=== PATIENT | male | born 1975 | race Caucasian/White ===

== ENCOUNTER 2020-05-26 12:31 | Outpatient (REF) | payer OTHER, SELFPAY ==
[2020-05-26 13:29] LABS: MANUAL DIFF FLAG NO
[2020-05-26 13:36] LABS: Basophils Percent Auto 0.6 % (0-2); Eosinophils Absolute Auto 0.2 X10*3/uL (0.0-0.4); Eosinophils Percent Auto 2.8 % (0-4); Hemoglobin 13.7 g/dl (14.0-18.0); Imm Gran Abs Auto 0.02 X10*3/uL (0.00-0.03); Imm Gran Pct Auto 0.3 % (0.0-0.4); Lymphocytes Absolute Auto 2.2 X10*3/uL (1.2-4.9); Lymphocytes Percent Auto 35.5 % (20-40); Mean Corpuscular HGB Conc 34.3 g/dl (31.0-36.0); Mean Corpuscular Hemoglobin 30.6 pg (27.0-33.0); Mean Corpuscular Volume 89.5 fL (80-98); Mean Platelet Volume 10.6 fL (9.4-12.4); Monocytes Absolute Auto 0.7 X10*3/uL (0.1-1.2); Monocytes Percent Auto 10.5 % (2-11); Neut%MD 50.3 %; Neutrophils Absolute Auto 3.1 X10*3/uL (2.0-8.3); Neutrophils Percent Auto 50.3 % (45-73); Platelet Count 233 X10*3/uL (160-400); Red Blood Count 4.47 X10*6/uL (4.60-5.80); Red Cell Distribution Width 13.2 % (11.0-16.0); WBCANC 6.2 X10*3/uL; White Blood Count 6.2 X10*3/uL (4.8-10.8)
== END 2020-05-26 12:32 | disposition home or self-care (01) ==
LOC: HO.LABR 12:31
PROVIDERS: PCP Internal Medicine; Visit Provider Psychiatry & Neurology Psychiatry
DX: Z79.899 Other long term (current) drug therapy (principal)
CPT/HCPCS: 36415; 85025

== ENCOUNTER 2020-06-01 13:18 | Outpatient (REF) | payer OTHER, SELFPAY ==
[2020-06-01 14:33] LABS: MANUAL DIFF FLAG NO
[2020-06-01 14:38] LABS: Basophils Absolute Auto 0.1 X10*3/uL (0.0-0.2); Basophils Percent Auto 0.9 % (0-2); Eosinophils Absolute Auto 0.2 X10*3/uL (0.0-0.4); Eosinophils Percent Auto 2.8 % (0-4); Hematocrit 41.5 % (42-52); Hemoglobin 13.8 g/dl (14.0-18.0); Imm Gran Abs Auto 0.01 X10*3/uL (0.00-0.03); Imm Gran Pct Auto 0.2 % (0.0-0.4); Lymphocytes Percent Auto 34.9 % (20-40); Mean Corpuscular HGB Conc 33.3 g/dl (31.0-36.0); Mean Corpuscular Hemoglobin 29.9 pg (27.0-33.0); Mean Corpuscular Volume 89.8 fL (80-98); Mean Platelet Volume 10.7 fL (9.4-12.4); Monocytes Absolute Auto 0.5 X10*3/uL (0.1-1.2); Monocytes Percent Auto 7.7 % (2-11); Neut%MD 53.5 %; Neutrophils Absolute Auto 3.1 X10*3/uL (2.0-8.3); Neutrophils Percent Auto 53.5 % (45-73); Platelet Count 238 X10*3/uL (160-400); Red Blood Count 4.62 X10*6/uL (4.60-5.80); Red Cell Distribution Width 13.2 % (11.0-16.0); WBCANC 5.8 X10*3/uL; White Blood Count 5.8 X10*3/uL (4.8-10.8)
== END 2020-06-01 13:19 | disposition home or self-care (01) ==
LOC: HO.LABR 13:18
PROVIDERS: PCP Internal Medicine; Visit Provider Psychiatry & Neurology Psychiatry
DX: Z79.899 Other long term (current) drug therapy (principal)
CPT/HCPCS: 36415; 85025

== ENCOUNTER 2020-06-15 14:18 | Outpatient (REF) | payer OTHER, SELFPAY ==
[2020-06-15 15:06] LABS: MANUAL DIFF FLAG NO
[2020-06-15 15:12] LABS: Basophils Percent Auto 0.7 % (0-2); Eosinophils Absolute Auto 0.2 X10*3/uL (0.0-0.4); Eosinophils Percent Auto 3.3 % (0-4); Hematocrit 41.1 % (42-52); Hemoglobin 13.6 g/dl (14.0-18.0); Imm Gran Abs Auto 0.01 X10*3/uL (0.00-0.03); Imm Gran Pct Auto 0.2 % (0.0-0.4); Lymphocytes Percent Auto 35.2 % (20-40); Mean Corpuscular HGB Conc 33.1 g/dl (31.0-36.0); Mean Corpuscular Volume 90.5 fL (80-98); Mean Platelet Volume 10.5 fL (9.4-12.4); Monocytes Absolute Auto 0.8 X10*3/uL (0.1-1.2); Neut%MD 46.6 %; Neutrophils Absolute Auto 2.7 X10*3/uL (2.0-8.3); Neutrophils Percent Auto 46.6 % (45-73); Platelet Count 244 X10*3/uL (160-400); Red Blood Count 4.54 X10*6/uL (4.60-5.80); Red Cell Distribution Width 13.4 % (11.0-16.0); WBCANC 5.8 X10*3/uL; White Blood Count 5.8 X10*3/uL (4.8-10.8)
== END 2020-06-15 14:19 | disposition home or self-care (01) ==
LOC: HO.LABR 14:18
PROVIDERS: PCP Internal Medicine; Visit Provider Psychiatry & Neurology Psychiatry
DX: Z79.899 Other long term (current) drug therapy (principal)
CPT/HCPCS: 36415; 85025

== ENCOUNTER 2020-06-22 11:32 | Outpatient (REF) | payer OTHER, SELFPAY ==
[2020-06-22 11:49] LABS: MANUAL DIFF FLAG NO
[2020-06-22 11:55] LABS: Basophils Percent Auto 0.7 % (0-2); Eosinophils Absolute Auto 0.2 X10*3/uL (0.0-0.4); Eosinophils Percent Auto 2.7 % (0-4); Hematocrit 41.1 % (42-52); Hemoglobin 13.6 g/dl (14.0-18.0); Imm Gran Abs Auto 0.01 X10*3/uL (0.00-0.03); Imm Gran Pct Auto 0.2 % (0.0-0.4); Lymphocytes Absolute Auto 2.3 X10*3/uL (1.2-4.9); Lymphocytes Percent Auto 40.2 % (20-40); Mean Corpuscular HGB Conc 33.1 g/dl (31.0-36.0); Mean Corpuscular Hemoglobin 29.8 pg (27.0-33.0); Mean Corpuscular Volume 90.1 fL (80-98); Mean Platelet Volume 10.3 fL (9.4-12.4); Monocytes Absolute Auto 0.7 X10*3/uL (0.1-1.2); Monocytes Percent Auto 11.7 % (2-11); Neutrophils Absolute Auto 2.6 X10*3/uL (2.0-8.3); Neutrophils Percent Auto 44.5 % (45-73); Platelet Count 243 X10*3/uL (160-400); Red Blood Count 4.56 X10*6/uL (4.60-5.80); Red Cell Distribution Width 13.2 % (11.0-16.0); White Blood Count 5.8 X10*3/uL (4.8-10.8)
== END 2020-06-22 11:33 | disposition home or self-care (01) ==
LOC: HO.LABR 11:32
PROVIDERS: Visit Provider Psychiatry & Neurology Psychiatry
DX: Z79.899 Other long term (current) drug therapy (principal)
CPT/HCPCS: 36415; 85025

== ENCOUNTER 2020-06-30 13:17 | Outpatient (REF) | payer OTHER, SELFPAY ==
[2020-06-30 14:41] LABS: MANUAL DIFF FLAG NO
[2020-06-30 14:48] LABS: Basophils Absolute Auto 0.1 X10*3/uL (0.0-0.2); Basophils Percent Auto 0.8 % (0-2); Eosinophils Absolute Auto 0.1 X10*3/uL (0.0-0.4); Hematocrit 40.4 % (42-52); Hemoglobin 13.4 g/dl (14.0-18.0); Imm Gran Abs Auto 0.01 X10*3/uL (0.00-0.03); Imm Gran Pct Auto 0.2 % (0.0-0.4); Lymphocytes Absolute Auto 2.1 X10*3/uL (1.2-4.9); Lymphocytes Percent Auto 35.2 % (20-40); Mean Corpuscular HGB Conc 33.2 g/dl (31.0-36.0); Mean Corpuscular Hemoglobin 29.9 pg (27.0-33.0); Mean Corpuscular Volume 90.2 fL (80-98); Mean Platelet Volume 10.8 fL (9.4-12.4); Monocytes Absolute Auto 0.7 X10*3/uL (0.1-1.2); Monocytes Percent Auto 10.9 % (2-11); Neut%MD 50.9 %; Neutrophils Absolute Auto 3.1 X10*3/uL (2.0-8.3); Neutrophils Percent Auto 50.9 % (45-73); Platelet Count 234 X10*3/uL (160-400); Red Blood Count 4.48 X10*6/uL (4.60-5.80); Red Cell Distribution Width 13.2 % (11.0-16.0); WBCANC 6.1 X10*3/uL; White Blood Count 6.1 X10*3/uL (4.8-10.8)
== END 2020-06-30 13:18 | disposition home or self-care (01) ==
LOC: HO.LABR 13:17
PROVIDERS: PCP Internal Medicine; Visit Provider Psychiatry & Neurology Psychiatry
DX: Z79.899 Other long term (current) drug therapy (principal)
CPT/HCPCS: 36415; 85025

== ENCOUNTER 2020-08-03 12:19 | Outpatient (REF) | payer OTHER, SELFPAY ==
[2020-08-03 13:04] LABS: Basophils Percent Auto 0.5 % (0-2); Eosinophils Absolute Auto 0.2 X10*3/uL (0.0-0.4); Eosinophils Percent Auto 2.4 % (0-4); Hematocrit 41.3 % (42-52); Hemoglobin 13.8 g/dl (14.0-18.0); Imm Gran Abs Auto 0.02 X10*3/uL (0.00-0.03); Imm Gran Pct Auto 0.3 % (0.0-0.4); Lymphocytes Absolute Auto 2.5 X10*3/uL (1.2-4.9); Lymphocytes Percent Auto 38.8 % (20-40); MANUAL DIFF FLAG NO; Mean Corpuscular HGB Conc 33.4 g/dl (31.0-36.0); Mean Corpuscular Hemoglobin 30.2 pg (27.0-33.0); Mean Corpuscular Volume 90.4 fL (80-98); Mean Platelet Volume 10.7 fL (9.4-12.4); Monocytes Absolute Auto 0.5 X10*3/uL (0.1-1.2); Monocytes Percent Auto 7.9 % (2-11); Neutrophils Absolute Auto 3.2 X10*3/uL (2.0-8.3); Neutrophils Percent Auto 50.1 % (45-73); Platelet Count 232 X10*3/uL (160-400); Red Blood Count 4.57 X10*6/uL (4.60-5.80); Red Cell Distribution Width 13.2 % (11.0-16.0); White Blood Count 6.3 X10*3/uL (4.8-10.8)
== END 2020-08-03 12:20 | disposition home or self-care (01) ==
LOC: HO.LABR 12:19
PROVIDERS: PCP Internal Medicine; Visit Provider Psychiatry & Neurology Psychiatry
DX: Z79.899 Other long term (current) drug therapy (principal)
CPT/HCPCS: 36415; 85025

== ENCOUNTER 2020-08-25 11:37 | Outpatient (REF) | payer OTHER, SELFPAY ==
[2020-08-25 12:17] LABS: MANUAL DIFF FLAG NO
[2020-08-25 12:26] LABS: Basophils Percent Auto 0.6 % (0-2); Eosinophils Absolute Auto 0.2 X10*3/uL (0.0-0.4); Eosinophils Percent Auto 2.9 % (0-4); Hematocrit 41.9 % (42-52); Hemoglobin 13.8 g/dl (14.0-18.0); Imm Gran Abs Auto 0.02 X10*3/uL (0.00-0.03); Imm Gran Pct Auto 0.3 % (0.0-0.4); Lymphocytes Absolute Auto 2.2 X10*3/uL (1.2-4.9); Lymphocytes Percent Auto 34.7 % (20-40); Mean Corpuscular HGB Conc 32.9 g/dl (31.0-36.0); Mean Corpuscular Hemoglobin 29.8 pg (27.0-33.0); Mean Corpuscular Volume 90.5 fL (80-98); Mean Platelet Volume 10.6 fL (9.4-12.4); Monocytes Absolute Auto 0.6 X10*3/uL (0.1-1.2); Monocytes Percent Auto 9.3 % (2-11); Neutrophils Absolute Auto 3.3 X10*3/uL (2.0-8.3); Neutrophils Percent Auto 52.2 % (45-73); Platelet Count 227 X10*3/uL (160-400); Red Blood Count 4.63 X10*6/uL (4.60-5.80); White Blood Count 6.3 X10*3/uL (4.8-10.8)
== END 2020-08-25 11:38 | disposition home or self-care (01) ==
LOC: HO.LABR 11:37
PROVIDERS: PCP Internal Medicine; Visit Provider Psychiatry & Neurology Psychiatry
DX: Z79.899 Other long term (current) drug therapy (principal)
CPT/HCPCS: 36415; 85025

== ENCOUNTER 2020-09-07 12:25 | Outpatient (REF) | payer OTHER, SELFPAY ==
[2020-09-07 13:10] LABS: MANUAL DIFF FLAG NO
[2020-09-07 13:13] LABS: Basophils Absolute Auto 0.1 X10*3/uL (0.0-0.2); Basophils Percent Auto 0.8 % (0-2); Eosinophils Absolute Auto 0.2 X10*3/uL (0.0-0.4); Eosinophils Percent Auto 2.6 % (0-4); Hematocrit 40.3 % (42-52); Hemoglobin 13.6 g/dl (14.0-18.0); Imm Gran Abs Auto 0.01 X10*3/uL (0.00-0.03); Imm Gran Pct Auto 0.2 % (0.0-0.4); Lymphocytes Absolute Auto 1.9 X10*3/uL (1.2-4.9); Lymphocytes Percent Auto 31.1 % (20-40); Mean Corpuscular HGB Conc 33.7 g/dl (31.0-36.0); Mean Corpuscular Hemoglobin 30.4 pg (27.0-33.0); Mean Platelet Volume 10.8 fL (9.4-12.4); Monocytes Absolute Auto 0.5 X10*3/uL (0.1-1.2); Monocytes Percent Auto 8.4 % (2-11); Neut%MD 56.9 %; Neutrophils Absolute Auto 3.5 X10*3/uL (2.0-8.3); Neutrophils Percent Auto 56.9 % (45-73); Platelet Count 233 X10*3/uL (160-400); Red Blood Count 4.48 X10*6/uL (4.60-5.80); Red Cell Distribution Width 13.2 % (11.0-16.0); WBCANC 6.2 X10*3/uL; White Blood Count 6.2 X10*3/uL (4.8-10.8)
== END 2020-09-07 12:26 | disposition home or self-care (01) ==
LOC: HO.LABR 12:25
PROVIDERS: PCP Internal Medicine; Visit Provider Psychiatry & Neurology Psychiatry
DX: Z79.899 Other long term (current) drug therapy (principal)
CPT/HCPCS: 36415; 85025; 85048

== ENCOUNTER 2020-09-20 11:10 | Outpatient (REF) | payer OTHER, SELFPAY ==
[2020-09-20 12:02] LABS: MANUAL DIFF FLAG NO
[2020-09-20 12:09] LABS: Basophils Percent Auto 0.4 % (0-2); Eosinophils Absolute Auto 0.1 X10*3/uL (0.0-0.4); Eosinophils Percent Auto 1.9 % (0-4); Hematocrit 41.1 % (42-52); Hemoglobin 13.9 g/dl (14.0-18.0); Imm Gran Abs Auto 0.02 X10*3/uL (0.00-0.03); Imm Gran Pct Auto 0.3 % (0.0-0.4); Lymphocytes Absolute Auto 2.2 X10*3/uL (1.2-4.9); Lymphocytes Percent Auto 32.3 % (20-40); Mean Corpuscular HGB Conc 33.8 g/dl (31.0-36.0); Mean Corpuscular Volume 88.8 fL (80-98); Mean Platelet Volume 10.9 fL (9.4-12.4); Monocytes Absolute Auto 0.7 X10*3/uL (0.1-1.2); Monocytes Percent Auto 10.9 % (2-11); Neut%MD 54.2 %; Neutrophils Absolute Auto 3.7 X10*3/uL (2.0-8.3); Neutrophils Percent Auto 54.2 % (45-73); Platelet Count 233 X10*3/uL (160-400); Red Blood Count 4.63 X10*6/uL (4.60-5.80); Red Cell Distribution Width 12.9 % (11.0-16.0); WBCANC 6.8 X10*3/uL; White Blood Count 6.8 X10*3/uL (4.8-10.8)
== END 2020-09-20 11:11 | disposition home or self-care (01) ==
LOC: HO.LABR 11:10
PROVIDERS: PCP Internal Medicine; Visit Provider Psychiatry & Neurology Psychiatry
DX: Z79.899 Other long term (current) drug therapy (principal)
CPT/HCPCS: 36415; 85025; 85048

== ENCOUNTER 2020-10-20 10:12 | Outpatient (REF) | payer OTHER, SELFPAY ==
[2020-10-20 10:54] LABS: MANUAL DIFF FLAG NO
[2020-10-20 10:58] LABS: Basophils Absolute Auto 0.1 X10*3/uL (0.0-0.2); Eosinophils Absolute Auto 0.2 X10*3/uL (0.0-0.4); Eosinophils Percent Auto 2.9 % (0-4); Hematocrit 41.1 % (42-52); Hemoglobin 13.9 g/dl (14.0-18.0); Imm Gran Abs Auto 0.02 X10*3/uL (0.00-0.03); Imm Gran Pct Auto 0.3 % (0.0-0.4); Lymphocytes Absolute Auto 2.4 X10*3/uL (1.2-4.9); Lymphocytes Percent Auto 41.1 % (20-40); Mean Corpuscular HGB Conc 33.8 g/dl (31.0-36.0); Mean Corpuscular Hemoglobin 30.3 pg (27.0-33.0); Mean Corpuscular Volume 89.7 fL (80-98); Mean Platelet Volume 10.6 fL (9.4-12.4); Monocytes Absolute Auto 0.5 X10*3/uL (0.1-1.2); Monocytes Percent Auto 8.5 % (2-11); Neut%MD 46.2 %; Neutrophils Absolute Auto 2.7 X10*3/uL (2.0-8.3); Neutrophils Percent Auto 46.2 % (45-73); Platelet Count 220 X10*3/uL (160-400); Red Blood Count 4.58 X10*6/uL (4.60-5.80); Red Cell Distribution Width 12.9 % (11.0-16.0); WBCANC 5.9 X10*3/uL; White Blood Count 5.9 X10*3/uL (4.8-10.8)
== END 2020-10-20 10:13 | disposition home or self-care (01) ==
LOC: HO.LABR 10:12
PROVIDERS: PCP Internal Medicine; Visit Provider Psychiatry & Neurology Psychiatry
DX: Z79.899 Other long term (current) drug therapy (principal)
CPT/HCPCS: 36415; 85025; 85048

== ENCOUNTER 2020-11-08 10:14 | Outpatient (REF) | payer OTHER, SELFPAY ==
[2020-11-08 11:39] LABS: MANUAL DIFF FLAG NO
[2020-11-08 11:55] LABS: Basophils Absolute Auto 0.1 X10*3/uL (0.0-0.2); Basophils Percent Auto 0.8 % (0-2); Eosinophils Absolute Auto 0.1 X10*3/uL (0.0-0.4); Eosinophils Percent Auto 2.3 % (0-4); Hematocrit 41.4 % (42-52); Hemoglobin 13.6 g/dl (14.0-18.0); Imm Gran Abs Auto 0.01 X10*3/uL (0.00-0.03); Imm Gran Pct Auto 0.2 % (0.0-0.4); Lymphocytes Absolute Auto 2.4 X10*3/uL (1.2-4.9); Mean Corpuscular HGB Conc 32.9 g/dl (31.0-36.0); Mean Corpuscular Hemoglobin 29.9 pg (27.0-33.0); Monocytes Absolute Auto 0.7 X10*3/uL (0.1-1.2); Neut%MD 45.7 %; Neutrophils Absolute Auto 2.8 X10*3/uL (2.0-8.3); Neutrophils Percent Auto 45.7 % (45-73); Platelet Count 223 X10*3/uL (160-400); Red Blood Count 4.55 X10*6/uL (4.60-5.80); WBCANC 6.1 X10*3/uL; White Blood Count 6.1 X10*3/uL (4.8-10.8)
== END 2020-11-08 10:15 | disposition home or self-care (01) ==
LOC: HO.LABR 10:14
PROVIDERS: PCP Internal Medicine; Visit Provider Psychiatry & Neurology Psychiatry
DX: Z79.899 Other long term (current) drug therapy (principal)
CPT/HCPCS: 36415; 85025; 85048

== ENCOUNTER 2020-11-22 10:14 | Outpatient (REF) | payer OTHER, SELFPAY ==
[2020-11-22 10:45] LABS: MANUAL DIFF FLAG NO
[2020-11-22 10:52] LABS: Basophils Percent Auto 0.7 % (0-2); Eosinophils Absolute Auto 0.2 X10*3/uL (0.0-0.4); Eosinophils Percent Auto 2.6 % (0-4); Hematocrit 39.7 % (42-52); Hemoglobin 13.9 g/dl (14.0-18.0); Imm Gran Abs Auto 0.01 X10*3/uL (0.00-0.03); Imm Gran Pct Auto 0.2 % (0.0-0.4); Lymphocytes Absolute Auto 1.8 X10*3/uL (1.2-4.9); Lymphocytes Percent Auto 32.4 % (20-40); Mean Corpuscular Hemoglobin 31.4 pg (27.0-33.0); Mean Corpuscular Volume 89.6 fL (80-98); Mean Platelet Volume 10.4 fL (9.4-12.4); Monocytes Absolute Auto 0.6 X10*3/uL (0.1-1.2); Monocytes Percent Auto 10.9 % (2-11); Neutrophils Percent Auto 53.2 % (45-73); Platelet Count 220 X10*3/uL (160-400); Red Blood Count 4.43 X10*6/uL (4.60-5.80); Red Cell Distribution Width 13.2 % (11.0-16.0); White Blood Count 5.7 X10*3/uL (4.8-10.8)
== END 2020-11-22 10:15 | disposition home or self-care (01) ==
LOC: HO.LABR 10:14
PROVIDERS: PCP Internal Medicine; Visit Provider Psychiatry & Neurology Psychiatry
DX: Z79.899 Other long term (current) drug therapy (principal)
CPT/HCPCS: 36415; 85025; 85048

== ENCOUNTER 2020-12-14 12:20 | Outpatient (REF) | payer OTHER, SELFPAY ==
[2020-12-14 13:04] LABS: MANUAL DIFF FLAG NO
[2020-12-14 13:11] LABS: Basophils Percent Auto 0.5 % (0-2); Eosinophils Absolute Auto 0.2 X10*3/uL (0.0-0.4); Eosinophils Percent Auto 2.5 % (0-4); Hematocrit 40.8 % (42-52); Hemoglobin 13.5 g/dl (14.0-18.0); Imm Gran Abs Auto 0.03 X10*3/uL (0.00-0.03); Imm Gran Pct Auto 0.5 % (0.0-0.4); Lymphocytes Absolute Auto 1.8 X10*3/uL (1.2-4.9); Lymphocytes Percent Auto 29.8 % (20-40); Mean Corpuscular HGB Conc 33.1 g/dl (31.0-36.0); Mean Corpuscular Hemoglobin 30.1 pg (27.0-33.0); Mean Corpuscular Volume 91.1 fL (80-98); Mean Platelet Volume 10.3 fL (9.4-12.4); Monocytes Absolute Auto 0.6 X10*3/uL (0.1-1.2); Neutrophils Absolute Auto 3.5 X10*3/uL (2.0-8.3); Neutrophils Percent Auto 56.7 % (45-73); Platelet Count 235 X10*3/uL (160-400); Red Blood Count 4.48 X10*6/uL (4.60-5.80); Red Cell Distribution Width 13.1 % (11.0-16.0); White Blood Count 6.1 X10*3/uL (4.8-10.8)
== END 2020-12-14 12:21 | disposition home or self-care (01) ==
LOC: HO.LABR 12:20
PROVIDERS: PCP Internal Medicine; Visit Provider Psychiatry & Neurology Psychiatry
DX: Z79.899 Other long term (current) drug therapy (principal)
CPT/HCPCS: 36415; 85025; 85048

== ENCOUNTER 2021-01-10 11:12 | Outpatient (REF) | payer OTHER, SELFPAY ==
[2021-01-10 12:04] LABS: MANUAL DIFF FLAG NO
[2021-01-10 12:09] LABS: Basophils Percent Auto 0.8 % (0-2); Eosinophils Absolute Auto 0.2 X10*3/uL (0.0-0.4); Eosinophils Percent Auto 3.1 % (0-4); Hematocrit 39.9 % (42-52); Hemoglobin 13.2 g/dl (14.0-18.0); Imm Gran Abs Auto 0.02 X10*3/uL (0.00-0.03); Imm Gran Pct Auto 0.4 % (0.0-0.4); Lymphocytes Absolute Auto 1.8 X10*3/uL (1.2-4.9); Lymphocytes Percent Auto 33.5 % (20-40); Mean Corpuscular HGB Conc 33.1 g/dl (31.0-36.0); Mean Corpuscular Volume 90.7 fL (80-98); Mean Platelet Volume 10.5 fL (9.4-12.4); Monocytes Absolute Auto 0.6 X10*3/uL (0.1-1.2); Monocytes Percent Auto 10.9 % (2-11); Neut%MD 51.3 %; Neutrophils Absolute Auto 2.7 X10*3/uL (2.0-8.3); Neutrophils Percent Auto 51.3 % (45-73); Platelet Count 216 X10*3/uL (160-400); Red Cell Distribution Width 13.1 % (11.0-16.0); WBCANC 5.2 X10*3/uL; White Blood Count 5.2 X10*3/uL (4.8-10.8)
== END 2021-01-10 11:13 | disposition home or self-care (01) ==
LOC: HO.LABR 11:12
PROVIDERS: PCP Internal Medicine; Visit Provider Psychiatry & Neurology Psychiatry
DX: Z79.899 Other long term (current) drug therapy (principal)
CPT/HCPCS: 36415; 85025; 85048

== ENCOUNTER 2021-02-07 10:56 | Outpatient (REF) | payer OTHER, SELFPAY ==
[2021-02-07 11:49] LABS: MANUAL DIFF FLAG NO
[2021-02-07 12:03] LABS: Basophils Percent Auto 0.6 % (0-2); Eosinophils Absolute Auto 0.1 X10*3/uL (0.0-0.4); Eosinophils Percent Auto 1.8 % (0-4); Hematocrit 42.4 % (42-52); Hemoglobin 14.1 g/dl (14.0-18.0); Imm Gran Abs Auto 0.02 X10*3/uL (0.00-0.03); Imm Gran Pct Auto 0.3 % (0.0-0.4); Lymphocytes Absolute Auto 2.5 X10*3/uL (1.2-4.9); Lymphocytes Percent Auto 36.9 % (20-40); Mean Corpuscular HGB Conc 33.3 g/dl (31.0-36.0); Mean Corpuscular Volume 90.2 fL (80-98); Mean Platelet Volume 10.6 fL (9.4-12.4); Monocytes Absolute Auto 0.7 X10*3/uL (0.1-1.2); Monocytes Percent Auto 10.4 % (2-11); Neutrophils Absolute Auto 3.3 X10*3/uL (2.0-8.3); Platelet Count 225 X10*3/uL (160-400); Red Cell Distribution Width 13.1 % (11.0-16.0); White Blood Count 6.7 X10*3/uL (4.8-10.8)
== END 2021-02-07 10:57 | disposition home or self-care (01) ==
LOC: HO.LABR 10:56
PROVIDERS: PCP Internal Medicine; Visit Provider Psychiatry & Neurology Psychiatry
DX: Z79.899 Other long term (current) drug therapy (principal)
CPT/HCPCS: 36415; 85025; 85048

== ENCOUNTER 2021-03-06 10:21 | Outpatient (REF) | payer OTHER, SELFPAY ==
[2021-03-06 11:46] LABS: MANUAL DIFF FLAG NO
[2021-03-06 11:54] LABS: Basophils Percent Auto 0.8 % (0-2); Eosinophils Absolute Auto 0.1 X10*3/uL (0.0-0.4); Eosinophils Percent Auto 1.9 % (0-4); Hematocrit 45.1 % (42-52); Hemoglobin 15.1 g/dl (14.0-18.0); Imm Gran Abs Auto 0.02 X10*3/uL (0.00-0.03); Imm Gran Pct Auto 0.4 % (0.0-0.4); Lymphocytes Absolute Auto 1.9 X10*3/uL (1.2-4.9); Lymphocytes Percent Auto 35.5 % (20-40); Mean Corpuscular HGB Conc 33.5 g/dl (31.0-36.0); Mean Corpuscular Volume 89.7 fL (80-98); Mean Platelet Volume 11.2 fL (9.4-12.4); Monocytes Absolute Auto 0.4 X10*3/uL (0.1-1.2); Monocytes Percent Auto 8.2 % (2-11); Neutrophils Absolute Auto 2.8 X10*3/uL (2.0-8.3); Neutrophils Percent Auto 53.2 % (45-73); Platelet Count 239 X10*3/uL (160-400); Red Blood Count 5.03 X10*6/uL (4.60-5.80); Red Cell Distribution Width 13.1 % (11.0-16.0); White Blood Count 5.2 X10*3/uL (4.8-10.8)
== END 2021-03-06 10:22 | disposition home or self-care (01) ==
LOC: HO.LABR 10:21
PROVIDERS: PCP Internal Medicine; Visit Provider Psychiatry & Neurology Psychiatry
DX: Z79.899 Other long term (current) drug therapy (principal)
CPT/HCPCS: 36415; 85025; 85048

== ENCOUNTER 2021-03-21 10:46 | Outpatient (REF) | payer OTHER, SELFPAY ==
[2021-03-21 12:16] LABS: MANUAL DIFF FLAG NO
[2021-03-21 12:21] LABS: Basophils Percent Auto 0.6 % (0-2); Eosinophils Absolute Auto 0.2 X10*3/uL (0.0-0.4); Eosinophils Percent Auto 2.2 % (0-4); Hematocrit 40.7 % (42-52); Hemoglobin 13.4 g/dl (14.0-18.0); Imm Gran Abs Auto 0.01 X10*3/uL (0.00-0.03); Imm Gran Pct Auto 0.1 % (0.0-0.4); Lymphocytes Absolute Auto 2.7 X10*3/uL (1.2-4.9); Lymphocytes Percent Auto 39.4 % (20-40); Mean Corpuscular HGB Conc 32.9 g/dl (31.0-36.0); Mean Corpuscular Hemoglobin 29.8 pg (27.0-33.0); Mean Corpuscular Volume 90.4 fL (80-98); Mean Platelet Volume 11.1 fL (9.4-12.4); Monocytes Absolute Auto 0.7 X10*3/uL (0.1-1.2); Monocytes Percent Auto 10.7 % (2-11); Neutrophils Absolute Auto 3.2 X10*3/uL (2.0-8.3); Platelet Count 244 X10*3/uL (160-400); Red Cell Distribution Width 13.2 % (11.0-16.0); White Blood Count 6.8 X10*3/uL (4.8-10.8)
== END 2021-03-21 10:47 | disposition home or self-care (01) ==
LOC: HO.LABR 10:46
PROVIDERS: Visit Provider Psychiatry & Neurology Psychiatry
DX: Z79.899 Other long term (current) drug therapy (principal)
CPT/HCPCS: 36415; 85025; 85048

== ENCOUNTER 2021-04-12 11:11 | Outpatient (REF) | payer OTHER, SELFPAY ==
[2021-04-12 11:29] LABS: MANUAL DIFF FLAG NO
[2021-04-12 11:37] LABS: Basophils Percent Auto 0.6 % (0-2); Eosinophils Absolute Auto 0.1 X10*3/uL (0.0-0.4); Eosinophils Percent Auto 1.8 % (0-4); Hematocrit 44.5 % (42-52); Hemoglobin 15.1 g/dl (14.0-18.0); Imm Gran Abs Auto 0.02 X10*3/uL (0.00-0.03); Imm Gran Pct Auto 0.3 % (0.0-0.4); Lymphocytes Absolute Auto 2.3 X10*3/uL (1.2-4.9); Lymphocytes Percent Auto 36.9 % (20-40); Mean Corpuscular HGB Conc 33.9 g/dl (31.0-36.0); Mean Corpuscular Hemoglobin 30.6 pg (27.0-33.0); Mean Corpuscular Volume 90.3 fL (80-98); Mean Platelet Volume 10.5 fL (9.4-12.4); Monocytes Absolute Auto 0.5 X10*3/uL (0.1-1.2); Neutrophils Absolute Auto 3.3 X10*3/uL (2.0-8.3); Neutrophils Percent Auto 52.4 % (45-73); Platelet Count 258 X10*3/uL (160-400); Red Blood Count 4.93 X10*6/uL (4.60-5.80); Red Cell Distribution Width 13.5 % (11.0-16.0); White Blood Count 6.2 X10*3/uL (4.8-10.8)
== END 2021-04-12 11:12 | disposition home or self-care (01) ==
LOC: HO.LABR 11:11
PROVIDERS: PCP Internal Medicine; Visit Provider Psychiatry & Neurology Psychiatry
DX: Z79.899 Other long term (current) drug therapy (principal)
CPT/HCPCS: 36415; 85025; 85048

== ENCOUNTER 2021-05-16 10:15 | Outpatient (REF) | payer OTHER, SELFPAY ==
[2021-05-16 10:57] LABS: MANUAL DIFF FLAG NO
[2021-05-16 11:44] LABS: Basophils Percent Auto 0.5 % (0-2); Eosinophils Absolute Auto 0.1 X10*3/uL (0.0-0.4); Eosinophils Percent Auto 1.9 % (0-4); Hematocrit 41.6 % (42-52); Hemoglobin 13.8 g/dl (14.0-18.0); Imm Gran Abs Auto 0.01 X10*3/uL (0.00-0.03); Imm Gran Pct Auto 0.2 % (0.0-0.4); Lymphocytes Absolute Auto 1.9 X10*3/uL (1.2-4.9); Lymphocytes Percent Auto 29.2 % (20-40); Mean Corpuscular HGB Conc 33.2 g/dl (31.0-36.0); Mean Corpuscular Hemoglobin 29.9 pg (27.0-33.0); Mean Corpuscular Volume 90.2 fL (80-98); Mean Platelet Volume 10.8 fL (9.4-12.4); Monocytes Absolute Auto 0.6 X10*3/uL (0.1-1.2); Monocytes Percent Auto 9.5 % (2-11); Neutrophils Absolute Auto 3.8 X10*3/uL (2.0-8.3); Neutrophils Percent Auto 58.7 % (45-73); Platelet Count 240 X10*3/uL (160-400); Red Blood Count 4.61 X10*6/uL (4.60-5.80); Red Cell Distribution Width 13.2 % (11.0-16.0); White Blood Count 6.4 X10*3/uL (4.8-10.8)
== END 2021-05-16 10:16 | disposition home or self-care (01) ==
LOC: HO.LABR 10:15
PROVIDERS: Visit Provider Psychiatry & Neurology Psychiatry
DX: Z79.899 Other long term (current) drug therapy (principal)
CPT/HCPCS: 36415; 85025; 85048

== ENCOUNTER 2021-05-31 11:41 | Outpatient (REF) | payer OTHER, SELFPAY | END 2021-05-31 11:42 | disposition home or self-care (01) | LOC: HO.LAB 11:41 | PROVIDERS: PCP Internal Medicine; Visit Provider Internal Medicine | DX: Z20.822 Contact with and (suspected) exposure to COVID-19 (principal) | CPT/HCPCS: C9803; U0003; U0005 ==

== ENCOUNTER 2021-06-12 11:13 | Outpatient (REF) | payer OTHER, SELFPAY ==
[2021-06-12 11:31] LABS: MANUAL DIFF FLAG NO
[2021-06-12 12:57] LABS: Basophils Percent Auto 0.7 % (0-2); Eosinophils Absolute Auto 0.1 X10*3/uL (0.0-0.4); Eosinophils Percent Auto 1.8 % (0-4); Hematocrit 43.2 % (42-52); Hemoglobin 14.7 g/dl (14.0-18.0); Imm Gran Abs Auto 0.01 X10*3/uL (0.00-0.03); Imm Gran Pct Auto 0.2 % (0.0-0.4); Lymphocytes Absolute Auto 1.9 X10*3/uL (1.2-4.9); Lymphocytes Percent Auto 31.3 % (20-40); Mean Corpuscular Hemoglobin 30.6 pg (27.0-33.0); Mean Platelet Volume 11.2 fL (9.4-12.4); Monocytes Absolute Auto 0.6 X10*3/uL (0.1-1.2); Monocytes Percent Auto 9.2 % (2-11); Neut%MD 56.8 %; Neutrophils Absolute Auto 3.5 X10*3/uL (2.0-8.3); Neutrophils Percent Auto 56.8 % (45-73); Platelet Count 251 X10*3/uL (160-400); Red Cell Distribution Width 13.1 % (11.0-16.0); WBCANC 6.1 X10*3/uL; White Blood Count 6.1 X10*3/uL (4.8-10.8)
== END 2021-06-12 11:14 | disposition home or self-care (01) ==
LOC: HO.LABR 11:13
PROVIDERS: Visit Provider Psychiatry & Neurology Psychiatry
DX: Z79.899 Other long term (current) drug therapy (principal)
CPT/HCPCS: 36415; 85025

== ENCOUNTER 2021-07-11 11:13 | Outpatient (REF) | payer OTHER, SELFPAY ==
[2021-07-11 11:32] LABS: MANUAL DIFF FLAG NO
[2021-07-11 11:40] LABS: Basophils Percent Auto 0.7 % (0-2); Eosinophils Absolute Auto 0.1 X10*3/uL (0.0-0.4); Hematocrit 43.6 % (42.0-52.0); Hemoglobin 14.5 g/dl (14.0-18.0); Imm Gran Abs Auto 0.01 X10*3/uL (0.00-0.03); Imm Gran Pct Auto 0.2 % (0.0-0.4); Lymphocytes Absolute Auto 1.8 X10*3/uL (1.2-4.9); Lymphocytes Percent Auto 31.6 % (20-40); Mean Corpuscular HGB Conc 33.3 g/dl (31.0-36.0); Mean Corpuscular Volume 90.3 fL (80.0-98.0); Mean Platelet Volume 10.5 fL (9.4-12.4); Monocytes Absolute Auto 0.6 X10*3/uL (0.1-1.2); Monocytes Percent Auto 10.2 % (2-11); Neutrophils Absolute Auto 3.1 x10*3/uL (2.0-8.3); Neutrophils Percent Auto 55.3 % (45-73); Platelet Count 239 X10*3/uL (160-400); Red Blood Count 4.83 X10*6/uL (4.60-5.80); White Blood Count 5.6 X10*3/uL (4.8-10.8)
== END 2021-07-11 11:14 | disposition home or self-care (01) ==
LOC: HO.LABR 11:13
PROVIDERS: PCP Internal Medicine; Visit Provider Psychiatry & Neurology Psychiatry
DX: Z79.899 Other long term (current) drug therapy (principal)
CPT/HCPCS: 36415; 85025

== ENCOUNTER 2021-08-09 13:18 | Outpatient (REF) | payer OTHER, SELFPAY ==
[2021-08-09 13:30] LABS: MANUAL DIFF FLAG NO
[2021-08-09 13:53] LABS: Basophils Percent Auto 0.5 % (0-2); Eosinophils Absolute Auto 0.1 X10*3/uL (0.0-0.4); Eosinophils Percent Auto 1.5 % (0-4); Hematocrit 43.7 % (42.0-52.0); Hemoglobin 14.8 g/dl (14.0-18.0); Imm Gran Abs Auto 0.01 X10*3/uL (0.00-0.03); Imm Gran Pct Auto 0.2 % (0.0-0.4); Lymphocytes Absolute Auto 1.5 X10*3/uL (1.2-4.9); Lymphocytes Percent Auto 25.7 % (20-40); Mean Corpuscular HGB Conc 33.9 g/dl (31.0-36.0); Mean Corpuscular Hemoglobin 30.4 pg (27.0-33.0); Mean Corpuscular Volume 89.7 fL (80.0-98.0); Mean Platelet Volume 10.4 fL (9.4-12.4); Monocytes Absolute Auto 0.5 X10*3/uL (0.1-1.2); Monocytes Percent Auto 8.7 % (2-11); Neutrophils Absolute Auto 3.7 x10*3/uL (2.0-8.3); Neutrophils Percent Auto 63.4 % (45-73); Platelet Count 236 X10*3/uL (160-400); Red Blood Count 4.87 X10*6/uL (4.60-5.80); Red Cell Distribution Width 13.1 % (11.0-16.0); White Blood Count 5.9 X10*3/uL (4.8-10.8)
== END 2021-08-09 13:19 | disposition home or self-care (01) ==
LOC: HO.LABR 13:18
PROVIDERS: Visit Provider Psychiatry & Neurology Psychiatry
DX: Z79.899 Other long term (current) drug therapy (principal)
CPT/HCPCS: 36415; 85025; 85048

== ENCOUNTER 2021-09-07 12:35 | Outpatient (REF) | payer OTHER, SELFPAY ==
[2021-09-07 12:50] LABS: MANUAL DIFF FLAG NO
[2021-09-07 13:12] LABS: Basophils Absolute Auto 0.1 X10*3/uL (0.0-0.2); Basophils Percent Auto 0.7 % (0-2); Eosinophils Absolute Auto 0.1 X10*3/uL (0.0-0.4); Eosinophils Percent Auto 1.9 % (0-4); Hematocrit 42.5 % (42.0-52.0); Hemoglobin 14.2 g/dl (14.0-18.0); Imm Gran Abs Auto 0.02 X10*3/uL (0.00-0.03); Imm Gran Pct Auto 0.3 % (0.0-0.4); Lymphocytes Absolute Auto 2.2 X10*3/uL (1.2-4.9); Lymphocytes Percent Auto 31.6 % (20-40); Mean Corpuscular HGB Conc 33.4 g/dl (31.0-36.0); Mean Corpuscular Hemoglobin 30.1 pg (27.0-33.0); Mean Corpuscular Volume 90.2 fL (80.0-98.0); Mean Platelet Volume 10.7 fL (9.4-12.4); Monocytes Absolute Auto 0.6 X10*3/uL (0.1-1.2); Monocytes Percent Auto 8.9 % (2-11); Neutrophils Absolute Auto 3.9 x10*3/uL (2.0-8.3); Neutrophils Percent Auto 56.6 % (45-73); Platelet Count 259 X10*3/uL (160-400); Red Blood Count 4.71 X10*6/uL (4.60-5.80)
[2021-09-07 13:48] LABS: Alanine Aminotransferase 22 U/L (0-40); Albumin Level 4.4 g/dL (3.5-5.0); Alkaline Phosphatase 96 U/L (39-117); Anion Gap 14 (12-20); Aspartate Amino Transferase 15 U/L (5-37); Bilirubin Total 0.5 mg/dL (0.0-1.0); Blood Urea Nitrogen 14 mg/dL (9-16); Calcium 9.9 mg/dL (8.4-10.2); Carbon Dioxide 26 mmol/L (22-29); Chloride 104 mmol/L (96-108); Cholesterol 258 mg/dL; Estimated Glomerular Filt Rate > 60; Glucose Fasting 127 mg/dL (60-99); HDL Cholesterol 38 mg/dL; Potassium 4.2 mmol/L (3.3-5.1); Sodium 140 mmol/L (135-145); Total Protein 7.8 g/dL (6.5-8.0); Triglycerides 424 mg/dL
[2021-09-07 14:08] LABS: Thyroid Stimulating Hormone 2.67 uIU/mL (0.32-4.0)
== END 2021-09-07 12:36 | disposition home or self-care (01) ==
LOC: HO.LABR 12:35
PROVIDERS: PCP Internal Medicine; Visit Provider Psychiatry & Neurology Psychiatry
DX: Z00.00 Encounter for general adult medical examination without abnormal findings (principal); Z13.0 Encounter for screening for diseases of the blood and blood-forming organs and certain disorders involving the immune mechanism; Z79.899 Other long term (current) drug therapy
CPT/HCPCS: 36415; 80053; 80061; 84443; 85025

== ENCOUNTER 2021-10-03 11:21 | Outpatient (REF) | payer OTHER, SELFPAY ==
[2021-10-03 11:42] LABS: MANUAL DIFF FLAG NO
[2021-10-03 11:52] LABS: Basophils Percent Auto 0.1 % (0-2); Eosinophils Absolute Auto 0.1 X10*3/uL (0.0-0.4); Eosinophils Percent Auto 1.3 % (0-4); Hemoglobin 12.9 g/dl (14.0-18.0); Imm Gran Abs Auto 0.02 X10*3/uL (0.00-0.03); Imm Gran Pct Auto 0.3 % (0.0-0.4); Lymphocytes Absolute Auto 1.8 X10*3/uL (1.2-4.9); Lymphocytes Percent Auto 25.8 % (20-40); Mean Corpuscular HGB Conc 33.1 g/dl (31.0-36.0); Mean Corpuscular Volume 90.7 fL (80.0-98.0); Mean Platelet Volume 10.2 fL (9.4-12.4); Monocytes Absolute Auto 0.8 X10*3/uL (0.1-1.2); Neutrophils Absolute Auto 4.2 x10*3/uL (2.0-8.3); Neutrophils Percent Auto 61.5 % (45-73); Platelet Count 309 X10*3/uL (160-400); Red Cell Distribution Width 12.8 % (11.0-16.0); White Blood Count 6.8 X10*3/uL (4.8-10.8)
== END 2021-10-03 11:22 | disposition home or self-care (01) ==
LOC: HO.LABR 11:21
PROVIDERS: PCP Internal Medicine; Visit Provider Psychiatry & Neurology Psychiatry
DX: Z79.899 Other long term (current) drug therapy (principal)
CPT/HCPCS: 36415; 85025

== ENCOUNTER 2021-11-02 11:14 | Outpatient (REF) | payer OTHER, SELFPAY ==
[2021-11-02 11:32] LABS: MANUAL DIFF FLAG NO
[2021-11-02 12:31] LABS: Basophils Percent Auto 0.4 % (0-2); Eosinophils Absolute Auto 0.2 X10*3/uL (0.0-0.4); Eosinophils Percent Auto 2.2 % (0-4); Hematocrit 43.4 % (42.0-52.0); Hemoglobin 13.7 g/dl (14.0-18.0); Imm Gran Abs Auto 0.02 X10*3/uL (0.00-0.03); Imm Gran Pct Auto 0.3 % (0.0-0.4); Lymphocytes Absolute Auto 2.4 X10*3/uL (1.2-4.9); Lymphocytes Percent Auto 32.9 % (20-40); Mean Corpuscular HGB Conc 31.6 g/dl (31.0-36.0); Mean Corpuscular Hemoglobin 29.4 pg (27.0-33.0); Mean Corpuscular Volume 93.1 fL (80.0-98.0); Mean Platelet Volume 11.2 fL (9.4-12.4); Monocytes Absolute Auto 0.5 X10*3/uL (0.1-1.2); Monocytes Percent Auto 7.2 % (2-11); Neutrophils Absolute Auto 4.1 x10*3/uL (2.0-8.3); Platelet Count 218 X10*3/uL (160-400); Red Blood Count 4.66 X10*6/uL (4.60-5.80); Red Cell Distribution Width 13.8 % (11.0-16.0); White Blood Count 7.2 X10*3/uL (4.8-10.8)
== END 2021-11-02 11:15 | disposition home or self-care (01) ==
LOC: HO.LABR 11:14
PROVIDERS: PCP Internal Medicine; Visit Provider Psychiatry & Neurology Psychiatry
DX: Z79.899 Other long term (current) drug therapy (principal)
CPT/HCPCS: 36415; 85025

== ENCOUNTER 2021-12-05 11:17 | Outpatient (REF) | payer OTHER, SELFPAY ==
[2021-12-05 11:47] LABS: MANUAL DIFF FLAG NO
[2021-12-05 12:28] LABS: Basophils Percent Auto 0.5 % (0-2); Eosinophils Absolute Auto 0.1 X10*3/uL (0.0-0.4); Eosinophils Percent Auto 1.5 % (0-4); Hematocrit 42.9 % (42.0-52.0); Hemoglobin 14.2 g/dl (14.0-18.0); Imm Gran Abs Auto 0.02 X10*3/uL (0.00-0.03); Imm Gran Pct Auto 0.3 % (0.0-0.4); Lymphocytes Percent Auto 25.2 % (20-40); Mean Corpuscular HGB Conc 33.1 g/dl (31.0-36.0); Mean Corpuscular Volume 90.7 fL (80.0-98.0); Mean Platelet Volume 10.9 fL (9.4-12.4); Monocytes Absolute Auto 0.7 X10*3/uL (0.1-1.2); Monocytes Percent Auto 8.8 % (2-11); Neutrophils Percent Auto 63.7 % (45-73); Platelet Count 232 X10*3/uL (160-400); Red Blood Count 4.73 X10*6/uL (4.60-5.80); Red Cell Distribution Width 13.4 % (11.0-16.0); White Blood Count 7.8 X10*3/uL (4.8-10.8)
== END 2021-12-05 11:18 | disposition home or self-care (01) ==
LOC: HO.LABR 11:17
PROVIDERS: PCP Internal Medicine; Visit Provider Psychiatry & Neurology Psychiatry
DX: Z79.899 Other long term (current) drug therapy (principal)
CPT/HCPCS: 36415; 85025; 85048

== ENCOUNTER 2021-12-29 10:19 | Outpatient (REF) | payer OTHER, SELFPAY ==
[2021-12-29 10:40] LABS: MANUAL DIFF FLAG NO
[2021-12-29 10:58] LABS: Basophils Absolute Auto 0.1 X10*3/uL (0.0-0.2); Basophils Percent Auto 0.8 % (0-2); Eosinophils Absolute Auto 0.2 X10*3/uL (0.0-0.4); Hematocrit 37.4 % (42.0-52.0); Hemoglobin 12.3 g/dl (14.0-18.0); Imm Gran Abs Auto 0.02 X10*3/uL (0.00-0.03); Imm Gran Pct Auto 0.3 % (0.0-0.4); Lymphocytes Absolute Auto 2.3 X10*3/uL (1.2-4.9); Mean Corpuscular HGB Conc 32.9 g/dl (31.0-36.0); Mean Corpuscular Hemoglobin 29.6 pg (27.0-33.0); Mean Corpuscular Volume 90.1 fL (80.0-98.0); Mean Platelet Volume 10.5 fL (9.4-12.4); Monocytes Absolute Auto 0.7 X10*3/uL (0.1-1.2); Monocytes Percent Auto 9.8 % (2-11); Neutrophils Absolute Auto 3.5 x10*3/uL (2.0-8.3); Neutrophils Percent Auto 52.1 % (45-73); Platelet Count 223 X10*3/uL (160-400); Red Blood Count 4.15 X10*6/uL (4.60-5.80); Red Cell Distribution Width 13.9 % (11.0-16.0); White Blood Count 6.6 X10*3/uL (4.8-10.8)
== END 2021-12-29 10:20 | disposition home or self-care (01) ==
LOC: HO.LABR 10:19
PROVIDERS: PCP Internal Medicine; Visit Provider Psychiatry & Neurology Psychiatry
DX: Z79.899 Other long term (current) drug therapy (principal)
CPT/HCPCS: 36415; 85025

== ENCOUNTER 2022-01-31 15:52 | Outpatient (REF) | payer OTHER, SELFPAY ==
[2022-01-31 16:10] LABS: MANUAL DIFF FLAG NO
[2022-01-31 16:54] LABS: Basophils Percent Auto 0.5 % (0-2); Eosinophils Absolute Auto 0.1 X10*3/uL (0.0-0.4); Eosinophils Percent Auto 1.6 % (0-4); Hematocrit 40.7 % (42.0-52.0); Hemoglobin 13.7 g/dl (14.0-18.0); Imm Gran Abs Auto 0.02 X10*3/uL (0.00-0.03); Imm Gran Pct Auto 0.3 % (0.0-0.4); Lymphocytes Absolute Auto 1.9 X10*3/uL (1.2-4.9); Lymphocytes Percent Auto 23.8 % (20-40); Mean Corpuscular HGB Conc 33.7 g/dl (31.0-36.0); Mean Corpuscular Hemoglobin 30.2 pg (27.0-33.0); Mean Corpuscular Volume 89.8 fL (80.0-98.0); Mean Platelet Volume 11.3 fL (9.4-12.4); Monocytes Absolute Auto 0.5 X10*3/uL (0.1-1.2); Monocytes Percent Auto 6.4 % (2-11); Neutrophils Absolute Auto 5.4 x10*3/uL (2.0-8.3); Neutrophils Percent Auto 67.4 % (45-73); Platelet Count 215 X10*3/uL (160-400); Red Blood Count 4.53 X10*6/uL (4.60-5.80); Red Cell Distribution Width 13.1 % (11.0-16.0)
== END 2022-01-31 15:53 | disposition home or self-care (01) ==
LOC: HO.LABR 15:52
PROVIDERS: PCP Internal Medicine; Visit Provider Psychiatry & Neurology Psychiatry
DX: Z79.899 Other long term (current) drug therapy (principal)
CPT/HCPCS: 36415; 85025

== ENCOUNTER 2022-02-12 12:20 | Outpatient (REF) | payer OTHER, SELFPAY ==
[2022-02-12 12:32] LABS: MANUAL DIFF FLAG NO
[2022-02-12 13:05] LABS: Basophils Percent Auto 0.3 % (0-2); Eosinophils Absolute Auto 0.1 X10*3/uL (0.0-0.4); Eosinophils Percent Auto 2.1 % (0-4); Hematocrit 41.5 % (42.0-52.0); Hemoglobin 13.6 g/dl (14.0-18.0); Imm Gran Abs Auto 0.02 X10*3/uL (0.00-0.03); Imm Gran Pct Auto 0.3 % (0.0-0.4); Lymphocytes Absolute Auto 1.8 X10*3/uL (1.2-4.9); Lymphocytes Percent Auto 28.8 % (20-40); Mean Corpuscular HGB Conc 32.8 g/dl (31.0-36.0); Mean Corpuscular Hemoglobin 29.6 pg (27.0-33.0); Mean Corpuscular Volume 90.4 fL (80.0-98.0); Mean Platelet Volume 10.9 fL (9.4-12.4); Monocytes Absolute Auto 0.6 X10*3/uL (0.1-1.2); Monocytes Percent Auto 10.1 % (2-11); Neutrophils Absolute Auto 3.7 x10*3/uL (2.0-8.3); Neutrophils Percent Auto 58.4 % (45-73); Platelet Count 211 X10*3/uL (160-400); Red Blood Count 4.59 X10*6/uL (4.60-5.80); Red Cell Distribution Width 13.1 % (11.0-16.0); White Blood Count 6.3 X10*3/uL (4.8-10.8)
[2022-02-12 15:19] LABS: Cholesterol 130 mg/dL; HDL Cholesterol 36 mg/dL; LDL Cholesterol Calculated 58 mg/dl; Triglycerides 180 mg/dL
== END 2022-02-12 12:21 | disposition home or self-care (01) ==
LOC: HO.LABR 12:20
PROVIDERS: PCP Internal Medicine; Visit Provider Psychiatry & Neurology Psychiatry
DX: Z13.9 Encounter for screening, unspecified (principal); Z79.899 Other long term (current) drug therapy
CPT/HCPCS: 36415; 80061; 85025; 85048

== ENCOUNTER 2022-02-27 12:22 | Outpatient (REF) | payer OTHER, SELFPAY ==
[2022-02-27 12:35] LABS: MANUAL DIFF FLAG NO
[2022-02-27 12:55] LABS: Basophils Percent Auto 0.5 % (0-2); Eosinophils Absolute Auto 0.1 X10*3/uL (0.0-0.4); Eosinophils Percent Auto 2.1 % (0-4); Hematocrit 39.4 % (42.0-52.0); Hemoglobin 13.2 g/dl (14.0-18.0); Imm Gran Abs Auto 0.01 X10*3/uL (0.00-0.03); Imm Gran Pct Auto 0.2 % (0.0-0.4); Lymphocytes Absolute Auto 1.7 X10*3/uL (1.2-4.9); Lymphocytes Percent Auto 27.2 % (20-40); Mean Corpuscular HGB Conc 33.5 g/dl (31.0-36.0); Mean Corpuscular Hemoglobin 29.9 pg (27.0-33.0); Mean Corpuscular Volume 89.3 fL (80.0-98.0); Mean Platelet Volume 10.9 fL (9.4-12.4); Monocytes Absolute Auto 0.5 X10*3/uL (0.1-1.2); Neutrophils Absolute Auto 3.9 x10*3/uL (2.0-8.3); Platelet Count 225 X10*3/uL (160-400); Red Blood Count 4.41 X10*6/uL (4.60-5.80); Red Cell Distribution Width 12.8 % (11.0-16.0); WBCANC 6.2 X10*3/uL; White Blood Count 6.2 X10*3/uL (4.8-10.8)
== END 2022-02-27 12:23 | disposition home or self-care (01) ==
LOC: HO.LABR 12:22
PROVIDERS: PCP Internal Medicine; Visit Provider Psychiatry & Neurology Psychiatry
DX: Z79.899 Other long term (current) drug therapy (principal)
CPT/HCPCS: 36415; 85025

== ENCOUNTER 2022-03-27 11:14 | Outpatient (REF) | payer OTHER, SELFPAY ==
[2022-03-27 12:05] LABS: Basophils Percent Auto 0.7 % (0-2); PLT CLUMP 1; SCAN SMEAR FLAG 1
[2022-03-27 12:07] LABS: Eosinophils Absolute Auto 0.1 X10*3/uL (0.0-0.4); Eosinophils Percent Auto 1.6 % (0-4); Hematocrit 41.7 % (42.0-52.0); Hemoglobin 13.9 g/dl (14.0-18.0); Imm Gran Abs Auto 0.02 X10*3/uL (0.00-0.03); Imm Gran Pct Auto 0.4 % (0.0-0.4); Lymphocytes Absolute Auto 1.6 X10*3/uL (1.2-4.9); Lymphocytes Percent Auto 27.9 % (20-40); MANUAL DIFF FLAG SCAN; Mean Corpuscular HGB Conc 33.3 g/dl (31.0-36.0); Mean Corpuscular Hemoglobin 30.3 pg (27.0-33.0); Mean Corpuscular Volume 90.8 fL (80.0-98.0); Monocytes Absolute Auto 0.5 X10*3/uL (0.1-1.2); Monocytes Percent Auto 8.2 % (2-11); Neutrophils Absolute Auto 3.4 x10*3/uL (2.0-8.3); Neutrophils Percent Auto 61.2 % (45-73); Red Blood Count 4.59 X10*6/uL (4.60-5.80); Red Cell Distribution Width 13.2 % (11.0-16.0)
[2022-03-27 12:24] LABS: Platelet Count 177 X10*3/uL (160-400); White Blood Count 5.6 X10*3/uL (4.8-10.8)
[2022-03-27 12:25] LABS: SLIDE REVIEW VERIFIED
== END 2022-03-27 11:15 | disposition home or self-care (01) ==
LOC: HO.LAB 11:14
PROVIDERS: PCP Internal Medicine; Visit Provider Psychiatry & Neurology Psychiatry
DX: Z79.899 Other long term (current) drug therapy (principal)
CPT/HCPCS: 36415; 85025

== ENCOUNTER 2022-04-26 10:17 | Outpatient (REF) | payer OTHER, SELFPAY ==
[2022-04-26 10:45] LABS: MANUAL DIFF FLAG NO
[2022-04-26 11:46] LABS: Basophils Percent Auto 0.5 % (0-2); Eosinophils Absolute Auto 0.1 X10*3/uL (0.0-0.4); Eosinophils Percent Auto 1.3 % (0-4); Hematocrit 41.1 % (42.0-52.0); Hemoglobin 13.7 g/dl (14.0-18.0); Imm Gran Abs Auto 0.01 X10*3/uL (0.00-0.03); Imm Gran Pct Auto 0.2 % (0.0-0.4); Lymphocytes Absolute Auto 1.6 X10*3/uL (1.2-4.9); Lymphocytes Percent Auto 25.2 % (20-40); Mean Corpuscular HGB Conc 33.3 g/dl (31.0-36.0); Mean Corpuscular Hemoglobin 30.3 pg (27.0-33.0); Mean Corpuscular Volume 90.9 fL (80.0-98.0); Mean Platelet Volume 11.4 fL (9.4-12.4); Monocytes Absolute Auto 0.9 X10*3/uL (0.1-1.2); Monocytes Percent Auto 13.3 % (2-11); Neutrophils Absolute Auto 3.8 x10*3/uL (2.0-8.3); Neutrophils Percent Auto 59.5 % (45-73); Platelet Count 188 X10*3/uL (160-400); Red Blood Count 4.52 X10*6/uL (4.60-5.80); Red Cell Distribution Width 12.9 % (11.0-16.0); White Blood Count 6.4 X10*3/uL (4.8-10.8)
== END 2022-04-26 10:18 | disposition home or self-care (01) ==
LOC: HO.LABR 10:17
PROVIDERS: PCP Internal Medicine; Visit Provider Psychiatry & Neurology Psychiatry
DX: Z79.899 Other long term (current) drug therapy (principal)
CPT/HCPCS: 36415; 85025

== ENCOUNTER 2022-05-25 10:21 | Outpatient (REF) | payer OTHER, SELFPAY ==
[2022-05-25 10:34] LABS: MANUAL DIFF FLAG NO
[2022-05-25 11:40] LABS: Basophils Percent Auto 0.4 % (0-2); Eosinophils Absolute Auto 0.2 X10*3/uL (0.0-0.4); Eosinophils Percent Auto 2.6 % (0-4); Hematocrit 40.4 % (42.0-52.0); Hemoglobin 13.3 g/dl (14.0-18.0); Imm Gran Abs Auto 0.02 X10*3/uL (0.00-0.03); Imm Gran Pct Auto 0.2 % (0.0-0.4); Lymphocytes Absolute Auto 2.1 X10*3/uL (1.2-4.9); Lymphocytes Percent Auto 24.7 % (20-40); Mean Corpuscular HGB Conc 32.9 g/dl (31.0-36.0); Mean Corpuscular Hemoglobin 30.4 pg (27.0-33.0); Mean Corpuscular Volume 92.2 fL (80.0-98.0); Mean Platelet Volume 11.3 fL (9.4-12.4); Monocytes Absolute Auto 0.8 X10*3/uL (0.1-1.2); Monocytes Percent Auto 8.9 % (2-11); Neut%MD 63.2 %; Neutrophils Absolute Auto 5.4 x10*3/uL (2.0-8.3); Neutrophils Percent Auto 63.2 % (45-73); Platelet Count 181 X10*3/uL (160-400); Red Blood Count 4.38 X10*6/uL (4.60-5.80); WBCANC 8.5 X10*3/uL; White Blood Count 8.5 X10*3/uL (4.8-10.8)
== END 2022-05-25 10:22 | disposition home or self-care (01) ==
LOC: HO.LAB 10:21
PROVIDERS: PCP Internal Medicine; Visit Provider Psychiatry & Neurology Psychiatry
DX: Z79.899 Other long term (current) drug therapy (principal)
CPT/HCPCS: 36415; 85025

== ENCOUNTER 2022-06-19 10:14 | Outpatient (REF) | payer OTHER, SELFPAY ==
[2022-06-19 10:29] LABS: MANUAL DIFF FLAG NO
[2022-06-19 11:03] LABS: Basophils Percent Auto 0.6 % (0-2); Eosinophils Absolute Auto 0.1 X10*3/uL (0.0-0.4); Eosinophils Percent Auto 1.9 % (0-4); Hemoglobin 14.5 g/dl (14.0-18.0); Imm Gran Abs Auto 0.02 X10*3/uL (0.00-0.03); Imm Gran Pct Auto 0.3 % (0.0-0.4); Lymphocytes Absolute Auto 1.6 X10*3/uL (1.2-4.9); Lymphocytes Percent Auto 23.6 % (20-40); Mean Corpuscular Hemoglobin 30.3 pg (27.0-33.0); Mean Corpuscular Volume 91.9 fL (80.0-98.0); Mean Platelet Volume 11.1 fL (9.4-12.4); Monocytes Absolute Auto 0.5 X10*3/uL (0.1-1.2); Monocytes Percent Auto 7.9 % (2-11); Neutrophils Absolute Auto 4.5 x10*3/uL (2.0-8.3); Neutrophils Percent Auto 65.7 % (45-73); Platelet Count 223 X10*3/uL (160-400); Red Blood Count 4.79 X10*6/uL (4.60-5.80); White Blood Count 6.9 X10*3/uL (4.8-10.8)
== END 2022-06-19 10:15 | disposition home or self-care (01) ==
LOC: HO.LABR 10:14
PROVIDERS: PCP Internal Medicine; Visit Provider Psychiatry & Neurology Psychiatry
DX: Z79.899 Other long term (current) drug therapy (principal)
CPT/HCPCS: 36415; 85025; 85048

== ENCOUNTER 2022-07-18 09:10 | Outpatient (REF) | payer OTHER, SELFPAY ==
[2022-07-18 09:38] LABS: MANUAL DIFF FLAG NO
[2022-07-18 10:19] LABS: Basophils Percent Auto 0.4 % (0-2); Eosinophils Absolute Auto 0.1 X10*3/uL (0.0-0.4); Eosinophils Percent Auto 1.4 % (0-4); Hematocrit 43.7 % (42.0-52.0); Hemoglobin 14.4 g/dl (14.0-18.0); Imm Gran Abs Auto 0.03 X10*3/uL (0.00-0.03); Imm Gran Pct Auto 0.3 % (0.0-0.4); Lymphocytes Absolute Auto 1.8 X10*3/uL (1.2-4.9); Lymphocytes Percent Auto 18.3 % (20-40); Mean Corpuscular Hemoglobin 30.3 pg (27.0-33.0); Mean Corpuscular Volume 91.8 fL (80.0-98.0); Mean Platelet Volume 11.2 fL (9.4-12.4); Monocytes Absolute Auto 0.8 X10*3/uL (0.1-1.2); Monocytes Percent Auto 8.6 % (2-11); Neutrophils Absolute Auto 6.8 x10*3/uL (2.0-8.3); Platelet Count 221 X10*3/uL (160-400); Red Blood Count 4.76 X10*6/uL (4.60-5.80); Red Cell Distribution Width 13.2 % (11.0-16.0); WBCANC 9.6 X10*3/uL; White Blood Count 9.6 X10*3/uL (4.8-10.8)
== END 2022-07-18 09:11 | disposition home or self-care (01) ==
LOC: HO.LABR 09:10
PROVIDERS: PCP Internal Medicine; Visit Provider Psychiatry & Neurology Psychiatry
DX: Z79.899 Other long term (current) drug therapy (principal)
CPT/HCPCS: 36415; 85025

== ENCOUNTER 2022-08-22 10:18 | Outpatient (REF) | payer OTHER, SELFPAY ==
[2022-08-22 10:37] LABS: MANUAL DIFF FLAG NO
[2022-08-22 10:45] LABS: Basophils Absolute Auto 0.1 X10*3/uL (0.0-0.2); Basophils Percent Auto 0.9 % (0-2); Eosinophils Absolute Auto 0.1 X10*3/uL (0.0-0.4); Eosinophils Percent Auto 2.1 % (0-4); Hematocrit 40.9 % (42.0-52.0); Hemoglobin 13.6 g/dl (14.0-18.0); Imm Gran Abs Auto 0.01 X10*3/uL (0.00-0.03); Imm Gran Pct Auto 0.2 % (0.0-0.4); Lymphocytes Absolute Auto 1.6 X10*3/uL (1.2-4.9); Lymphocytes Percent Auto 28.4 % (20-40); Mean Corpuscular HGB Conc 33.3 g/dl (31.0-36.0); Mean Corpuscular Hemoglobin 30.2 pg (27.0-33.0); Mean Corpuscular Volume 90.7 fL (80.0-98.0); Mean Platelet Volume 10.2 fL (9.4-12.4); Monocytes Absolute Auto 0.6 X10*3/uL (0.1-1.2); Monocytes Percent Auto 9.6 % (2-11); Neutrophils Absolute Auto 3.4 x10*3/uL (2.0-8.3); Neutrophils Percent Auto 58.8 % (45-73); Platelet Count 210 X10*3/uL (160-400); Red Blood Count 4.51 X10*6/uL (4.60-5.80); Red Cell Distribution Width 13.2 % (11.0-16.0); White Blood Count 5.7 X10*3/uL (4.8-10.8)
== END 2022-08-22 10:19 | disposition home or self-care (01) ==
LOC: HO.LABR 10:18
PROVIDERS: PCP Internal Medicine; Visit Provider Psychiatry & Neurology Psychiatry
DX: Z79.899 Other long term (current) drug therapy (principal)
CPT/HCPCS: 36415; 85025

== ENCOUNTER 2022-09-18 10:11 | Outpatient (REF) | payer OTHER, SELFPAY ==
[2022-09-18 10:20] LABS: MANUAL DIFF FLAG NO
[2022-09-18 10:30] LABS: Basophils Absolute Auto 0.1 X10*3/uL (0.0-0.2); Basophils Percent Auto 0.7 % (0-2); Eosinophils Absolute Auto 0.1 X10*3/uL (0.0-0.4); Eosinophils Percent Auto 1.8 % (0-4); Hematocrit 41.2 % (42.0-52.0); Hemoglobin 13.9 g/dl (14.0-18.0); Imm Gran Abs Auto 0.06 X10*3/uL (0.00-0.03); Imm Gran Pct Auto 0.9 % (0.0-0.4); Lymphocytes Absolute Auto 1.6 X10*3/uL (1.2-4.9); Lymphocytes Percent Auto 23.8 % (20-40); Mean Corpuscular HGB Conc 33.7 g/dl (31.0-36.0); Mean Corpuscular Hemoglobin 30.4 pg (27.0-33.0); Mean Corpuscular Volume 90.2 fL (80.0-98.0); Mean Platelet Volume 10.3 fL (9.4-12.4); Monocytes Absolute Auto 0.7 X10*3/uL (0.1-1.2); Monocytes Percent Auto 9.6 % (2-11); Neut%MD 63.2 %; Neutrophils Absolute Auto 4.3 x10*3/uL (2.0-8.3); Neutrophils Percent Auto 63.2 % (45-73); Platelet Count 207 X10*3/uL (160-400); Red Blood Count 4.57 X10*6/uL (4.60-5.80); Red Cell Distribution Width 12.9 % (11.0-16.0); WBCANC 6.8 X10*3/uL; White Blood Count 6.8 X10*3/uL (4.8-10.8)
== END 2022-09-18 10:12 | disposition home or self-care (01) ==
LOC: HO.LABR 10:11
PROVIDERS: PCP Internal Medicine; Visit Provider Psychiatry & Neurology Psychiatry
DX: F20.9 Schizophrenia, unspecified (principal); Z79.899 Other long term (current) drug therapy
CPT/HCPCS: 36415; 85025

== ENCOUNTER 2022-10-18 11:19 | Outpatient (REF) | payer OTHER, SELFPAY ==
[2022-10-18 11:34] LABS: MANUAL DIFF FLAG NO
[2022-10-18 12:57] LABS: Basophils Absolute Auto 0.1 X10*3/uL (0.0-0.2); Basophils Percent Auto 0.8 % (0-2); Eosinophils Absolute Auto 0.1 X10*3/uL (0.0-0.4); Eosinophils Percent Auto 1.8 % (0-4); Hematocrit 41.4 % (42.0-52.0); Hemoglobin 13.5 g/dl (14.0-18.0); Imm Gran Abs Auto 0.02 X10*3/uL (0.00-0.03); Imm Gran Pct Auto 0.3 % (0.0-0.4); Lymphocytes Absolute Auto 1.8 X10*3/uL (1.2-4.9); Lymphocytes Percent Auto 28.2 % (20-40); Mean Corpuscular HGB Conc 32.6 g/dl (31.0-36.0); Mean Platelet Volume 11.1 fL (9.4-12.4); Monocytes Absolute Auto 0.6 X10*3/uL (0.1-1.2); Neutrophils Absolute Auto 3.7 x10*3/uL (2.0-8.3); Neutrophils Percent Auto 59.9 % (45-73); Platelet Count 202 X10*3/uL (160-400); Red Cell Distribution Width 13.2 % (11.0-16.0); White Blood Count 6.2 X10*3/uL (4.8-10.8)
== END 2022-10-18 11:20 | disposition home or self-care (01) ==
LOC: HO.LABR 11:19
PROVIDERS: PCP Internal Medicine; Visit Provider Psychiatry & Neurology Psychiatry
DX: F20.9 Schizophrenia, unspecified (principal); Z51.81 Encounter for therapeutic drug level monitoring
CPT/HCPCS: 36415; 85025

== ENCOUNTER 2022-11-15 10:12 | Outpatient (REF) | payer OTHER, SELFPAY ==
[2022-11-15 10:32] LABS: MANUAL DIFF FLAG NO
[2022-11-15 11:26] LABS: Basophils Percent Auto 0.7 % (0-2); Eosinophils Absolute Auto 0.1 X10*3/uL (0.0-0.4); Hematocrit 42.4 % (42.0-52.0); Hemoglobin 13.8 g/dl (14.0-18.0); Imm Gran Abs Auto 0.02 X10*3/uL (0.00-0.03); Imm Gran Pct Auto 0.3 % (0.0-0.4); Lymphocytes Absolute Auto 1.7 X10*3/uL (1.2-4.9); Lymphocytes Percent Auto 29.1 % (20-40); Mean Corpuscular HGB Conc 32.5 g/dl (31.0-36.0); Mean Corpuscular Hemoglobin 29.9 pg (27.0-33.0); Mean Platelet Volume 10.9 fL (9.4-12.4); Monocytes Absolute Auto 0.4 X10*3/uL (0.1-1.2); Monocytes Percent Auto 7.5 % (2-11); Neut%MD 60.4 %; Neutrophils Absolute Auto 3.6 x10*3/uL (2.0-8.3); Neutrophils Percent Auto 60.4 % (45-73); Platelet Count 220 X10*3/uL (160-400); Red Blood Count 4.61 X10*6/uL (4.60-5.80); Red Cell Distribution Width 13.3 % (11.0-16.0); WBCANC 5.9 X10*3/uL; White Blood Count 5.9 X10*3/uL (4.8-10.8)
== END 2022-11-15 10:13 | disposition home or self-care (01) ==
LOC: HO.LABR 10:12
PROVIDERS: PCP Internal Medicine; Visit Provider Psychiatry & Neurology Psychiatry
DX: F20.9 Schizophrenia, unspecified (principal); Z79.899 Other long term (current) drug therapy
CPT/HCPCS: 36415; 85025

== ENCOUNTER 2022-12-17 11:26 | Outpatient (REF) | payer OTHER, SELFPAY ==
[2022-12-17 11:41] LABS: MANUAL DIFF FLAG NO
[2022-12-17 12:29] LABS: Basophils Absolute Auto 0.1 X10*3/uL (0.0-0.2); Basophils Percent Auto 0.7 % (0-2); Eosinophils Absolute Auto 0.2 X10*3/uL (0.0-0.4); Eosinophils Percent Auto 2.2 % (0-4); Hematocrit 41.8 % (42.0-52.0); Hemoglobin 13.9 g/dl (14.0-18.0); Imm Gran Abs Auto 0.03 X10*3/uL (0.00-0.03); Imm Gran Pct Auto 0.3 % (0.0-0.4); Lymphocytes Absolute Auto 1.6 X10*3/uL (1.2-4.9); Lymphocytes Percent Auto 18.6 % (20-40); Mean Corpuscular HGB Conc 33.3 g/dl (31.0-36.0); Mean Corpuscular Hemoglobin 30.6 pg (27.0-33.0); Mean Corpuscular Volume 92.1 fL (80.0-98.0); Mean Platelet Volume 10.9 fL (9.4-12.4); Monocytes Absolute Auto 0.7 X10*3/uL (0.1-1.2); Monocytes Percent Auto 8.2 % (2-11); Neutrophils Absolute Auto 6.2 x10*3/uL (2.0-8.3); Platelet Count 220 X10*3/uL (160-400); Red Blood Count 4.54 X10*6/uL (4.60-5.80); Red Cell Distribution Width 13.3 % (11.0-16.0); White Blood Count 8.8 X10*3/uL (4.8-10.8)
== END 2022-12-17 11:27 | disposition home or self-care (01) ==
LOC: HO.LABR 11:26
PROVIDERS: PCP Internal Medicine; Visit Provider Psychiatry & Neurology Psychiatry
DX: F20.9 Schizophrenia, unspecified (principal); Z51.81 Encounter for therapeutic drug level monitoring
CPT/HCPCS: 36415; 85025

== ENCOUNTER 2023-01-10 10:10 | Outpatient (REF) | payer OTHER, SELFPAY ==
[2023-01-10 10:27] LABS: MANUAL DIFF FLAG NO
[2023-01-10 11:02] LABS: Basophils Percent Auto 0.6 % (0-2); Eosinophils Absolute Auto 0.2 X10*3/uL (0.0-0.4); Eosinophils Percent Auto 2.8 % (0-4); Hematocrit 39.3 % (42.0-52.0); Hemoglobin 13.2 g/dl (14.0-18.0); Imm Gran Abs Auto 0.02 X10*3/uL (0.00-0.03); Imm Gran Pct Auto 0.3 % (0.0-0.4); Lymphocytes Absolute Auto 1.5 X10*3/uL (1.2-4.9); Lymphocytes Percent Auto 22.1 % (20-40); Mean Corpuscular HGB Conc 33.6 g/dl (31.0-36.0); Mean Corpuscular Hemoglobin 30.6 pg (27.0-33.0); Mean Corpuscular Volume 91.2 fL (80.0-98.0); Mean Platelet Volume 10.5 fL (9.4-12.4); Monocytes Absolute Auto 0.7 X10*3/uL (0.1-1.2); Monocytes Percent Auto 9.6 % (2-11); Neutrophils Absolute Auto 4.4 x10*3/uL (2.0-8.3); Neutrophils Percent Auto 64.6 % (45-73); Platelet Count 264 X10*3/uL (160-400); Red Blood Count 4.31 X10*6/uL (4.60-5.80); Red Cell Distribution Width 13.3 % (11.0-16.0); White Blood Count 6.8 X10*3/uL (4.8-10.8)
== END 2023-01-10 10:11 | disposition home or self-care (01) ==
LOC: HO.LAB 10:10
PROVIDERS: PCP Internal Medicine; Visit Provider Psychiatry & Neurology Psychiatry
DX: F20.9 Schizophrenia, unspecified (principal); Z79.899 Other long term (current) drug therapy
CPT/HCPCS: 36415; 85025

== ENCOUNTER 2023-02-06 11:12 | Outpatient (REF) | payer OTHER, SELFPAY ==
[2023-02-06 11:31] LABS: MANUAL DIFF FLAG NO
[2023-02-06 11:41] LABS: Basophils Absolute Auto 0.1 X10*3/uL (0.0-0.2); Eosinophils Absolute Auto 0.1 X10*3/uL (0.0-0.4); Eosinophils Percent Auto 2.9 % (0-4); Hematocrit 41.2 % (42.0-52.0); Hemoglobin 13.5 g/dl (14.0-18.0); Lymphocytes Absolute Auto 1.9 X10*3/uL (1.2-4.9); Lymphocytes Percent Auto 38.6 % (20-40); Mean Corpuscular HGB Conc 32.8 g/dl (31.0-36.0); Mean Corpuscular Hemoglobin 29.8 pg (27.0-33.0); Mean Corpuscular Volume 90.9 fL (80.0-98.0); Mean Platelet Volume 10.5 fL (9.4-12.4); Monocytes Absolute Auto 0.5 X10*3/uL (0.1-1.2); Monocytes Percent Auto 9.9 % (2-11); Neutrophils Absolute Auto 2.3 x10*3/uL (2.0-8.3); Neutrophils Percent Auto 47.6 % (45-73); Platelet Count 238 X10*3/uL (160-400); Red Blood Count 4.53 X10*6/uL (4.60-5.80); Red Cell Distribution Width 13.4 % (11.0-16.0); White Blood Count 4.9 X10*3/uL (4.8-10.8)
== END 2023-02-06 11:13 | disposition home or self-care (01) ==
LOC: HO.LAB 11:12
PROVIDERS: Visit Provider Psychiatry & Neurology Psychiatry
DX: F20.9 Schizophrenia, unspecified (principal); Z51.81 Encounter for therapeutic drug level monitoring
CPT/HCPCS: 36415; 85025

== ENCOUNTER 2023-03-08 11:13 | Outpatient (REF) | payer OTHER, SELFPAY ==
[2023-03-08 13:55] LABS: MANUAL DIFF FLAG NO
[2023-03-08 14:31] LABS: Basophils Absolute Auto 0.1 X10*3/uL (0.0-0.2); Basophils Percent Auto 0.8 % (0-2); Eosinophils Absolute Auto 0.2 X10*3/uL (0.0-0.4); Eosinophils Percent Auto 2.5 % (0-4); Hematocrit 44.3 % (42.0-52.0); Hemoglobin 14.6 g/dl (14.0-18.0); Imm Gran Abs Auto 0.01 X10*3/uL (0.00-0.03); Imm Gran Pct Auto 0.2 % (0.0-0.4); Lymphocytes Absolute Auto 1.9 X10*3/uL (1.2-4.9); Lymphocytes Percent Auto 31.9 % (20-40); Mean Corpuscular Hemoglobin 30.3 pg (27.0-33.0); Mean Corpuscular Volume 91.9 fL (80.0-98.0); Mean Platelet Volume 10.9 fL (9.4-12.4); Monocytes Absolute Auto 0.5 X10*3/uL (0.1-1.2); Monocytes Percent Auto 8.4 % (2-11); Neutrophils Absolute Auto 3.3 x10*3/uL (2.0-8.3); Neutrophils Percent Auto 56.2 % (45-73); Platelet Count 235 X10*3/uL (160-400); Red Blood Count 4.82 X10*6/uL (4.60-5.80); Red Cell Distribution Width 13.2 % (11.0-16.0)
== END 2023-03-08 11:14 | disposition home or self-care (01) ==
LOC: HO.LABR 11:13
PROVIDERS: PCP Internal Medicine; Visit Provider Psychiatry & Neurology Psychiatry
DX: F20.9 Schizophrenia, unspecified (principal); Z51.81 Encounter for therapeutic drug level monitoring
CPT/HCPCS: 36415; 85025; 85048

== ENCOUNTER 2023-04-08 12:15 | Outpatient (REF) | payer OTHER, SELFPAY ==
[2023-04-08 12:47] LABS: MANUAL DIFF FLAG NO
[2023-04-08 14:02] LABS: Basophils Percent Auto 0.7 % (0-2); Eosinophils Absolute Auto 0.1 X10*3/uL (0.0-0.4); Hematocrit 40.9 % (42.0-52.0); Hemoglobin 13.7 g/dl (14.0-18.0); Imm Gran Abs Auto 0.01 X10*3/uL (0.00-0.03); Imm Gran Pct Auto 0.2 % (0.0-0.4); Lymphocytes Absolute Auto 1.5 X10*3/uL (1.2-4.9); Mean Corpuscular HGB Conc 33.5 g/dl (31.0-36.0); Mean Corpuscular Hemoglobin 30.1 pg (27.0-33.0); Mean Corpuscular Volume 89.9 fL (80.0-98.0); Mean Platelet Volume 11.1 fL (9.4-12.4); Monocytes Absolute Auto 0.4 X10*3/uL (0.1-1.2); Monocytes Percent Auto 7.8 % (2-11); Neutrophils Absolute Auto 3.5 x10*3/uL (2.0-8.3); Neutrophils Percent Auto 62.3 % (45-73); Platelet Count 265 X10*3/uL (160-400); Red Blood Count 4.55 X10*6/uL (4.60-5.80); Red Cell Distribution Width 13.6 % (11.0-16.0); White Blood Count 5.6 X10*3/uL (4.8-10.8)
== END 2023-04-08 12:16 | disposition home or self-care (01) ==
LOC: HO.LABR 12:15
PROVIDERS: PCP Internal Medicine; Visit Provider Psychiatry & Neurology Psychiatry
DX: F20.9 Schizophrenia, unspecified (principal); Z79.899 Other long term (current) drug therapy
CPT/HCPCS: 36415; 85025; 85048

== ENCOUNTER 2023-05-20 09:12 | Outpatient (REF) | payer OTHER, SELFPAY ==
[2023-05-20 09:30] LABS: MANUAL DIFF FLAG NO
[2023-05-20 09:36] LABS: Basophils Percent Auto 0.5 % (0-2); Eosinophils Absolute Auto 0.1 X10*3/uL (0.0-0.4); Eosinophils Percent Auto 0.6 % (0-4); Hematocrit 41.8 % (42.0-52.0); Imm Gran Abs Auto 0.01 X10*3/uL (0.00-0.03); Imm Gran Pct Auto 0.1 % (0.0-0.4); Lymphocytes Percent Auto 22.9 % (20-40); Mean Corpuscular HGB Conc 33.5 g/dl (31.0-36.0); Mean Corpuscular Hemoglobin 29.9 pg (27.0-33.0); Mean Corpuscular Volume 89.1 fL (80.0-98.0); Mean Platelet Volume 10.2 fL (9.4-12.4); Monocytes Absolute Auto 0.9 X10*3/uL (0.1-1.2); Monocytes Percent Auto 9.7 % (2-11); Neutrophils Absolute Auto 5.8 x10*3/uL (2.0-8.3); Neutrophils Percent Auto 66.2 % (45-73); Platelet Count 272 X10*3/uL (160-400); Red Blood Count 4.69 X10*6/uL (4.60-5.80); Red Cell Distribution Width 13.3 % (11.0-16.0); White Blood Count 8.8 X10*3/uL (4.8-10.8)
== END 2023-05-20 09:13 | disposition home or self-care (01) ==
LOC: HO.LABR 09:12
PROVIDERS: PCP Internal Medicine; Visit Provider Psychiatry & Neurology Psychiatry
DX: F20.9 Schizophrenia, unspecified (principal); Z51.81 Encounter for therapeutic drug level monitoring
CPT/HCPCS: 36415; 85025

== ENCOUNTER 2023-05-21 12:29 | Inpatient (IN) | payer OTHER, SELFPAY ==
[2023-05-21 13:05] VITALS: BP 142/75; PULSE 70; RESP 18; TEMP 36.7; O2SAT 97; BMI 22.9
--- NOTE | 2023-05-21 13:32 | PC.NURSE ---
Suleiman was brought in by his mother who he lives with after she reports he has been experiencing bizarre behaviors including increased psychomotor agitation, responding to internal stimuli and not taking his medication (clozapine). Suleiman denies SI/HI/AVH unclear as to why he stopped taking his meds. Suleiman presents as calm and pleasant.
--- NOTE | 2023-05-21 13:50 | ED_ITS ---
HPI - Psych General Chief Complaint: Psychiatric Symptoms Stated Complaint: Schizophrenic needs eval Time Seen by Provider: 05/21/23 13:06 Source: patient and old records reviewed Mode of arrival: ambulatory Limitations: no limitations History of Present Illness HPI Narrative: 48 yo male PMH of HLD and schizophrenia off of his clozapine x 2 weeks per mom - he cannot tell me why. He states he is doing great and what he is supposed to do. Mom feels he is responding to internal stimuli having some motor agitation and unusual behaviors so she brought him in. MD complaint: other Onset (ago): week(s) (2) Duration: getting worse History of same: Yes Relieving factors: none Exacerbating factors: none Context: not taking psychiatric medications Associated psychiatric symptoms: none Associated symptoms: denies other symptoms Treatments prior to arrival: none Related Data Home Medications Medication Instructions Recorded Confirmed clozapine 100 mg tablet 100 mg PO BEDTIME 09/13/21 05/21/23 clozapine 200 mg tablet 200 mg PO BEDTIME 09/13/21 05/21/23 Allergies Allergy/AdvReac Type Severity Reaction Status Date / Time orange Allergy Intermediate RASH Verified 06/15/22 11:42 Pollen Allergy Intermediate congestion Uncoded 06/15/22 11:42 Review of Systems 2 Review of Systems: Constitutional : No Fever, No Chills Cardiovascular : No Chest Pain, No SOB Respiratory : No Cough, No Sputum, No Dyspnea Gastrointestinal : No Nausea, No Vomiting, No Diarrhea, No Hematochezia, No Melena Genitourinary : No Dysuria, No Urinary Frequency, No Hematuria Musculoskeletal : No Myalgias Skin : No Skin Lesions, No rash Neuro : No Weakness, No Numbness, No Paresthesias, No Dizziness, No Headache Psych : noAnxiety, no Depression, no SI/HI All other systems reviewed and are negative [facility] Past Medical History Attestation statement: The following information was validated with the patient. Medical History Schizophrenia Hyperlipidemia Surgical History (Updated 06/15/22 @ 11:45 by FANNY Hooker) No history of previous surgery Family History Family History (Updated 06/15/22 @ 11:45 by FANNY Hooker) Other Mental health disorder Social History Social History Housing: Apartment Patient Tobacco Use Status: Never used Tobacco e-Cigarette/Vaping Use: Never Used Second Hand Smoke Exposure: No Advance Directives: No Advance Directives Information Provided: Yes service: No Current occupational status: disabled Cognitive needs: Yes Hearing needs: No Vision needs: Yes Physical Exam 2 Vital Signs: Vital Signs: Last Vital Signs Temp 98.0 F 05/21/23 13:05 Pulse 70 05/21/23 13:05 Resp 18 05/21/23 13:05 BP 142/75 H 05/21/23 13:05 Pulse Ox 97 05/21/23 13:05 O2 Del Method Room Air 05/21/23 13:05 BMI result Body Mass Index 22.9 Appearance: Alert. Oriented X3. No acute distress. Very calm and appropriate but cannot tell me why he stopped the clozapine Eyes: Pupils equal, round and reactive to light. ENT: Pharynx normal. Neck: Normal inspection. Neck supple. CVS: Normal heart rate and rhythm. Pulses normal. Respiratory: No respiratory distress. Breath sounds normal. Abdomen: Soft and nontender. Skin: Skin warm and dry. Normal skin color. Normal skin turgor. Extremities: No lower extremity edema. No calf ttp Neuro: Oriented X 3. No motor deficit. No sensory deficit. CN 2-12 intact Course Course Course Narrative: Physician observation started at 258pm. Patient placed in physician observation because the patient needed more time for CARE team to assess the need for psych admission. At the time observation was started the patient's vitals were stable, patient is alert and oriented and calm with staff currently eating a roast beef sandwhich. Neuro: nonfocal, CV RRR, Lungs clear Medical Decision Making Medical Decision Making [facility] Narrative: 48 yo male with PMH of schizophrenia, HLD here after mom reports dysregulated behaviors and med noncompliance (unsure why) - labs, CARE team consult ordered. Differential Diagnosis Differential Diagnoses: The differential diagnosis associated with the presentation includes non compliance, schizophrenia Admission/Observation Consideration of admission/observation: Escalation of care including admission/observation considered observe until CARE team sees patient Consult Healthcare Provider Management of the patient was discussed with: Behavioral Health Provider keep ovenright, start on clozapine 25mg now give dose today Lab Data [facility] Lab Attestation statement: I reviewed the patient's lab results. 05/21/23 13:47 05/21/23 13:46 Labs: Lab Results 05/21/23 05/21/23 Range/Units 13:46 13:47 WBC 9.1 (4.8-10.8) X10*3/uL RBC 4.86 (4.60-5.80) X10*6/uL Hgb 14.6 (14.0-18.0) g/dl Hct 43.5 (42.0-52.0) % MCV 89.5 (80.0-98.0) fL MCH 30.0 (27.0-33.0) pg MCHC 33.6 (31.0-36.0) g/dl RDW 13.3 (11.0-16.0) % Plt Count 286 (160-400) X10*3/uL MPV 10.3 (9.4-12.4) fL Immature Gran % (Auto) 0.2 (0.0-0.4) % Neut % (Auto) 65.0 (45-73) % Lymph % (Auto) 22.9 (20-40) % [place] % (Auto) 10.9 (2-11) % Eos % (Auto) 0.7 (0-4) % Baso % (Auto) 0.3 (0-2) % Lymph # (Auto) 2.1 (1.2-4.9) X10*3/uL [place] # (Auto) 1.0 (0.1-1.2) X10*3/uL Eos # (Auto) 0.1 (0.0-0.4) X10*3/uL Baso # (Auto) 0.0 (0.0-0.2) X10*3/uL Abs Immat Gran (auto) 0.02 (0.00-0.03) X10*3/uL Absolute Neuts (auto) 5.9 (2.0-8.3) x10*3/uL Absolute Nucleated RBC 0.000 (0.0-0.012) X10*3/uL Nucleated RBC % (auto) 0.0 (0.0-0.2) /100WBC Sodium 138 (135-145) mmol/L Potassium 3.6 (3.3-5.1) mmol/L Chloride 101 (96-108) mmol/L Carbon Dioxide 29 (22-29) mmol/L Anion Gap 12 (12-20) BUN 11 (9-16) mg/dL Creatinine 0.99 (0.5-1.4) mg/dL Estim Creat Clear Calc 92.7 Estimated GFR > 60 Random Glucose 123 H (60-115) mg/dL Calcium 9.6 (8.4-10.2) mg/dL Total Bilirubin 0.3 (0.0-1.0) mg/dL AST 15 (5-37) U/L ALT 14 (0-40) U/L Alkaline Phosphatase 63 (39-117) U/L Total Protein 8.2 H (6.5-8.0) g/dL Albumin 4.9 (3.5-5.0) g/dL Urine Color Yellow Urine Appearance Clear Urine pH 5.5 (5.0-9.0) Ur Specific [place] 1.025 (1.005-1.025) Urine Protein Negative (Neg-Trace) mg/dL Urine Glucose (UA) Negative (Negative) mg/dL Urine Ketones Negative (Negative) mg/dL Urine Blood Negative (Negative) Urine Nitrite Negative (Negative) Ur Leukocyte Esterase Negative (Negative) Urine RBC 0-2 (0-2) /HPF Urine WBC 0-5 (0-5) /HPF Ur Squamous Epith Cells 0-2 (0-2) /HPF Urine Bacteria None Seen (None Seen) Hyaline Casts 0-2 (0-2) /LPF Salicylates < 5.0 L (15-30) mg/dL Urine Opiates Screen Not Detected (Not Detect) Urine Fentanyl Screen Not Detected (Not Detect) Acetaminophen < 17 (<30) mcg/mL Ur Barbiturates Screen Not Detected (Not Detect) Ur Phencyclidine Scrn Not Detected (Not Detect) Ur Amphetamines Screen Not Detected (Not Detect) U Benzodiazepines Scrn Not Detected (Not Detect) Urine Cocaine Screen Not Detected (Not Detect) U Marijuana (THC) Screen Not Detected (Not Detect) Ethyl Alcohol < 10 mg/dL External Record Review External record reviewed: Inpatient record Discharge Plan Discharge Clinical Impression: Schizophrenia Qualifiers: Schizophrenia type: unspecified Qualified Code(s): F20.9 - Schizophrenia, unspecified Patient Disposition: Still a Patient Prescriptions: No Action clozapine 100 mg tablet 100 mg PO BEDTIME Rx Instructions: Mom reports he hasn't taken in 1-2 weeks clozapine 200 mg tablet 200 mg PO BEDTIME Rx Instructions: Mom reports he hasn't taken in 1-2 weeks Interventions: [place]-Suicide Risk Severity Scale Last Done: 05/21/23 13:31
[2023-05-21 13:53] LABS: MANUAL DIFF FLAG NO
[2023-05-21 13:55] LABS: Basophils Percent Auto 0.3 % (0-2); Eosinophils Absolute Auto 0.1 X10*3/uL (0.0-0.4); Eosinophils Percent Auto 0.7 % (0-4); Hematocrit 43.5 % (42.0-52.0); Hemoglobin 14.6 g/dl (14.0-18.0); Imm Gran Abs Auto 0.02 X10*3/uL (0.00-0.03); Imm Gran Pct Auto 0.2 % (0.0-0.4); Lymphocytes Absolute Auto 2.1 X10*3/uL (1.2-4.9); Lymphocytes Percent Auto 22.9 % (20-40); Mean Corpuscular HGB Conc 33.6 g/dl (31.0-36.0); Mean Corpuscular Volume 89.5 fL (80.0-98.0); Mean Platelet Volume 10.3 fL (9.4-12.4); Monocytes Percent Auto 10.9 % (2-11); Neutrophils Absolute Auto 5.9 x10*3/uL (2.0-8.3); Platelet Count 286 X10*3/uL (160-400); Red Blood Count 4.86 X10*6/uL (4.60-5.80); Red Cell Distribution Width 13.3 % (11.0-16.0); White Blood Count 9.1 X10*3/uL (4.8-10.8)
[2023-05-21 14:01] LABS: Appearance Urine Clear; Color Urine Yellow; Glucose Urine UA Negative (Negative); Leukocyte Esterase Urine Negative (Negative); Nitrite Urine Negative (Negative); PH 5.5 (5.0-9.0); Specific Gravity - Urine 1.025 (1.005-1.025); Urine Blood Negative (Negative); Urine Ketones Negative (Negative); Urine Protein Negative (Neg-Trace)
[2023-05-21 14:04] LABS: Bacteria Urine None Seen (None Seen); Hyaline Casts Urine 0-2 /LPF (0-2); RBC Urine 0-2 /HPF (0-2); Squamous Epithelial Cell Urine 0-2 /HPF (0-2); WBC Urine 0-5 /HPF (0-5)
[2023-05-21 14:15] LABS: Amphetamine Screen Urine Not Detected (Not Detect); Barbiturates, Urine Not Detected (Not Detect); Benzodiazepines Screen Urine Not Detected (Not Detect); Cannabinoid Screen Urine Not Detected (Not Detect); Cocaine Screen Urine Not Detected (Not Detect); Fentanyl, urine Not Detected (Not Detect); Opiate Screen Urine Not Detected (Not Detect); Phencyclidine Screen Urine Not Detected (Not Detect)
[2023-05-21 14:16] LABS: Acetaminophen LAB < 17 mcg/mL (<30); Salicylate < 5.0 mg/dL (15-30)
[2023-05-21 14:19] LABS: Alanine Aminotransferase 14 U/L (0-40); Albumin Level 4.9 g/dL (3.5-5.0); Alkaline Phosphatase 63 U/L (39-117); Anion Gap 12 (12-20); Aspartate Amino Transferase 15 U/L (5-37); Bilirubin Total 0.3 mg/dL (0.0-1.0); Blood Urea Nitrogen 11 mg/dL (9-16); Calcium 9.6 mg/dL (8.4-10.2); Carbon Dioxide 29 mmol/L (22-29); Chloride 101 mmol/L (96-108); Creatinine Clr Calc Pharmacy 92.7; Estimated Glomerular Filt Rate > 60; Ethanol < 10 mg/dL; Glucose Random 123 mg/dL (60-115); Potassium 3.6 mmol/L (3.3-5.1); Sodium 138 mmol/L (135-145); Total Protein 8.2 g/dL (6.5-8.0)
[2023-05-21] MEDS: cloZAPine 25 MG TABLET PO (15:45)
[2023-05-21 22:47] VITALS: BP 139/71; PULSE 72; RESP 16; TEMP 36.2; O2SAT 98
--- NOTE | 2023-05-22 05:33 | PC.NURSE ---
patient slept through the night, no distress observed/reported, behavior non concerning, med rec completed/patient is currently of his medication, clozaril titration initiated, labs completed/resulted, per care team patient doesn't require inpatient of level of care this time, however patient will be reevaluated in the morning, VSS, will continue to monitor.
[2023-05-22 06:21] VITALS: BP 132/70; PULSE 61; RESP 17; TEMP 36.9; O2SAT 100
[2023-05-22] MEDS: cloZAPine 25 MG TABLET 50 MG PO (09:26)
--- NOTE | 2023-05-22 13:47 | ECG_ITS ---
Test Reason : CHECK PROLONG QT Blood Pressure : / mmHG Vent. Rate : 091 BPM Atrial Rate : 091 BPM P-R Int : 130 ms QRS Dur : 088 ms QT Int : 336 ms P-R-T Axes : 055 059 052 degrees QTc Int : 413 ms Normal sinus rhythm Cannot rule out Inferior infarct (cited on or before 14-MAR-2017) Abnormal ECG When compared with ECG of 07-APR-2019 11:24, ST no longer elevated in Anterior leads Referred By: Kimberli Morales Electronically Signed By:TYE GARBER
[2023-05-22 14:37] LABS: COVID-19 Test Negative (Negative); IDNOW Serial# 9DB6401D
[2023-05-22 15:36] VITALS: BP 111/66; PULSE 90; RESP 18; TEMP 36.2; O2SAT 99
--- NOTE | 2023-05-22 17:50 | PC.NURSE ---
Suleiman has been in his room resting for most of the shift. Compliant with his clozaril 50mg today. Mother in to visit which appeared to go well. Appetite fair. No behavioral concerns. denies SI.
[2023-05-22 18:35] VITALS: BP 138/81; PULSE 92; RESP 18; TEMP 36.2; O2SAT 99
--- NOTE | 2023-05-22 18:59 | PC.NURSE ---
Patient arrived on unit, caox4, calm and cooperative, skin check completed, legals completed, patient oriented to unit
--- NOTE | 2023-05-22 19:24 | PC.ADMIT ---
Suleiman is a 48 year old male who was admitted to the unit on a CV after he presented to the [facility] with his mother for dysregulated behavior. Patient reports that he stopped taking his Clozaril about 2 weeks ago but denies feeling as though he needs help. Patient denies HI SI AVH, reportedly responding to internal stimuli in the ED with assessment and at home per mother. Patient was calm and cooperative, participated with intake, oriented to unit and skin check completed. Patient Clozaril was restarted in ED and patient has been med compliant.
[2023-05-23 07:56] LABS: Estimated Average Glucose 111 mg/dL; Hemoglobin A1c % 5.5 % (<6.0)
[2023-05-23 07:58] LABS: Alanine Aminotransferase 13 U/L (0-40); Albumin Level 4.4 g/dL (3.5-5.0); Alkaline Phosphatase 66 U/L (39-117); Anion Gap 15 (12-20); Aspartate Amino Transferase 12 U/L (5-37); Bilirubin Total 0.3 mg/dL (0.0-1.0); Blood Urea Nitrogen 19 mg/dL (9-16); Calcium 9.5 mg/dL (8.4-10.2); Carbon Dioxide 27 mmol/L (22-29); Chloride 105 mmol/L (96-108); Cholesterol 158 mg/dL (<200); Creatinine Clr Calc Pharmacy 98.6; Estimated Glomerular Filt Rate > 60; Glucose Fasting 108 mg/dL (60-99); HDL Cholesterol 34 mg/dL (>40); LDL Cholesterol Calculated 70 mg/dL (<100); Potassium 4.4 mmol/L (3.3-5.1); Sodium 143 mmol/L (135-145); Total Protein 7.4 g/dL (6.5-8.0); Triglycerides 270 mg/dL (<150)
[2023-05-23 08:23] LABS: Thyroid Stimulating Hormone 0.85 uIU/mL (0.32-4.0)
[2023-05-23 08:26] LABS: Folate 6.7 ng/mL (> or = 4.0); Vitamin B12 441 pg/mL (200-900)
[2023-05-23 08:30] VITALS: BP 115/66; PULSE 102; RESP 16; TEMP 36.6; O2SAT 99
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
[2023-05-23 21:48] VITALS: BP 131/61; PULSE 83; TEMP 36.7; O2SAT 97
[2023-05-24 06:00] VITALS: BP 122/60; PULSE 88; RESP 16; TEMP 36.6; O2SAT 98
--- NOTE | 2023-05-24 12:41 | HO.PSYCHPN ---
Subjective Subjective Date of Service: 05/24/23 Reason For Visit: Psychosis Interim History: no change in presentation from yesterday. no overt psychotic Sx. amenable to continuing clozapine titration. per staff, calm and cooperative. no depression, HI/SI/AVH. mother visited yesterday, which went well. med-compliant. slept overnight. Mental Status Exam Mental Status Exam Narrative: calm, cooperative. childlike manner, high-pitched voice, poor eye contact. no PMA/PMR. speech nml amount, loudness. incr rate. somewhat dysarthric. thoughts linear and logical. affect constricted, normo-intense, non-labile. mood OK. denies SI/SIBI/HI/AVH. reports h/o AVH, MRE weeks ago. Diagnostics Vital Signs (24Hr): Vital Signs - 24 hr 05/23/23 21:48 05/24/23 06:00 Temperature 98.1 F 97.8 F Pulse Rate 83 88 Respiratory Rate 16 Blood Pressure 131/61 122/60 Pulse Oximetry 97 98 Oxygen Delivery Method Room Air Room Air BMI result Body Mass Index 22.9 Labs 05/21/23 13:47 05/23/23 07:21 Labs: Laboratory Results - last 48 hr 05/22/23 05/23/23 14:06 07:21 Sodium 143 Potassium 4.4 D Chloride 105 Carbon Dioxide 27 Anion Gap 15 BUN 19 H Creatinine 0.93 Estim Creat Clear Calc 98.6 Estimated GFR > 60 Fasting Glucose 108 H Estimat Average Glucose 111 Hemoglobin A1c % 5.5 Calcium 9.5 Total Bilirubin 0.3 AST 12 ALT 13 Alkaline Phosphatase 66 Total Protein 7.4 Albumin 4.4 Triglycerides 270 H Cholesterol 158 LDL Cholesterol, Calc 70 HDL Cholesterol 34 L Vitamin B12 441 Folate 6.7 TSH 0.85 COVID-19 (MARÍA) Negative COVID-19 Clin Com See Note Medications Medications Current Medications Acetaminophen (Acetaminophen 325 Mg Tablet) 650 mg PO Q6H PRN PRN Reason: Headache/Pain Mild Scale (1-3) Al Hydroxide/Mg Hydroxide (Magnesium Hydrox/Alum Hydrox 30 Ml Oral.Susp) 30 ml PO Q6H PRN PRN Reason: Heartburn/Nausea Clozapine (Clozapine 25 Mg Tablet) 50 mg PO DAILY JAIRO Last Admin: 05/24/23 09:39 Dose: 50 mg Clozapine (Clozapine 25 Mg Tablet) 75 mg PO BEDTIME JAIRO Last Admin: 05/23/23 21:46 Dose: 75 mg Hydroxyzine HCl (Hydroxyzine Hcl 25 Mg Tablet) 25 mg PO Q6H PRN PRN Reason: Anxiety Magnesium Hydroxide (Milk Of Magnesia 30 Ml Oral.Susp) 30 ml PO DAILY PRN PRN Reason: Constipation Trazodone HCl (Trazodone Hcl 50 Mg Tablet) 50 mg PO BEDTIME PRN PRN Reason: Insomnia Allergies Allergies Allergy/AdvReac Type Severity Reaction Status Date / Time orange Allergy Intermediate RASH Verified 06/15/22 11:42 Pollen Allergy Intermediate congestion Uncoded 06/15/22 11:42 Assessment & Plan Assessment & Plan (1) Schizophrenia: Qualifiers: Schizophrenia type: unspecified Qualified Code(s): F20.9 - Schizophrenia, unspecified Status: Acute Code(s): F20.9 - Schizophrenia, unspecified Plan 05/23: titrate clozapine back to prior outpt dosing (300 mg QHS). increase from 50 BID today to 50/75 tonight. 05/24: stable, no overt Sx. continue clozapine titration, to 50/100 tonight. Reason for continued inpatient stay Substantial Risk for: inability to function and rapid decompensation Time Spent With Patient Time: Total time managing care of this patient today ____ minutes.
[2023-05-24 19:55] VITALS: BP 150/85; PULSE 119; RESP 21; TEMP 37; O2SAT 99
--- NOTE | 2023-05-25 09:21 | PM.EVENT ---
Event Note Date of Service: 05/25/23 Event Note: Patient seen and examined at 09:00. Medical evaluation post medication. No acute medical issues at this time; no ill effects from med. Continue current therapies as ordered Time Spent With Patient Time: Total time managing care of this patient today ____ minutes.
[2023-05-25 09:40] VITALS: BP 120/84; PULSE 93; RESP 18; TEMP 36.7; O2SAT 98
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
[2023-05-25 20:10] VITALS: BP 145/68; PULSE 105; RESP 18; TEMP 37; O2SAT 99
[2023-05-26 07:51] VITALS: BP 131/69; PULSE 91; RESP 20; TEMP 36.7; O2SAT 98
[2023-05-26 18:00] VITALS: BP 141/62; PULSE 111; RESP 18; TEMP 36.9; O2SAT 98
--- NOTE | 2023-05-26 19:12 | HO.PSYCHPN ---
Subjective Subjective Date of Service: 05/26/23 Reason For Visit: Psychosis Interim History: Patient seen and discussed with staff. He is mostly isolated but pleasant on approach. He has no complaints. He slept well. He denied SI. He denied hallucinations. He is agreeable to continued titration of Clozaril to a target of 300 mg. VSS. Denies side effects. Slept better. He has no overt psychotic Sx. per staff, calm and cooperative. no depression, HI/SI/AVH. med-compliant. Review of Systems Review of Systems Constitutional : No Fever, No Chills Cardiovascular : No Chest Pain, No SOB Respiratory : No Cough, No Sputum, No Dyspnea Gastrointestinal : No Nausea, No Vomiting, No Diarrhea, No Hematochezia, No Melena Genitourinary : No Dysuria, No Urinary Frequency, No Hematuria Musculoskeletal : No Myalgias Skin : No Skin Lesions, No rash Neuro : No Weakness, No Numbness, No Paresthesias, No Dizziness, No Headache Psych : noAnxiety, no Depression, no SI/HI All other systems reviewed and are negative Mental Status Exam Mental Status Exam Narrative: calm, cooperative. childlike manner, high-pitched voice, poor eye contact. no PMA/PMR. speech nml amount, loudness. incr rate. somewhat dysarthric. thoughts linear and logical. affect constricted, normo-intense, non-labile. mood OK. denies SI/SIBI/HI/AVH. reports h/o AVH, MRE weeks ago. Diagnostics Vital Signs (24Hr): Vital Signs - 24 hr 05/25/23 20:10 05/26/23 07:51 Temperature 98.6 F 98.1 F Pulse Rate 105 H 91 Respiratory Rate 18 20 Blood Pressure 145/68 H 131/69 Pulse Oximetry 99 98 Oxygen Delivery Method Room Air Room Air BMI result Body Mass Index 22.9 Labs 05/21/23 13:47 05/23/23 07:21 Medications Medications Current Medications Acetaminophen (Acetaminophen 325 Mg Tablet) 650 mg PO Q6H PRN PRN Reason: Headache/Pain Mild Scale (1-3) Al Hydroxide/Mg Hydroxide (Magnesium Hydrox/Alum Hydrox 30 Ml Oral.Susp) 30 ml PO Q6H PRN PRN Reason: Heartburn/Nausea Clozapine (Clozapine 25 Mg Tablet) 50 mg PO DAILY JAIRO Last Admin: 05/26/23 08:13 Dose: 50 mg Clozapine (Clozapine 25 Mg Tablet) 150 mg PO BEDTIME JAIRO Hydroxyzine HCl (Hydroxyzine Hcl 25 Mg Tablet) 25 mg PO Q6H PRN PRN Reason: Anxiety Last Admin: 05/25/23 21:05 Dose: 25 mg Magnesium Hydroxide (Milk Of Magnesia 30 Ml Oral.Susp) 30 ml PO DAILY PRN PRN Reason: Constipation Trazodone HCl (Trazodone Hcl 50 Mg Tablet) 50 mg PO BEDTIME PRN PRN Reason: Insomnia Allergies Allergies Allergy/AdvReac Type Severity Reaction Status Date / Time orange Allergy Intermediate RASH Verified 06/15/22 11:42 Pollen Allergy Intermediate congestion Uncoded 06/15/22 11:42 Assessment & Plan Assessment & Plan (1) Schizophrenia: Qualifiers: Schizophrenia type: unspecified Qualified Code(s): F20.9 - Schizophrenia, unspecified Status: Acute Code(s): F20.9 - Schizophrenia, unspecified Plan 05/23: titrate clozapine back to prior outpt dosing (300 mg QHS). increase from 50 BID today to 50/75 tonight. 05/24: stable, no overt Sx. continue clozapine titration, to 50/100 tonight. 05/25: increase clozapine to 50 AM + 125 HS 05/26: Increase HS Clozapine to 150 mg. Continue AM Clozapine at 50 mg. Reason for continued inpatient stay Substantial Risk for: inability to function and rapid decompensation Time Spent With Patient Time: Total time managing care of this patient today ____ minutes.
[2023-05-27 08:20] VITALS: BP 138/64; PULSE 88; RESP 20; TEMP 36.7; O2SAT 98
--- NOTE | 2023-05-27 12:21 | HO.PSYCHPN ---
Subjective Subjective Date of Service: 05/27/23 Reason For Visit: Psychosis Interim History: Patient was seen and discussed in rounds today. Records and plans were reviewed. He is being put back on Clozaril. Continues to have auditory and visual hallucinations. Eating and sleeping adequately. He is a little brighter. Little more verbal. No changes were made today Mental Status Exam Mental Status Exam Narrative: In today's visit he is alert, pleasant and interactive. High-pitched voice. Moderate eye contact. Affect is mostly appropriate. No overt signs of psychosis. Admits to auditory and visual hallucinations. No SI. Cognitively appears to be disorganized. Judgment is somewhat intact Diagnostics Vital Signs (24Hr): Vital Signs - 24 hr 05/26/23 18:00 05/27/23 08:20 Temperature 98.5 F 98.1 F Pulse Rate 111 H 88 Respiratory Rate 18 20 Blood Pressure 141/62 H 138/64 Pulse Oximetry 98 98 Oxygen Delivery Method Room Air Room Air BMI result Body Mass Index 22.9 Labs 05/21/23 13:47 05/23/23 07:21 Medications Medications Current Medications Acetaminophen (Acetaminophen 325 Mg Tablet) 650 mg PO Q6H PRN PRN Reason: Headache/Pain Mild Scale (1-3) Al Hydroxide/Mg Hydroxide (Magnesium Hydrox/Alum Hydrox 30 Ml Oral.Susp) 30 ml PO Q6H PRN PRN Reason: Heartburn/Nausea Clozapine (Clozapine 25 Mg Tablet) 50 mg PO DAILY JAIRO Last Admin: 05/27/23 08:21 Dose: 50 mg Clozapine (Clozapine 25 Mg Tablet) 150 mg PO BEDTIME JAIRO Last Admin: 05/26/23 20:47 Dose: 150 mg Hydroxyzine HCl (Hydroxyzine Hcl 25 Mg Tablet) 25 mg PO Q6H PRN PRN Reason: Anxiety Last Admin: 05/25/23 21:05 Dose: 25 mg Magnesium Hydroxide (Milk Of Magnesia 30 Ml Oral.Susp) 30 ml PO DAILY PRN PRN Reason: Constipation Trazodone HCl (Trazodone Hcl 50 Mg Tablet) 50 mg PO BEDTIME PRN PRN Reason: Insomnia Allergies Allergies Allergy/AdvReac Type Severity Reaction Status Date / Time orange Allergy Intermediate RASH Verified 06/15/22 11:42 Pollen Allergy Intermediate congestion Uncoded 06/15/22 11:42 Assessment & Plan Assessment & Plan (1) Schizophrenia: Qualifiers: Schizophrenia type: unspecified Qualified Code(s): F20.9 - Schizophrenia, unspecified Status: Acute Code(s): F20.9 - Schizophrenia, unspecified Plan 05/23: titrate clozapine back to prior outpt dosing (300 mg QHS). increase from 50 BID today to 50/75 tonight. 05/24: stable, no overt Sx. continue clozapine titration, to 50/100 tonight. 05/25: increase clozapine to 50 AM + 125 HS 05/26: Increase HS Clozapine to 150 mg. Continue AM Clozapine at 50 mg. 05/27: Continue current regimen and plans. No changes in Clozaril dose today Reason for continued inpatient stay Substantial Risk for: med/psych decompensation Time Spent With Patient Time: Total time managing care of this patient today ____ minutes.
[2023-05-27 18:25] VITALS: BP 131/76; PULSE 111; RESP 17; TEMP 37.2; O2SAT 99
[2023-05-28 08:55] VITALS: BP 132/79; PULSE 92; RESP 18; TEMP 36.7; O2SAT 98
[2023-05-28] MEDS: Docusate Sodium 100 MG CAPSULE PO (15:00)
[2023-05-28] MEDS: OLANZapine 10 MG TABLET PO (15:00)
--- NOTE | 2023-05-28 16:02 | HO.PSYCHPN ---
Subjective Subjective Date of Service: 05/28/23 Reason For Visit: Psychosis Interim History: no change in presentation. per staff, dep 5 anx 10. declined PRNs for anxiety. voices say they will cut his head off. likes art group. Mental Status Exam Mental Status Exam Narrative: calm, cooperative. childlike manner, high-pitched voice, poor eye contact. no PMA/PMR. speech nml amount, loudness. incr rate. somewhat dysarthric. thoughts linear and logical. affect constricted, normo-intense, non-labile. no SI/HI/AVH expressed. Diagnostics Vital Signs (24Hr): Vital Signs - 24 hr 05/27/23 18:25 05/28/23 08:55 Temperature 99.0 F 98.1 F Pulse Rate 111 H 92 Respiratory Rate 17 18 Blood Pressure 131/76 132/79 Pulse Oximetry 99 98 Oxygen Delivery Method Room Air Room Air BMI result Body Mass Index 22.9 Labs 05/21/23 13:47 05/23/23 07:21 Medications Medications Current Medications Acetaminophen (Acetaminophen 325 Mg Tablet) 650 mg PO Q6H PRN PRN Reason: Headache/Pain Mild Scale (1-3) Al Hydroxide/Mg Hydroxide (Magnesium Hydrox/Alum Hydrox 30 Ml Oral.Susp) 30 ml PO Q6H PRN PRN Reason: Heartburn/Nausea Clozapine (Clozapine 25 Mg Tablet) 50 mg PO DAILY JAIRO Last Admin: 05/28/23 08:58 Dose: 50 mg Clozapine (Clozapine 25 Mg Tablet) 150 mg PO BEDTIME JAIRO Last Admin: 05/27/23 20:00 Dose: 150 mg Docusate Sodium (Docusate Sodium 100 Mg Capsule) 100 mg PO BID JAIRO Last Admin: 05/28/23 15:00 Dose: 100 mg Hydroxyzine HCl (Hydroxyzine Hcl 25 Mg Tablet) 25 mg PO Q6H PRN PRN Reason: Anxiety Last Admin: 05/25/23 21:05 Dose: 25 mg Magnesium Hydroxide (Milk Of Magnesia 30 Ml Oral.Susp) 30 ml PO DAILY PRN PRN Reason: Constipation Olanzapine (Olanzapine 10 Mg Tablet) 10 mg PO BID PRN PRN Reason: AH Last Admin: 05/28/23 15:00 Dose: 10 mg Trazodone HCl (Trazodone Hcl 50 Mg Tablet) 50 mg PO BEDTIME PRN PRN Reason: Insomnia Last Admin: 05/27/23 20:08 Dose: 50 mg Allergies Allergies Allergy/AdvReac Type Severity Reaction Status Date / Time orange Allergy Intermediate RASH Verified 06/15/22 11:42 Pollen Allergy Intermediate congestion Uncoded 06/15/22 11:42 Assessment & Plan Assessment & Plan (1) Schizophrenia: Qualifiers: Schizophrenia type: unspecified Qualified Code(s): F20.9 - Schizophrenia, unspecified Status: Acute Code(s): F20.9 - Schizophrenia, unspecified Plan 05/23: titrate clozapine back to prior outpt dosing (300 mg QHS). increase from 50 BID today to 50/75 tonight. 05/24: stable, no overt Sx. continue clozapine titration, to 50/100 tonight. 05/25: increase clozapine to 50 AM + 125 HS 05/26: Increase HS Clozapine to 150 mg. Continue AM Clozapine at 50 mg. 05/27: Continue current regimen and plans. No changes in Clozaril dose today. 05/28: increase clozapine to 200 QHS tonight, DC morning dose. increase to 225 tomorrow night. disturbing AH continue. Reason for continued inpatient stay Substantial Risk for: inability to function and rapid decompensation Time Spent With Patient Time: Total time managing care of this patient today __25__ minutes.
[2023-05-28 20:43] VITALS: BP 154/76; PULSE 116; TEMP 36.9; O2SAT 100
[2023-05-29 08:53] VITALS: BP 147/78; PULSE 100; RESP 16; TEMP 36.6; O2SAT 98
[2023-05-29 08:58] LABS: MANUAL DIFF FLAG NO
[2023-05-29 09:01] LABS: Basophils Absolute Auto 0.1 X10*3/uL (0.0-0.2); Basophils Percent Auto 0.9 % (0-2); Eosinophils Absolute Auto 0.2 X10*3/uL (0.0-0.4); Eosinophils Percent Auto 2.8 % (0-4); Hematocrit 39.3 % (42.0-52.0); Hemoglobin 13.1 g/dl (14.0-18.0); Imm Gran Abs Auto 0.03 X10*3/uL (0.00-0.03); Imm Gran Pct Auto 0.4 % (0.0-0.4); Lymphocytes Absolute Auto 2.2 X10*3/uL (1.2-4.9); Lymphocytes Percent Auto 30.9 % (20-40); Mean Corpuscular HGB Conc 33.3 g/dl (31.0-36.0); Mean Corpuscular Volume 89.9 fL (80.0-98.0); Mean Platelet Volume 10.1 fL (9.4-12.4); Monocytes Absolute Auto 0.8 X10*3/uL (0.1-1.2); Monocytes Percent Auto 10.7 % (2-11); Neutrophils Absolute Auto 3.8 x10*3/uL (2.0-8.3); Neutrophils Percent Auto 54.3 % (45-73); Platelet Count 224 X10*3/uL (160-400); Red Blood Count 4.37 X10*6/uL (4.60-5.80); Red Cell Distribution Width 13.3 % (11.0-16.0)
--- NOTE | 2023-05-29 14:49 | P.PNPSI_ITS ---
Subjective Subjective Date of Service: 05/29/23 Reason For Visit: Psychosis Interim History: no change in presentation. denies AH today. no side effects from medication titration. per staff, limited responses to questions. PRN zyprexa yesterday with good effect. slept well overnight. Mental Status Exam Mental Status Exam Narrative: calm, cooperative. childlike manner, high-pitched voice, poor eye contact. no PMA/PMR. speech nml amount, loudness. incr rate. somewhat dysarthric. thoughts linear and logical. affect constricted, normo-intense, non-labile. no SI/HI/AVH expressed. Diagnostics Vital Signs (24Hr): Vital Signs - 24 hr 05/28/23 20:43 05/29/23 08:53 Temperature 98.5 F 97.9 F Pulse Rate 116 H 100 Respiratory Rate 16 Blood Pressure 154/76 H 147/78 H Pulse Oximetry 100 98 Oxygen Delivery Method Room Air Room Air BMI result Body Mass Index 22.9 Labs 05/29/23 08:06 05/23/23 07:21 Labs: Laboratory Results - last 48 hr 05/29/23 08:06 WBC 7.0 RBC 4.37 L Hgb 13.1 L Hct 39.3 L MCV 89.9 MCH 30.0 MCHC 33.3 RDW 13.3 Plt Count 224 MPV 10.1 Immature Gran % (Auto) 0.4 Neut % (Auto) 54.3 Lymph % (Auto) 30.9 [place] % (Auto) 10.7 Eos % (Auto) 2.8 Baso % (Auto) 0.9 Lymph # (Auto) 2.2 [place] # (Auto) 0.8 Eos # (Auto) 0.2 Baso # (Auto) 0.1 Abs Immat Gran (auto) 0.03 Absolute Neuts (auto) 3.8 Absolute Nucleated RBC 0.000 Nucleated RBC % (auto) 0.0 Medications Medications Current Medications Acetaminophen (Acetaminophen 325 Mg Tablet) 650 mg PO Q6H PRN PRN Reason: Headache/Pain Mild Scale (1-3) Al Hydroxide/Mg Hydroxide (Magnesium Hydrox/Alum Hydrox 30 Ml Oral.Susp) 30 ml PO Q6H PRN PRN Reason: Heartburn/Nausea Clozapine (Clozapine 100 Mg Tablet) 200 mg PO BEDTIME JAIRO Last Admin: 05/28/23 20:41 Dose: 200 mg Docusate Sodium (Docusate Sodium 100 Mg Capsule) 100 mg PO BID JAIRO Last Admin: 05/29/23 08:38 Dose: 100 mg Hydroxyzine HCl (Hydroxyzine Hcl 25 Mg Tablet) 25 mg PO Q6H PRN PRN Reason: Anxiety Last Admin: 05/25/23 21:05 Dose: 25 mg Magnesium Hydroxide (Milk Of Magnesia 30 Ml Oral.Susp) 30 ml PO DAILY PRN PRN Reason: Constipation Olanzapine (Olanzapine 10 Mg Tablet) 10 mg PO BID PRN PRN Reason: AH Last Admin: 05/28/23 15:00 Dose: 10 mg Trazodone HCl (Trazodone Hcl 50 Mg Tablet) 50 mg PO BEDTIME PRN PRN Reason: Insomnia Last Admin: 05/28/23 20:41 Dose: 50 mg Allergies Allergies Allergy/AdvReac Type Severity Reaction Status Date / Time orange Allergy Intermediate RASH Verified 06/15/22 11:42 Pollen Allergy Intermediate congestion Uncoded 06/15/22 11:42 Assessment & Plan Assessment & Plan (1) Schizophrenia: Qualifiers: Schizophrenia type: unspecified Qualified Code(s): F20.9 - Schizophrenia, unspecified Status: Acute Code(s): F20.9 - Schizophrenia, unspecified Plan 05/23: titrate clozapine back to prior outpt dosing (300 mg QHS). increase from 50 BID today to 50/75 tonight. 05/24: stable, no overt Sx. continue clozapine titration, to 50/100 tonight. 05/25: increase clozapine to 50 AM + 125 HS 05/26: Increase HS Clozapine to 150 mg. Continue AM Clozapine at 50 mg. 05/27: Continue current regimen and plans. No changes in Clozaril dose today. 05/28: increase clozapine to 200 QHS tonight, DC morning dose. increase to 225 tomorrow night. disturbing AH continue. 05/29: denies AH. increase clozapine to 225 tonight. Reason for continued inpatient stay Substantial Risk for: inability to function and rapid decompensation Time Spent With Patient Time: Total time managing care of this patient today ____ minutes.
[2023-05-29 20:15] VITALS: BP 131/72; PULSE 110; TEMP 36.7; O2SAT 96
[2023-05-29] MEDS: Docusate Sodium 100 MG CAPSULE PO (20:31)
[2023-05-29] MEDS: traZODone HCL 50 MG TABLET PO (20:31)
[2023-05-29] MEDS: cloZAPine 200 MG, cloZAPine 25 MG 225 MG PO (20:32)
[2023-05-30 07:00] VITALS: BMI 21.7
[2023-05-30] MEDS: Docusate Sodium 100 MG CAPSULE PO (08:40)
[2023-05-30 08:44] VITALS: BP 133/72; PULSE 98; RESP 16; TEMP 36.7; O2SAT 99
--- NOTE | 2023-05-30 13:20 | P.PNPSI_ITS ---
Subjective Subjective Date of Service: 05/30/23 Reason For Visit: Psychosis Subjective Notes: Conditional Voluntary Interim History: Pt has been more visible on the unit and has attended assigned groups. He reports he was ehearing voices but not today. He denies SI/HI. He states I'm trying to get better. He states he wakes, and try to go to groups. He reports constipation but unable to tell when was his last BM. will add sennakot Review of Systems Review of Systems Constitutional : No Fever, No Chills Cardiovascular : No Chest Pain, No SOB Respiratory : No Cough, No Sputum, No Dyspnea Gastrointestinal : No Nausea, No Vomiting, No Diarrhea, No Hematochezia, No Melena Genitourinary : No Dysuria, No Urinary Frequency, No Hematuria Musculoskeletal : No Myalgias Skin : No Skin Lesions, No rash Neuro : No Weakness, No Numbness, No Paresthesias, No Dizziness, No Headache Psych : noAnxiety, no Depression, no SI/HI All other systems reviewed and are negative Mental Status Exam Mental Status Exam Narrative: calm, cooperative. childlike manner, high-pitched voice, poor eye contact. no PMA/PMR. speech nml amount, loudness. incr rate. somewhat dysarthric. thoughts linear and logical. affect constricted, normo-intense, non-labile. no SI/HI/AVH expressed. Diagnostics Vital Signs (24Hr): Vital Signs - 24 hr 05/29/23 20:15 05/30/23 08:44 Temperature 98.1 F 98.0 F Pulse Rate 110 H 98 Respiratory Rate 16 Blood Pressure 131/72 133/72 Pulse Oximetry 96 99 Oxygen Delivery Method Room Air Room Air BMI result Body Mass Index 22.9 Labs 05/29/23 08:06 05/23/23 07:21 Labs: Laboratory Results - last 48 hr 05/29/23 08:06 WBC 7.0 RBC 4.37 L Hgb 13.1 L Hct 39.3 L MCV 89.9 MCH 30.0 MCHC 33.3 RDW 13.3 Plt Count 224 MPV 10.1 Immature Gran % (Auto) 0.4 Neut % (Auto) 54.3 Lymph % (Auto) 30.9 [place] % (Auto) 10.7 Eos % (Auto) 2.8 Baso % (Auto) 0.9 Lymph # (Auto) 2.2 [place] # (Auto) 0.8 Eos # (Auto) 0.2 Baso # (Auto) 0.1 Abs Immat Gran (auto) 0.03 Absolute Neuts (auto) 3.8 Absolute Nucleated RBC 0.000 Nucleated RBC % (auto) 0.0 Medications Medications Current Medications Acetaminophen (Acetaminophen 325 Mg Tablet) 650 mg PO Q6H PRN PRN Reason: Headache/Pain Mild Scale (1-3) Al Hydroxide/Mg Hydroxide (Magnesium Hydrox/Alum Hydrox 30 Ml Oral.Susp) 30 ml PO Q6H PRN PRN Reason: Heartburn/Nausea Clozapine 200 mg/ Clozapine 25 (mg) 225 mg PO BEDTIME JAIRO Last Admin: 05/29/23 20:32 Dose: 225 mg Docusate Sodium (Docusate Sodium 100 Mg Capsule) 100 mg PO BID JAIRO Last Admin: 05/30/23 08:40 Dose: 100 mg Hydroxyzine HCl (Hydroxyzine Hcl 25 Mg Tablet) 25 mg PO Q6H PRN PRN Reason: Anxiety Last Admin: 05/25/23 21:05 Dose: 25 mg Magnesium Hydroxide (Milk Of Magnesia 30 Ml Oral.Susp) 30 ml PO DAILY PRN PRN Reason: Constipation Olanzapine (Olanzapine 10 Mg Tablet) 10 mg PO BID PRN PRN Reason: AH Last Admin: 05/28/23 15:00 Dose: 10 mg Trazodone HCl (Trazodone Hcl 50 Mg Tablet) 50 mg PO BEDTIME PRN PRN Reason: Insomnia Last Admin: 05/29/23 20:31 Dose: 50 mg Allergies Allergies Allergy/AdvReac Type Severity Reaction Status Date / Time orange Allergy Intermediate RASH Verified 06/15/22 11:42 Pollen Allergy Intermediate congestion Uncoded 06/15/22 11:42 Assessment & Plan Assessment & Plan (1) Schizophrenia: Qualifiers: Schizophrenia type: unspecified Qualified Code(s): F20.9 - Schizophrenia, unspecified Status: Acute Code(s): F20.9 - Schizophrenia, unspecified Plan 05/23: titrate clozapine back to prior outpt dosing (300 mg QHS). increase from 50 BID today to 50/75 tonight. 05/24: stable, no overt Sx. continue clozapine titration, to 50/100 tonight. 05/25: increase clozapine to 50 AM + 125 HS 10/8: Increase HS Clozapine to 150 mg. Continue AM Clozapine at 50 mg. 05/27: Continue current regimen and plans. No changes in Clozaril dose today. 05/28: increase clozapine to 200 QHS tonight, DC morning dose. increase to 225 tomorrow night. disturbing AH continue. 05/29: denies AH. increase clozapine to 225 tonight. 05/30 continue tx. sennakot for constipation tx and prophylaxis as he is on clozaril Reason for continued inpatient stay Substantial Risk for: inability to function Time Spent With Patient Time: Total time managing care of this patient today ____ minutes.
[2023-05-30] MEDS: Sennosides/Docusate Sodium TABLET 2 TAB PO (20:21)
[2023-05-30] MEDS: cloZAPine 200 MG, cloZAPine 25 MG 225 MG PO (20:21)
[2023-05-30] MEDS: hydrOXYzine HCL 25 MG TABLET PO (20:22)
[2023-05-30] MEDS: traZODone HCL 50 MG TABLET PO (20:22)
[2023-05-31 08:00] VITALS: BP 135/88; PULSE 98; TEMP 36.4; O2SAT 100
[2023-05-31] MEDS: Sennosides/Docusate Sodium TABLET 2 TAB PO ×2 (08:37→20:17)
--- NOTE | 2023-05-31 15:48 | HO.PSYCHPN ---
Subjective Subjective Date of Service: 05/31/23 Reason For Visit: Psychosis Interim History: up and about the unit, states he feels ready for discharge. denies Sx. pleasant, cooperative. informed we will continue titration to 300 mg QHS. per staff, calm, cooperative. no depression/SI/HI. anxious. linear, organized. attending groups. wants to discharge. denies AVH yesterday. Mental Status Exam Mental Status Exam Narrative: calm, cooperative. childlike manner, high-pitched voice, fair eye contact. no PMA/PMR. speech nml amount, loudness. incr rate. somewhat dysarthric. thoughts linear and logical. affect constricted, normo-intense, non-labile. no SI/HI/VH expressed. denies AH. Diagnostics Vital Signs (24Hr): Vital Signs - 24 hr 05/31/23 08:00 Temperature 97.5 F Pulse Rate 98 Blood Pressure 135/88 Pulse Oximetry 100 Oxygen Delivery Method Room Air BMI result Body Mass Index 21.7 Labs 05/29/23 08:06 05/23/23 07:21 Medications Medications Current Medications Acetaminophen (Acetaminophen 325 Mg Tablet) 650 mg PO Q6H PRN PRN Reason: Headache/Pain Mild Scale (1-3) Al Hydroxide/Mg Hydroxide (Magnesium Hydrox/Alum Hydrox 30 Ml Oral.Susp) 30 ml PO Q6H PRN PRN Reason: Heartburn/Nausea Clozapine 200 mg/ Clozapine 25 (mg) 225 mg PO BEDTIME JAIRO Last Admin: 05/30/23 20:21 Dose: 225 mg Hydroxyzine HCl (Hydroxyzine Hcl 25 Mg Tablet) 25 mg PO Q6H PRN PRN Reason: Anxiety Last Admin: 05/30/23 20:22 Dose: 25 mg Magnesium Hydroxide (Milk Of Magnesia 30 Ml Oral.Susp) 30 ml PO DAILY PRN PRN Reason: Constipation Olanzapine (Olanzapine 10 Mg Tablet) 10 mg PO BID PRN PRN Reason: AH Last Admin: 05/28/23 15:00 Dose: 10 mg Senna/Docusate Sodium (Sennosides/Docusate Sodium Tablet) 2 tab PO BID JAIRO Last Admin: 05/31/23 08:37 Dose: 2 tab Trazodone HCl (Trazodone Hcl 50 Mg Tablet) 50 mg PO BEDTIME PRN PRN Reason: Insomnia Last Admin: 05/30/23 20:22 Dose: 50 mg Allergies Allergies Allergy/AdvReac Type Severity Reaction Status Date / Time orange Allergy Intermediate RASH Verified 06/15/22 11:42 Pollen Allergy Intermediate congestion Uncoded 06/15/22 11:42 Assessment & Plan Assessment & Plan (1) Schizophrenia: Qualifiers: Schizophrenia type: unspecified Qualified Code(s): F20.9 - Schizophrenia, unspecified Status: Acute Code(s): F20.9 - Schizophrenia, unspecified Plan 05/23: titrate clozapine back to prior outpt dosing (300 mg QHS). increase from 50 BID today to 50/75 tonight. 05/24: stable, no overt Sx. continue clozapine titration, to 50/100 tonight. 05/25: increase clozapine to 50 AM + 125 HS 05/26: Increase HS Clozapine to 150 mg. Continue AM Clozapine at 50 mg. 05/27: Continue current regimen and plans. No changes in Clozaril dose today. 05/28: increase clozapine to 200 QHS tonight, DC morning dose. increase to 225 tomorrow night. disturbing AH continue. 05/29: denies AH. increase clozapine to 225 tonight. 05/30 continue tx. sennakot for constipation tx and prophylaxis as he is on clozaril. 05/31: titrate clozapine to 300 over w/e. orders entered. plan to discharge early next week. stable, denies AH presently. Reason for continued inpatient stay Substantial Risk for: rapid decompensation Time Spent With Patient Time: Total time managing care of this patient today __25__ minutes.
[2023-05-31 18:00] VITALS: BP 142/77; PULSE 120; RESP 16; TEMP 36.8; O2SAT 98
[2023-05-31] MEDS: cloZAPine 25 MG TABLET 250 MG PO (20:17)
[2023-05-31] MEDS: traZODone HCL 50 MG TABLET PO (20:20)
[2023-06-01 09:00] VITALS: BP 134/61; PULSE 108; RESP 16; TEMP 36.2; O2SAT 98
[2023-06-01] MEDS: Sennosides/Docusate Sodium TABLET 2 TAB PO ×2 (09:09→20:04)
[2023-06-01] MEDS: OLANZapine 10 MG TABLET PO (16:39)
--- NOTE | 2023-06-01 16:48 | HO.PSYCHPN ---
Subjective Subjective Date of Service: 06/01/23 Reason For Visit: Psychosis Interim History: NO management issues. Attends groups. States thinsg are going ok. Feels safe and supported. Denied SI, HI, AH. Sleep good. No med concerns. Medication Compliance: Yes Side effects from medications: No Attending Groups: Yes Review of Systems Acute medical concerns: No Review of Systems Review of Systems Yes all other systems are reviewed and are negative Mental Status Exam Mental Status Exam Narrative: calm, cooperative. childlike manner, high-pitched voice, fair eye contact. no PMA/PMR. speech nml amount, loudness. incr rate. somewhat dysarthric. thoughts linear and logical. affect constricted, normo-intense, non-labile. no SI/HI/VH expressed. denies AH. Diagnostics Vital Signs (24Hr): Vital Signs - 24 hr 05/31/23 18:00 06/01/23 09:00 Temperature 98.2 F 97.2 F Pulse Rate 120 H 108 H Respiratory Rate 16 16 Blood Pressure 142/77 H 134/61 Pulse Oximetry 98 98 Oxygen Delivery Method Room Air Room Air BMI result Body Mass Index 21.7 Labs 05/29/23 08:06 05/23/23 07:21 Medications Medications Current Medications Acetaminophen (Acetaminophen 325 Mg Tablet) 650 mg PO Q6H PRN PRN Reason: Headache/Pain Mild Scale (1-3) Al Hydroxide/Mg Hydroxide (Magnesium Hydrox/Alum Hydrox 30 Ml Oral.Susp) 30 ml PO Q6H PRN PRN Reason: Heartburn/Nausea Clozapine 200 mg/ Clozapine 75 (mg) 275 mg PO ONCE ONE Stop: 06/01/23 21:01 Clozapine (Clozapine 100 Mg Tablet) 300 mg PO BEDTIME JAIRO Hydroxyzine HCl (Hydroxyzine Hcl 25 Mg Tablet) 25 mg PO Q6H PRN PRN Reason: Anxiety Last Admin: 05/30/23 20:22 Dose: 25 mg Magnesium Hydroxide (Milk Of Magnesia 30 Ml Oral.Susp) 30 ml PO DAILY PRN PRN Reason: Constipation Olanzapine (Olanzapine 10 Mg Tablet) 10 mg PO BID PRN PRN Reason: AH Last Admin: 06/01/23 16:39 Dose: 10 mg Senna/Docusate Sodium (Sennosides/Docusate Sodium Tablet) 2 tab PO BID JAIRO Last Admin: 06/01/23 09:09 Dose: 2 tab Trazodone HCl (Trazodone Hcl 50 Mg Tablet) 50 mg PO BEDTIME PRN PRN Reason: Insomnia Last Admin: 05/31/23 20:20 Dose: 50 mg Allergies Allergies Allergy/AdvReac Type Severity Reaction Status Date / Time orange Allergy Intermediate RASH Verified 06/15/22 11:42 Pollen Allergy Intermediate congestion Uncoded 06/15/22 11:42 Assessment & Plan Assessment & Plan (1) Schizophrenia: Qualifiers: Schizophrenia type: unspecified Qualified Code(s): F20.9 - Schizophrenia, unspecified Status: Acute Code(s): F20.9 - Schizophrenia, unspecified Plan 05/23: titrate clozapine back to prior outpt dosing (300 mg QHS). increase from 50 BID today to 50/75 tonight. 05/24: stable, no overt Sx. continue clozapine titration, to 50/100 tonight. 05/25: increase clozapine to 50 AM + 125 HS 05/26: Increase HS Clozapine to 150 mg. Continue AM Clozapine at 50 mg. 05/27: Continue current regimen and plans. No changes in Clozaril dose today. 05/28: increase clozapine to 200 QHS tonight, DC morning dose. increase to 225 tomorrow night. disturbing AH continue. 05/29: denies AH. increase clozapine to 225 tonight. 05/30 continue tx. sennakot for constipation tx and prophylaxis as he is on clozaril. 05/31: titrate clozapine to 300 over w/e. orders entered. plan to discharge early next week. stable, denies AH presently. 06/01: no changes- clozapine titration in place Reason for continued inpatient stay Substantial Risk for: inability to function Time Spent With Patient Time: Total time managing care of this patient today ____ minutes.
[2023-06-01] MEDS: hydrOXYzine HCL 25 MG TABLET PO (20:04)
[2023-06-01 20:35] VITALS: BP 169/89; PULSE 125; RESP 20; TEMP 36.6; O2SAT 98
[2023-06-02 08:41] VITALS: BP 142/85; PULSE 114; RESP 18; TEMP 36.7; O2SAT 96
[2023-06-02] MEDS: Sennosides/Docusate Sodium TABLET 2 TAB PO ×2 (08:43→20:33)
--- NOTE | 2023-06-02 15:24 | HO.PSYCHPN ---
Subjective Subjective Date of Service: 06/02/23 Reason For Visit: Psychosis Interim History: Took prn olanzapine yesterday when feeling overwhelmed with good effect. Attends groups. States things are going ok and looking forward to discharge soon. Feels safe and supported. Denied SI, HI, AH. Sleep good. No med concerns. Medication Compliance: Yes Side effects from medications: No Attending Groups: Yes Review of Systems Acute medical concerns: No Review of Systems Review of Systems Yes all other systems are reviewed and are negative Mental Status Exam Mental Status Exam Narrative: calm, cooperative. childlike manner, high-pitched voice, fair eye contact. no PMA/PMR. speech nml amount, loudness. incr rate. somewhat dysarthric. thoughts linear and logical. affect constricted, normo-intense, non-labile. no SI/HI/VH expressed. denies AH. Diagnostics Vital Signs (24Hr): Vital Signs - 24 hr 06/01/23 20:35 06/02/23 08:41 Temperature 97.9 F 98.1 F Pulse Rate 125 H 114 H Respiratory Rate 20 18 Blood Pressure 169/89 H 142/85 H Pulse Oximetry 98 96 Oxygen Delivery Method Room Air Room Air BMI result Body Mass Index 21.7 Labs 05/29/23 08:06 05/23/23 07:21 Medications Medications Current Medications Acetaminophen (Acetaminophen 325 Mg Tablet) 650 mg PO Q6H PRN PRN Reason: Headache/Pain Mild Scale (1-3) Al Hydroxide/Mg Hydroxide (Magnesium Hydrox/Alum Hydrox 30 Ml Oral.Susp) 30 ml PO Q6H PRN PRN Reason: Heartburn/Nausea Clozapine (Clozapine 100 Mg Tablet) 300 mg PO BEDTIME JAIRO Hydroxyzine HCl (Hydroxyzine Hcl 25 Mg Tablet) 25 mg PO Q6H PRN PRN Reason: Anxiety Last Admin: 06/01/23 20:04 Dose: 25 mg Magnesium Hydroxide (Milk Of Magnesia 30 Ml Oral.Susp) 30 ml PO DAILY PRN PRN Reason: Constipation Olanzapine (Olanzapine 10 Mg Tablet) 10 mg PO BID PRN PRN Reason: AH Last Admin: 06/01/23 16:39 Dose: 10 mg Senna/Docusate Sodium (Sennosides/Docusate Sodium Tablet) 2 tab PO BID JAIRO Last Admin: 06/02/23 08:43 Dose: 2 tab Trazodone HCl (Trazodone Hcl 50 Mg Tablet) 50 mg PO BEDTIME PRN PRN Reason: Insomnia Last Admin: 05/31/23 20:20 Dose: 50 mg Allergies Allergies Allergy/AdvReac Type Severity Reaction Status Date / Time orange Allergy Intermediate RASH Verified 06/15/22 11:42 Pollen Allergy Intermediate congestion Uncoded 06/15/22 11:42 Assessment & Plan Assessment & Plan (1) Schizophrenia: Qualifiers: Schizophrenia type: unspecified Qualified Code(s): F20.9 - Schizophrenia, unspecified Status: Acute Code(s): F20.9 - Schizophrenia, unspecified Plan 05/23: titrate clozapine back to prior outpt dosing (300 mg QHS). increase from 50 BID today to 50/75 tonight. 05/24: stable, no overt Sx. continue clozapine titration, to 50/100 tonight. 05/25: increase clozapine to 50 AM + 125 HS 05/26: Increase HS Clozapine to 150 mg. Continue AM Clozapine at 50 mg. 05/27: Continue current regimen and plans. No changes in Clozaril dose today. 05/28: increase clozapine to 200 QHS tonight, DC morning dose. increase to 225 tomorrow night. disturbing AH continue. 05/29: denies AH. increase clozapine to 225 tonight. 05/30 continue tx. sennakot for constipation tx and prophylaxis as he is on clozaril. 05/31: titrate clozapine to 300 over w/e. orders entered. plan to discharge early next week. stable, denies AH presently. 06/02: no changes- clozapine titration in place Reason for continued inpatient stay Substantial Risk for: rapid decompensation Time Spent With Patient Time: Total time managing care of this patient today ____ minutes.
[2023-06-02 20:00] VITALS: BP 146/82; PULSE 110; TEMP 36.6; O2SAT 96
[2023-06-02] MEDS: cloZAPine 100 MG TABLET 300 MG PO (20:32)
[2023-06-02] MEDS: traZODone HCL 50 MG TABLET PO (20:33)
[2023-06-03] MEDS: Sennosides/Docusate Sodium TABLET 2 TAB PO ×2 (08:27→20:11)
[2023-06-03 08:54] VITALS: BP 134/91; PULSE 122; RESP 16; TEMP 36.3; O2SAT 98
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
[2023-06-03 20:05] VITALS: BP 167/75; PULSE 117; TEMP 37.1; O2SAT 99
[2023-06-03] MEDS: cloZAPine 100 MG TABLET 300 MG PO (20:11)
[2023-06-03] MEDS: traZODone HCL 50 MG TABLET PO (20:12)
[2023-06-04] MEDS: Sennosides/Docusate Sodium TABLET 2 TAB PO (08:22)
[2023-06-04 08:25] VITALS: BP 139/85; PULSE 97; RESP 20; TEMP 36.6; O2SAT 99
== END 2023-06-04 11:25 | disposition home or self-care (01) | DRG 750 ==
LOC: HO.ED 14:59 → HO.PADLT16 05-22 17:14
PROVIDERS: Social Worker; Admitting Provider Psychiatry & Neurology Psychiatry; Emergency Provider Emergency Medicine; PCP Internal Medicine; Visit Provider Psychiatry & Neurology Psychiatry
DX: F20.9 Schizophrenia, unspecified (principal); Z91.148 Patient's other noncompliance with medication regimen for other reason; E78.5 Hyperlipidemia, unspecified; K59.00 Constipation, unspecified; Z23 Encounter for immunization; Z20.822 Contact with and (suspected) exposure to COVID-19; Z79.899 Other long term (current) drug therapy
CPT/HCPCS: 36415; 80053; 80061; 80143; 80179; 80307; 81001; 82607; 82746; 83036; 84443; 85025; 87635; 90686; 93005; 99285; S9485

== ENCOUNTER → 2023-05-22 17:07 | Outpatient (BNV) | payer OTHER, SELFPAY | PROVIDERS: Admitting Provider Psychiatry & Neurology Psychiatry; Emergency Provider Emergency Medicine; PCP Internal Medicine; Visit Provider Psychiatry & Neurology Psychiatry | DX: F20.0 Paranoid schizophrenia (principal) | CPT/HCPCS: 90792; 99231; 99232; 99239 ==

== ENCOUNTER 2023-06-18 14:11 | Outpatient (AMB) | payer OTHER, SELFPAY ==
--- NOTE | 2023-06-18 14:13 | MHC.PC.OV ---
Vital Signs 06/18/23 14:14 Height 5 ft 9 in Weight 150 lb BMI 22.1 BP 122/64 Blood Pressure Location Lt brachial Position Sitting Pulse 120 H Pulse Source Pulse Oximeter Pulse Oximetry (%) 99 Oxygen Delivery Method Room Air Intake Visit [place] [facility] [place] [facility] Supervisor: Not Required per policy Accompanied by: Self / Same As Patient Allergies orange Allergy (Intermediate, Verified 06/18/23 14:14) RASH Pollen Allergy (Intermediate, Uncoded 06/18/23 14:14) congestion Medication List - Last Reconciled 06/19/23 by Tyler Armas MD clozapine 100 mg PO BEDTIME 30 days clozapine 200 mg PO BEDTIME 30 days sennosides-docusate sodium 8.6-50 mg (Senna Plus) 2 tabs PO BID 30 days Tobacco use date assessed: 06/18/23 Dental Screening Dental Screen Date: 06/18/23 Did you have a dental visit in the last 12 months?: No Did you have a dental problem in the last 6 months where you did not have access to dental care?: No Was dental information given to patient?: Patient has dentist [place] [facility] [place] Details admitted with psychosis to [facility] Medical History Schizophrenia Hyperlipidemia Surgical History No history of previous surgery Family History Other Mental health disorder Social History Household Members: Family Housing: House Do you presently have visiting nurse or other home services: No Patient Tobacco Use Status: Never used Tobacco e-Cigarette/Vaping Use: Never Used Second Hand Smoke Exposure: No service: No Current occupational status: disabled Sexual orientation: Don't Know Cognitive needs: Yes Hearing needs: No Vision needs: Yes Questionnaire PHQ-9 Over the last 2 weeks, how often have you been bothered by any of the following problems? 1. Little interest or pleasure in doing things: not at all 2. Feeling down, depressed, or hopeless: not at all 3. Trouble falling or staying asleep, or sleeping too much: not at all 4. Feeling tired or having little energy: not at all 5. Poor appetite or overeating: not at all 6. Feeling bad about yourself - or that you are a failure or have let yourself or your family down: not at all 7. Trouble concentrating on things, such as reading the newspaper or watching television: not at all 8. Moving or speaking so slowly that other people could have noticed. Or the opposite - being so fidgety or restless that you have been moving around a lot more than usual: not at all 9. Thoughts that you would be better off or of hurting yourself in some way: not at all Total score: 0 Depression Screening Interpretation: Negative Depression Screening Done: Yes Source: Developed by Drs. Reyes Hinojosa, Luiza Parkinson, David Cash and colleagues, with an educational lev from [employer]. Thrive Questionnaire Date Thrive assessed: 05/23/23 AUDIT C Alcohol Use Questionnaire (AUDIT-C) 1. How often do you have a drink containing alcohol?: Never Total Score: 0 Score Reviewed/Action Taken: Yes WES-7 AMB Questionnaire WES-7 Date WES - 7 assessed: 06/18/23 Feeling nervous, anxious, or on edge: 0 = Not at all Not being able to stop or control worryin = Not at all Worrying too much about different things: 0 = Not at all Trouble relaxin = Not at all Being so restless that it is hard to sit still: 0 = Not at all Becoming easily annoyed or irritable: 0 = Not at all Feeling afraid as if something awful might happen: 0 = Not at all Total WES-7 score (0-4 normal; 5-9 mild; 10-14 moderate; 15-21 severe): 0 Source: Developed by Drs. Reyes Hinojosa, Luiza Parkinson, David Cash and colleagues, with an educational lev from [employer]. Review of Systems Const Denies chills, Denies headache(s) and Denies weight loss ENT Denies headache(s) Card Denies chest pain, Denies syncope, Denies irregular heart rhythm and Denies dyspnea Resp Denies chest congestion, Denies cough and Denies dyspnea GI Denies abdominal pain, Denies change in stool character, Denies nausea and Denies vomiting Musc Denies deformity and Denies joint swelling Neuro Denies syncope and Denies headache(s) Physical exam (Primary Care) Vital Signs: Last Vital Signs Pulse 120 H 06/18/23 14:14 BP 122/64 06/18/23 14:14 Pulse Ox 99 06/18/23 14:14 Oxygen Delivery Method Room Air 06/18/23 14:14 BMI result Body Mass Index 22.1 Tobacco/Smoking Status: Tobacco use Status Tobacco use date assessed 06/18/23 06/18/23 14:19 Patient Tobacco Use Status Never used Tobacco 06/18/23 14:19 e-Cigarette/Vaping Use Never Used 06/18/23 14:19 PHQ-9: PHQ-9 Score PHQ-9: Total score 0 06/18/23 14:19 Depression Screening Interpretation: Negative Thrive Assessment: Date of Thrive Assessment Date Thrive assessed 05/23/23 06/18/23 14:19 Const General: cooperative, comfortable, no acute distress and alert Neck Neck: Yes no lymphadenopathy Thyroid: Thyroid normal Resp Effort & Inspection: normal respiratory effort Auscultation: clear to auscultation bilaterally Percussion: percussion normal Cardio Jugular venous distension: no JVD Palpation: normal PMI Rate: regular rate Rhythm: regular rhythm Heart sounds: S1 normal heart sound present and S2 normal heart sound present GI Inspection: Yes normal to inspection Palpation (GI): No hepatosplenomegaly present Skin General skin exam: no rashes or lesions noted Extrem General: Yes no clubbing, cyanosis or edema Assessment and Plan Assessment & Plan (1) Schizophrenia: Code(s): F20.9 - Schizophrenia, unspecified Qualifiers: Schizophrenia type: unspecified Qualified Code(s): F20.9 - Schizophrenia, unspecified Plan: as per psych Coding Level of Care Code Est Pt Level 3 (23923) Diagnoses Schizophrenia F20.9 Schizophrenia type: unspecified Additional Codes PHQ-9 - 42439 - PHQ-9 Billing: ([id number])
[2023-06-18 14:14] VITALS: BP 122/64; PULSE 120; O2SAT 99; BMI 22.1
== END 2023-06-18 14:25 | disposition home or self-care (01) ==
PROVIDERS: PCP Internal Medicine; Visit Provider Internal Medicine
DX: F20.9 Schizophrenia, unspecified (principal)
CPT/HCPCS: 99213

== ENCOUNTER 2023-06-20 10:35 | Outpatient (REF) | payer OTHER, SELFPAY ==
[2023-06-20 11:47] LABS: Basophils Absolute Auto 0.1 X10*3/uL (0.0-0.2); Basophils Percent Auto 0.8 % (0-2); Eosinophils Absolute Auto 0.1 X10*3/uL (0.0-0.4); Eosinophils Percent Auto 1.8 % (0-4); Hematocrit 40.1 % (42.0-52.0); Hemoglobin 13.1 g/dl (14.0-18.0); Imm Gran Abs Auto 0.02 X10*3/uL (0.00-0.03); Imm Gran Pct Auto 0.3 % (0.0-0.4); Lymphocytes Absolute Auto 1.8 X10*3/uL (1.2-4.9); Lymphocytes Percent Auto 30.9 % (20-40); MANUAL DIFF FLAG NO; Mean Corpuscular HGB Conc 32.7 g/dl (31.0-36.0); Mean Corpuscular Hemoglobin 29.9 pg (27.0-33.0); Mean Corpuscular Volume 91.6 fL (80.0-98.0); Mean Platelet Volume 10.5 fL (9.4-12.4); Monocytes Absolute Auto 0.6 X10*3/uL (0.1-1.2); Monocytes Percent Auto 10.2 % (2-11); Neutrophils Absolute Auto 3.3 x10*3/uL (2.0-8.3); Platelet Count 259 X10*3/uL (160-400); Red Blood Count 4.38 X10*6/uL (4.60-5.80); Red Cell Distribution Width 13.2 % (11.0-16.0)
== END 2023-06-20 10:36 | disposition home or self-care (01) ==
LOC: HO.LABR 10:35
PROVIDERS: PCP Internal Medicine; Visit Provider Psychiatry & Neurology Psychiatry
DX: F20.9 Schizophrenia, unspecified (principal); Z51.81 Encounter for therapeutic drug level monitoring
CPT/HCPCS: 36415; 85025

== ENCOUNTER 2023-07-22 11:12 | Outpatient (REF) | payer OTHER, SELFPAY ==
[2023-07-22 11:22] LABS: MANUAL DIFF FLAG NO
[2023-07-22 12:11] LABS: Basophils Absolute Auto 0.1 X10*3/uL (0.0-0.2); Eosinophils Absolute Auto 0.2 X10*3/uL (0.0-0.4); Eosinophils Percent Auto 2.4 % (0-4); Hematocrit 37.6 % (42.0-52.0); Hemoglobin 12.7 g/dl (14.0-18.0); Imm Gran Abs Auto 0.03 X10*3/uL (0.00-0.03); Imm Gran Pct Auto 0.4 % (0.0-0.4); Lymphocytes Absolute Auto 1.7 X10*3/uL (1.2-4.9); Lymphocytes Percent Auto 23.4 % (20-40); Mean Corpuscular HGB Conc 33.8 g/dl (31.0-36.0); Mean Corpuscular Hemoglobin 30.8 pg (27.0-33.0); Mean Platelet Volume 10.7 fL (9.4-12.4); Monocytes Absolute Auto 0.6 X10*3/uL (0.1-1.2); Monocytes Percent Auto 9.1 % (2-11); Neutrophils Absolute Auto 4.5 x10*3/uL (2.0-8.3); Neutrophils Percent Auto 63.7 % (45-73); Platelet Count 242 X10*3/uL (160-400); Red Blood Count 4.13 X10*6/uL (4.60-5.80); Red Cell Distribution Width 13.1 % (11.0-16.0); White Blood Count 7.1 X10*3/uL (4.8-10.8)
== END 2023-07-22 11:13 | disposition home or self-care (01) ==
LOC: HO.LABR 11:12
PROVIDERS: Visit Provider Psychiatry & Neurology Psychiatry
DX: F20.9 Schizophrenia, unspecified (principal); Z51.81 Encounter for therapeutic drug level monitoring
CPT/HCPCS: 36415; 85025

== ENCOUNTER 2023-08-20 11:08 | Outpatient (REF) | payer OTHER, SELFPAY ==
[2023-08-20 11:18] LABS: MANUAL DIFF FLAG NO
[2023-08-20 11:47] LABS: Basophils Absolute Auto 0.1 X10*3/uL (0.0-0.2); Basophils Percent Auto 0.9 % (0-2); Eosinophils Absolute Auto 0.2 X10*3/uL (0.0-0.4); Eosinophils Percent Auto 2.3 % (0-4); Hematocrit 38.9 % (42.0-52.0); Hemoglobin 12.7 g/dl (14.0-18.0); Imm Gran Abs Auto 0.03 X10*3/uL (0.00-0.03); Imm Gran Pct Auto 0.4 % (0.0-0.4); Lymphocytes Absolute Auto 1.8 X10*3/uL (1.2-4.9); Lymphocytes Percent Auto 25.4 % (20-40); Mean Corpuscular HGB Conc 32.6 g/dl (31.0-36.0); Mean Platelet Volume 10.8 fL (9.4-12.4); Monocytes Absolute Auto 0.5 X10*3/uL (0.1-1.2); Monocytes Percent Auto 7.7 % (2-11); Neutrophils Absolute Auto 4.4 x10*3/uL (2.0-8.3); Neutrophils Percent Auto 63.3 % (45-73); Platelet Count 223 X10*3/uL (160-400); Red Blood Count 4.23 X10*6/uL (4.60-5.80); Red Cell Distribution Width 13.5 % (11.0-16.0)
== END 2023-08-20 11:09 | disposition home or self-care (01) ==
LOC: HO.LABR 11:08
PROVIDERS: Visit Provider Psychiatry & Neurology Psychiatry
DX: F20.9 Schizophrenia, unspecified (principal); Z51.81 Encounter for therapeutic drug level monitoring; Z79.899 Other long term (current) drug therapy
CPT/HCPCS: 36415; 85025

== ENCOUNTER 2023-09-18 13:41 | Outpatient (AMB) | payer OTHER, SELFPAY ==
[2023-09-18 13:46] VITALS: BP 112/70; PULSE 97; O2SAT 100; BMI 21.7
--- NOTE | 2023-09-18 13:46 | MHC.PC.OV ---
Vital Signs 09/18/23 13:46 Height 5 ft 9 in Weight 147 lb BMI 21.7 BP 112/70 Blood Pressure Location Lt brachial Position Sitting Pulse 97 Pulse Source Pulse Oximeter Pulse Oximetry (%) 100 Oxygen Delivery Method Room Air Intake Visit Reasons: 3mth f/u Control Valve Technician Required: No Print Designer: Present Allergies orange Allergy (Intermediate, Verified 09/18/23 13:46) RASH Pollen Allergy (Intermediate, Uncoded 09/18/23 13:46) congestion Medication List - Last Reconciled 09/18/23 by Tyler Armas MD clozapine 100 mg PO BEDTIME 30 days clozapine 200 mg PO BEDTIME 30 days sennosides-docusate sodium 8.6-50 mg (Senna Plus) 2 tabs PO BID 30 days Tobacco use date assessed: 09/18/23 Dental Screening Dental Screen Date: 09/18/23 Did you have a dental visit in the last 12 months?: Yes Did you have a dental problem in the last 6 months where you did not have access to dental care?: No Was dental information given to patient?: Patient has dentist HPI 3mth f/u HPI Details hyperlip but stopped rx PFSH Medical History Schizophrenia Hyperlipidemia Surgical History No history of previous surgery Family History Other Mental health disorder Social History Household Members: Family Housing: House Do you presently have visiting nurse or other home services: No Patient Tobacco Use Status: Never used Tobacco e-Cigarette/Vaping Use: Never Used Second Hand Smoke Exposure: No service: No Current occupational status: disabled Sexual orientation: Don't Know Cognitive needs: Yes Hearing needs: No Vision needs: Yes Questionnaire PHQ-9 Over the last 2 weeks, how often have you been bothered by any of the following problems? 1. Little interest or pleasure in doing things: not at all 2. Feeling down, depressed, or hopeless: not at all 3. Trouble falling or staying asleep, or sleeping too much: not at all 4. Feeling tired or having little energy: not at all 5. Poor appetite or overeating: not at all 6. Feeling bad about yourself - or that you are a failure or have let yourself or your family down: not at all 7. Trouble concentrating on things, such as reading the newspaper or watching television: not at all 8. Moving or speaking so slowly that other people could have noticed. Or the opposite - being so fidgety or restless that you have been moving around a lot more than usual: not at all 9. Thoughts that you would be better off or of hurting yourself in some way: not at all Total score: 0 Depression Screening Interpretation: Negative Depression Screening Done: Yes Source: Developed by Drs. Reyes Hinojosa, Luiza Parkinson, David Cash and colleagues, with an educational lev from [employer]. Thrive Questionnaire Date Thrive assessed: 09/18/23 I am a: Patient What is your living situation today?: I have a steady place to live Within the past 12 months, did the food you bought not last and you didn't have the money to get more?: Never true Within the past 12 months, did you worry whether your food would run out before you got money to buy more?: Never true Do you have trouble paying for medicines?: No Do you have trouble getting transportation to medical appointments?: No Do you have trouble paying your heating and electricity bill?: No Do you have trouble taking care of your child, family member or friend?: No Do you have trouble with day-to-day activities such as bathing, preparing meals, shopping, managing finances, etc.?: No Are you currently unemployed and looking for a job?: No Are you interested in more education?: No Please select the resources that you would like help with: None THRIVE Score: 0 AUDIT C Alcohol Use Questionnaire (AUDIT-C) 1. How often do you have a drink containing alcohol?: Never Total Score: 0 Score Reviewed/Action Taken: Yes WES-7 AMB Questionnaire WES-7 Date WES - 7 assessed: 09/18/23 Feeling nervous, anxious, or on edge: 0 = Not at all Not being able to stop or control worryin = Not at all Worrying too much about different things: 0 = Not at all Trouble relaxin = Not at all Being so restless that it is hard to sit still: 0 = Not at all Becoming easily annoyed or irritable: 0 = Not at all Feeling afraid as if something awful might happen: 0 = Not at all Total WES-7 score (0-4 normal; 5-9 mild; 10-14 moderate; 15-21 severe): 0 Source: Developed by Drs. Reyes Hinojosa, Luiza Parkinson, David Cash and colleagues, with an educational lev from [employer]. Review of Systems Const Denies chills, Denies headache(s) and Denies weight loss ENT Denies headache(s) Card Denies chest pain, Denies syncope, Denies irregular heart rhythm and Denies dyspnea Resp Denies chest congestion, Denies cough and Denies dyspnea GI Denies abdominal pain, Denies change in stool character, Denies nausea and Denies vomiting Musc Denies deformity and Denies joint swelling Neuro Denies syncope and Denies headache(s) Physical exam (Primary Care) Vital Signs: Last Vital Signs Pulse 97 09/18/23 13:46 BP 112/70 09/18/23 13:46 Pulse Ox 100 09/18/23 13:46 Oxygen Delivery Method Room Air 09/18/23 13:46 BMI result Body Mass Index 21.7 Tobacco/Smoking Status: Tobacco use Status Tobacco use date assessed 09/18/23 09/18/23 13:47 Patient Tobacco Use Status Never used Tobacco 09/18/23 13:47 e-Cigarette/Vaping Use Never Used 09/18/23 13:47 PHQ-9: PHQ-9 Score PHQ-9: Total score 0 09/18/23 14:01 Depression Screening Interpretation: Negative Thrive Assessment: Date of Thrive Assessment Date Thrive assessed 09/18/23 09/18/23 13:47 Const General: cooperative, comfortable, no acute distress and alert Neck Neck: Yes no lymphadenopathy Thyroid: Thyroid normal Resp Effort & Inspection: normal respiratory effort Auscultation: clear to auscultation bilaterally Percussion: percussion normal Cardio Jugular venous distension: no JVD Palpation: normal PMI Rate: regular rate Rhythm: regular rhythm Heart sounds: S1 normal heart sound present and S2 normal heart sound present GI Inspection: Yes normal to inspection Palpation (GI): No hepatosplenomegaly present Skin General skin exam: no rashes or lesions noted Extrem General: Yes no clubbing, cyanosis or edema Assessment and Plan Assessment & Plan (1) Hyperlipidemia: Code(s): E78.5 - Hyperlipidemia, unspecified Plan: stable; do labs Orders: Orders Lipid Panel Today E78.5 - Hyperlipidemia, unspecified Coding Level of Care Code Est Pt Level 3 (77546) Diagnoses Hyperlipidemia E78.5 Additional Codes PHQ-9 - 04905 - PHQ-9 Billing: ([id number])
== END 2023-09-18 14:10 | disposition home or self-care (01) ==
PROVIDERS: PCP Internal Medicine; Visit Provider Internal Medicine
DX: E78.5 Hyperlipidemia, unspecified (principal)
CPT/HCPCS: 99213

== ENCOUNTER 2023-09-18 14:17 | Outpatient (REF) | payer OTHER, SELFPAY ==
[2023-09-18 15:37] LABS: Cholesterol 215 mg/dL (<200); HDL Cholesterol 36 mg/dL (>40); LDL Cholesterol Calculated 142 mg/dL (<100); Triglycerides 188 mg/dL (<150)
== END 2023-09-18 14:18 | disposition home or self-care (01) ==
LOC: HO.LAB 14:17
PROVIDERS: PCP Internal Medicine; Visit Provider Internal Medicine
DX: E78.5 Hyperlipidemia, unspecified (principal)
CPT/HCPCS: 36415; 80061

== ENCOUNTER 2023-09-23 09:14 | Outpatient (REF) | payer OTHER, SELFPAY ==
[2023-09-23 09:34] LABS: MANUAL DIFF FLAG NO
[2023-09-23 10:17] LABS: Basophils Absolute Auto 0.1 X10*3/uL (0.0-0.2); Basophils Percent Auto 0.9 % (0-2); Eosinophils Absolute Auto 0.1 X10*3/uL (0.0-0.4); Eosinophils Percent Auto 2.2 % (0-4); Hematocrit 40.5 % (42.0-52.0); Hemoglobin 13.5 g/dl (14.0-18.0); Imm Gran Abs Auto 0.02 X10*3/uL (0.00-0.03); Imm Gran Pct Auto 0.3 % (0.0-0.4); Lymphocytes Absolute Auto 1.7 X10*3/uL (1.2-4.9); Lymphocytes Percent Auto 26.9 % (20-40); Mean Corpuscular HGB Conc 33.3 g/dl (31.0-36.0); Mean Corpuscular Hemoglobin 29.5 pg (27.0-33.0); Mean Corpuscular Volume 88.6 fL (80.0-98.0); Mean Platelet Volume 9.8 fL (9.4-12.4); Monocytes Absolute Auto 0.5 X10*3/uL (0.1-1.2); Neutrophils Absolute Auto 3.9 x10*3/uL (2.0-8.3); Neutrophils Percent Auto 61.7 % (45-73); Platelet Count 309 X10*3/uL (160-400); Red Blood Count 4.57 X10*6/uL (4.60-5.80); Red Cell Distribution Width 13.3 % (11.0-16.0); White Blood Count 6.4 X10*3/uL (4.8-10.8)
== END 2023-09-23 09:15 | disposition home or self-care (01) ==
LOC: HO.LABR 09:14
PROVIDERS: PCP Internal Medicine; Visit Provider Psychiatry & Neurology Psychiatry
DX: F20.9 Schizophrenia, unspecified (principal); Z51.81 Encounter for therapeutic drug level monitoring
CPT/HCPCS: 36415; 85025

== ENCOUNTER 2023-10-22 10:15 | Outpatient (REF) | payer OTHER, SELFPAY ==
[2023-10-22 10:29] LABS: MANUAL DIFF FLAG NO
[2023-10-22 11:07] LABS: Basophils Percent Auto 0.7 % (0-2); Eosinophils Absolute Auto 0.2 X10*3/uL (0.0-0.4); Eosinophils Percent Auto 2.7 % (0-4); Hematocrit 39.2 % (42.0-52.0); Hemoglobin 13.2 g/dl (14.0-18.0); Imm Gran Abs Auto 0.02 X10*3/uL (0.00-0.03); Imm Gran Pct Auto 0.3 % (0.0-0.4); Lymphocytes Absolute Auto 1.8 X10*3/uL (1.2-4.9); Lymphocytes Percent Auto 30.6 % (20-40); Mean Corpuscular HGB Conc 33.7 g/dl (31.0-36.0); Mean Corpuscular Volume 89.1 fL (80.0-98.0); Mean Platelet Volume 10.6 fL (9.4-12.4); Monocytes Absolute Auto 0.6 X10*3/uL (0.1-1.2); Monocytes Percent Auto 9.5 % (2-11); Neut%MD 56.2 %; Neutrophils Absolute Auto 3.3 x10*3/uL (2.0-8.3); Neutrophils Percent Auto 56.2 % (45-73); Platelet Count 233 X10*3/uL (160-400); Red Cell Distribution Width 13.9 % (11.0-16.0); WBCANC 5.9 X10*3/uL; White Blood Count 5.9 X10*3/uL (4.8-10.8)
== END 2023-10-22 10:16 | disposition home or self-care (01) ==
LOC: HO.LAB 10:15
PROVIDERS: PCP Internal Medicine; Visit Provider Psychiatry & Neurology Psychiatry
DX: Z79.899 Other long term (current) drug therapy (principal)
CPT/HCPCS: 36415; 85025

== ENCOUNTER 2023-11-18 14:05 | Outpatient (REF) | payer OTHER, SELFPAY ==
[2023-11-18 14:14] LABS: MANUAL DIFF FLAG NO
[2023-11-18 15:08] LABS: Basophils Absolute Auto 0.1 X10*3/uL (0.0-0.2); Basophils Percent Auto 0.5 % (0-2); Eosinophils Absolute Auto 0.1 X10*3/uL (0.0-0.4); Hematocrit 38.1 % (42.0-52.0); Imm Gran Abs Auto 0.09 X10*3/uL (0.00-0.03); Imm Gran Pct Auto 0.9 % (0.0-0.4); Lymphocytes Absolute Auto 2.5 X10*3/uL (1.2-4.9); Lymphocytes Percent Auto 25.2 % (20-40); Mean Corpuscular HGB Conc 34.1 g/dl (31.0-36.0); Mean Corpuscular Hemoglobin 29.8 pg (27.0-33.0); Mean Corpuscular Volume 87.4 fL (80.0-98.0); Mean Platelet Volume 10.5 fL (9.4-12.4); Monocytes Percent Auto 10.1 % (2-11); Neutrophils Percent Auto 62.3 % (45-73); Platelet Count 397 X10*3/uL (160-400); Red Blood Count 4.36 X10*6/uL (4.60-5.80); Red Cell Distribution Width 14.3 % (11.0-16.0); White Blood Count 9.7 X10*3/uL (4.8-10.8)
== END 2023-11-18 14:06 | disposition home or self-care (01) ==
LOC: HO.LABR 14:05
PROVIDERS: PCP Internal Medicine; Visit Provider Psychiatry & Neurology Psychiatry
DX: Z51.81 Encounter for therapeutic drug level monitoring (principal); Z79.899 Other long term (current) drug therapy
CPT/HCPCS: 36415; 85025

== ENCOUNTER 2023-12-12 08:16 | Outpatient (REF) | payer OTHER, SELFPAY ==
[2023-12-12 08:30] LABS: MANUAL DIFF FLAG NO
[2023-12-12 08:42] LABS: Basophils Absolute Auto 0.1 X10*3/uL (0.0-0.2); Basophils Percent Auto 0.8 % (0-2); Eosinophils Absolute Auto 0.2 X10*3/uL (0.0-0.4); Hematocrit 38.5 % (42.0-52.0); Hemoglobin 12.9 g/dl (14.0-18.0); Imm Gran Abs Auto 0.01 X10*3/uL (0.00-0.03); Imm Gran Pct Auto 0.2 % (0.0-0.4); Lymphocytes Absolute Auto 2.4 X10*3/uL (1.2-4.9); Lymphocytes Percent Auto 40.5 % (20-40); Mean Corpuscular HGB Conc 33.5 g/dl (31.0-36.0); Mean Corpuscular Hemoglobin 29.7 pg (27.0-33.0); Mean Corpuscular Volume 88.7 fL (80.0-98.0); Mean Platelet Volume 10.1 fL (9.4-12.4); Monocytes Absolute Auto 0.6 X10*3/uL (0.1-1.2); Monocytes Percent Auto 10.4 % (2-11); Neutrophils Absolute Auto 2.7 x10*3/uL (2.0-8.3); Neutrophils Percent Auto 45.1 % (45-73); Platelet Count 250 X10*3/uL (160-400); Red Blood Count 4.34 X10*6/uL (4.60-5.80); Red Cell Distribution Width 15.2 % (11.0-16.0)
== END 2023-12-12 08:17 | disposition home or self-care (01) ==
LOC: HO.LABR 08:16
PROVIDERS: PCP Internal Medicine; Visit Provider Psychiatry & Neurology Psychiatry
DX: Z79.899 Other long term (current) drug therapy (principal)
CPT/HCPCS: 36415; 85025

== ENCOUNTER 2023-12-24 13:04 | Outpatient (AMB) | payer OTHER, SELFPAY ==
[2023-12-24 13:09] VITALS: BP 122/82; PULSE 103; O2SAT 100; BMI 20.8
--- NOTE | 2023-12-24 13:09 | A.OFFPC_ITS ---
Vital Signs 12/24/23 13:09 Height 5 ft 9 in Weight 141 lb BMI 20.8 BP 122/82 Blood Pressure Location Lt brachial Position Sitting Pulse 103 H Pulse Source Pulse Oximeter Pulse Oximetry (%) 100 Oxygen Delivery Method Room Air Intake Visit Reasons: 3 MONTH FOLLOW UP Recycling Coordinator Required: No Nuclear Medicine Pet Ct Technologist: Not Required per policy Accompanied by: Self / Same As Patient Allergies orange Allergy (Intermediate, Verified 12/24/23 13:09) RASH Pollen Allergy (Intermediate, Uncoded 12/24/23 13:09) congestion Medication List - Last Reconciled 12/25/23 by Tyler Armas MD clozapine 100 mg PO BEDTIME 30 days clozapine 200 mg PO BEDTIME 30 days sennosides-docusate sodium 8.6-50 mg (Senna Plus) 2 tabs PO BID 30 days simvastatin 40 mg PO BEDTIME Tobacco use date assessed: 09/18/23 Dental Screening Dental Screen Date: 09/18/23 HPI 3 MONTH FOLLOW UP HPI Details hyperlipidemia; stopped rx because he ran out [facility] Medical History Schizophrenia Hyperlipidemia Surgical History No history of previous surgery Family History Other Mental health disorder Social History Household Members: Family Housing: House Do you presently have visiting nurse or other home services: No Patient Tobacco Use Status: Never used Tobacco e-Cigarette/Vaping Use: Never Used Second Hand Smoke Exposure: No service: No Current occupational status: disabled Sexual orientation: Don't Know Cognitive needs: Yes Hearing needs: No Vision needs: Yes Questionnaire Thrive Questionnaire Date Thrive assessed: 09/18/23 WES-7 AMB Questionnaire WES-7 Date WES - 7 assessed: 09/18/23 Source: Developed by Drs. Reyes Hinojosa, Luiza Parkinson, David Cash and colleagues, with an educational lev from [employer]. Review of Systems Const Denies chills, Denies headache(s) and Denies weight loss ENT Denies headache(s) Card Denies chest pain, Denies syncope, Denies irregular heart rhythm and Denies dyspnea Resp Denies chest congestion, Denies cough and Denies dyspnea GI Denies abdominal pain, Denies change in stool character, Denies nausea and Denies vomiting Musc Denies deformity and Denies joint swelling Neuro Denies syncope and Denies headache(s) Physical exam (Primary Care) Vital Signs: Last Vital Signs Pulse 103 H 12/24/23 13:09 BP 122/82 12/24/23 13:09 Pulse Ox 100 12/24/23 13:09 Oxygen Delivery Method Room Air 12/24/23 13:09 BMI result Body Mass Index 20.8 Tobacco/Smoking Status: Tobacco use Status Tobacco use date assessed 09/18/23 12/24/23 13:09 Patient Tobacco Use Status Never used Tobacco 12/24/23 13:09 e-Cigarette/Vaping Use Never Used 12/24/23 13:09 Thrive Assessment: Date of Thrive Assessment Date Thrive assessed 09/18/23 12/24/23 13:09 Const General: cooperative, comfortable, no acute distress and alert Neck Neck: Yes no lymphadenopathy Thyroid: Thyroid normal Resp Effort & Inspection: normal respiratory effort Auscultation: clear to auscultation bilaterally Percussion: percussion normal Cardio Jugular venous distension: no JVD Palpation: normal PMI Rate: regular rate Rhythm: regular rhythm Heart sounds: S1 normal heart sound present and S2 normal heart sound present GI Inspection: Yes normal to inspection Palpation (GI): No hepatosplenomegaly present Skin General skin exam: no rashes or lesions noted Extrem General: Yes no clubbing, cyanosis or edema Assessment and Plan Assessment & Plan (1) Hyperlipidemia: Code(s): E78.5 - Hyperlipidemia, unspecified Plan: restart rx Orders: Orders Lipid Panel 12/24/23 Z13.220 - Encounter for screening for lipoid disorders Thyroid Stimulating Hormone 12/24/23 Z13.29 - Encounter for screening for other suspected endocrine disorder Complete Blood Count Auto Diff 12/24/23 Z13.0 - Encounter for screening for diseases of the blood and blood-forming organs and certain disorders involving the immune mechanism Comprehensive [place]. Panel Fast 12/24/23 Z13.9 - Encounter for screening, unspecified Medications: Refilled simvastatin 40 mg PO BEDTIME 90 tabs 8RF Coding Level of Care Code Est Pt Level 3 (18820) Diagnoses Hyperlipidemia E78.5
== END 2023-12-24 13:20 | disposition home or self-care (01) ==
PROVIDERS: PCP Internal Medicine; Visit Provider Internal Medicine
DX: E78.5 Hyperlipidemia, unspecified (principal)
CPT/HCPCS: 99213

== ENCOUNTER 2024-01-14 12:30 | Outpatient (REF) | payer OTHER, SELFPAY ==
[2024-01-14 12:58] LABS: MANUAL DIFF FLAG NO
[2024-01-14 13:46] LABS: Basophils Absolute Auto 0.1 X10*3/uL (0.0-0.2); Basophils Percent Auto 0.9 % (0-2); Eosinophils Absolute Auto 0.2 X10*3/uL (0.0-0.4); Eosinophils Percent Auto 2.4 % (0-4); Hematocrit 43.6 % (42.0-52.0); Hemoglobin 14.8 g/dl (14.0-18.0); Imm Gran Abs Auto 0.01 X10*3/uL (0.00-0.03); Imm Gran Pct Auto 0.2 % (0.0-0.4); Lymphocytes Absolute Auto 1.9 X10*3/uL (1.2-4.9); Lymphocytes Percent Auto 29.4 % (20-40); Mean Corpuscular HGB Conc 33.9 g/dl (31.0-36.0); Mean Corpuscular Volume 88.3 fL (80.0-98.0); Monocytes Absolute Auto 0.7 X10*3/uL (0.1-1.2); Monocytes Percent Auto 10.3 % (2-11); Neutrophils Absolute Auto 3.6 x10*3/uL (2.0-8.3); Neutrophils Percent Auto 56.8 % (45-73); Platelet Count 269 X10*3/uL (160-400); Red Blood Count 4.94 X10*6/uL (4.60-5.80); Red Cell Distribution Width 14.6 % (11.0-16.0); White Blood Count 6.3 X10*3/uL (4.8-10.8)
== END 2024-01-14 12:31 | disposition home or self-care (01) ==
LOC: HO.LABR 12:30
PROVIDERS: Visit Provider Psychiatry & Neurology Psychiatry
DX: Z79.899 Other long term (current) drug therapy (principal)
CPT/HCPCS: 36415; 85025

== ENCOUNTER 2024-02-12 11:31 | Outpatient (AMB) | payer OTHER, SELFPAY ==
[2024-02-12 11:35] VITALS: BP 124/80; PULSE 105; O2SAT 99; BMI 19.0
--- NOTE | 2024-02-12 11:35 | A.OFFPC_ITS ---
Vital Signs 02/12/24 11:35 Height 5 ft 9 in Weight 129 lb BMI 19.0 BP 124/80 Blood Pressure Location Lt brachial Position Sitting Pulse 105 H Pulse Source Pulse Oximeter Pulse Oximetry (%) 99 Oxygen Delivery Method Room Air Intake Visit Reasons: both eyes are burning Fold Skiver Required: No Drop Hammer Pile Driver Operator: Not Required per policy Accompanied by: Self / Same As Patient Allergies orange Allergy (Intermediate, Verified 02/12/24 11:35) RASH Pollen Allergy (Intermediate, Uncoded 02/12/24 11:35) congestion Medication List - Last Reconciled 02/12/24 by Tyler Armas MD clozapine 100 mg PO BEDTIME 30 days clozapine 200 mg PO BEDTIME 30 days sennosides-docusate sodium 8.6-50 mg (Senna Plus) 2 tabs PO BID 30 days simvastatin 40 mg PO BEDTIME tobramycin 0.3% 1 drp ophthalmic (eye) Q4H Tobacco use date assessed: 09/18/23 Dental Screening Dental Screen Date: 09/18/23 HPI both eyes are burning HPI Details bilat conjunctival suffusion for a day PFSH Medical History Schizophrenia Hyperlipidemia Surgical History No history of previous surgery Family History Other Mental health disorder Social History Household Members: Family Housing: House Do you presently have visiting nurse or other home services: No Patient Tobacco Use Status: Never used Tobacco e-Cigarette/Vaping Use: Never Used Second Hand Smoke Exposure: No service: No Current occupational status: disabled Sexual orientation: Don't Know Cognitive needs: Yes Hearing needs: No Vision needs: Yes Questionnaire Thrive Questionnaire Date Thrive assessed: 09/18/23 WES-7 AMB Questionnaire WES-7 Date WES - 7 assessed: 09/18/23 Source: Developed by Drs. Reyes Hinojosa, Luiza Parkinson, David Cash and colleagues, with an educational lev from [employer]. Review of Systems Const Denies chills, Denies fatigue, Denies headache(s) and Denies weight loss Eyes Reports as per HPI, Denies change in vision, Denies diplopia and Denies eye pain ENT Reports Normal hearing present, Denies vertigo, Denies dizziness, Denies headache(s) and Denies nasal discharge Card Denies chest pain, Denies rapid heart rate and Denies dyspnea on exertion Resp Denies chest congestion, Denies cough, Denies pain with cough and Denies dyspnea on exertion GI Denies abdominal pain, Denies hematochezia and Denies change in bowel habits Musc Denies myalgias, Denies arthralgias and Denies joint swelling Skin/Breast Denies lesions and Denies unusual bruising Neuro Reports Normal hearing present, Denies vertigo, Denies dizziness, Denies headache(s) and Denies focal weakness Endo Denies fatigue Physical exam (Primary Care) Vital Signs: Last Vital Signs Pulse 105 H 02/12/24 11:35 BP 124/80 02/12/24 11:35 Pulse Ox 99 02/12/24 11:35 Oxygen Delivery Method Room Air 02/12/24 11:35 BMI result Body Mass Index 19.0 Tobacco/Smoking Status: Tobacco use Status Tobacco use date assessed 09/18/23 02/12/24 11:39 Patient Tobacco Use Status Never used Tobacco 02/12/24 11:39 e-Cigarette/Vaping Use Never Used 02/12/24 11:39 Thrive Assessment: Date of Thrive Assessment Date Thrive assessed 09/18/23 02/12/24 11:39 Const General: cooperative, comfortable, no acute distress and alert Eyes Other: bilateral conjunctivitis Neck Neck: Yes no lymphadenopathy Thyroid: Thyroid normal Resp Effort & Inspection: normal respiratory effort Auscultation: clear to auscultation bilaterally Percussion: percussion normal Cardio Jugular venous distension: no JVD Palpation: normal PMI Rate: regular rate Rhythm: regular rhythm Heart sounds: S1 normal heart sound present and S2 normal heart sound present GI Inspection: Yes normal to inspection Palpation (GI): No hepatosplenomegaly present Skin General skin exam: no rashes or lesions noted Neuro Cranial nerves: Yes Normal hearing present Extrem General: Yes no clubbing, cyanosis or edema Assessment and Plan Assessment & Plan (1) Conjunctivitis: Code(s): H10.9 - Unspecified conjunctivitis Plan: rx sent Orders: Orders Lipid Panel Today Z13.220 - Encounter for screening for lipoid disorders Complete Blood Count Auto Diff Today Z13.0 - Encounter for screening for diseases of the blood and blood-forming organs and certain disorders involving the immune mechanism Comprehensive [place]. Panel Fast Today Z13.9 - Encounter for screening, unspecified Medications: New tobramycin 0.3% 1 drp ophthalmic (eye) Q4H 5 mL 0RF Coding Level of Care Code Est Pt Level 3 (60630) Diagnoses Conjunctivitis H10.9
== END 2024-02-12 11:49 | disposition home or self-care (01) ==
PROVIDERS: PCP Internal Medicine; Visit Provider Internal Medicine
DX: H10.9 Unspecified conjunctivitis (principal)
CPT/HCPCS: 99213

== ENCOUNTER 2024-02-12 12:06 | Outpatient (REF) | payer OTHER, SELFPAY ==
[2024-02-12 12:19] LABS: MANUAL DIFF FLAG NO
[2024-02-12 12:33] LABS: Basophils Percent Auto 0.5 % (0-2); Eosinophils Absolute Auto 0.1 X10*3/uL (0.0-0.4); Eosinophils Percent Auto 1.4 % (0-4); Hematocrit 38.9 % (42.0-52.0); Hemoglobin 13.4 g/dl (14.0-18.0); Imm Gran Abs Auto 0.02 X10*3/uL (0.00-0.03); Imm Gran Pct Auto 0.3 % (0.0-0.4); Lymphocytes Absolute Auto 1.8 X10*3/uL (1.2-4.9); Lymphocytes Percent Auto 28.7 % (20-40); Mean Corpuscular HGB Conc 34.4 g/dl (31.0-36.0); Mean Corpuscular Hemoglobin 30.4 pg (27.0-33.0); Mean Corpuscular Volume 88.2 fL (80.0-98.0); Mean Platelet Volume 10.3 fL (9.4-12.4); Monocytes Absolute Auto 0.5 X10*3/uL (0.1-1.2); Monocytes Percent Auto 7.2 % (2-11); Neutrophils Percent Auto 61.9 % (45-73); Platelet Count 270 X10*3/uL (160-400); Red Blood Count 4.41 X10*6/uL (4.60-5.80); Red Cell Distribution Width 14.3 % (11.0-16.0); White Blood Count 6.4 X10*3/uL (4.8-10.8)
== END 2024-02-12 12:07 | disposition home or self-care (01) ==
LOC: HO.LAB 12:06
PROVIDERS: PCP Internal Medicine; Visit Provider Psychiatry & Neurology Psychiatry
DX: Z51.81 Encounter for therapeutic drug level monitoring (principal); Z79.899 Other long term (current) drug therapy
CPT/HCPCS: 36415; 85025

== ENCOUNTER 2024-03-11 10:13 | Outpatient (REF) | payer OTHER, SELFPAY ==
[2024-03-11 10:32] LABS: MANUAL DIFF FLAG NO
[2024-03-11 11:30] LABS: Basophils Percent Auto 0.8 % (0-2); Eosinophils Absolute Auto 0.1 X10*3/uL (0.0-0.4); Eosinophils Percent Auto 2.6 % (0-4); Hemoglobin 14.7 g/dl (14.0-18.0); Imm Gran Abs Auto 0.01 X10*3/uL (0.00-0.03); Imm Gran Pct Auto 0.2 % (0.0-0.4); Lymphocytes Absolute Auto 1.9 X10*3/uL (1.2-4.9); Lymphocytes Percent Auto 35.1 % (20-40); Mean Corpuscular HGB Conc 34.2 g/dl (31.0-36.0); Mean Corpuscular Hemoglobin 31.3 pg (27.0-33.0); Mean Corpuscular Volume 91.7 fL (80.0-98.0); Mean Platelet Volume 11.5 fL (9.4-12.4); Monocytes Absolute Auto 0.6 X10*3/uL (0.1-1.2); Monocytes Percent Auto 10.4 % (2-11); Neutrophils Absolute Auto 2.7 x10*3/uL (2.0-8.3); Neutrophils Percent Auto 50.9 % (45-73); Platelet Count 262 X10*3/uL (160-400); Red Blood Count 4.69 X10*6/uL (4.60-5.80); Red Cell Distribution Width 13.6 % (11.0-16.0); White Blood Count 5.3 X10*3/uL (4.8-10.8)
[2024-03-11 12:13] LABS: Alanine Aminotransferase 15 U/L (0-40); Albumin Level 4.6 g/dL (3.5-5.0); Alkaline Phosphatase 94 U/L (39-117); Anion Gap 16 (12-20); Aspartate Amino Transferase 17 U/L (5-37); Bilirubin Total 0.4 mg/dL (0.0-1.0); Blood Urea Nitrogen 13 mg/dL (9-16); Calcium 9.6 mg/dL (8.4-10.2); Carbon Dioxide 23 mmol/L (22-29); Chloride 106 mmol/L (96-108); Cholesterol 250 mg/dL (<200); Estimated Glomerular Filt Rate > 60; Glucose Fasting 97 mg/dL (60-99); HDL Cholesterol 40 mg/dL (>40); LDL Cholesterol Calculated 161 mg/dL (<100); Sodium 141 mmol/L (135-145); Total Protein 7.8 g/dL (6.5-8.0); Triglycerides 248 mg/dL (<150)
[2024-03-11 12:34] LABS: Thyroid Stimulating Hormone 3.81 uIU/mL (0.32-4.0)
== END 2024-03-11 10:14 | disposition home or self-care (01) ==
LOC: HO.LAB 10:13
PROVIDERS: PCP Internal Medicine; Visit Provider Internal Medicine
DX: Z13.220 Encounter for screening for lipoid disorders (principal); Z13.0 Encounter for screening for diseases of the blood and blood-forming organs and certain disorders involving the immune mechanism; Z13.29 Encounter for screening for other suspected endocrine disorder
CPT/HCPCS: 36415; 80053; 80061; 84443; 85025

== ENCOUNTER 2024-03-25 10:12 | Outpatient (AMB) | payer OTHER, SELFPAY ==
--- NOTE | 2024-03-25 10:16 | A.OFFPC_ITS ---
Vital Signs 03/25/24 10:17 Height 5 ft 9 in Weight 139 lb 6 oz BMI 20.6 BP 110/80 Blood Pressure Location Lt brachial Position Sitting Pulse 98 Pulse Source Pulse Oximeter Pulse Oximetry (%) 100 Oxygen Delivery Method Room Air Intake Visit Reasons: 3mth f/u Market Specialist Required: No Accompanied by: Self / Same As Patient Allergies orange Allergy (Intermediate, Verified 03/25/24 10:20) RASH Pollen Allergy (Intermediate, Uncoded 03/25/24 10:20) congestion Medication List - Last Reconciled 03/25/24 by Tyler Armas MD clozapine 100 mg PO BEDTIME 30 days clozapine 200 mg PO BEDTIME 30 days sennosides-docusate sodium 8.6-50 mg (Senna Plus) 2 tabs PO BID 30 days simvastatin 40 mg PO BEDTIME tobramycin 0.3% 1 drp ophthalmic (eye) Q4H Tobacco use date assessed: 09/18/23 Dental Screening Dental Screen Date: 09/18/23 HPI 3mth f/u HPI Details hyperlipidemia; has not been taking his rx; chol 250; dietary indiscretion PFSH Medical History Schizophrenia Hyperlipidemia Surgical History No history of previous surgery Family History Other Mental health disorder Social History Household Members: Family Housing: House Do you presently have visiting nurse or other home services: No Patient Tobacco Use Status: Never used Tobacco e-Cigarette/Vaping Use: Never Used Second Hand Smoke Exposure: No service: No Current occupational status: disabled Sexual orientation: Don't Know Cognitive needs: Yes Hearing needs: No Vision needs: Yes Questionnaire Thrive Questionnaire Date Thrive assessed: 09/18/23 WES-7 AMB Questionnaire WES-7 Date WES - 7 assessed: 09/18/23 Source: Developed by Drs. Reyes Hinojosa, Luiza Parkinson, David Cash and colleagues, with an educational lev from [employer]. Review of Systems Const Denies chills, Denies headache(s) and Denies weight loss ENT Denies headache(s) Card Denies chest pain, Denies syncope, Denies irregular heart rhythm and Denies dyspnea Resp Denies chest congestion, Denies cough and Denies dyspnea GI Denies abdominal pain, Denies change in stool character, Denies nausea and Denies vomiting Musc Denies deformity and Denies joint swelling Neuro Denies syncope and Denies headache(s) Physical exam (Primary Care) Vital Signs: Last Vital Signs Pulse 98 03/25/24 10:17 BP 110/80 03/25/24 10:17 Pulse Ox 100 03/25/24 10:17 Oxygen Delivery Method Room Air 03/25/24 10:17 BMI result Body Mass Index 20.6 Tobacco/Smoking Status: Tobacco use Status Tobacco use date assessed 09/18/23 03/25/24 10:19 Patient Tobacco Use Status Never used Tobacco 03/25/24 10:19 e-Cigarette/Vaping Use Never Used 03/25/24 10:19 Thrive Assessment: Date of Thrive Assessment Date Thrive assessed 09/18/23 03/25/24 10:19 Const General: cooperative, comfortable, no acute distress and alert Neck Neck: Yes no lymphadenopathy Thyroid: Thyroid normal Resp Effort & Inspection: normal respiratory effort Auscultation: clear to auscultation bilaterally Percussion: percussion normal Cardio Jugular venous distension: no JVD Palpation: normal PMI Rate: regular rate Rhythm: regular rhythm Heart sounds: S1 normal heart sound present and S2 normal heart sound present GI Inspection: Yes normal to inspection Palpation (GI): No hepatosplenomegaly present Skin General skin exam: no rashes or lesions noted Extrem General: Yes no clubbing, cyanosis or edema Assessment and Plan Assessment & Plan (1) Hyperlipidemia: Code(s): E78.5 - Hyperlipidemia, unspecified Plan: rx sent; take rx; improve diet Orders: Orders Lipid Panel Today Z13.220 - Encounter for screening for lipoid disorders Medications: Refilled simvastatin 40 mg PO BEDTIME 90 tabs 8RF Coding Level of Care Code Est Pt Level 3 (92824) Diagnoses Hyperlipidemia E78.5
[2024-03-25 10:17] VITALS: BP 110/80; PULSE 98; O2SAT 100; BMI 20.6
== END 2024-03-25 10:34 | disposition home or self-care (01) ==
PROVIDERS: PCP Internal Medicine; Visit Provider Internal Medicine
DX: E78.5 Hyperlipidemia, unspecified (principal)
CPT/HCPCS: 99213

== ENCOUNTER 2024-04-10 13:14 | Outpatient (REF) | payer OTHER, SELFPAY ==
[2024-04-10 13:26] LABS: MANUAL DIFF FLAG NO
[2024-04-10 14:09] LABS: Basophils Absolute Auto 0.1 X10*3/uL (0.0-0.2); Basophils Percent Auto 0.9 % (0-2); Eosinophils Absolute Auto 0.2 X10*3/uL (0.0-0.4); Eosinophils Percent Auto 2.6 % (0-4); Hemoglobin 14.1 g/dl (14.0-18.0); Imm Gran Abs Auto 0.03 X10*3/uL (0.00-0.03); Imm Gran Pct Auto 0.5 % (0.0-0.4); Lymphocytes Absolute Auto 1.8 X10*3/uL (1.2-4.9); Mean Corpuscular HGB Conc 33.6 g/dl (31.0-36.0); Mean Corpuscular Hemoglobin 30.8 pg (27.0-33.0); Mean Corpuscular Volume 91.7 fL (80.0-98.0); Mean Platelet Volume 10.8 fL (9.4-12.4); Monocytes Absolute Auto 0.6 X10*3/uL (0.1-1.2); Monocytes Percent Auto 8.9 % (2-11); Neutrophils Absolute Auto 3.9 x10*3/uL (2.0-8.3); Neutrophils Percent Auto 59.1 % (45-73); Platelet Count 250 X10*3/uL (160-400); Red Blood Count 4.58 X10*6/uL (4.60-5.80); Red Cell Distribution Width 13.2 % (11.0-16.0); White Blood Count 6.5 X10*3/uL (4.8-10.8)
== END 2024-04-10 13:15 | disposition home or self-care (01) ==
LOC: HO.LABR 13:14
PROVIDERS: PCP Internal Medicine; Visit Provider Psychiatry & Neurology Psychiatry
DX: Z79.899 Other long term (current) drug therapy (principal)
CPT/HCPCS: 36415; 85025

== ENCOUNTER 2024-05-07 09:11 | Outpatient (REF) | payer OTHER, SELFPAY ==
[2024-05-07 09:28] LABS: MANUAL DIFF FLAG NO
[2024-05-07 10:13] LABS: Basophils Absolute Auto 0.1 X10*3/uL (0.0-0.2); Eosinophils Absolute Auto 0.2 X10*3/uL (0.0-0.4); Hematocrit 38.3 % (42.0-52.0); Hemoglobin 12.9 g/dl (14.0-18.0); Imm Gran Abs Auto 0.03 X10*3/uL (0.00-0.03); Imm Gran Pct Auto 0.5 % (0.0-0.4); Lymphocytes Percent Auto 31.9 % (20-40); Mean Corpuscular HGB Conc 33.7 g/dl (31.0-36.0); Mean Corpuscular Hemoglobin 30.9 pg (27.0-33.0); Mean Corpuscular Volume 91.6 fL (80.0-98.0); Mean Platelet Volume 10.6 fL (9.4-12.4); Monocytes Absolute Auto 0.8 X10*3/uL (0.1-1.2); Monocytes Percent Auto 12.4 % (2-11); Neutrophils Absolute Auto 3.2 x10*3/uL (2.0-8.3); Neutrophils Percent Auto 51.2 % (45-73); Platelet Count 273 X10*3/uL (160-400); Red Blood Count 4.18 X10*6/uL (4.60-5.80); Red Cell Distribution Width 13.2 % (11.0-16.0); White Blood Count 6.3 X10*3/uL (4.8-10.8)
== END 2024-05-07 09:12 | disposition home or self-care (01) ==
LOC: HO.LABR 09:11
PROVIDERS: PCP Internal Medicine; Visit Provider Psychiatry & Neurology Psychiatry
DX: Z79.899 Other long term (current) drug therapy (principal)
CPT/HCPCS: 36415; 85025

== ENCOUNTER 2024-06-01 13:03 | Outpatient (REF) | payer OTHER, SELFPAY ==
[2024-06-01 13:23] LABS: MANUAL DIFF FLAG NO
[2024-06-01 14:15] LABS: Basophils Percent Auto 0.6 % (0-2); Eosinophils Absolute Auto 0.2 X10*3/uL (0.0-0.4); Eosinophils Percent Auto 3.8 % (0-4); Hematocrit 41.2 % (42.0-52.0); Hemoglobin 13.7 g/dl (14.0-18.0); Imm Gran Abs Auto 0.01 X10*3/uL (0.00-0.03); Imm Gran Pct Auto 0.2 % (0.0-0.4); Lymphocytes Absolute Auto 1.8 X10*3/uL (1.2-4.9); Lymphocytes Percent Auto 28.9 % (20-40); Mean Corpuscular HGB Conc 33.3 g/dl (31.0-36.0); Mean Corpuscular Hemoglobin 30.3 pg (27.0-33.0); Mean Corpuscular Volume 91.2 fL (80.0-98.0); Mean Platelet Volume 10.2 fL (9.4-12.4); Monocytes Absolute Auto 0.5 X10*3/uL (0.1-1.2); Monocytes Percent Auto 8.5 % (2-11); Neutrophils Absolute Auto 3.6 x10*3/uL (2.0-8.3); Platelet Count 258 X10*3/uL (160-400); Red Blood Count 4.52 X10*6/uL (4.60-5.80); Red Cell Distribution Width 13.1 % (11.0-16.0); White Blood Count 6.3 X10*3/uL (4.8-10.8)
[2024-06-01 14:51] LABS: Alanine Aminotransferase 15 U/L (0-40); Albumin Level 4.5 g/dL (3.5-5.0); Alkaline Phosphatase 99 U/L (39-117); Anion Gap 12 (12-20); Aspartate Amino Transferase 12 U/L (5-37); Bilirubin Total 0.3 mg/dL (0.0-1.0); Blood Urea Nitrogen 15 mg/dL (9-16); Calcium 9.8 mg/dL (8.4-10.2); Carbon Dioxide 24 mmol/L (22-29); Chloride 106 mmol/L (96-108); Cholesterol 254 mg/dL (<200); Estimated Glomerular Filt Rate > 60; Glucose Fasting 99 mg/dL (60-99); HDL Cholesterol 44 mg/dL (>40); LDL Cholesterol Calculated 149 mg/dL (<100); Potassium 4.1 mmol/L (3.3-5.1); Sodium 138 mmol/L (135-145); Total Protein 7.6 g/dL (6.5-8.0); Triglycerides 308 mg/dL (<150)
== END 2024-06-01 13:04 | disposition home or self-care (01) ==
LOC: HO.LAB 13:03
PROVIDERS: PCP Internal Medicine; Visit Provider Internal Medicine
DX: Z13.0 Encounter for screening for diseases of the blood and blood-forming organs and certain disorders involving the immune mechanism (principal); Z13.9 Encounter for screening, unspecified; Z13.220 Encounter for screening for lipoid disorders
CPT/HCPCS: 36415; 80053; 80061; 85025

== ENCOUNTER 2024-06-25 10:14 | Outpatient (AMB) | payer OTHER, SELFPAY ==
[2024-06-25 10:19] VITALS: BP 112/70; PULSE 99; O2SAT 97; BMI 20.8
--- NOTE | 2024-06-25 10:19 | A.OFFPC_ITS ---
Vital Signs 06/25/24 10:19 Height 5 ft 9 in Weight 141 lb BMI 20.8 BP 112/70 Blood Pressure Location Lt brachial Position Sitting Pulse 99 Pulse Source Pulse Oximeter Pulse Oximetry (%) 97 Oxygen Delivery Method Room Air Intake Visit Reasons: 3 month follow up Administrative Staff Supervisor Required: No Accompanied by: Self / Same As Patient Allergies orange Allergy (Intermediate, Verified 06/25/24 10:20) RASH Pollen Allergy (Intermediate, Uncoded 06/25/24 10:20) congestion Medication List - Last Reconciled 06/25/24 by Tyler Armas MD clozapine 100 mg PO BEDTIME 30 days clozapine 200 mg PO BEDTIME 30 days sennosides-docusate sodium 8.6-50 mg (Senna Plus) 2 tabs PO BID 30 days simvastatin 40 mg PO BEDTIME Tobacco use date assessed: 09/18/23 Dental Screening Dental Screen Date: 09/18/23 HPI 3 month follow up HPI Details hyperlipidemia; stopped his med again PFSH Medical History Schizophrenia Hyperlipidemia Surgical History No history of previous surgery Family History Other Mental health disorder Social History Household Members: Family Housing: House Do you presently have visiting nurse or other home services: No Patient Tobacco Use Status: Never used Tobacco Tobacco use type: Cigarette e-Cigarette/Vaping Use: Never Used Second Hand Smoke Exposure: No service: No Current occupational status: disabled Sexual orientation: Don't Know Cognitive needs: Yes Hearing needs: No Vision needs: Yes Questionnaire Thrive Questionnaire Date Thrive assessed: 09/18/23 WES-7 AMB Questionnaire WES-7 Date WES - 7 assessed: 09/18/23 Source: Developed by Drs. Reyes Hinojosa, Luiza Parkinson, David Cash and colleagues, with an educational lev from [email or web address]. Review of Systems Const Denies chills, Denies headache(s) and Denies weight loss ENT Denies headache(s) Card Denies chest pain, Denies syncope, Denies irregular heart rhythm and Denies dyspnea Resp Denies chest congestion, Denies cough and Denies dyspnea GI Denies abdominal pain, Denies change in stool character, Denies nausea and Denies vomiting Musc Denies deformity and Denies joint swelling Neuro Denies syncope and Denies headache(s) Physical exam (Primary Care) Vital Signs: Last Vital Signs Pulse 99 06/25/24 10:19 BP 112/70 06/25/24 10:19 Pulse Ox 97 06/25/24 10:19 Oxygen Delivery Method Room Air 06/25/24 10:19 BMI result Body Mass Index 20.8 Tobacco/Smoking Status: Tobacco use Status Tobacco use date assessed 09/18/23 06/25/24 10:24 Patient Tobacco Use Status Never used Tobacco 06/25/24 10:24 Tobacco use type Cigarette 06/25/24 10:24 e-Cigarette/Vaping Use Never Used 06/25/24 10:24 Thrive Assessment: Date of Thrive Assessment Date Thrive assessed 09/18/23 06/25/24 10:24 Const General: cooperative, comfortable, no acute distress and alert Neck Neck: Yes no lymphadenopathy Thyroid: Thyroid normal Resp Effort & Inspection: normal respiratory effort Auscultation: clear to auscultation bilaterally Percussion: percussion normal Cardio Jugular venous distension: no JVD Palpation: normal PMI Rate: regular rate Rhythm: regular rhythm Heart sounds: S1 normal heart sound present and S2 normal heart sound present GI Inspection: Yes normal to inspection Palpation (GI): No hepatosplenomegaly present Skin General skin exam: no rashes or lesions noted Extrem General: Yes no clubbing, cyanosis or edema Coding Level of Care Code Est Pt Level 3 (03668) Diagnoses Hyperlipidemia E78.5 Assessment & Plan Assessment & Plan (1) Hyperlipidemia: Code(s): E78.5 - Hyperlipidemia, unspecified Category: Medical Plan: refilled rx; stressed to pt to take rx regularly Orders: Orders Lipid Panel Today Z13.220 - Encounter for screening for lipoid disorders Medications: Refilled simvastatin 40 mg PO BEDTIME 90 tabs 1RF
== END 2024-06-25 10:28 | disposition home or self-care (01) ==
LOC: HO.HMCH 10:15
PROVIDERS: PCP Internal Medicine; Visit Provider Internal Medicine
DX: E78.5 Hyperlipidemia, unspecified (principal)

== ENCOUNTER → 2024-06-25 10:14 | Outpatient (BNVA) | payer OTHER, SELFPAY | PROVIDERS: PCP Internal Medicine; Visit Provider Internal Medicine | DX: E78.5 Hyperlipidemia, unspecified (principal) | CPT/HCPCS: 99212 ==

== ENCOUNTER 2024-07-02 11:16 | Outpatient (REF) | payer OTHER, SELFPAY ==
[2024-07-02 11:38] LABS: MANUAL DIFF FLAG NO
[2024-07-02 12:17] LABS: Basophils Absolute Auto 0.1 X10*3/uL (0.0-0.2); Basophils Percent Auto 0.8 % (0-2); Eosinophils Absolute Auto 0.2 X10*3/uL (0.0-0.4); Eosinophils Percent Auto 3.3 % (0-4); Hematocrit 40.3 % (42.0-52.0); Hemoglobin 13.7 g/dl (14.0-18.0); Imm Gran Abs Auto 0.02 X10*3/uL (0.00-0.03); Imm Gran Pct Auto 0.3 % (0.0-0.4); Lymphocytes Absolute Auto 1.7 X10*3/uL (1.2-4.9); Lymphocytes Percent Auto 25.9 % (20-40); Mean Corpuscular Volume 91.2 fL (80.0-98.0); Mean Platelet Volume 10.3 fL (9.4-12.4); Monocytes Absolute Auto 0.7 X10*3/uL (0.1-1.2); Monocytes Percent Auto 10.1 % (2-11); Neutrophils Absolute Auto 3.8 x10*3/uL (2.0-8.3); Neutrophils Percent Auto 59.6 % (45-73); Platelet Count 248 X10*3/uL (160-400); Red Blood Count 4.42 X10*6/uL (4.60-5.80); Red Cell Distribution Width 13.4 % (11.0-16.0); White Blood Count 6.4 X10*3/uL (4.8-10.8)
== END 2024-07-02 11:17 | disposition home or self-care (01) ==
LOC: HO.LABR 11:16
PROVIDERS: PCP Internal Medicine; Visit Provider Psychiatry & Neurology Psychiatry
DX: Z79.899 Other long term (current) drug therapy (principal); Z51.81 Encounter for therapeutic drug level monitoring
CPT/HCPCS: 36415; 85025

== ENCOUNTER 2024-07-31 10:17 | Outpatient (REF) | payer OTHER, SELFPAY ==
[2024-07-31 10:41] LABS: MANUAL DIFF FLAG NO
[2024-07-31 10:52] LABS: Basophils Percent Auto 0.4 % (0-2); Eosinophils Absolute Auto 0.3 X10*3/uL (0.0-0.4); Eosinophils Percent Auto 3.1 % (0-4); Hematocrit 33.1 % (42.0-52.0); Hemoglobin 11.1 g/dl (14.0-18.0); Imm Gran Abs Auto 0.03 X10*3/uL (0.00-0.03); Imm Gran Pct Auto 0.3 % (0.0-0.4); Lymphocytes Absolute Auto 1.3 X10*3/uL (1.2-4.9); Lymphocytes Percent Auto 13.9 % (20-40); Mean Corpuscular HGB Conc 33.5 g/dl (31.0-36.0); Mean Corpuscular Hemoglobin 30.1 pg (27.0-33.0); Mean Corpuscular Volume 89.7 fL (80.0-98.0); Mean Platelet Volume 9.6 fL (9.4-12.4); Monocytes Percent Auto 10.4 % (2-11); Neutrophils Absolute Auto 6.7 x10*3/uL (2.0-8.3); Neutrophils Percent Auto 71.9 % (45-73); Platelet Count 282 X10*3/uL (160-400); Red Blood Count 3.69 X10*6/uL (4.60-5.80); Red Cell Distribution Width 13.1 % (11.0-16.0); White Blood Count 9.4 X10*3/uL (4.8-10.8)
== END 2024-07-31 10:18 | disposition home or self-care (01) ==
LOC: HO.LABR 10:17
PROVIDERS: PCP Internal Medicine; Visit Provider Psychiatry & Neurology Psychiatry
DX: Z79.899 Other long term (current) drug therapy (principal)
CPT/HCPCS: 36415; 85025

== ENCOUNTER 2024-08-24 10:46 | Outpatient (REF) | payer OTHER, SELFPAY ==
[2024-08-24 10:57] LABS: MANUAL DIFF FLAG NO
--- OUTSIDE RECORDS SUMMARY | 2024-08-24 12:05 | XMS_ITS | Clinical Summary ---
Author Organization Unknown Care Team Providers Care Fire Equipment Operator Name Role Phone PERCY GARCIA, JH Unavailable Unavailable ALONZO HERNANDEZ, SREE Unavailable Unavailable Payers Payer Name Policy Type Policy Number Effective Date Expira tion Date [facility] ([facility] [id number] MEDICAID [facility] [id number] Problems Condition Name Condition Details Condition Category Status Onset Date Resolution Date Last Treatment Date Treating Clinician Comments SCHIZOPHRENI A, UNSPECIFIED Active 2022-08 00:00: 00 UNSP PSYCHOSIS NOT DUE TO A SUBSTANCE OR KNOWN PHYSIOL COND Active 2022-08 00:00: 00 Allergies, Adverse Reactions, Alerts Allergy Name Allergy Type Status Severity Reaction(s) Onset Date Inactive Date Treating Clinician Comments CORN POLLEN AND DUST MITES Propensity to adverse reactions Active 2023-05 20:15:4 2 ORANGE JUICE Propensity to adverse reactions Active 2023-05 20:14:4 3 Medications Ordered Medication Name Filled Medication Name Start Date Stop Date Current Medication? Ordering Clinician Indication Dosage Frequency Signature (SIG) Comments Components clozapine 200 mg tablet 2022-08 00:00: 00 Yes [id number] 200 mg DAILY 200 mg DAILY (route: oral) Med Classific ation: Central Nervous System Agents Clozaril 100 mg tablet 2022-08 00:00: 00 Yes [id number] 100 mg DAILY 100 mg DAILY (route: oral) Med Classific ation: Central Nervous System Agents sennosides 8.6 mg tablet 2022-08 00:00: 00 Yes [id number] 8.6 mg 2 TIMES DAILY 8.6 mg 2 TIMES DAILY (route: oral) Med Classific ation: Gastroint estinal Therapy Agents Vital Signs Vital Name Observation Time Observation Value Commen ts Temperature 2024-08-21 10:04:00.000 98.1 [degF] Temperature 2024-08-20 10:50:00.000 98.1 [degF] Temperature 2024-08-19 11:54:00.000 97.6 [degF] Temperature 2024-08-18 15:47:00.000 98 [degF] Temperature 2024-08-17 23:41:00.000 97.9 [degF] Temperature 2024-08-14 13:05:00.000 98.1 [degF] Temperature 2024-08-13 11:31:00.000 97.8 [degF] Temperature 2024-08-12 11:40:00.000 97.5 [degF] Temperature 2024-08-11 11:29:00.000 97.5 [degF] Temperature 2024-08-10 14:27:00.000 97.6 [degF] Temperature 2024-08-07 11:29:00.000 97.8 [degF] Temperature 2024-08-06 10:18:00.000 98.1 [degF] Temperature 2024-08-05 12:02:00.000 98 [degF] Temperature 2024-08-04 11:56:00.000 98 [degF] Temperature 2024-08-04 03:06:00.000 98.1 [degF] Temperature 2024-07-31 15:04:00.000 97.5 [degF] Temperature 2024-07-30 14:10:00.000 97.9 [degF] Temperature 2024-07-29 14:33:00.000 98.1 [degF] Plan of Treatment Planned Activity Planned Date Details Comments Future Scheduled Test SKILLED NU RSE TO EVALUATE PATIENT, IDENTIFY PRIMARY AND CO-MORBID CONDITIONS CODED PER CODING GUIDELINES, AND DEVELOP PATIENT SPECIFIC PLAN OF CARE THAT INCLUDES PATIENT GOAL FOR HOME HEALTH. [code = SKILLED NURSE TO EVALUATE PATIENT, IDENTIFY PRIMARY AND CO-MORBID CONDITIONS CODED PER CODING GUIDELINES, AND DEVELOP PATIENT SPECIFIC PLAN OF CARE THAT INCLUDES PATIENT GOAL FOR HOME HEALTH.] Future Scheduled Test SKILLED NU RSE TO PERFORM HOME SAFETY AND FALL ASSESSMENT AND PROVIDE INSTRUCTION TO IMPLEMENT HOME SAFETY AND FALL PREVENTION STRATEGIES. [code = SKILLED NURSE TO PERFORM HOME SAFETY AND FALL ASSESSMENT AND PROVIDE INSTRUCTION TO IMPLEMENT HOME SAFETY AND FALL PREVENTION STRATEGIES.] Future Scheduled Test SKILLED NU RSE TO PROVIDE INSTRUCTION TO PATIENT/CAREGIVER RELATED TO DISCHARGE PLANNING. [code = SKILLED NURSE TO PROVIDE INSTRUCTION TO PATIENT/CAREGIVER RELATED TO DISCHARGE PLANNING.] Future Scheduled Test SKILLED NU RSE WILL MAINTAIN SITUATIONAL AWARENESS FOR SAFETY AND WILL NOTIFY CLINICAL OCCUPATIONAL THERAPIST ASSISTANT AND PHYSICIAN/PROVIDER WITH ANY CHANGE IN CONDITION. [code = SKILLED NURSE WILL MAINTAIN SITUATIONAL AWARENESS FOR SAFETY AND WILL NOTIFY CLINICAL OCCUPATIONAL THERAPIST ASSISTANT AND PHYSICIAN/PROVIDER WITH ANY CHANGE IN CONDITION.] Future Scheduled Test SKILLED NU RSE TO REVIEW PATIENT MEDICATIONS. INSTRUCT PATIENT/CAREGIVER ON MONITORING OF EFFECTIVENESS, ADVERSE DRUG REACTIONS, SIDE EFFECTS OF ALL MEDICATIONS (PRESCRIPTION/-OTC), AND HOW AND WHEN TO REPORT PROBLEMS. [code = SKILLED NURSE TO REVIEW PATIENT MEDICATIONS. INSTRUCT PATIENT/CAREGIVER ON MONITORING OF EFFECTIVENESS, ADVERSE DRUG REACTIONS, SIDE EFFECTS OF ALL MEDICATIONS (PRESCRIPTION/-OTC), AND HOW AND WHEN TO REPORT PROBLEMS.] Future Scheduled Test SKILLED NU RSE TO ADMINISTER MEDICATIONS FIVE TIMES A WEEK AND PRE-POUR MEDICATIONS TILL NEXT HALF-WAY VISIT PER MEDICATION LIST. [code = SKILLED NURSE TO ADMINISTER MEDICATIONS FIVE TIMES A WEEK AND PRE-POUR MEDICATIONS TILL NEXT HALF-WAY VISIT PER MEDICATION LIST.] Future Scheduled Test SKILLED NU RSE FOR MEDICATION ADMINISTRATION PER MEDICATION LIST TO BE PERFORMED FIVE TIMES A WEEK [code = SKILLED NURSE FOR MEDICATION ADMINISTRATION PER MEDICATION LIST TO BE PERFORMED FIVE TIMES A WEEK ] Future Scheduled Test SKILLED NU RSE TO PRE-POUR MEDICATION PER MEDICATION LIST TILL NEXT HALF-WAY [code = SKILLED NURSE TO PRE-POUR MEDICATION PER MEDICATION LIST TILL NEXT HALF-WAY ] Future Scheduled Test SKILLED NU RSE FOR O/A AND SKILLED TEACHING RELATED TO MANAGEMENT OF DEPRESSIVE SYMPTOMS AND/OR DEPRESSION. SN TO REPORT SIGNIFICANT CHANGE IN DEPRESSIVE SYMPTOMS TO CLINICAL PROVIDER FOR EARLY INTERVENTION. [code = SKILLED NURSE FOR O/A AND SKILLED TEACHING RELATED TO MANAGEMENT OF DEPRESSIVE SYMPTOMS AND/OR DEPRESSION. SN TO REPORT SIGNIFICANT CHANGE IN DEPRESSIVE SYMPTOMS TO CLINICAL PROVIDER FOR EARLY INTERVENTION.] Future Scheduled Test SKILLED NU RSE FOR O/A OF ALTERED THOUGHT PROCESS AND/OR DISRUPTION IN COGNITIVE OPERATIONS AND ACTIVITIES [code = SKILLED NURSE FOR O/A OF ALTERED THOUGHT PROCESS AND/OR DISRUPTION IN COGNITIVE OPERATIONS AND ACTIVITIES ] Future Scheduled Test SKILLED NU RSE TO ASSESS PATIENTS PSYCHOSOCIAL STATUS TO IDENTIFY POTENTIAL ISSUES THAT MAY COMPLICATE THE PROVISION OF THE PLAN OF CARE INCLUDING THE PATIENTS ABILITY TO ACCESS COMMUNITY RESOURCES AND PSYCHOSOCIAL SUPPORT SERVICES. [code = SKILLED NURSE TO ASSESS PATIENTS PSYCHOSOCIAL STATUS TO IDENTIFY POTENTIAL ISSUES THAT MAY COMPLICATE THE PROVISION OF THE PLAN OF CARE INCLUDING THE PATIENTS ABILITY TO ACCESS COMMUNITY RESOURCES AND PSYCHOSOCIAL SUPPORT SERVICES.] Future Scheduled Test SKILLED NU RSE FOR O/A OF CLIENT'S SOCIAL ISOLATION AND PROVIDE ASSISTANCE TO CLIENT IN DEVELOPMENT OF PLANNED ACTIVITIES [code = SKILLED NURSE FOR O/A OF CLIENT'S SOCIAL ISOLATION AND PROVIDE ASSISTANCE TO CLIENT IN DEVELOPMENT OF PLANNED ACTIVITIES] Goal 2023-07-30 Patient Goal - TAKING MY MED S Goal 2023-09-30 Patient Goal - TAKING MY MED S Goal 2023-11-27 Patient Goal - TAKING MY MED S Goal 2024-01-27 Patient Goal - TAKING MY MED S Goal 2024-03-26 Patient Goal - TAKING MY MED S Goal 2024-05-25 Patient Goal - TAKING MY MED S Goal 2024-07-24 Patient Goal - TAKING MY MED S Goal Patient Goal - TAKING MY MED S Goal Provider Goal - A PLAN OF CARE WILL BE ESTABLISHED THAT MEETS PATIENT'S HALF-WAY NEEDS AND INCLUDES PATIENT GOAL FOR HOME HEALTH. Goal Provider Goal - PATIENT/CAREGIVER WILL VERBALIZE/DEMONSTRATE EFFECTIVE HOME SAFETY AND FALL PREVENTION STRATEGIES THROUGHOUT CERTIFICATION PERIOD. Goal Provider Goal - PATIENT/CAREGIVER WILL VERBALIZE UNDERSTANDING OF DISCHARGE PLANNING INSTRUCTIONS BY DATE OF DISCHARGE. Goal Provider Goal - PATIENT WILL REMAIN SAFE IN THE COMMUNITY AND WILL BE FREE OF DANGER TO SELF AND OTHERS THROUGHOUT THE CERTIFICATION PERIOD. Goal Provider Goal - PATIENT/CAREGIVER WILL VERBALIZE UNDERSTANDING OF EDUCATION PROVIDED ON MEDICATIONS BY THE END OF THE CERTIFICATION PERIOD. Goal Provider Goal - PATIENT WILL COMPLY WITH MEDICATION WHEN SKILLED NURSE ADMINISTERS AND PRE-POURS MEDICATION THROUGHOUT CERTIFICATION PERIOD. Goal Provider Goal - PATIENT WILL COMPLY WITH MEDICATION WHEN NURSE ADMINISTERS THROUGHOUT CERTIFICATION PERIOD. Goal Provider Goal - PATIENT WILL COMPLY WITH MEDICATION WHEN SKILLED NURSE PRE-POURS MEDICATION THROUGHOUT CERTIFICATION PERIOD. Goal Provider Goal - PATIENT WILL REMAIN SAFE WITHOUT DECOMPENSATION IN DEPRESSIVE CONDITION, WHILE MAINTAINING OPTIMAL LEVEL OF MENTAL HEALTH AND WELL BEING THROUGHOUT CERTIFICATION PERIOD. Goal Provider Goal - PATIENT WILL BE ABLE TO PERFORM DAILY FUNCTIONS AND HAVE OPTIMAL IMPROVEMENT IN THOUGHT PROCESS THROUGHOUT CERTIFICATION PERIOD. Goal Provider Goal - PSYCHOSOCIAL NEEDS WILL BE IDENTIFIED AND PLAN IMPLEMENTED TO MINIMIZE RISK THROUGHOUT CERTIFICATION PERIOD. Goal Provider Goal - PATIENT WILL DEMONSTRATE AN INCREASED INTEREST IN SOCIALIZATION AND ACTIVITIES BY THE END OF THE CERTIFICATION PERIOD. Encounters Start Date/Time End Date/Time Encounter Type Admission Type Attending [facility] Care Department Encounter ID Discharge Date Discharge Status Discharge Condition Discharge Reason Percent Goals Met 2023-06-05 00:00:00 2024-09-26 00:00:00 Outpatient RECERTIFIC ATION SREE [facility] [id number] 27.27
--- OUTSIDE RECORDS SUMMARY | 2024-08-24 12:05 | XMS_ITS | Clinical Summary ---
Author Organization Unknown Care Team Providers Care Retail Reset Merchandiser Name Role Phone PERCY GARCIA, JH Unavailable Unavailable ALONZO HERNANDEZ, SREE Unavailable Unavailable Payers Payer Name Policy Type Policy Number Effective Date Expira tion Date [facility] ([facility] [id number] MEDICAID [facility] [id number] Problems Condition Name Condition Details Condition Category [...] 200 mg tablet 2022-08 00:00: 00 Yes [id number] 200 mg DAILY 200 mg DAILY (route: oral) Med Classific ation: Central Nervous System Agents Clozaril 100 mg tablet 2022-08 00:00: 00 Yes [id number] 100 mg DAILY 100 mg DAILY (route: oral) Med Classific ation: Central Nervous System Agents sennosides 8.6 mg tablet 2022-08 00:00: 00 Yes [id number] 8.6 mg 2 TIMES DAILY 8.6 mg [...] AWARENESS FOR SAFETY AND WILL NOTIFY CLINICAL BLAST FURNACE CHECKER AND PHYSICIAN/PROVIDER WITH ANY CHANGE IN CONDITION. [code = SKILLED NURSE WILL MAINTAIN SITUATIONAL AWARENESS FOR SAFETY AND WILL NOTIFY CLINICAL BLAST FURNACE CHECKER AND PHYSICIAN/PROVIDER WITH ANY CHANGE IN CONDITION.] [...] A WEEK AND PRE-POUR MEDICATIONS TILL NEXT LONG-TERM VISIT PER MEDICATION LIST. [code = SKILLED NURSE TO ADMINISTER MEDICATIONS FIVE TIMES A WEEK AND PRE-POUR MEDICATIONS TILL NEXT LONG-TERM VISIT PER MEDICATION LIST.] Future Scheduled Test SKILLED NU RSE FOR MEDICATION ADMINISTRATION PER MEDICATION LIST TO BE PERFORMED FIVE TIMES A WEEK [code = SKILLED NURSE FOR MEDICATION ADMINISTRATION PER MEDICATION LIST TO BE PERFORMED FIVE TIMES A WEEK ] Future Scheduled Test SKILLED NU RSE TO PRE-POUR MEDICATION PER MEDICATION LIST TILL NEXT LONG-TERM [code = SKILLED NURSE TO PRE-POUR MEDICATION PER MEDICATION LIST TILL NEXT LONG-TERM ] Future Scheduled Test SKILLED NU RSE [...] CARE WILL BE ESTABLISHED THAT MEETS PATIENT'S LONG-TERM NEEDS AND INCLUDES PATIENT GOAL FOR HOME [...] End Date/Time Encounter Type Admission Type Attending [facility] Care Department Encounter ID Discharge Date Discharge Status Discharge Condition Discharge Reason Percent Goals Met 2023-06-05 00:00:00 2024-09-26 00:00:00 Outpatient RECERTIFIC ATION SREE [facility] [id number] 27.27
[2024-08-24 12:12] LABS: Basophils Absolute Auto 0.1 X10*3/uL (0.0-0.2); Basophils Percent Auto 0.7 % (0-2); Eosinophils Absolute Auto 1.4 X10*3/uL (0.0-0.4); Eosinophils Percent Auto 12.9 % (0-4); Hematocrit 41.5 % (42.0-52.0); Hemoglobin 13.1 g/dl (14.0-18.0); Imm Gran Abs Auto 0.04 X10*3/uL (0.00-0.03); Imm Gran Pct Auto 0.4 % (0.0-0.4); Lymphocytes Absolute Auto 1.7 X10*3/uL (1.2-4.9); Mean Corpuscular HGB Conc 31.6 g/dl (31.0-36.0); Mean Corpuscular Hemoglobin 29.3 pg (27.0-33.0); Mean Corpuscular Volume 92.8 fL (80.0-98.0); Mean Platelet Volume 10.6 fL (9.4-12.4); Monocytes Absolute Auto 0.8 X10*3/uL (0.1-1.2); Neutrophils Absolute Auto 6.9 x10*3/uL (2.0-8.3); Platelet Count 313 X10*3/uL (160-400); Red Blood Count 4.47 X10*6/uL (4.60-5.80); Red Cell Distribution Width 14.3 % (11.0-16.0); White Blood Count 10.9 X10*3/uL (4.8-10.8)
== END 2024-08-24 10:47 | disposition home or self-care (01) ==
LOC: HO.LAB 10:46
PROVIDERS: PCP Internal Medicine; Visit Provider Psychiatry & Neurology Psychiatry
DX: Z79.899 Other long term (current) drug therapy (principal); Z51.81 Encounter for therapeutic drug level monitoring
CPT/HCPCS: 36415; 85025

== ENCOUNTER 2024-09-18 10:15 | Outpatient (AMB) | payer OTHER, SELFPAY ==
--- NOTE | 2024-09-18 10:17 | MHC.PC.OV ---
Vital Signs 09/18/24 10:19 Height 5 ft 9 in Weight 138 lb BMI 20.4 BP 130/74 Blood Pressure Location Lt brachial Position Sitting Pulse 105 H Pulse Source Pulse Oximeter Temp 96.9 F Temp Source Skin Pulse Oximetry (%) 100 Oxygen Delivery Method Room Air Intake Visit Reasons: establish care/ SELIN Dr Armas Intake Note: Patient is here today to SELIN from Dr Armas Wood Crew Supervisor Required: No Math And Science Division Chair: Not Required per policy Accompanied by: Self / Same As Patient Allergies orange Allergy (Intermediate, Verified 09/18/24 10:35) RASH Pollen Allergy (Intermediate, Uncoded 09/18/24 10:35) congestion Medication List - Last Reconciled 09/18/24 by Leticia Ward PA-C clozapine 100 mg PO BEDTIME 30 days clozapine 200 mg PO BEDTIME 30 days sennosides-docusate sodium 8.6-50 mg (Senna Plus) 2 tabs PO BID 30 days simvastatin 40 mg PO BEDTIME Tobacco use date assessed: 09/18/24 Dental Screening Dental Screen Date: 09/18/24 Did you have a dental visit in the last 12 months?: No Did you have a dental problem in the last 6 months where you did not have access to dental care?: No Was dental information given to patient?: No HPI establish care/ SELIN Dr Armas HPI Details 49-year-old male with past medical history of hyperlipidemia and schizophrenia last seen by Dr. Armas 06/2024 coming in for transfer of care. Patient tells us today he follows with a therapist who prescribes his clozapine. Feels generally well and has no acute concerns today. He has not yet had a colonoscopy he is not interested in a colonoscopy at this time. He does have a itchy rash on his right hand and right forearm that has been bothersome. He uses Shirley butter and coconut lotion which seems to help with the itchiness momentarily he is still does find himself scratching on it to the point where it bleeds. [facility] Medical History Schizophrenia Hyperlipidemia Surgical History No history of previous surgery Family History Other Mental health disorder Social History Household Members: Family Housing: House Do you presently have visiting nurse or other home services: No Patient Tobacco Use Status: Never used Tobacco Tobacco use type: Cigarette e-Cigarette/Vaping Use: Never Used Second Hand Smoke Exposure: No service: No Current occupational status: disabled Sexual orientation: Don't Know Cognitive needs: Yes Hearing needs: No Vision needs: Yes Questionnaire PHQ-9 Over the last 2 weeks, how often have you been bothered by any of the following problems? 1. Little interest or pleasure in doing things: not at all 2. Feeling down, depressed, or hopeless: not at all 3. Trouble falling or staying asleep, or sleeping too much: not at all 4. Feeling tired or having little energy: not at all 5. Poor appetite or overeating: not at all 6. Feeling bad about yourself - or that you are a failure or have let yourself or your family down: not at all 7. Trouble concentrating on things, such as reading the newspaper or watching television: not at all 8. Moving or speaking so slowly that other people could have noticed. Or the opposite - being so fidgety or restless that you have been moving around a lot more than usual: not at all 9. Thoughts that you would be better off or of hurting yourself in some way: not at all Total score: 0 Depression Screening Interpretation: Negative Depression Screening Done: Yes Source: Developed by Drs. Reyes Hinojosa, Luiza Parkinson, David Cash and colleagues, with an educational lev from [employer]. Thrive Questionnaire Date Thrive assessed: 09/18/24 I am a: Patient What is your living situation today?: I have a steady place to live Within the past 12 months, did the food you bought not last and you didn't have the money to get more?: Never true Within the past 12 months, did you worry whether your food would run out before you got money to buy more?: Never true Do you have trouble paying for medicines?: No Do you have trouble getting transportation to medical appointments?: No Do you have trouble paying your heating and electricity bill?: No Do you have trouble taking care of your child, family member or friend?: No Do you have trouble with day-to-day activities such as bathing, preparing meals, shopping, managing finances, etc.?: No Are you currently unemployed and looking for a job?: No Are you interested in more education?: No Please select the resources that you would like help with: None Currently or been in a relationship where the following occur: No concerns reported THRIVE Score: 0 AUDIT C Alcohol Use Questionnaire (AUDIT-C) 1. How often do you have a drink containing alcohol?: Never Total Score: 0 WES-7 AMB Questionnaire WES-7 Date WES - 7 assessed: 09/18/24 Feeling nervous, anxious, or on edge: 0 = Not at all Not being able to stop or control worryin = Not at all Worrying too much about different things: 0 = Not at all Trouble relaxin = Not at all Being so restless that it is hard to sit still: 0 = Not at all Becoming easily annoyed or irritable: 0 = Not at all Feeling afraid as if something awful might happen: 0 = Not at all Total WES-7 score (0-4 normal; 5-9 mild; 10-14 moderate; 15-21 severe): 0 Source: Developed by Drs. Reyes Hinojosa, Luiza Parkinson, David Cash and colleagues, with an educational lev from [employer]. Review of Systems Const Denies body aches, Denies chills, Denies fever(s), Denies headache(s) and Denies poor appetite Eyes Reports no additional complaints ENT Denies dizziness and Denies headache(s) Card Denies chest pain, Denies lightheadedness and Denies dyspnea Resp Denies cough and Denies dyspnea GI Denies abdominal pain, Reports constipation, Denies diarrhea, Denies nausea and Denies vomiting Reports no additional complaints Musc Reports no additional complaints and Denies abnormal gait Skin/Breast Reports system reviewed and no additional complaints, except as documented Neuro Denies abnormal gait, Denies dizziness and Denies headache(s) Psych Reports no additional complaints Physical exam (Primary Care) Vital Signs: Last Vital Signs Temp 96.9 F 09/18/24 10:19 Pulse 105 H 09/18/24 10:19 BP 130/74 09/18/24 10:19 Pulse Ox 100 09/18/24 10:19 Oxygen Delivery Method Room Air 09/18/24 10:19 BMI result Body Mass Index 20.4 Tobacco/Smoking Status: Tobacco use Status Tobacco use date assessed 09/18/24 09/18/24 10:23 Patient Tobacco Use Status Never used Tobacco 09/18/24 10:23 Tobacco use type Cigarette 09/18/24 10:23 e-Cigarette/Vaping Use Never Used 09/18/24 10:23 PHQ-9: PHQ-9 Score PHQ-9: Total score 0 09/18/24 10:23 Depression Screening Interpretation: Negative Thrive Assessment: Date of Thrive Assessment Date Thrive assessed 09/18/24 09/18/24 10:23 Currently or been in a relationship where the following occur: No concerns reported Const General: cooperative, healthy appearing, comfortable and no acute distress Orientation/consciousness: patient oriented x3 HENMT Head: Yes normocephalic Ears: hearing grossly normal bilaterally General nose exam: Normal external nose present Eyes General: appearance normal, both eyes and all related structures Conjunctivae: conjunctivae normal Neck Neck: Yes full ROM and Yes no lymphadenopathy Resp Effort & Inspection: normal respiratory effort Auscultation: clear to auscultation bilaterally, no crackles, no rales, no rhonchi and no wheezes Cardio Rate: regular rate Rhythm: regular rhythm Skin Other: Scaly, dry, erythematous rash on dorsal aspect of right hand and scattered erythematous patches on right forearm Neuro General: patient oriented x3 Gait exam (Neuro): Normal gait present Extrem General: Yes normal to inspection, Yes full ROM and No edema Psych Affect: normal affect Attitude: cooperative Insight: Good insight present (Psych) Judgement: Good judgement present (Psych) Coding Level of Care Code Est Pt Level 3 (65111) Diagnoses Mixed hyperlipidemia E78.2 Hyperlipidemia type: mixed hyperlipidemia Schizophrenia F20.9 Schizophrenia type: unspecified Dermatitis L30.9 Assessment & Plan Assessment & Plan (1) Hyperlipidemia: Code(s): E78.5 - Hyperlipidemia, unspecified Category: Medical Qualifiers: Hyperlipidemia type: mixed hyperlipidemia Qualified Code(s): E78.2 - Mixed hyperlipidemia Plan: Avoid foods that are high in cholesterol such as red meat, fried foods, eggs and baked goods. Triglyceride goal of less than 150 and LDL goal of less than 130. Continue on simvastatin 40 mg. Ordered for updated blood work (2) Schizophrenia: Code(s): F20.9 - Schizophrenia, unspecified Category: Medical Qualifiers: Schizophrenia type: unspecified Qualified Code(s): F20.9 - Schizophrenia, unspecified Plan: Patient currently following with psychiatrist and counselor. Feels well on his clozapine has no acute concerns today. (3) Dermatitis: Code(s): L30.9 - Dermatitis, unspecified Category: Medical Plan: Patient having dermatitis on dorsal aspect of right hand and right forearm. Prescription sent for steroid cream not to be used longer than 2 weeks. Advised patient to follow up if symptoms worsen or persist Plan This note was constructed using voice recognition software. While every effort has been made to ensure accuracy and web operations administrator, still areas may have been included sometimes these areas may affect the content or meeting of the given symptoms. Total time spent caring for the patient today was 30 minutes. This includes time spent before the visit reviewing the chart, time spent during the visit, and time spent after the visit and documentation. Orders: Orders Comprehensive Met. Panel Today E78.5 - Hyperlipidemia, unspecified, Z00.00 - Encounter for general adult medical examination without abnormal findings Lipid Panel Today E78.00 - Pure hypercholesterolemia, unspecified, E78.5 - Hyperlipidemia, unspecified Medications: New triamcinolone acetonide 0.1% use daily for two weeks; no longer than two weeks at a time 1 appl topical DAILY 60 mL 0RF Refilled simvastatin 40 mg PO BEDTIME 90 tabs 1RF
[2024-09-18 10:19] VITALS: BP 130/74; PULSE 105; TEMP 36.1; O2SAT 100; BMI 20.4
== END 2024-09-18 10:45 | disposition home or self-care (01) ==
PROVIDERS: PCP Internal Medicine
DX: E78.2 Mixed hyperlipidemia (principal); F20.9 Schizophrenia, unspecified; L30.9 Dermatitis, unspecified

== ENCOUNTER → 2024-09-18 10:15 | Outpatient (BNVA) | payer OTHER, SELFPAY | PROVIDERS: PCP Internal Medicine | DX: E78.2 Mixed hyperlipidemia (principal); F20.9 Schizophrenia, unspecified; L30.9 Dermatitis, unspecified | CPT/HCPCS: 99212 ==

== ENCOUNTER 2024-09-22 11:42 | Outpatient (REF) | payer OTHER, SELFPAY ==
[2024-09-22 11:54] LABS: MANUAL DIFF FLAG NO
[2024-09-22 12:57] LABS: Basophils Absolute Auto 0.1 X10*3/uL (0.0-0.2); Basophils Percent Auto 1.1 % (0-2); Eosinophils Absolute Auto 0.6 X10*3/uL (0.0-0.4); Eosinophils Percent Auto 8.7 % (0-4); Hematocrit 37.6 % (42.0-52.0); Hemoglobin 12.2 g/dl (14.0-18.0); Imm Gran Abs Auto 0.01 X10*3/uL (0.00-0.03); Imm Gran Pct Auto 0.2 % (0.0-0.4); Lymphocytes Percent Auto 30.3 % (20-40); Mean Corpuscular HGB Conc 32.4 g/dl (31.0-36.0); Mean Corpuscular Hemoglobin 29.7 pg (27.0-33.0); Mean Corpuscular Volume 91.5 fL (80.0-98.0); Mean Platelet Volume 10.6 fL (9.4-12.4); Monocytes Absolute Auto 0.6 X10*3/uL (0.1-1.2); Monocytes Percent Auto 9.3 % (2-11); Neutrophils Absolute Auto 3.3 x10*3/uL (2.0-8.3); Neutrophils Percent Auto 50.4 % (45-73); Platelet Count 252 X10*3/uL (160-400); Red Blood Count 4.11 X10*6/uL (4.60-5.80); Red Cell Distribution Width 14.6 % (11.0-16.0); White Blood Count 6.5 X10*3/uL (4.8-10.8)
== END 2024-09-22 11:43 | disposition home or self-care (01) ==
LOC: HO.LAB 11:42
PROVIDERS: Visit Provider Psychiatry & Neurology Psychiatry
DX: Z79.899 Other long term (current) drug therapy (principal); Z51.81 Encounter for therapeutic drug level monitoring
CPT/HCPCS: 36415; 85025

== ENCOUNTER 2024-10-21 23:56 | Inpatient (IN) | payer OTHER, SELFPAY ==
--- NOTE | ~2024-10-21 | CT_ITS ---
CLINICAL HISTORY: dysarthria CT Head without contrast. CT angiography head and neck with contrast. 3D Postprocessing. Comparison: None Findings: HEAD CT: No intra-axial mass, midline shift, hydrocephalus, or acute hemorrhage. The visualized paranasal sinuses and mastoid air cells are normal. The orbits are within normal limits. There is no acute fracture. HEAD AND NECK CTA: Motion degrades the exam. Aortic arch and cervical great vessels are patent. Minimal calcified plaquing at the level of the carotid bulb bilaterally. There is significant motion artifact at this level but no significant luminal narrowing is appreciated. Intracranial arteries are patent. No aneurysm, dissection, or occlusion. The left carotid terminus/proximal middle cerebral artery demonstrates decreased caliber just proximal to the origin of the left anterior cerebral artery. Findings could indicate intracranial atherosclerotic disease, noncalcified. This can be appreciated best on images [id number] of series 10. This finding could also be related to significant streak artifact from the skull base related to image acquisition technique. The vessel remains patent and the distal branches are widely patent. No abnormal intracranial enhancement. The visualized thyroid gland is unremarkable. No cervical mass or fluid collection. Lung apices clear. No acute osseous findings. IMPRESSION: 1. Unremarkable head CT. No intracranial hemorrhage. 2. No intracranial occlusion. There is slight decreased caliber of the left carotid terminus/ left middle cerebral artery at the origin of the left anterior cerebral artery possibly indicating intracranial noncalcified atheromatous plaquing versus vasospasm. This could also be due to streak artifact from the skull base given image acquisition technique. Distal vessels are widely patent. 3. Motion degraded exam. Eccentric plaquing of the carotid bulb bilaterally without evidence of significant luminal narrowing. This document has been electronically signed by: Liset Jha MD on 10/22/2024 06:53:34
[2024-10-21 23:59] VITALS: BP 139/71; BP 146/77; PULSE 110; PULSE 90; RESP 16; TEMP 36.6; O2SAT 100; O2SAT 98; BMI 17.0
[2024-10-22] VITALS (9 sets, daily range): BP systolic 100–182; BP diastolic 52–87; PULSE 68–103; RESP 13–22; TEMP 36.1–37; O2SAT 97–100; BMI 16.9
--- NOTE | 2024-10-22 00:09 | MHC.EDTECH ---
this tech assumed care of the pt at this tiime, pt VS taken and stable, call light given for safety
--- OUTSIDE RECORDS SUMMARY | 2024-10-22 00:33 | XMS_ITS | Clinical Summary ---
Author Organization Unknown Care Team Providers Care Health Care Liaison Name Role Phone PERCY GARCIA, JH Unavailable Unavailable ALONZO HERNANDEZ, SREE Unavailable Unavailable Payers Payer Name Policy Type Policy Number Effective Date Expira tion Date [facility] [place] [place] [facility] [id number] [place] [id number] Problems Condition Name Condition Details Condition Category [...] 200 mg tablet 2022-08 00:00: 00 Yes [id number] 200 mg DAILY 200 mg DAILY (route: oral) Med Classific ation: Central Nervous System Agents Clozaril 100 mg tablet 2022-08 00:00: 00 Yes [id number] 100 mg DAILY 100 mg DAILY (route: oral) Med Classific ation: Central Nervous System Agents sennosides 8.6 mg tablet 2022-08 00:00: 00 Yes [id number] 8.6 mg 2 TIMES DAILY 8.6 mg 2 TIMES DAILY (route: oral) Med Classific ation: Gastroint estinal Therapy Agents Vital Signs Vital Name Observation Time Observation Value Commen ts Temperature 2024-10-21 11:05:00.000 98 [degF] Temperature 2024-10-20 11:25:00.000 98.1 [degF] Temperature 2024-10-19 10:56:00.000 97.5 [degF] Temperature 2024-10-16 10:29:00.000 97.8 [degF] Temperature 2024-10-15 10:32:00.000 97.2 [degF] Temperature 2024-10-14 10:54:00.000 98.1 [degF] Temperature 2024-10-13 10:27:00.000 97.3 [degF] Temperature 2024-10-12 10:20:00.000 97.8 [degF] Temperature 2024-10-09 11:07:00.000 97.3 [degF] Temperature 2024-10-08 09:54:00.000 97.5 [degF] Temperature 2024-10-07 10:42:00.000 97.9 [degF] Temperature 2024-10-06 23:25:00.000 98.1 [degF] Temperature 2024-10-05 10:52:00.000 98.1 [degF] Temperature 2024-10-02 10:42:00.000 97.7 [degF] Temperature 2024-10-01 11:20:00.000 98 [degF] Temperature 2024-09-30 10:57:00.000 98 [degF] Temperature 2024-09-29 11:08:00.000 97.5 [degF] Temperature 2024-09-28 10:46:00.000 97.5 [degF] Plan of Treatment Planned Activity Planned [...] PLANNING.] Future Scheduled Test SKILLED NU RSE TO O/A OF PATIENTS MENTAL/BEHAVIORAL STATUS, ASSESS VITAL SIGNS FIVE TIMES A WEEK [code = SKILLED NURSE TO O/A OF PATIENTS MENTAL/BEHAVIORAL STATUS, ASSESS VITAL SIGNS FIVE TIMES A WEEK ] Future Scheduled Test CLINICAL S UMMARY (SOC/RECERT, 10 DAY, 60 DAY): THE PATIENT IS RECEIVING HOMECARE DUE TO NEW ONSET/EXACERBATION OF: YES RECENT HOSPITALIZATION/INPATIENT ADMISSION RELATED TO: NO NEW OR CHANGED MEDICATIONS PERTINENT TO THE PLAN OF CARE: NO PATIENT LIVING SITUATION/CAREGIVER STATUS: WITH FAMILY SUMMARIZE SKILLED NEED: MEDICATION MANAGEMENT, VITAL SIGN ASSESSMENT, MENTAL STATUS ASSESSMENT AND DIAGNOSIS MANAGEMENT [code = CLINICAL SUMMARY (SOC/RECERT, 10 DAY, 60 DAY): THE PATIENT IS RECEIVING HOMECARE DUE TO NEW ONSET/EXACERBATION OF: YES RECENT HOSPITALIZATION/INPATIENT ADMISSION RELATED TO: NO NEW OR CHANGED MEDICATIONS PERTINENT TO THE PLAN OF CARE: NO PATIENT LIVING SITUATION/CAREGIVER STATUS: WITH FAMILY SUMMARIZE SKILLED NEED: MEDICATION MANAGEMENT, VITAL SIGN ASSESSMENT, MENTAL STATUS ASSESSMENT AND DIAGNOSIS MANAGEMENT ] Future Scheduled Test SKILLED NU RSE WILL MAINTAIN SITUATIONAL AWARENESS FOR SAFETY AND WILL NOTIFY CLINICAL MICROBIOLOGICAL LABORATORY TECHNICIAN AND PHYSICIAN/PROVIDER WITH ANY CHANGE IN CONDITION. [code = SKILLED NURSE WILL MAINTAIN SITUATIONAL AWARENESS FOR SAFETY AND WILL NOTIFY CLINICAL MICROBIOLOGICAL LABORATORY TECHNICIAN AND PHYSICIAN/PROVIDER WITH ANY CHANGE IN CONDITION.] [...] A WEEK AND PRE-POUR MEDICATIONS TILL NEXT PENITENTIARY VISIT PER MEDICATION LIST. [code = SKILLED NURSE TO ADMINISTER MEDICATIONS FIVE TIMES A WEEK AND PRE-POUR MEDICATIONS TILL NEXT PENITENTIARY VISIT PER MEDICATION LIST.] Future Scheduled Test [...] Goal - TAKING MY MED S Goal 2024-09-22 Patient Goal - TAKING MY MED S Goal Patient Goal - TAKING MY MED S Goal Provider Goal - A PLAN OF CARE WILL BE ESTABLISHED THAT MEETS PATIENT'S PENITENTIARY NEEDS AND INCLUDES PATIENT GOAL FOR HOME HEALTH. Goal Provider Goal - PATIENT/CAREGIVER WILL VERBALIZE/DEMONSTRATE EFFECTIVE HOME SAFETY AND FALL PREVENTION STRATEGIES THROUGHOUT CERTIFICATION PERIOD. Goal Provider Goal - PATIENT/CAREGIVER WILL VERBALIZE UNDERSTANDING OF DISCHARGE PLANNING INSTRUCTIONS BY DATE OF DISCHARGE. Goal Provider Goal - ALTERED MENTAL/BEHAVIORAL STATUS WILL BE IDENTIFIED PROMPTLY AND INTERVENTION INITIATED QUICKLY TO MINIMIZE ASSOCIATED RISKS THROUGHOUT CERTIFICATION PERIOD. Goal Provider Goal - PATIENT WILL REMAIN SAFE, FREE FROM HOSPITALIZATION, AND ADHERE TO THE SKILLED NURSES PLAN OF CARE THROUGHOUT THE CERTIFICATION PERIOD. Goal Provider Goal [...] End Date/Time Encounter Type Admission Type Attending [facility] Care Department Encounter ID Discharge Date Discharge Status Discharge Condition Discharge Reason Percent Goals Met 2023-06-05 00:00:00 2024-11-25 00:00:00 Outpatient RECERTIFIC ATION SREE ROSADO [facility] [id number] 14.29
--- OUTSIDE RECORDS SUMMARY | 2024-10-22 00:33 | XMS_ITS | Clinical Summary ---
Author Organization Unknown Care Team Providers Care Sheet Metal Worker Apprentice Name Role Phone PERCY GARCIA, JH Unavailable Unavailable ALONZO HERNANDEZ, SREE Unavailable Unavailable Payers Payer Name Policy Type Policy Number Effective Date Expira tion Date [facility] ([facility] - [facility] [id number] [place] [id number] Problems Condition Name Condition Details Condition Category [...] 200 mg tablet 2022-08 00:00: 00 Yes [id number] 200 mg DAILY 200 mg DAILY (route: oral) Med Classific ation: Central Nervous System Agents Clozaril 100 mg tablet 2022-08 00:00: 00 Yes [id number] 100 mg DAILY 100 mg DAILY (route: oral) Med Classific ation: Central Nervous System Agents sennosides 8.6 mg tablet 2022-08 00:00: 00 Yes [id number] 8.6 mg 2 TIMES DAILY 8.6 mg [...] AWARENESS FOR SAFETY AND WILL NOTIFY CLINICAL SOAP MAKER AND PHYSICIAN/PROVIDER WITH ANY CHANGE IN CONDITION. [code = SKILLED NURSE WILL MAINTAIN SITUATIONAL AWARENESS FOR SAFETY AND WILL NOTIFY CLINICAL SOAP MAKER AND PHYSICIAN/PROVIDER WITH ANY CHANGE IN CONDITION.] [...] A WEEK AND PRE-POUR MEDICATIONS TILL NEXT PRISON VISIT PER MEDICATION LIST. [code = SKILLED NURSE TO ADMINISTER MEDICATIONS FIVE TIMES A WEEK AND PRE-POUR MEDICATIONS TILL NEXT PRISON VISIT PER MEDICATION LIST.] Future Scheduled Test [...] CARE WILL BE ESTABLISHED THAT MEETS PATIENT'S PRISON NEEDS AND INCLUDES PATIENT GOAL FOR HOME [...] End Date/Time Encounter Type Admission Type Attending [facility] Care Department Encounter ID Discharge Date Discharge Status Discharge Condition Discharge Reason Percent Goals Met 2023-06-05 00:00:00 2024-11-25 00:00:00 Outpatient RECERTIFIC ATION SREE ROSADO [facility] [id number] 14.29
[2024-10-22] MEDS: LORazepam 2 MG/ML VIAL IVPUSH (03:46)
--- NOTE | 2024-10-22 03:49 | PC.NURSE ---
Poison control contacted at 0349 per the request of the MD. Patient abruptly stopped taking Clozaril x5 days and then tonight took 1/2 of a 100mg tablet abruptly given by the mother. Poison control recommends an EKG to look for QTC Prolongation, and monitor labs consisting of potassium and magnesium both. Poison control stated it could be another 6-8 hours before the patient is awake and back to baseline functioning.
--- NOTE | 2024-10-22 03:55 | ECG_ITS ---
Test Reason : AMS Blood Pressure : */* mmHG Vent. Rate : 69 BPM Atrial Rate : 69 BPM P-R Int : 126 ms QRS Dur : 98 ms QT Int : 400 ms P-R-T Axes : -86 82 -60 degrees QTcB Int : 428 ms Unusual P axis, possible ectopic atrial rhythm Abnormal QRS-T angle, consider primary T wave abnormality Abnormal ECG When compared with ECG of 22-May-2023 14:00, Unusual P axis, possible ectopic atrial rhythm has replaced Sinus rhythm Minimal criteria for Inferior infarct are no longer Present Nonspecific T wave abnormality now evident in Inferior leads Referred By: Zahra Rdz Electronically Signed By: JOHNSON KHAN MD
[2024-10-22] MEDS: 0.9 % Sodium Chloride 1,000 ML 999 ML IVCONT (03:58)
--- NOTE | 2024-10-22 04:01 | ED_ITS ---
HPI - General Adult General Chief complaint: General Medical Stated complaint: AMS/ TONGUE FEELS NUMB Time Seen by Provider: 10/22/24 03:24 Source: family and EMS Mode of arrival: EMS Limitations: other History of Present Illness ED Provider: Dr. Zahra Rdz HPI narrative: patient comes to the emergency room by ambulance from home, accompanied by family member. According to the family member, They noted today that the patient had trouble speaking, difficulty finding words, a bit twitchy in his face. Overall this is not normal for the patient and therefore they called the ambulance to bring him to emergency room. Patient is awake and alert answering questions, however, he has difficulty speaking. It has been going on for about 6 hours Prior to arrival. Patient's family states that the patient is known to take Clozaril every day 300 mg at night. however, 5 days ago he stopped taking it abruptly because he does not like that the medication makes him feel drowsy. However, all day today, patient has not been feeling well, acting different/ Confused, difficulty speaking, states that patient feels that he has a swollen tongue although he does not. A few hours prior to arrival, patient took half tablet ( of 100 mg tablet) to tried to help his symptoms. Related Data Previous Rx's ?Medication ?Instructions ?Recorded clozapine 100 mg tablet 100 mg PO BEDTIME 30 days #30 tabs 06/03/23 clozapine 200 mg tablet 200 mg PO BEDTIME 30 days #30 tabs 06/03/23 sennosides 8.6 mg-docusate sodium 2 tab PO BID 30 days #120 tabs 06/03/23 50 mg tablet (Senna Plus) simvastatin 40 mg tablet 40 mg PO BEDTIME #90 tabs 09/18/24 triamcinolone acetonide 0.1 % 1 appl topical DAILY #60 mL 09/18/24 lotion Allergies Allergy/AdvReac Type Severity Reaction Status Date / Time orange Allergy Intermediate RASH Verified 10/22/24 00:04 Pollen Allergy Intermediate congestion Uncoded 10/22/24 00:04 Review of Systems 2 Review of Systems: Constitutional : No Weight loss, No Fever, No Chills, No Night Sweats, No Fatigue, No Malaise ENT/Mouth : No Hearing loss, No Ear Pain, No Nasal Congestion, No Sinus Pain, No Hoarseness, No sore throat, No Rhinorrhea, No Swallowing Difficulty Eyes: No Eye Pain, No Swelling, No Redness, No Foreign Body, No Discharge, No Vision Changes Cardiovascular : No Chest Pain, No SOB, No Dyspnea on Exertion, No Orthopnea, No Edema, No Palpitations Respiratory : No Cough, No Sputum, No Wheezing, No Smoke Exposure, No Dyspnea Gastrointestinal : No Nausea, No Vomiting, No Diarrhea, No Constipation, No abdominal Pain, No Hematochezia, No Melena Genitourinary : no irregular bleeding, No Dysuria, No Urinary Frequency, No Hematuria, No Urinary Incontinence, No Urgency, No Flank Pain, No Urinary Flow Changes, No Hesitancy Musculoskeletal : No joint pain, No Myalgias, No Joint Swelling Skin : No Skin Lesions, No rash Neuro : Patient feeling twitchy, sensation of tongue feeling swollen, difficulty speaking, slurred speech Psych : No Anxiety/Panic, No Depression, No SI/HI/AH/VH, No Social Issues, Heme/Lymph: No Bruising, No Bleeding,No Lymphadenopathy Endocrine : No Polyuria, No Polydipsia, No Temperature Intolerance [facility] Past Medical History Medical History Schizophrenia Hyperlipidemia Surgical History No history of previous surgery Family History Family History Other Mental health disorder Social History Social History Household Members: Family Housing: House Do you presently have visiting nurse or other home services: No Patient Tobacco Use Status: Never used Tobacco Tobacco use type: Cigarette Smoked in Last 30 Days: No e-Cigarette/Vaping Use: Never Used Second Hand Smoke Exposure: No Use of substances other than those prescribed or required for medical reasons: No Advance Directives: No Advance Directives Information Provided: Yes Do you have a plan to hurt others: No Plan service: No Current occupational status: disabled Sexual orientation: Don't Know Cognitive needs: Yes Hearing needs: No Vision needs: Yes Physical Exam ED Vital Signs: Vital Signs - 24 hr 10/21/24 23:59 10/22/24 00:07 10/22/24 03:20 Temperature 97.9 F 97.5 F 97.2 F Pulse Rate 90 89 89 Respiratory Rate 16 18 17 Blood Pressure 139/71 139/71 138/78 Pulse Oximetry 98 97 99 Oxygen Delivery Method Room Air Room Air Room Air 10/22/24 05:13 10/22/24 05:48 Temperature Pulse Rate 103 H Respiratory Rate 16 Blood Pressure 144/77 H 182/83 H Pulse Oximetry 98 Oxygen Delivery Method Room Air BMI result Body Mass Index 17.0 Const Other: Appearance: Alert. Oriented X3. No acute distress. Eyes: Pupils equal, round and reactive to light. ENT: Pharynx normal. Neck: Normal inspection. Neck supple. No lymph nodes noted. No crepitus CVS: Normal heart rate and rhythm. Pulses normal. Normal S1 and S2 Respiratory: No respiratory distress. Breath sounds normal. No Wheezing. No rales Abdomen: Soft and nontender. No rigidity. No distention. Skin: Skin warm and dry. Normal skin color. Normal skin turgor. Extremities: No lower extremity edema. No Lacerations. No Rash Neuro: Oriented X 3. No motor deficit. No sensory deficit. Moving all extremities. No slurred speech. CN 2 through 12 grossly intact Psych: calm, cooperative, normal affect NIH Stroke Scale Internal: Initial- Upon Arrival Level of Consciousness: Alert Level of Consciousness Questions: Answers both questions correctly Level of Consciousness Commands: Performs both tasks correctly Best Gaze: Normal Visual: No visual loss Facial Palsy: Normal Motor Arm (Right): No drift Motor Arm (Left): No drift Motor Leg (Right): No drift Motor Leg (Left): No drift Limb Ataxia: Absent Sensory: Normal Best Language: No aphasia Dysarthia: Mild to moderate dysarthria Extinction and Inattention: No abnormality Score: 1 Course Course Course Narrative: on physical exam, patient does have significant dysarthria, restlessness, patient also noted to have some intermittent twitching / shakes of upper extremities and facial muscles, agitation, restlessness, anxiety and a bit of confusion. However, could be secondary to abrupt discontinuation of Clozaril. patient is outside the window of treatment if this would be a stroke. The constellation of symptoms that the patient is presenting could be serotonin syndrome? patient was medicated with 2 mg IV of Ativan. initially seemed to work, however patient became quickly very uncomfortable, restless. To get him to the CT scan to rule out a CVA, patient internal received 4 mg of Ativan, Geodon 20, Benadryl 50 mg. We were able to get him to the CT scan. Within an hour, patient restless again. Interpretation of EKG: Heart rate 69, nonspecific T-wave abnormalities. QTC 428 CTA of the head and neck do not show any acute abnormalities. Patient slept for an hour after the CT scan and now it is gradually becoming more agitated. I discussed the patient with Dr. Jones, patient being admitted Medications Administered Discontinued Medications Generic Name Dose Route Start Last Admin Trade Name Freq PRN Reason Stop Dose Admin Diphenhydramine HCl 50 mg 10/22/24 04:58 10/22/24 05:08 Diphenhydramine Hcl 50 Mg/Ml Vial IVPUSH 10/22/24 04:59 50 mg ONCE ONE Administration Sodium Chloride 1,000 mls @ 999 mls/hr 10/22/24 03:37 10/22/24 04:44 Ns IVCONT 10/22/24 04:37 Infused .Q1H1M ONE Infusion Iohexol 75 ml 10/22/24 05:41 10/22/24 05:41 Iohexol 350 Mg/Ml 100 Ml Infus..Btl IV 10/22/24 05:42 75 ml ONCE ONE Administration Lorazepam 2 mg 10/22/24 03:36 10/22/24 03:46 Lorazepam 2 Mg/Ml Vial IVPUSH 10/22/24 03:37 2 mg ONCE ONE Administration Lorazepam 1 mg 10/22/24 04:50 10/22/24 04:55 Lorazepam 2 Mg/Ml Vial IVPUSH 10/22/24 04:51 1 mg ONCE ONE Administration Lorazepam 1 mg 10/22/24 04:58 10/22/24 05:08 Lorazepam 2 Mg/Ml Vial IVPUSH 10/22/24 04:59 1 mg ONCE ONE Administration Ziprasidone 20 mg 10/22/24 04:58 10/22/24 05:08 Ziprasidone Mesylate 20 Mg Vial IM 10/22/24 04:59 20 mg ONCE ONE Administration Medical Decision Making Medical Decision Making MDM Narrative: no significant abnormality in patient's hematology and chemistry CTA negative patient's vitals stable but patient is agitated. I discussed the patient with Dr. Jones, patient to be admitted patient will likely need also a psychiatry consult since patient is noncompliant with his medications especially Clozaril Differential Diagnosis Differential Diagnoses: The differential diagnosis associated with the presentation includes ( serotonin syndrome, CVA, medication side-effect) Admission/Observation Consideration of admission/observation: Escalation of care including admission/observation considered Consult Healthcare Provider Management of the patient was discussed with: Hospitalist Lab Data MDM Lab Attestation statement: I reviewed the patient's lab results. 10/22/24 04:19 10/22/24 04:02 Labs: Lab Results 10/22/24 10/22/24 Range/Units 04:02 04:19 WBC 6.8 (4.8-10.8) X10*3/uL RBC 3.74 L (4.60-5.80) X10*6/uL Hgb 11.2 L (14.0-18.0) g/dl Hct 33.2 L (42.0-52.0) % MCV 88.8 (80.0-98.0) fL MCH 29.9 (27.0-33.0) pg MCHC 33.7 (31.0-36.0) g/dl RDW 14.7 (11.0-16.0) % Plt Count 239 (160-400) X10*3/uL MPV 10.1 (9.4-12.4) fL Immature Gran % (Auto) 0.1 (0.0-0.4) % Neut % (Auto) 47.8 (45-73) % Lymph % (Auto) 37.0 (20-40) % [place] % (Auto) 9.7 (2-11) % Eos % (Auto) 4.7 H (0-4) % Baso % (Auto) 0.7 (0-2) % Lymph # (Auto) 2.5 (1.2-4.9) X10*3/uL [place] # (Auto) 0.7 (0.1-1.2) X10*3/uL Eos # (Auto) 0.3 (0.0-0.4) X10*3/uL Baso # (Auto) 0.1 (0.0-0.2) X10*3/uL Abs Immat Gran (auto) 0.01 (0.00-0.03) X10*3/uL Absolute Neuts (auto) 3.3 (2.0-8.3) x10*3/uL Absolute Nucleated RBC 0.000 (0.0-0.012) X10*3/uL Nucleated RBC % (auto) 0.0 (0.0-0.2) /100WBC Hold Blue Top SEE NOTE Sodium 143 (135-145) mmol/L Potassium 3.9 (3.3-5.1) mmol/L Chloride 108 (96-108) mmol/L Carbon Dioxide 25 (22-29) mmol/L Anion Gap 14 (12-20) BUN 14 (9-16) mg/dL Creatinine 0.92 (0.5-1.4) mg/dL Estim Creat Clear Calc 79.6 Estimated GFR > 60 Random Glucose 95 (60-115) mg/dL Calcium 9.3 (8.4-10.2) mg/dL Magnesium 2.3 (1.6-2.6) mg/dL Total Bilirubin 0.3 (0.0-1.0) mg/dL Direct Bilirubin 0.1 (0.0-0.5) mg/dL AST 19 (5-37) U/L ALT 24 (0-40) U/L Alkaline Phosphatase 84 (39-117) U/L Troponin I High Sens < 2.7 (<3.5-35.0) ng/L Total Protein 8.3 H (6.5-8.0) g/dL Albumin 4.5 (3.5-5.0) g/dL Hold Yellow Top See Note Ethyl Alcohol < 10 mg/dL Independent Interpretation I performed an independent interpretation of an: EKG and CT Scan Radiology Impression Discussion of test interpretation with radiology: I have reviewed the radiologist's reading. Radiologist Impression: HEAD CT: No intra-axial mass, midline shift, hydrocephalus, or acute hemorrhage. The visualized paranasal sinuses and mastoid air cells are normal. The orbits are within normal limits. There is no acute fracture. HEAD AND NECK CTA: Motion degrades the exam. Aortic arch and cervical great vessels are patent. Minimal calcified plaquing at the level of the carotid bulb bilaterally. There is significant motion artifact at this level but no significant luminal narrowing is appreciated. Intracranial arteries are patent. No aneurysm, dissection, or occlusion. The left carotid terminus/proximal middle cerebral artery demonstrates decreased caliber just proximal to the origin of the left anterior cerebral artery. Findings could indicate intracranial atherosclerotic disease, noncalcified. This can be appreciated best on images [id number] of series 10. This finding could also be related to significant streak artifact from the skull base related to image acquisition technique. The vessel remains patent and the distal branches are widely patent. No abnormal intracranial enhancement. The visualized thyroid gland is unremarkable. No cervical mass or fluid collection. Lung apices clear. No acute osseous findings. IMPRESSION: 1. Unremarkable head CT. No intracranial hemorrhage. 2. No intracranial occlusion. There is slight decreased caliber of the left carotid terminus/ left middle cerebral artery at the origin of the left anterior cerebral artery possibly indicating intracranial noncalcified atheromatous plaquing versus vasospasm. This could also be due to streak artifact from the skull base given image acquisition technique. Distal vessels are widely patent. 3. Motion degraded exam. Eccentric plaquing of the carotid bulb bilaterally without evidence of significant luminal narrowing. Independent Historian Clinical information obtained from an independent historian. History obtained from or confirmed by: Other ( patient's mother) Critical Care Time Critical Care Time Critical Care Time: Yes Total Critical Care Time: 90 Attestation: I have personally provided critical care time. Time includes review of lab data, radiology results, discussion with consultants, and monitoring for potential decompensation. Intervention performed as documented. Discharge Plan Discharge Clinical Impression: Serotonin syndrome Patient Disposition: Admitted As Inpatient Prescriptions: No Action sennosides-docusate sodium [Senna Plus] 8.6-50 mg Tablet 2 tab PO BID 30 Days Qty: 120 0RF clozapine 100 mg tablet 100 mg PO BEDTIME 30 Days Qty: 30 0RF Rx Instructions: Mom reports he hasn't taken in 1-2 weeks clozapine 200 mg tablet 200 mg PO BEDTIME 30 Days Qty: 30 0RF Rx Instructions: Mom reports he hasn't taken in 1-2 weeks triamcinolone acetonide 0.1 % lotion 1 appl topical DAILY Qty: 60 0RF Rx Instructions: use daily for two weeks; no longer than two weeks at a time simvastatin 40 mg tablet 40 mg PO BEDTIME Qty: 90 1RF Print Language: Cook Islander
[2024-10-22 04:24] LABS: Basophils Absolute Auto 0.1 X10*3/uL (0.0-0.2); Basophils Percent Auto 0.7 % (0-2); Eosinophils Absolute Auto 0.3 X10*3/uL (0.0-0.4); Eosinophils Percent Auto 4.7 % (0-4); Hematocrit 33.2 % (42.0-52.0); Hemoglobin 11.2 g/dl (14.0-18.0); Imm Gran Abs Auto 0.01 X10*3/uL (0.00-0.03); Imm Gran Pct Auto 0.1 % (0.0-0.4); Lymphocytes Absolute Auto 2.5 X10*3/uL (1.2-4.9); MANUAL DIFF FLAG NO; Mean Corpuscular HGB Conc 33.7 g/dl (31.0-36.0); Mean Corpuscular Hemoglobin 29.9 pg (27.0-33.0); Mean Corpuscular Volume 88.8 fL (80.0-98.0); Mean Platelet Volume 10.1 fL (9.4-12.4); Monocytes Absolute Auto 0.7 X10*3/uL (0.1-1.2); Monocytes Percent Auto 9.7 % (2-11); Neutrophils Absolute Auto 3.3 x10*3/uL (2.0-8.3); Neutrophils Percent Auto 47.8 % (45-73); Platelet Count 239 X10*3/uL (160-400); Red Blood Count 3.74 X10*6/uL (4.60-5.80); Red Cell Distribution Width 14.7 % (11.0-16.0); White Blood Count 6.8 X10*3/uL (4.8-10.8)
[2024-10-22 04:34] LABS: Alkaline Phosphatase 84 U/L (39-117)
[2024-10-22 04:36] LABS: Alanine Aminotransferase 24 U/L (0-40); Albumin Level 4.5 g/dL (3.5-5.0); Anion Gap 14 (12-20); Aspartate Amino Transferase 19 U/L (5-37); Bilirubin Direct 0.1 mg/dL (0.0-0.5); Bilirubin Total 0.3 mg/dL (0.0-1.0); Blood Urea Nitrogen 14 mg/dL (9-16); Calcium 9.3 mg/dL (8.4-10.2); Carbon Dioxide 25 mmol/L (22-29); Chloride 108 mmol/L (96-108); Creatinine Clr Calc Pharmacy 79.6; Estimated Glomerular Filt Rate > 60; Ethanol < 10 mg/dL; Glucose Random 95 mg/dL (60-115); Magnesium 2.3 mg/dL (1.6-2.6); Potassium 3.9 mmol/L (3.3-5.1); Sodium 143 mmol/L (135-145); Total Protein 8.3 g/dL (6.5-8.0); Troponin-I High Sensitivity < 2.7 ng/L (<3.5-35.0)
[2024-10-22] MEDS: LORazepam 2 MG/ML VIAL 1 MG IVPUSH ×2 (04:55→05:08)
[2024-10-22] MEDS: diphenhydrAMINE HCL 50 MG/ML VIAL IVPUSH (05:08)
[2024-10-22] MEDS: Ziprasidone Mesylate 20 MG VIAL IM (05:08)
[2024-10-22] MEDS: iohexoL 350 MG/ML 100 ML INFUS..BTL 75 ML IV (05:41)
--- NOTE | 2024-10-22 05:48 | PC.NURSE ---
MD aware of patients elevated blood pressure, no new orders received
--- NOTE | 2024-10-22 08:36 | PHA.MEDREC ---
Addendum entered by Stanislaw Abraham RPh 10/22/24 09:15: To clarify, pt took a 1/2 tab of 100 mg CLOZAPINE yesterday. Med rec was reviewed by [facility]. Dr. Whitehead was made aware of how much clozapine pt has been taking. Original Note: Pharmacy Consult ? Medication Reconciliation Pharmacy has completed the medication reconciliation. Spoke with patients mom at bedside. She reports he took a 1/2 tab of 100 mg yesterday. Has not taken the full dose for a couple of days. She said he takes simvastatin in the morning and takes senna-docusate 2 tabs at bedtime only.
--- NOTE | 2024-10-22 08:55 | PM.IMHP ---
History of Present Illness Date of Service: 10/22/24 Chief Complaint: dysarthria, confusion The patient is a 49-year-old male with a past medical history of schizophrenia who presents to the emergency room for sudden onset neurological changes. Currently the patient is sedated and hence the history is obtained from his mother who is bedside. She reports that her son is on Clozaril 300 mg total daily. She states that about 5 days prior to hospitalization, the patient abruptly discontinued the Clozaril as it was not helping him much. She states that in the days after this she did not notice any changes to his behavior. She states that on the evening prior to hospitalization, family members raise concern of sudden changes as he was ?not himself.? She reports that when she saw him he was having trouble speaking and appeared to be having some twitching of the face. Hence, the paramedics were called. On arrival to the emergency room the patient was noted to be awake and alert, answering questions but did have difficulty speaking. It was reported that this was going on 6 hours prior to arrival. His NIH stroke scale was determined to be a 1. He underwent a CTA of the head and neck which was negative for acute findings. His symptoms were felt to be due to abrupt discontinuation of Clozaril. He was treated initially with 2 mg of IV Ativan. This apparently worked initially, however the patient again became restless. In order to complete the CT scan, the patient was given 2 mg of IV Ativan, Geodon 20, Benadryl 50. A short while after this, the patient again became restless. Patient is seen and examined in the emergency room around 08:30. He is completely sedated. He appears to be in no distress. His BP which was initially HTN (182/83) is now on the lower side aroun 100-110 systolic. [facility] Medical History Schizophrenia Hyperlipidemia Family History Other Mental health disorder Surgical History No history of previous surgery Social History Household Members: Family Housing: House Do you presently have visiting nurse or other home services: No Patient Tobacco Use Status: Never used Tobacco Tobacco use type: Cigarette Smoked in Last 30 Days: No e-Cigarette/Vaping Use: Never Used Second Hand Smoke Exposure: No Use of substances other than those prescribed or required for medical reasons: No Advance Directives: No Advance Directives Information Provided: Yes Do you have a plan to hurt others: No Plan service: No Current occupational status: disabled Sexual orientation: Don't Know Cognitive needs: Yes Hearing needs: No Vision needs: Yes Meds Allergies Allergy/AdvReac Type Severity Reaction Status Date / Time orange Allergy Intermediate RASH Verified 10/22/24 00:04 Pollen Allergy Intermediate congestion Uncoded 10/22/24 00:04 Home Medications ?Medication ?Instructions ?Recorded ?Confirmed ?Last Taken ?Type sennosides 8.6 mg-docusate sodium 2 tab PO BEDTIME 10/22/24 10/22/24 Unknown History 50 mg tablet (Senna Plus) simvastatin 40 mg tablet 40 mg PO DAILY 10/22/24 10/22/24 Unknown History triamcinolone acetonide 0.1 % 1 appl topical DAILY PRN Rash 10/22/24 10/22/24 Unknown History lotion Physical Exam Vital Signs and Narrative: Vital Signs: Last Vital Signs Temp 97.2 F 10/22/24 03:20 Pulse 103 H 10/22/24 05:13 Resp 16 10/22/24 05:13 BP 182/83 H 10/22/24 05:48 Pulse Ox 98 10/22/24 05:13 O2 Del Method Room Air 10/22/24 05:13 BMI result Body Mass Index 17.0 Const: Other: Constitutional - sedated Eyes - equal and reactive Cardiovascular - S1S2, RRR, No edema Respiratory - Normal lung expansion, Normal respiratory effort, No respiratory distress, CTA bilaterally Gastrointestinal - soft - No CVA tenderness Extremities - no calf tenderness bilaterally, no swelling Musculoskeletal - Normal inspection, Skin - excoriations on LE (from scratching) Neurological - sedated; pupils round and reactive; unable to induce clonus; do not appreciate any spontaneous clonus Results Labs 10/22/24 04:19 10/22/24 04:02 Labs: Laboratory Results - last 24 hr 10/22/24 10/22/24 04:02 04:19 MCV 88.8 MCH 29.9 MCHC 33.7 RDW 14.7 Plt Count 239 MPV 10.1 Immature Gran % (Auto) 0.1 Neut % (Auto) 47.8 Lymph % (Auto) 37.0 [place] % (Auto) 9.7 Eos % (Auto) 4.7 H Baso % (Auto) 0.7 Lymph # (Auto) 2.5 [place] # (Auto) 0.7 Eos # (Auto) 0.3 Baso # (Auto) 0.1 Abs Immat Gran (auto) 0.01 Absolute Neuts (auto) 3.3 Absolute Nucleated RBC 0.000 Nucleated RBC % (auto) 0.0 Hold Blue Top SEE NOTE Anion Gap 14 Estim Creat Clear Calc 79.6 Estimated GFR > 60 Random Glucose 95 Calcium 9.3 Magnesium 2.3 Total Bilirubin 0.3 Direct Bilirubin 0.1 AST 19 ALT 24 Alkaline Phosphatase 84 Total Protein 8.3 H Albumin 4.5 Hold Yellow Top See Note Ethyl Alcohol < 10 Assessment and Plan (1) Schizophrenia: Qualifiers: Schizophrenia type: unspecified Qualified Code(s): F20.9 - Schizophrenia, unspecified Status: Acute Plan 49 yo M with a history of schizophrenia, on 300mg clozaril who presents to the ED with sudden onset mental status changes and dysarthria, 5 days after stopping clozaril abruptly. 1. Dysarthria and acute encephalopathy question related to abrupt withdrawal of clozaril - to rule out serotonin syndrome given total of 4mg IV ativan + geodon in the ED -- currently the pt is sedated with normal vitals will get neurology and psychiatry input monitor on tele IVF NPO neuro-checks 2. History of schizophrenia psych input as above 3. HLD statin when able to take PO Pt with acute neurological changes and concern over serotonin syndrome from abprupt withdrawal of clozaril vs neurlogical issues requiring multiple specialist, therefore expected to require at least a minimum of 2 midnights in the hospital for management, hence the pt will be admitted as inpatient. Quality Stroke Does the patient have a stroke diagnosis?: No VTE Prior VTE?: No VTE Risk Level:: Medical - moderate - high VTE Device Contraindication: N/A - Device Ordered VTE Drug Contraindication: N/A - Med Ordered
[2024-10-22] MEDS: 0.9 % Sodium Chloride Flush 3 ML SYRINGE IVFLUSH (09:11)
[2024-10-22] MEDS: Lactated Ringers 1,000 ML 100 ML IVCONT ×2 (09:11→19:38)
[2024-10-22] MEDS: Enoxaparin Sodium 40 MG/0.4 ML SYRINGE SUBCUT (09:12)
--- NOTE | 2024-10-22 09:56 | PC.NURSE ---
mother remains at bedside. patient incontinent of urine, linens changed and provided with warm blankets. patient beginning to become restless at this time
[2024-10-22 10:18] LABS: Appearance Urine Clear; Color Urine Yellow; Glucose Urine UA Negative (Negative); Leukocyte Esterase Urine Negative (Negative); Nitrite Urine Negative (Negative); PH 5.5 (5.0-9.0); Urine Blood Negative (Negative); Urine Ketones Negative (Negative); Urine Protein Negative (Neg-Trace)
[2024-10-22 10:36] LABS: Amphetamine Screen Urine Not Detected (Not Detect); Barbiturates, Urine Not Detected (Not Detect); Benzodiazepines Screen Urine Not Detected (Not Detect); Buprenorphine Scr Not Detected (Not Detect); Cannabinoid Screen Urine Not Detected (Not Detect); Cocaine Screen Urine Not Detected (Not Detect); Fentanyl, urine Not Detected (Not Detect); Methadone Screen, Urine Not Detected (Not Detect); Opiate Screen Urine Not Detected (Not Detect); Oxycodone Screen Urine Not Detected (Not Detect); Phencyclidine Screen Urine Not Detected (Not Detect)
--- NOTE | 2024-10-22 11:46 | MHC.EDTECH ---
PT WAS FOUND INCONTINENT OR URINE, NIKKIE CARE WAS DONE, WARM BLANKETS AND CLEAN LINEN GIVEN, RN AWARE
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
[2024-10-22] MEDS: cloZAPine 25 MG TABLET PO (21:54)
[2024-10-22] MEDS: Benztropine Mesylate 1 MG TABLET PO (21:55)
[2024-10-23 03:17] VITALS: BP 119/57; PULSE 60; RESP 20; TEMP 37.4; O2SAT 97
[2024-10-23] MEDS: Lactated Ringers 1,000 ML 100 ML IVCONT (05:52)
[2024-10-23 07:01] LABS: MANUAL DIFF FLAG NO
[2024-10-23 07:08] VITALS: BP 130/70; PULSE 59; RESP 18; TEMP 36.6; O2SAT 97
[2024-10-23 07:11] LABS: Basophils Absolute Auto 0.1 X10*3/uL (0.0-0.2); Basophils Percent Auto 0.9 % (0-2); Eosinophils Absolute Auto 0.4 X10*3/uL (0.0-0.4); Eosinophils Percent Auto 5.5 % (0-4); Hematocrit 36.7 % (42.0-52.0); Hemoglobin 12.3 g/dl (14.0-18.0); Imm Gran Abs Auto 0.02 X10*3/uL (0.00-0.03); Imm Gran Pct Auto 0.3 % (0.0-0.4); Lymphocytes Absolute Auto 1.8 X10*3/uL (1.2-4.9); Lymphocytes Percent Auto 27.4 % (20-40); Mean Corpuscular HGB Conc 33.5 g/dl (31.0-36.0); Mean Corpuscular Hemoglobin 29.9 pg (27.0-33.0); Mean Corpuscular Volume 89.3 fL (80.0-98.0); Monocytes Absolute Auto 0.6 X10*3/uL (0.1-1.2); Monocytes Percent Auto 9.5 % (2-11); Neutrophils Absolute Auto 3.6 x10*3/uL (2.0-8.3); Neutrophils Percent Auto 56.4 % (45-73); Platelet Count 235 X10*3/uL (160-400); Red Blood Count 4.11 X10*6/uL (4.60-5.80); Red Cell Distribution Width 14.9 % (11.0-16.0); White Blood Count 6.4 X10*3/uL (4.8-10.8)
[2024-10-23] MEDS: Benztropine Mesylate 1 MG TABLET PO ×2 (07:59→20:19)
[2024-10-23] MEDS: Enoxaparin Sodium 40 MG/0.4 ML SYRINGE SUBCUT (07:59)
[2024-10-23 08:10] LABS: Alanine Aminotransferase 18 U/L (0-40); Albumin Level 3.4 g/dL (3.5-5.0); Anion Gap 10 (12-20); Aspartate Amino Transferase 14 U/L (5-37); Bilirubin Total 0.4 mg/dL (0.0-1.0); Blood Urea Nitrogen 7 mg/dL (9-16); Calcium 8.7 mg/dL (8.4-10.2); Carbon Dioxide 27 mmol/L (22-29); Chloride 109 mmol/L (96-108); Creatinine Clr Calc Pharmacy 93.8; Estimated Glomerular Filt Rate > 60; Glucose Random 95 mg/dL (60-115); Potassium 3.7 mmol/L (3.3-5.1); Sodium 142 mmol/L (135-145); Total Protein 6.2 g/dL (6.5-8.0)
--- NOTE | 2024-10-23 10:11 | P.CNNE_ITS ---
History of Present Illness Data of Consult Service Date: 10/23/24 Primary Care Provider: Unknown Physician HPI Reason for consult: Difficulty speech 49 years old man with underlying diagnosis of schizophrenia treated with Clozaril, which she apparently stopped few days ago. He was noted to have sudden change in mental status with facial twitches in not able to speak. He said that his throat was also hurting. This morning he was feeling much better back to baseline. There was no history of any recent fever. Review of Systems 2 Review of Systems: No recent fever or cold like symptoms PMFSH Past Medical History Medical History Schizophrenia Hyperlipidemia Family History Family History Other Mental health disorder Surgical History Surgical History No history of previous surgery Social History Social History Household Members: Family Housing: Apartment Do you presently have visiting nurse or other home services: No Patient Tobacco Use Status: Never used Tobacco Tobacco use type: Cigarette e-Cigarette/Vaping Use: Never Used Second Hand Smoke Exposure: No service: No Current occupational status: disabled Sexual orientation: Don't Know Cognitive needs: Yes Hearing needs: No Vision needs: Yes Meds Allergies Allergy/AdvReac Type Severity Reaction Status Date / Time orange Allergy Intermediate RASH Verified 10/22/24 00:04 Pollen Allergy Intermediate congestion Uncoded 10/22/24 00:04 Active Medications: Current Medications Acetaminophen (Acetaminophen 325 Mg Tablet) 650 mg PO Q6H PRN PRN Reason: Pain, Mild 1-3,fever,headache Atorvastatin Calcium (Atorvastatin Calcium 20 Mg Tablet) 20 mg PO BEDTIME JAIRO Benztropine Mesylate (Benztropine Mesylate 1 Mg Tablet) 1 mg PO BID JAIRO Last Admin: 10/23/24 07:59 Dose: 1 mg Calcium Carbonate (Calcium Carbonate 750 Mg Tab.Chew) 750 mg PO Q4H PRN PRN Reason: Heartburn Clozapine (Clozapine 25 Mg Tablet) 25 mg PO BEDTIME JAIRO Last Admin: 10/22/24 21:54 Dose: 25 mg Enoxaparin Sodium (Enoxaparin Sodium 40 Mg/0.4 Ml Syringe) 40 mg SUBCUT Q24H [facility] Last Admin: 10/23/24 07:59 Dose: 40 mg Lactated Ringer's (Lr) 1,000 mls @ 100 mls/hr IVCONT .Q10H [facility] Last Admin: 10/23/24 05:52 Dose: 100 mls/hr Magnesium Hydroxide (Milk Of Magnesia 30 Ml Oral.Susp) 30 ml PO DAILY PRN PRN Reason: Constipation Melatonin (Melatonin 3 Mg Tablet) 6 mg PO BEDTIME PRN PRN Reason: Insomnia Senna/Docusate Sodium (Sennosides/Docusate Sodium Tablet) 2 tab PO BEDTIME PRN PRN Reason: Constipation Sodium Chloride (0.9 % Sodium Chloride Flush 3 Ml Syringe) 3 ml IVFLUSH QSHIFT [facility] Last Admin: 10/23/24 07:59 Dose: Not Given Home Medications ?Medication ?Instructions ?Recorded ?Confirmed ?Last Taken ?Type sennosides 8.6 mg-docusate sodium 2 tab PO BEDTIME 10/22/24 10/22/24 Unknown History 50 mg tablet (Senna Plus) simvastatin 40 mg tablet 40 mg PO DAILY 10/22/24 10/22/24 Unknown History triamcinolone acetonide 0.1 % 1 appl topical DAILY PRN Rash 10/22/24 10/22/24 Unknown History lotion Physical Exam 2 Vital Signs: Vital Signs: Last Vital Signs Temp 97.8 F 10/23/24 07:08 Pulse 59 10/23/24 07:08 Resp 18 10/23/24 07:08 BP 130/70 10/23/24 07:08 Pulse Ox 97 10/23/24 07:08 O2 Del Method Room Air 10/23/24 07:08 BMI result Body Mass Index 16.9 Neuro: Other: He is alert and awake with normal spontaneity of speech fluency comprehension and affect. Face is symmetrical. Visual lynn are full. Speech is okay. There was no focal weakness. No significant tremor or twitches are noted. Results Labs 10/23/24 06:23 10/23/24 06:23 Labs: Short CBC 10/23/24 Range/Units 06:23 WBC 6.4 (4.8-10.8) X10*3/uL Hgb 12.3 L (14.0-18.0) g/dl Hct 36.7 L (42.0-52.0) % Plt Count 235 (160-400) X10*3/uL BMP 10/23/24 06:23 Sodium 142 Potassium 3.7 Chloride 109 H Carbon Dioxide 27 BUN 7 L Creatinine 0.78 Calcium 8.7 D Liver Function 10/23/24 Range/Units 06:23 Total Bilirubin 0.4 (0.0-1.0) mg/dL AST 14 (5-37) U/L ALT 18 (0-40) U/L Albumin 3.4 L (3.5-5.0) g/dL Urine 10/22/24 Range/Units 10:07 Urine Color Yellow Urine Appearance Clear Urine pH 5.5 (5.0-9.0) Ur Specific [place] 1.020 (1.005-1.025) Urine Protein Negative (Neg-Trace) mg/dL Urine Glucose (UA) Negative (Negative) mg/dL head CT revealed mild diffuse atrophy. Assessment and Plan (1) Change in mental status: Qualifiers: Altered mental status type: transient alteration of awareness Qualified Code(s): R40.4 - Transient alteration of awareness Status: Acute Unclear etiology at this time. Stopping Clozaril few days prior to this might not be the explanation. I recommend an EEG to rule out seizure disorder. He was also complaining of some discomfort in his throat and difficulty speaking might have been pharyngitis. But that would not explain change in mental status. Procedures Date of Service Date of Service: 10/23/24
[2024-10-23 10:13] LABS: Alkaline Phosphatase 68 U/L (39-117)
--- NOTE | 2024-10-23 10:46 | MHC.CM.PN ---
Patient from home admitted for DX Confusion. He lives with his Mother, Sister and her children. He is independent with all functional mobility. Per MD rounds Patient may be cleared to discharge today. MD plans to follow up with psych prior to discharge. DP Home family support and transport. May need to use [facility] shuttle.
[2024-10-23 11:07] VITALS: BP 148/69; PULSE 96; RESP 17; TEMP 36.8; O2SAT 97
[2024-10-23 13:04] VITALS: BMI 18.5
--- NOTE | 2024-10-23 13:07 | MHC.CLN ---
PT IS MODERATELY MALNOURISHED PT WITH MILDLY DEPLETED SUBCUTANEOUS FAT AND MUSCLE MASS WITH 10% SIGNIFICANT WT LOSS X 6 MONTHS REGULAR DIET RECOMMEND ADDING MAGIC CUP TID WITH MEALS AND ENSURE BID BETWEEN MEALS TO INCREASE KCALS ENSURE BID WILL PROVIDE 700KCLAS, 40G PROTEIN WITH 100% ACCEPTANCE MONITOR PO INTAKE AND ENCOURAGE SUPPLEMENTS SEE FULL CLINICAL NUTRITION ASSESSMENT
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
--- NOTE | 2024-10-23 14:55 | P.PNIM_ITS ---
Subjective Subjective Date of Service: 10/23/24 Interval History: Seen and examined this morning Follow-up for AMS/cholinergic crisis due to stopping clozaril cold turkey awake, alert and feeling well this am. seems to be back to baseline Review of Systems Review of Systems: Yes all other systems are reviewed and are negative Constitutional Constitutional: Denies chills and Denies fever(s) Physical Exam 2 Vital Signs: Vital Signs: Last Vital Signs Temp 98.3 F 10/23/24 11:07 Pulse 96 10/23/24 11:07 Resp 17 10/23/24 11:07 BP 148/69 H 10/23/24 11:07 Pulse Ox 97 10/23/24 11:07 O2 Del Method Room Air 10/23/24 11:07 BMI result Body Mass Index 18.5 Const: General: comfortable, no acute distress, alert and awake Nutritional Appearance: average body habitus Resp: Effort & Inspection: normal respiratory effort, able to speak in complete sentences, no respiratory distress and no use of accessory muscles Objective Data Active Medications Acetaminophen (Acetaminophen 325 Mg Tablet) 650 mg PO Q6H PRN PRN Reason: Pain, Mild 1-3,fever,headache Atorvastatin Calcium (Atorvastatin Calcium 20 Mg Tablet) 20 mg PO BEDTIME [facility] Benztropine Mesylate (Benztropine Mesylate 1 Mg Tablet) 1 mg PO BID [facility] Last Admin: 10/23/24 07:59 Dose: 1 mg Documented By: JAYLYN Calcium Carbonate (Calcium Carbonate 750 Mg Tab.Chew) 750 mg PO Q4H PRN PRN Reason: Heartburn Clozapine (Clozapine 25 Mg Tablet) 25 mg PO BEDTIME [facility] Last Admin: 10/22/24 21:54 Dose: 25 mg Documented By: NANCY Enoxaparin Sodium (Enoxaparin Sodium 40 Mg/0.4 Ml Syringe) 40 mg SUBCUT Q24H [facility] Last Admin: 10/23/24 07:59 Dose: 40 mg Documented By: JAYLYN Lactated Ringer's (Lr) 1,000 mls @ 100 mls/hr IVCONT .Q10H [facility] Last Admin: 10/23/24 05:52 Dose: 100 mls/hr Documented By: YOLANDA Magnesium Hydroxide (Milk Of Magnesia 30 Ml Oral.Susp) 30 ml PO DAILY PRN PRN Reason: Constipation Melatonin (Melatonin 3 Mg Tablet) 6 mg PO BEDTIME PRN PRN Reason: Insomnia Senna/Docusate Sodium (Sennosides/Docusate Sodium Tablet) 2 tab PO BEDTIME PRN PRN Reason: Constipation Sodium Chloride (0.9 % Sodium Chloride Flush 3 Ml Syringe) 3 ml IVFLUSH QSHIFT JAIRO Last Admin: 10/23/24 07:59 Dose: Not Given Documented By: JAYLYN Non-Admin Reason: IV Running Labs 10/23/24 06:23 10/23/24 06:23 Labs: Laboratory Results - last 24 hr 10/23/24 06:23 MCV 89.3 MCH 29.9 MCHC 33.5 RDW 14.9 Plt Count 235 MPV 10.0 Immature Gran % (Auto) 0.3 Neut % (Auto) 56.4 Lymph % (Auto) 27.4 [place] % (Auto) 9.5 Eos % (Auto) 5.5 H Baso % (Auto) 0.9 Lymph # (Auto) 1.8 [place] # (Auto) 0.6 Eos # (Auto) 0.4 Baso # (Auto) 0.1 Abs Immat Gran (auto) 0.02 Absolute Neuts (auto) 3.6 Absolute Nucleated RBC 0.000 Nucleated RBC % (auto) 0.0 Anion Gap 10 L Estim Creat Clear Calc 93.8 Estimated GFR > 60 Random Glucose 95 Calcium 8.7 D Total Bilirubin 0.4 AST 14 ALT 18 Alkaline Phosphatase 68 Total Protein 6.2 L Albumin 3.4 L Assessment and Plan (1) Change in mental status: Status: Acute (2) Cholinergic crisis: Status: Acute Plan This is a 49 yo M with a history of schizophrenia, on 300mg clozaril who presents to the ED with sudden onset mental status changes and dysarthria, 5 days after stopping clozaril abruptly. Dysarthria and acute encephalopathy question related to abrupt withdrawal of clozaril seen by psychiatry started on cogentin, symptoms improved neuro consult d/c History of schizophrenia psych input as above likely inpatient psych admit to resume and titrate psych meds HLD statin when able to take PO Pt with acute neurological changes and concern over serotonin syndrome from abprupt withdrawal of clozaril vs neurlogical issues requiring multiple specialist, therefore expected to require at least a minimum of 2 midnights in the hospital for management, hence the pt will be admitted as inpatient. Quality Stroke Does the patient have a stroke diagnosis?: No VTE Prior VTE?: No VTE Risk Level:: Medical - moderate - high VTE Device Contraindication: N/A - Device Ordered VTE Drug Contraindication: N/A - Med Ordered
[2024-10-23 15:18] VITALS: BP 117/62; PULSE 80; RESP 18; TEMP 36.7; O2SAT 96
[2024-10-23 19:19] VITALS: BP 122/57; PULSE 85; RESP 16; TEMP 36.8; O2SAT 97
[2024-10-23] MEDS: Atorvastatin Calcium 20 MG TABLET PO (20:19)
[2024-10-23] MEDS: cloZAPine 25 MG TABLET PO (20:19)
[2024-10-23] MEDS: 0.9 % Sodium Chloride Flush 3 ML SYRINGE IVFLUSH (20:20)
[2024-10-23 23:08] VITALS: BP 117/59; PULSE 83; RESP 16; TEMP 37.7; O2SAT 96
[2024-10-24 03:20] VITALS: BP 117/56; PULSE 81; RESP 14; TEMP 36.4; O2SAT 97
[2024-10-24 07:15] VITALS: BP 116/58; PULSE 70; RESP 16; TEMP 36.6; O2SAT 98
[2024-10-24] MEDS: Benztropine Mesylate 1 MG TABLET PO (08:43)
[2024-10-24] MEDS: 0.9 % Sodium Chloride Flush 3 ML SYRINGE IVFLUSH ×2 (08:43→15:17)
[2024-10-24] MEDS: Enoxaparin Sodium 40 MG/0.4 ML SYRINGE SUBCUT (08:44)
[2024-10-24] MEDS: cloZAPine 25 MG TABLET PO (08:47)
[2024-10-24 11:40] VITALS: BP 117/56; PULSE 88; RESP 18; TEMP 36.7; O2SAT 98
--- NOTE | 2024-10-24 12:57 | P.DS_ITS ---
DS: Providers Provider Date of Service: 10/24/24 Date of admission: 10/22/24 08:53 Date of discharge: 10/24/24 Primary care physician: Unknown Physician Consults: 10/22/24 07:50 Consult to Psychiatry Routine Consulting Provider: [facility] Reason for consultation: Clozaril dosing 10/22/24 08:52 Consult to Psychiatry Routine Consulting Provider: [facility] Reason for consultation: clozaril withdrawal 10/23/24 12:47 Inpt CARE Team Crisis Consult Routine Comment: Reason for consultation: need for inpatient psych admission; medically clear Has provider been notified: No Attending physician on discharge: Jack Nunez Discharging clinician: Liz Sloan DS: Diagnosis Discharge Diagnosis (1) Schizophrenia: Status: Acute (2) Cholinergic crisis: Status: Acute DS: Summary Hospital Course Hospital Course: From H&P on the day of admission The patient is a 49-year-old male with a past medical history of schizophrenia who presents to the emergency room for sudden onset neurological changes. Currently the patient is sedated and hence the history is obtained from his mother who is bedside. She reports that her son is on Clozaril 300 mg total daily. She states that about 5 days prior to hospitalization, the patient abruptly discontinued the Clozaril as it was not helping him much. She states that in the days after this she did not notice any changes to his behavior. She states that on the evening prior to hospitalization, family members raise concern of sudden changes as he was ?not himself.? She reports that when she saw him he was having trouble speaking and appeared to be having some twitching of the face. Hence, the paramedics were called. On arrival to the emergency room the patient was noted to be awake and alert, answering questions but did have difficulty speaking. It was reported that this was going on 6 hours prior to arrival. His NIH stroke scale was determined to be a 1. He underwent a CTA of the head and neck which was negative for acute findings. His symptoms were felt to be due to abrupt discontinuation of Clozaril. He was treated initially with 2 mg of IV Ativan. This apparently worked initially, however the patient again became restless. In order to complete the CT scan, the patient was given 2 mg of IV Ativan, Geodon 20, Benadryl 50. A short while after this, the patient again became restless. Patient is seen and examined in the emergency room around 08:30. He is completely sedated. He appears to be in no distress. His BP which was initially HTN (182/83) is now on the lower side aroun 100-110 systolic. Dysarthria and acute encephalopathy. Resolved. likely related to abrupt withdrawal of clozaril. seen by psychiatry started on cogentin, symptoms improved. was seen by neurology who recommended EEG which can be done as outpatient. History of schizophrenia psych input as above. plan for admission to psych floor to resume and titrate meds in a controlled enviornment. Time Attestation Discharge Coordination Time (in mins): 32 Quality: Safe Use of Opioids Does Pt have an Active Cancer Diagnosis on the Problem List?: No Quality: Stroke Does the patient have a stroke diagnosis?: No Physical Exam Vital Signs: Vital Signs: Last Vital Signs Temp 98.0 F 10/24/24 11:40 Pulse 88 10/24/24 11:40 Resp 18 10/24/24 11:40 BP 117/56 L 10/24/24 11:40 Pulse Ox 98 10/24/24 11:40 O2 Del Method Room Air 10/24/24 11:40 BMI result Body Mass Index 18.5 Const: General: cooperative, comfortable, alert and awake Nutritional Appearance: average body habitus Resp: Effort & Inspection: normal respiratory effort, able to speak in complete sentences, no respiratory distress and no use of accessory muscles Discharge Plan Discharge Patient Disposition: Xfer Psychiatric Hosp Discharge Diagnosis: cholinergic crisis due to sudden withdrawal of clozapine Referrals: Physician,Unknown J [Primary Care Provider] - 1 Week Discharge Medications: New benztropine 1 mg Tablet 1 mg PO BID Qty: 1 0RF clozapine 25 mg Tablet 25 mg PO DAILY Qty: 1 0RF clozapine 25 mg Tablet 50 mg PO BEDTIME Qty: 1 0RF Continued sennosides-docusate sodium [Senna Plus] 8.6-50 mg tablet 2 tab PO BEDTIME simvastatin 40 mg tablet 40 mg PO DAILY Discontinued clozapine 100 mg tablet 100 mg PO BEDTIME 30 Days Qty: 30 0RF Patient Comments: Mom reports he took a 1/2 tab of 100 mg 10/21/24 Rx Instructions: Mom reports he hasn't taken in 1-2 weeks clozapine 200 mg tablet 200 mg PO BEDTIME 30 Days Qty: 30 0RF Rx Instructions: Mom reports he hasn't taken in 1-2 weeks Discharge Orders: Discharge Order (Routine); Ordered 10/24/24 Ordered By: Liz Sloan Activity on Discharge: As tolerated Stand Alone Forms: Patient Portal Discharge page Print Language: Estonian Care Plan Goals: see below Health Concerns: cholinergic crisis Plan of Treatment: admission to inpatient psych floor for re-intruduction and titration of psych meds in controlled setting outpatient EEG Assessment: see discharge summary Discharge Date/Time: 10/24/24 18:13
[2024-10-24 16:00] VITALS: BP 118/57; PULSE 83; RESP 18; TEMP 37; O2SAT 97
== END 2024-10-24 18:13 | DRG 48 ==
LOC: HO.ED 10-22 07:44 → HO.EDOVER 10-22 08:59 → HO.IMC 10-22 15:36
PROVIDERS: Admitting Provider Family Medicine; Emergency Provider Emergency Medicine; PCP Internal Medicine; Visit Provider Physician Assistant Medical
DX: G70.89 Other specified myoneural disorders (principal); G93.49 Other encephalopathy; E78.5 Hyperlipidemia, unspecified; R47.1 Dysarthria and anarthria; F20.9 Schizophrenia, unspecified; Z91.128 Patient's intentional underdosing of medication regimen for other reason; T42.4X6A Underdosing of benzodiazepines, initial encounter; Z79.899 Other long term (current) drug therapy
CPT/HCPCS: 36415; 70496; 70498; 80048; 80053; 80076; 80307; 81003; 83735; 84484; 85025; 93005; 99285; J1200; J1650; J2060; J3486; J7120; Q9967; S9485

== ENCOUNTER → 2024-10-22 03:55 | Outpatient (BNV) | payer OTHER, SELFPAY | PROVIDERS: Admitting Provider Family Medicine; Emergency Provider Emergency Medicine; Visit Provider Internal Medicine Cardiovascular Disease | DX: R94.31 Abnormal electrocardiogram [ECG] [EKG] (principal); R41.82 Altered mental status, unspecified | CPT/HCPCS: 93010 ==

== ENCOUNTER → 2024-10-22 04:12 | Outpatient (BNV) | payer OTHER, SELFPAY | PROVIDERS: Emergency Provider Emergency Medicine; Visit Provider Radiology Diagnostic Radiology | DX: I65.23 Occlusion and stenosis of bilateral carotid arteries (principal) | CPT/HCPCS: 70496; 70498 ==

== ENCOUNTER → 2024-10-22 08:53 | Outpatient (BNV) | payer OTHER, SELFPAY | PROVIDERS: Admitting Provider Family Medicine; Emergency Provider Emergency Medicine; Visit Provider Psychiatry & Neurology Neurology | DX: R40.4 Transient alteration of awareness (principal) | CPT/HCPCS: 99222 ==

== ENCOUNTER → 2024-10-22 08:53 | Outpatient (BNV) | payer OTHER, SELFPAY | PROVIDERS: Admitting Provider Family Medicine; Emergency Provider Emergency Medicine; Visit Provider Family Medicine | DX: F20.9 Schizophrenia, unspecified (principal); G70.89 Other specified myoneural disorders | CPT/HCPCS: 99232; 99239 ==

== ENCOUNTER → 2024-10-22 08:53 | Outpatient (BNV) | payer OTHER, SELFPAY | PROVIDERS: Admitting Provider Family Medicine; Emergency Provider Emergency Medicine; Visit Provider Social Worker | DX: F20.9 Schizophrenia, unspecified (principal); G70.89 Other specified myoneural disorders | CPT/HCPCS: 99232 ==

== ENCOUNTER 2024-10-24 17:06 | Inpatient (IN) | payer OTHER, SELFPAY ==
--- NOTE | 2024-10-24 19:13 | PC.ADMIT ---
Pt is a 49 y/o male admitted to at 1830 on a CV from [facility]. Pt originally presented to [facility] ED on 10/22/2024 with sudden onset neurological changes. Per report, pt?s mother informed ED that pt abruptly stopped his Clozaril five days prior to arrival. Pt was prescribed 300mg daily, however pt?s sister reported he was likely taking more than prescribed (300mg plus possibly an extra 200mg at HS). Pt?s mother reported that initially they did not notice a change in pt?s behaviors, however after four days pt showed signs of decompensation (confusion, agitation, difficulty speaking, twitching of his face), which prompted pt?s mother to seek medical treatment. Per report, pt?s mother indicated pt has a history of decompensation when stopping Clozaril in the past. Pt was admitted to [facility] for AMS/cholingeric crisis due to abruptly stopping Clozaril. Pt received medical work-up and restarted on Clozaril. While in the hospital pt appeared internally preoccupied and endorsed AH of voices instructing him to ?cut myself in half with a saw or chainsaw or hurt others with a drill. I would never hurt myself or anyone.? Pt has a dx of schizophrenia. Per report, pt?s mother stated that 8 or 9 years ago pt had a breakdown and was hospitalized for psychotic symptoms. Pt reportedly has been stable on Clozaril. Pt has a mild cognitive impairment/communication disorder, however was not formally assessed. Pt speaks in a child-like voice. Pt lives with his mother (who is his primary caregiver and support system), his sister, and his two nieces. On arrival to unit, pt was calm, cooperative, and pleasant. Pt reported ?I was here a long time ago. I might remember some of the staff.? Pt denied substance use, ETOH use, and nicotine use. Tox screen negative. Pt reported he received his Influenza vaccine this season. Pt stated ?I try to make smart decisions.? Pt did endorse active AH. Pt stated ?I hear it all the time. Every minute of every day. Even right now. They say they want to murder the whole town, murder the senator, take over the city. They say they want to be President.? Pt reported that voices instruct what ?they want to do? and do not reflect pt?s own desires. Pt denied any thoughts to harm self or others. Pt denied VH. Pt help seeking and reported he was happy to restart his medications and return home when he is feeling better. Pt placed on 15 minute checks.
[2024-10-24 19:35] VITALS: BMI 21.9
[2024-10-24 19:43] VITALS: BP 138/84; PULSE 81; RESP 18; TEMP 37.1; O2SAT 100
[2024-10-24] MEDS: hydrOXYzine HCL 25 MG TABLET PO (22:18)
[2024-10-24] MEDS: traZODone HCL 50 MG TABLET PO (22:18)
[2024-10-24] MEDS: cloZAPine 25 MG TABLET 50 MG PO (22:18)
[2024-10-24] MEDS: Benztropine Mesylate 1 MG TABLET PO (22:19)
[2024-10-24] MEDS: Sennosides/Docusate Sodium TABLET 2 TAB PO (22:19)
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
[2024-10-25 08:19] VITALS: BP 126/58; PULSE 62; TEMP 36.8; O2SAT 97
[2024-10-25] MEDS: Atorvastatin Calcium 20 MG TABLET PO (08:24)
[2024-10-25] MEDS: Benztropine Mesylate 1 MG TABLET PO ×2 (08:25→20:24)
[2024-10-25] MEDS: cloZAPine 25 MG TABLET 50 MG PO ×2 (08:25→20:24)
[2024-10-25 08:41] LABS: Alanine Aminotransferase 27 U/L (0-40); Albumin Level 3.6 g/dL (3.5-5.0); Alkaline Phosphatase 66 U/L (39-117); Anion Gap 11 (12-20); Aspartate Amino Transferase 21 U/L (5-37); Bilirubin Total 0.2 mg/dL (0.0-1.0); Blood Urea Nitrogen 19 mg/dL (9-16); Calcium 8.9 mg/dL (8.4-10.2); Carbon Dioxide 26 mmol/L (22-29); Chloride 108 mmol/L (96-108); Cholesterol 147 mg/dL (<200); Creatinine Clr Calc Pharmacy 100.8; Estimated Glomerular Filt Rate > 60; Glucose Random 107 mg/dL (60-115); HDL Cholesterol 37 mg/dL (>40); LDL Cholesterol Calculated 56 mg/dL (<100); Potassium 4.2 mmol/L (3.3-5.1); Sodium 141 mmol/L (135-145); Total Protein 6.6 g/dL (6.5-8.0); Triglycerides 270 mg/dL (<150)
[2024-10-25 20:00] VITALS: BP 130/72; PULSE 86; TEMP 36.6; O2SAT 99
[2024-10-25] MEDS: traZODone HCL 50 MG TABLET PO (20:23)
[2024-10-25] MEDS: Sennosides/Docusate Sodium TABLET 2 TAB PO (20:25)
[2024-10-26 08:00] VITALS: BP 130/66; PULSE 70; TEMP 36.6; O2SAT 97
[2024-10-26] MEDS: Benztropine Mesylate 1 MG TABLET PO ×2 (08:15→20:18)
[2024-10-26] MEDS: Atorvastatin Calcium 20 MG TABLET PO (08:16)
[2024-10-26] MEDS: cloZAPine 25 MG TABLET 50 MG PO (08:16)
[2024-10-26 08:27] LABS: Neut%MD 49.2 %; Neutrophils Absolute Auto 3.6 x10*3/uL (2.0-8.3); WBCANC 7.4 X10*3/uL
--- NOTE | 2024-10-26 08:53 | MHC.CLN ---
NUTRITION PRIOR ADM TO IMC WITH NUTRITION DX MALNUTRITION. HX SIGNIFICANT WEIGHT LOSS X 6 MONTHS. ADDING ENSURE BID TO PROMOTE NUTRITIONAL INTAKE. SUPPLEMENT PROVIDES 700 KCALS, 40 G PROTEIN. PLEASE CONSULT RD IF CONCERNS WITH PO INTAKE.
--- NOTE | 2024-10-26 09:38 | P.PNPSI_ITS ---
Subjective Subjective Date of Service: 10/26/24 Reason For Visit: Scizophrenia Interim History: met with patient; discussed with team; reviewed chart pt says he's feeling much happier now. He said he stopped taking clozapine thinking he might be happier without it, but realizes he still needs it and is happier on it. Pt feels safe on the unit. He denies any SI. Pt says he no longer has any AH. Mental Status Exam Mental Status Exam Narrative: Pt is alert and oriented; behavior is cooperative, friendly and calm, childlike demeanor; patient is not in distress; dressed in hospital attire, scruffy; mood is described as happier and affect congruent; eye contact appropriate; Speech is normal rate, volume and prosody and not pressured; no psychomotor agitation/retardation present; thought process is concrete but organized; Thought content is on tx; otherwise pertinent to relevant topics and without any delusional content, paranoid ideations or grandiosity; denies any SI/HI. Denies AH; There is no evidence of perceptual disturbance. Patients insight and judgment appear intact. Diagnostics Vital Signs (24Hr): Vital Signs - 24 hr 10/25/24 20:00 10/26/24 08:00 Temperature 97.8 F 97.9 F Pulse Rate 86 70 Blood Pressure 130/72 130/66 Pulse Oximetry 99 97 Oxygen Delivery Method Room Air Room Air BMI result Body Mass Index 21.9 Labs 10/25/24 07:45 Labs: Laboratory Results - last 48 hr 10/25/24 10/26/24 07:45 07:52 Absolute Neuts (auto) 3.6 Sodium 141 Potassium 4.2 Chloride 108 Carbon Dioxide 26 Anion Gap 11 L BUN 19 H Creatinine 0.86 Estim Creat Clear Calc 100.8 Estimated GFR > 60 Random Glucose 107 Calcium 8.9 Total Bilirubin 0.2 AST 21 ALT 27 Alkaline Phosphatase 66 Total Protein 6.6 Albumin 3.6 Triglycerides 270 H Cholesterol 147 LDL Cholesterol, Calc 56 HDL Cholesterol 37 L Medications Medications Current Medications Acetaminophen (Acetaminophen 325 Mg Tablet) 650 mg PO Q6H PRN PRN Reason: Headache/Pain, Scale 1-10 Al Hydroxide/Mg Hydroxide (Magnesium Hydrox/Alum Hydrox 30 Ml Oral.Susp) 30 ml PO Q6H PRN PRN Reason: Heartburn/Nausea Atorvastatin Calcium (Atorvastatin Calcium 20 Mg Tablet) 20 mg PO DAILY [facility] Last Admin: 10/26/24 08:16 Dose: 20 mg Benztropine Mesylate (Benztropine Mesylate 1 Mg Tablet) 1 mg PO BID [facility] Last Admin: 10/26/24 08:15 Dose: 1 mg Clozapine (Clozapine 25 Mg Tablet) 50 mg PO BID [facility] Last Admin: 10/26/24 08:16 Dose: 50 mg Hydroxyzine HCl (Hydroxyzine Hcl 25 Mg Tablet) 25 mg PO Q6H PRN PRN Reason: mild anxiety Last Admin: 10/24/24 22:18 Dose: 25 mg Magnesium Hydroxide (Milk Of Magnesia 30 Ml Oral.Susp) 30 ml PO DAILY PRN PRN Reason: Constipation Nicotine (Nicotine 14 Mg Patch.Td24) 14 mg TRANSDERMA DAILY PRN PRN Reason: Nicotine Cravings Nicotine Polacrilex (Nicotine Polacrilex 2 Mg Gum) 2 mg BUCCAL Q2H PRN PRN Reason: Nicotine Cravings Senna/Docusate Sodium (Sennosides/Docusate Sodium Tablet) 2 tab PO BEDTIME [facility] Last Admin: 10/25/24 20:25 Dose: 2 tab Trazodone HCl (Trazodone Hcl 50 Mg Tablet) 50 mg PO BEDTIME MRX1 PRN PRN Reason: Insomnia Last Admin: 10/25/24 20:23 Dose: 50 mg Allergies Allergies Allergy/AdvReac Type Severity Reaction Status Date / Time orange Allergy Intermediate RASH Verified 10/22/24 00:04 Pollen Allergy Intermediate congestion Uncoded 10/22/24 00:04 Assessment & Plan Assessment & Plan (1) Schizophrenia: Qualifiers: Schizophrenia type: unspecified Qualified Code(s): F20.9 - Schizophrenia, unspecified Status: Acute Code(s): F20.9 - Schizophrenia, unspecified (2) Cholinergic crisis: Status: Acute Code(s): G70.89 - Other specified myoneural disorders Plan HPI: Mr. Sánchez is a 49 year-old male with hx of schizophrenia [facility]. Pt was brought to [facility] ED by family as pt presented with difficulty speaking, twitching of his face. He reported he stopped taking usual dose of clozapine 300mg po qhs 5 days ago due to sedation. ED attending described patient presenting as restless, with dysarthria. Head CT which was negative for acute pathology hemorrhagic or ischemic. He also had CTA of neck/head, also negative for acute findings. psychiatry asked to assessed for withdrawal effects of clozapine. He was admitted medically and once he was medically cleared he was transferred to our unit yesterday. He was brought by family due to inability to speak, restless, twitching of the face. In the ED, he had head CT/ CTA which was negative. Pt had reported he stopped taking clozapine usual dose 300mg po qhs due to sedation about 5 days ago. 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 Symptoms include: nausea, vomiting, dysarthria, dystonia, myoclonus, diaphoresis. Treatment of these symptoms include addition of anticholigernic medication. He was started on Clozaril 25 mg to be increased every 1 or 2 days since it has not been too long since discontinuation. Today we increased it to 50 mg b.i.d.. CBCs have been within range. He does admit to auditory hallucinations, sometimes command in nature to hurt himself but he has never done so. No history of substance abuse. No history of violence. Hospital course: 10/26 pt says he's feeling much happier now. He said he stopped taking clozapine thinking he might be happier without it, but realizes he still needs it and is happier on it. Pt feels safe on the unit. He denies any SI. Pt says he no longer has any AH. PLAN: CV q15 Clozapine 50mg daily (will convert to bedtime) Clozapine 75mg qhs Patient educated on: diagnosis and medication risk/benefits Informed Consent: understands and further education needed Reason for continued inpatient stay Substantial Risk for: rapid decompensation Time Spent With Patient Time: Total time managing care of this patient today ____ minutes.
[2024-10-26] MEDS: Mineral Oil/Petrolatum,White 106 GM Tube 1 APPL TOPICAL (18:03)
[2024-10-26 20:00] VITALS: BP 133/96; PULSE 110; TEMP 36.9; O2SAT 100
[2024-10-26] MEDS: Sennosides/Docusate Sodium TABLET 2 TAB PO (20:18)
[2024-10-26] MEDS: cloZAPine 25 MG TABLET 75 MG PO (20:18)
[2024-10-27 08:00] VITALS: BP 123/65; PULSE 71; TEMP 36.6; O2SAT 97
[2024-10-27] MEDS: cloZAPine 25 MG TABLET 50 MG PO (08:33)
[2024-10-27] MEDS: Atorvastatin Calcium 20 MG TABLET PO (08:33)
[2024-10-27] MEDS: Mineral Oil/Petrolatum,White 106 GM Tube 1 APPL TOPICAL (08:34)
[2024-10-27] MEDS: Benztropine Mesylate 1 MG TABLET PO ×2 (08:34→20:55)
--- NOTE | 2024-10-27 09:19 | HO.PSYCHPN ---
Subjective Subjective Date of Service: 10/27/24 Reason For Visit: Scizophrenia Interim History: Met with patient; discussed with team Patient reports that he is ok now and says he had a good night sleep and that he remains without any AH. Patient said he would attend groups because he likes art. Otherwise he has no complaints and no requests. Mental Status Exam Mental Status Exam Narrative: Pt is alert and oriented; behavior is cooperative, friendly and calm, childlike demeanor which is baseline; patient is not in distress; dressed in hospital attire, scruffy; mood is described as ok now and affect congruent; eye contact appropriate; Speech is normal rate, volume and prosody and not pressured; no psychomotor agitation/retardation present; thought process is concrete but organized; Thought content is on tx; otherwise pertinent to relevant topics and without any delusional content, paranoid ideations or grandiosity; denies any SI/HI. Denies AH; There is no evidence of perceptual disturbance. Patients insight and judgment impaired but at baseline and adequate Diagnostics Vital Signs (24Hr): Vital Signs - 24 hr 10/26/24 20:00 10/27/24 08:00 Temperature 98.4 F 98 F Pulse Rate 110 H 71 Blood Pressure 133/96 H 123/65 Pulse Oximetry 100 97 Oxygen Delivery Method Room Air Room Air BMI result Body Mass Index 21.9 Labs 10/25/24 07:45 Labs: Laboratory Results - last 48 hr 10/26/24 07:52 Absolute Neuts (auto) 3.6 Medications Medications Current Medications Acetaminophen (Acetaminophen 325 Mg Tablet) 650 mg PO Q6H PRN PRN Reason: Headache/Pain, Scale 1-10 Al Hydroxide/Mg Hydroxide (Magnesium Hydrox/Alum Hydrox 30 Ml Oral.Susp) 30 ml PO Q6H PRN PRN Reason: Heartburn/Nausea Atorvastatin Calcium (Atorvastatin Calcium 20 Mg Tablet) 20 mg PO DAILY [facility] Last Admin: 10/27/24 08:33 Dose: 20 mg Benztropine Mesylate (Benztropine Mesylate 1 Mg Tablet) 1 mg PO BID [facility] Last Admin: 10/27/24 08:34 Dose: 1 mg Clozapine (Clozapine 25 Mg Tablet) 50 mg PO DAILY [facility] Last Admin: 10/27/24 08:33 Dose: 50 mg Clozapine (Clozapine 25 Mg Tablet) 75 mg PO BEDTIME [facility] Last Admin: 10/26/24 20:18 Dose: 75 mg Hydroxyzine HCl (Hydroxyzine Hcl 25 Mg Tablet) 25 mg PO Q6H PRN PRN Reason: mild anxiety Last Admin: 10/24/24 22:18 Dose: 25 mg Magnesium Hydroxide (Milk Of Magnesia 30 Ml Oral.Susp) 30 ml PO DAILY PRN PRN Reason: Constipation Multi-Ingred Cream/Lotion/Oil/Oint (Mineral Oil/Petrolatum,White 106 Gm Tube) 1 appl TOPICAL BID [facility]; Protocol Last Admin: 10/27/24 08:34 Dose: 1 appl Nicotine (Nicotine 14 Mg Patch.Td24) 14 mg TRANSDERMA DAILY PRN PRN Reason: Nicotine Cravings Nicotine Polacrilex (Nicotine Polacrilex 2 Mg Gum) 2 mg BUCCAL Q2H PRN PRN Reason: Nicotine Cravings Senna/Docusate Sodium (Sennosides/Docusate Sodium Tablet) 2 tab PO BEDTIME [facility] Last Admin: 10/26/24 20:18 Dose: 2 tab Trazodone HCl (Trazodone Hcl 50 Mg Tablet) 50 mg PO BEDTIME MRX1 PRN PRN Reason: Insomnia Last Admin: 10/25/24 20:23 Dose: 50 mg Allergies Allergies Allergy/AdvReac Type Severity Reaction Status Date / Time orange Allergy Intermediate RASH Verified 10/22/24 00:04 Pollen Allergy Intermediate congestion Uncoded 10/22/24 00:04 Assessment & Plan Assessment & Plan (1) Schizophrenia: Qualifiers: Schizophrenia type: unspecified Qualified Code(s): F20.9 - Schizophrenia, unspecified Status: Acute Code(s): F20.9 - Schizophrenia, unspecified (2) Cholinergic crisis: Status: Acute Code(s): G70.89 - Other specified myoneural disorders Plan HPI: Mr. Sánchez is a 49 year-old male with hx of schizophrenia jail on clozaril. Pt was brought to [facility] ED by family as pt presented with difficulty speaking, twitching of his face. He reported he stopped taking usual dose of clozapine 300mg po qhs 5 days ago due to sedation. ED attending described patient presenting as restless, with dysarthria. Head CT which was negative for acute pathology hemorrhagic or ischemic. He also had CTA of neck/head, also negative for acute findings. psychiatry asked to assessed for withdrawal effects of clozapine. He was admitted medically and once he was medically cleared he was transferred to our unit yesterday. He was brought by family due to inability to speak, restless, twitching of the face. In the ED, he had head CT/ CTA which was negative. Pt had reported he stopped taking clozapine usual dose 300mg po qhs due to sedation about 5 days ago. 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 Symptoms include: nausea, vomiting, dysarthria, dystonia, myoclonus, diaphoresis. Treatment of these symptoms include addition of anticholigernic medication. He was started on Clozaril 25 mg to be increased every 1 or 2 days since it has not been too long since discontinuation. Today we increased it to 50 mg b.i.d.. CBCs have been within range. He does admit to auditory hallucinations, sometimes command in nature to hurt himself but he has never done so. No history of substance abuse. No history of violence. Hospital course: 10/26 pt says he's feeling much happier now. He said he stopped taking clozapine thinking he might be happier without it, but realizes he still needs it and is happier on it. Pt feels safe on the unit. He denies any SI. Pt says he no longer has any AH. 10/27 patient continues to report he is doing better and remains without any AH. Agrees to continued clozapine titration PLAN: CV q15 Discontinued daily Clozapine and switch to bedtime since patient takes total dose at night Continue titrating clozapine; 100 mg q.h.s. tonight and then tomorrow night 150 or 175mg; and then continue 25 mg per day Will monitor QTC Monitor ANC Patient educated on: diagnosis, medication risk/benefits and therapeutic strategies Informed Consent: understands Reason for continued inpatient stay Substantial Risk for: rapid decompensation Time Spent With Patient Time: Total time managing care of this patient today ____ minutes.
[2024-10-27 20:00] VITALS: BP 135/89; PULSE 88; TEMP 36.1; O2SAT 99
[2024-10-27] MEDS: Sennosides/Docusate Sodium TABLET 2 TAB PO (20:54)
[2024-10-27] MEDS: cloZAPine 100 MG TABLET PO (20:55)
[2024-10-27] MEDS: hydrOXYzine HCL 25 MG TABLET PO (20:55)
[2024-10-27] MEDS: traZODone HCL 50 MG TABLET PO (20:55)
--- NOTE | 2024-10-28 | ECG_ITS ---
Test Reason : QTC CHECK Blood Pressure : */* mmHG Vent. Rate : 93 BPM Atrial Rate : 93 BPM P-R Int : 130 ms QRS Dur : 84 ms QT Int : 342 ms P-R-T Axes : 57 64 54 degrees QTcB Int : 425 ms Normal sinus rhythm Normal ECG When compared with ECG of 22-Oct-2024 04:10, No significant changes seen Referred By: Forest Mark Electronically Signed By: SCOTT DELACRUZ
[2024-10-28 08:00] VITALS: BP 126/59; PULSE 89; RESP 18; TEMP 37.1; O2SAT 97
[2024-10-28] MEDS: Atorvastatin Calcium 20 MG TABLET PO (08:34)
[2024-10-28] MEDS: Mineral Oil/Petrolatum,White 106 GM Tube 1 APPL TOPICAL (08:34)
[2024-10-28] MEDS: Benztropine Mesylate 1 MG TABLET PO ×2 (08:34→21:02)
--- NOTE | 2024-10-28 10:47 | P.PNPSI_ITS ---
Subjective Subjective Date of Service: 10/28/24 Reason For Visit: Scizophrenia Interim History: met with patient; discussed with team pt reported AH last night saying burn that shit down...plan genocide...you're talking the blame... He says this is first time in days that he's had any AH. Patient agrees to remain on the unit longer for continue titration of clozapine; social work talked with patient's family who agrees that this is the best plan Mental Status Exam Mental Status Exam Narrative: Pt is alert and oriented; behavior is cooperative, friendly and calm, childlike demeanor which is baseline; patient is not in distress; dressed in hospital attire, scruffy; mood is described as ok and affect congruent; eye contact appropriate; Speech is singsong (baseline) but normal rate, volume; not pressured; no psychomotor agitation/retardation present; thought process is concrete but organized; Thought content is on tx; otherwise pertinent to relevant topics and without any delusional content, paranoid ideations or grandiosity; denies any SI/HI. Denies AH; There is no evidence of perceptual disturbance. Patients insight and judgment impaired but at baseline and adequate Diagnostics Vital Signs (24Hr): Vital Signs - 24 hr 10/27/24 20:00 10/28/24 08:00 Temperature 96.9 F 98.7 F Pulse Rate 88 89 Respiratory Rate 18 Blood Pressure 135/89 126/59 L Pulse Oximetry 99 97 Oxygen Delivery Method Room Air Room Air BMI result Body Mass Index 21.9 Labs 10/25/24 07:45 Medications Medications Current Medications Acetaminophen (Acetaminophen 325 Mg Tablet) 650 mg PO Q6H PRN PRN Reason: Headache/Pain, Scale 1-10 Al Hydroxide/Mg Hydroxide (Magnesium Hydrox/Alum Hydrox 30 Ml Oral.Susp) 30 ml PO Q6H PRN PRN Reason: Heartburn/Nausea Atorvastatin Calcium (Atorvastatin Calcium 20 Mg Tablet) 20 mg PO DAILY [facility] Last Admin: 10/28/24 08:34 Dose: 20 mg Benztropine Mesylate (Benztropine Mesylate 1 Mg Tablet) 1 mg PO BID [facility] Last Admin: 10/28/24 08:34 Dose: 1 mg Clozapine (Clozapine 25 Mg Tablet) 150 mg PO BEDTIME [facility] Hydroxyzine HCl (Hydroxyzine Hcl 25 Mg Tablet) 25 mg PO Q6H PRN PRN Reason: mild anxiety Last Admin: 10/27/24 20:55 Dose: 25 mg Magnesium Hydroxide (Milk Of Magnesia 30 Ml Oral.Susp) 30 ml PO DAILY PRN PRN Reason: Constipation Multi-Ingred Cream/Lotion/Oil/Oint (Mineral Oil/Petrolatum,White 106 Gm Tube) 1 appl TOPICAL BID [facility]; Protocol Last Admin: 10/28/24 08:34 Dose: 1 appl Nicotine (Nicotine 14 Mg Patch.Td24) 14 mg TRANSDERMA DAILY PRN PRN Reason: Nicotine Cravings Nicotine Polacrilex (Nicotine Polacrilex 2 Mg Gum) 2 mg BUCCAL Q2H PRN PRN Reason: Nicotine Cravings Senna/Docusate Sodium (Sennosides/Docusate Sodium Tablet) 2 tab PO BEDTIME [facility]IRO Last Admin: 10/27/24 20:54 Dose: 2 tab Trazodone HCl (Trazodone Hcl 50 Mg Tablet) 50 mg PO BEDTIME MRX1 PRN PRN Reason: Insomnia Last Admin: 10/27/24 20:55 Dose: 50 mg Allergies Allergies Allergy/AdvReac Type Severity Reaction Status Date / Time orange Allergy Intermediate RASH Verified 10/22/24 00:04 Pollen Allergy Intermediate congestion Uncoded 10/22/24 00:04 Assessment & Plan Assessment & Plan (1) Schizophrenia: Qualifiers: Schizophrenia type: unspecified Qualified Code(s): F20.9 - Schizophrenia, unspecified Status: Acute Code(s): F20.9 - Schizophrenia, unspecified (2) Cholinergic crisis: Status: Acute Code(s): G70.89 - Other specified myoneural disorders Plan HPI: Mr. Sánchez is a 49 year-old male with hx of schizophrenia skilled nursing on clozaril. Pt was brought to [facility] ED by family as pt presented with difficulty speaking, twitching of his face. He reported he stopped taking usual dose of clozapine 300mg po qhs 5 days ago due to sedation. ED attending described patient presenting as restless, with dysarthria. Head CT which was negative for acute pathology hemorrhagic or ischemic. He also had CTA of neck/head, also negative for acute findings. psychiatry asked to assessed for withdrawal effects of clozapine. He was admitted medically and once he was medically cleared he was transferred to our unit yesterday. He was brought by family due to inability to speak, restless, twitching of the face. In the ED, he had head CT/ CTA which was negative. Pt had reported he stopped taking clozapine usual dose 300mg po qhs due to sedation about 5 days ago. 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 Symptoms include: nausea, vomiting, dysarthria, dystonia, myoclonus, diaphoresis. Treatment of these symptoms include addition of anticholigernic medication. He was started on Clozaril 25 mg to be increased every 1 or 2 days since it has not been too long since discontinuation. Today we increased it to 50 mg b.i.d.. CBCs have been within range. He does admit to auditory hallucinations, sometimes command in nature to hurt himself but he has never done so. No history of substance abuse. No history of violence. Hospital course: 10/26 pt says he's feeling much happier now. He said he stopped taking clozapine thinking he might be happier without it, but realizes he still needs it and is happier on it. Pt feels safe on the unit. He denies any SI. Pt says he no longer has any AH. 10/27 patient continues to report he is doing better and remains without any AH. Agrees to continued clozapine titration 10/28 pt reported AH last night saying burn that shit down...plan genocide...you're talking the blame... He says this is first time in days that he's had any AH. Patient agrees to remain on the unit longer for continue titration of clozapine; social work talked with patient's family who agrees that this is the best plan -ghost writer learned that patient was recently switch to different outpatient provider; clarified with social work PLAN: CV q15 clozapine 150 mg q.h.s.; continue titration (home dose 300 mg q.h.s.) Will monitor QTC Monitor ANC Patient educated on: diagnosis and medication risk/benefits Informed Consent: understands Reason for continued inpatient stay Substantial Risk for: rapid decompensation Time Spent With Patient Time: Total time managing care of this patient today ____ minutes.
[2024-10-28 19:55] VITALS: BP 160/63; PULSE 106; RESP 20; TEMP 37.2; O2SAT 99
[2024-10-28] MEDS: cloZAPine 100 MG, cloZAPine 75 MG 175 MG PO (21:02)
[2024-10-28] MEDS: traZODone HCL 50 MG TABLET PO (21:03)
[2024-10-28] MEDS: hydrOXYzine HCL 25 MG TABLET PO (21:03)
[2024-10-28] MEDS: Sennosides/Docusate Sodium TABLET 2 TAB PO (21:03)
[2024-10-29 07:00] VITALS: BMI 20.7
[2024-10-29 08:00] VITALS: BP 176/84; PULSE 83; TEMP 36.6; O2SAT 98
[2024-10-29 08:27] VITALS: BP 138/78
[2024-10-29] MEDS: Benztropine Mesylate 1 MG TABLET PO ×2 (08:50→20:20)
[2024-10-29] MEDS: Atorvastatin Calcium 20 MG TABLET PO (08:50)
[2024-10-29] MEDS: Mineral Oil/Petrolatum,White 106 GM Tube 1 APPL TOPICAL (08:53)
--- NOTE | 2024-10-29 09:26 | HO.PSYCHPN ---
Subjective Subjective Date of Service: 10/29/24 Reason For Visit: Scizophrenia Interim History: Met with patient; discussed with team Patient continues to hear auditory hallucinations throughout the day that say .. .It is illegal.... No sleep. Kitchen Operator discussed the origin of these was that his mind was playing tricks on him, that was due to a psychiatric illness and that is. What the medication is for.. Patient knew that is the medication helped with the voices but did not seem to realize it was his mind playing tricks on him and thinking they are real... Patient said he accepted content writer's explanation but appeared to be a little skeptical. At any rate he said he is not scared of the voices. Discussed dispo and patient agrees to remain on the unit to continue titration of clozapine. Reports sleeping well Mental Status Exam Mental Status Exam Narrative: Pt is alert and oriented; behavior is cooperative, friendly and calm, childlike demeanor which is baseline; patient is not in distress; dressed in hospital attire, scruffy; mood is described as good and affect congruent; eye contact appropriate; Speech is singsong (baseline) but normal rate, volume; not pressured; no psychomotor agitation/retardation present; thought process is concrete but organized; Thought content is on tx; otherwise pertinent to relevant topics and without any delusional content, paranoid ideations or grandiosity; denies any SI/HI. +AH throughout the day. Patients insight and judgment impaired but at baseline and adequate Diagnostics Vital Signs (24Hr): Vital Signs - 24 hr 10/28/24 19:55 10/29/24 08:00 10/29/24 08:27 Temperature 98.9 F 98 F Pulse Rate 106 H 83 Respiratory Rate 20 Blood Pressure 160/63 H 176/84 H 138/78 Pulse Oximetry 99 98 Oxygen Delivery Method Room Air Room Air BMI result Body Mass Index 21.9 Labs 10/25/24 07:45 Medications Medications Current Medications Acetaminophen (Acetaminophen 325 Mg Tablet) 650 mg PO Q6H PRN PRN Reason: Headache/Pain, Scale 1-10 Al Hydroxide/Mg Hydroxide (Magnesium Hydrox/Alum Hydrox 30 Ml Oral.Susp) 30 ml PO Q6H PRN PRN Reason: Heartburn/Nausea Atorvastatin Calcium (Atorvastatin Calcium 20 Mg Tablet) 20 mg PO DAILY JA[facility]O Last Admin: 10/29/24 08:50 Dose: 20 mg Benztropine Mesylate (Benztropine Mesylate 1 Mg Tablet) 1 mg PO BID JAIRO Last Admin: 10/29/24 08:50 Dose: 1 mg Clozapine 100 mg/ Clozapine 75 (mg) 175 mg PO BEDTIME JAIRO Last Admin: 10/28/24 21:02 Dose: 175 mg Hydroxyzine HCl (Hydroxyzine Hcl 25 Mg Tablet) 25 mg PO Q6H PRN PRN Reason: mild anxiety Last Admin: 10/28/24 21:03 Dose: 25 mg Magnesium Hydroxide (Milk Of Magnesia 30 Ml Oral.Susp) 30 ml PO DAILY PRN PRN Reason: Constipation Multi-Ingred Cream/Lotion/Oil/Oint (Mineral Oil/Petrolatum,White 106 Gm Tube) 1 appl TOPICAL BID [facility]; Protocol Last Admin: 10/29/24 08:53 Dose: 1 appl Nicotine (Nicotine 14 Mg Patch.Td24) 14 mg TRANSDERMA DAILY PRN PRN Reason: Nicotine Cravings Nicotine Polacrilex (Nicotine Polacrilex 2 Mg Gum) 2 mg BUCCAL Q2H PRN PRN Reason: Nicotine Cravings Senna/Docusate Sodium (Sennosides/Docusate Sodium Tablet) 2 tab PO BEDTIME [facility] Last Admin: 10/28/24 21:03 Dose: 2 tab Trazodone HCl (Trazodone Hcl 50 Mg Tablet) 50 mg PO BEDTIME MRX1 PRN PRN Reason: Insomnia Last Admin: 10/28/24 21:03 Dose: 50 mg Allergies Allergies Allergy/AdvReac Type Severity Reaction Status Date / Time orange Allergy Intermediate RASH Verified 10/22/24 00:04 Pollen Allergy Intermediate congestion Uncoded 10/22/24 00:04 Assessment & Plan Assessment & Plan (1) Schizophrenia: Qualifiers: Schizophrenia type: unspecified Qualified Code(s): F20.9 - Schizophrenia, unspecified Status: Acute Code(s): F20.9 - Schizophrenia, unspecified (2) Cholinergic crisis: Status: Acute Code(s): G70.89 - Other specified myoneural disorders Plan HPI: 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 Pt was brought to [facility] ED by family as pt presented with difficulty speaking, twitching of his face. He reported he stopped taking usual dose of clozapine 300mg po qhs 5 days ago due to sedation. ED attending described patient presenting as restless, with dysarthria. Head CT which was negative for acute pathology hemorrhagic or ischemic. He also had CTA of neck/head, also negative for acute findings. psychiatry asked to assessed for withdrawal effects of clozapine. He was admitted medically and once he was medically cleared he was transferred to our unit yesterday. He was brought by family due to inability to speak, restless, twitching of the face. In the ED, he had head CT/ CTA which was negative. Pt had reported he stopped taking clozapine usual dose 300mg po qhs due to sedation about 5 days ago. 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 Symptoms include: nausea, vomiting, dysarthria, dystonia, myoclonus, diaphoresis. Treatment of these symptoms include addition of anticholigernic medication. He was started on Clozaril 25 mg to be increased every 1 or 2 days since it has not been too long since discontinuation. Today we increased it to 50 mg b.i.d.. CBCs have been within range. He does admit to auditory hallucinations, sometimes command in nature to hurt himself but he has never done so. No history of substance abuse. No history of violence. Hospital course: 10/26 pt says he's feeling much happier now. He said he stopped taking clozapine thinking he might be happier without it, but realizes he still needs it and is happier on it. Pt feels safe on the unit. He denies any SI. Pt says he no longer has any AH. 10/27 patient continues to report he is doing better and remains without any AH. Agrees to continued clozapine titration 10/28 pt reported AH last night saying burn that shit down...plan genocide...you're talking the blame... He says this is first time in days that he's had any AH. Patient agrees to remain on the unit longer for continue titration of clozapine; social work talked with patient's family who agrees that this is the best plan -content writer learned that patient was recently switch to different outpatient provider; clarified with social work 10/29 Patient continues to hear auditory hallucinations throughout the day that say .. .It is illegal.... No sleep. Kitchen Operator discussed the origin of these was that his mind was playing tricks on him, that was due to a psychiatric illness and that is. What the medication is for.. Patient knew that is the medication helped with the voices but did not seem to realize it was his mind playing tricks on him and thinking they are real... Patient said he accepted content writer's explanation but appeared to be a little skeptical. At any rate he said he is not scared of the voices. Discussed dispo and patient agrees to remain on the unit to continue titration of clozapine. Reports sleeping well PLAN: CV q15 clozapine 150 mg q.h.s.; continue titration (home dose 300 mg q.h.s.) Will monitor QTC Monitor ANC Patient educated on: diagnosis and medication risk/benefits Informed Consent: understands and further education needed Reason for continued inpatient stay Substantial Risk for: rapid decompensation Time Spent With Patient Time: Total time managing care of this patient today ____ minutes.
[2024-10-29 20:00] VITALS: BP 131/89; PULSE 106; TEMP 37.2; O2SAT 99
[2024-10-29] MEDS: traZODone HCL 50 MG TABLET PO (20:19)
[2024-10-29] MEDS: cloZAPine 100 MG, cloZAPine 75 MG 175 MG PO (20:19)
[2024-10-29] MEDS: Sennosides/Docusate Sodium TABLET 2 TAB PO (20:20)
[2024-10-30 08:16] VITALS: BP 113/54; PULSE 74; TEMP 36.2; O2SAT 97
[2024-10-30] MEDS: Atorvastatin Calcium 20 MG TABLET PO (08:42)
[2024-10-30] MEDS: Benztropine Mesylate 1 MG TABLET PO ×2 (08:42→20:38)
[2024-10-30] MEDS: Mineral Oil/Petrolatum,White 106 GM Tube 1 APPL TOPICAL (08:54)
--- NOTE | 2024-10-30 09:13 | HO.PSYCHPN ---
Subjective Subjective Date of Service: 10/30/24 Reason For Visit: Scizophrenia Interim History: Met with patient; discussed with team continued, intermittent AH that kept me up all night... he says however, once he fell asleep he slept through the night. Discussed ongoing AH which do bother him, however patient does not want to add any extra medication to deal with it, but just to continue titration of Clozapine. Mental Status Exam Mental Status Exam Narrative: Pt is alert and oriented; behavior is cooperative, friendly and calm, childlike demeanor which is baseline; patient is not in distress; dressed in hospital attire, scruffy facial hair; mood is described as ok and affect congruent; eye contact appropriate; Speech is singsong (baseline) but normal rate, volume; not pressured; no psychomotor agitation/retardation present; thought process is concrete but organized; Thought content is on tx; otherwise pertinent to relevant topics and without any delusional content, paranoid ideations or grandiosity; denies any SI/HI. +AH throughout the day. Patients insight and judgment impaired but at baseline and adequate Diagnostics Vital Signs (24Hr): Vital Signs - 24 hr 10/29/24 20:00 10/30/24 08:16 Temperature 98.9 F 97.1 F Pulse Rate 106 H 74 Blood Pressure 131/89 113/54 L Pulse Oximetry 99 97 Oxygen Delivery Method Room Air Room Air BMI result Body Mass Index 20.7 Labs 10/25/24 07:45 Medications Medications Current Medications Acetaminophen (Acetaminophen 325 Mg Tablet) 650 mg PO Q6H PRN PRN Reason: Headache/Pain, Scale 1-10 Al Hydroxide/Mg Hydroxide (Magnesium Hydrox/Alum Hydrox 30 Ml Oral.Susp) 30 ml PO Q6H PRN PRN Reason: Heartburn/Nausea Atorvastatin Calcium (Atorvastatin Calcium 20 Mg Tablet) 20 mg PO DAILY [facility]O Last Admin: 10/30/24 08:42 Dose: 20 mg Benztropine Mesylate (Benztropine Mesylate 1 Mg Tablet) 1 mg PO BID JAIRO Last Admin: 10/30/24 08:42 Dose: 1 mg Clozapine (Clozapine 100 Mg Tablet) 200 mg PO BEDTIME [facility] Hydroxyzine HCl (Hydroxyzine Hcl 25 Mg Tablet) 25 mg PO Q6H PRN PRN Reason: mild anxiety Last Admin: 10/28/24 21:03 Dose: 25 mg Magnesium Hydroxide (Milk Of Magnesia 30 Ml Oral.Susp) 30 ml PO DAILY PRN PRN Reason: Constipation Multi-Ingred Cream/Lotion/Oil/Oint (Mineral Oil/Petrolatum,White 106 Gm Tube) 1 appl TOPICAL BID [facility]; Protocol Last Admin: 10/30/24 08:54 Dose: 1 appl Nicotine (Nicotine 14 Mg Patch.Td24) 14 mg TRANSDERMA DAILY PRN PRN Reason: Nicotine Cravings Nicotine Polacrilex (Nicotine Polacrilex 2 Mg Gum) 2 mg BUCCAL Q2H PRN PRN Reason: Nicotine Cravings Senna/Docusate Sodium (Sennosides/Docusate Sodium Tablet) 2 tab PO BEDTIME [facility]O Last Admin: 10/29/24 20:20 Dose: 2 tab Trazodone HCl (Trazodone Hcl 50 Mg Tablet) 50 mg PO BEDTIME MRX1 PRN PRN Reason: Insomnia Last Admin: 10/29/24 20:19 Dose: 50 mg Allergies Allergies Allergy/AdvReac Type Severity Reaction Status Date / Time orange Allergy Intermediate RASH Verified 10/22/24 00:04 Pollen Allergy Intermediate congestion Uncoded 10/22/24 00:04 Assessment & Plan Assessment & Plan (1) Schizophrenia: Qualifiers: Schizophrenia type: unspecified Qualified Code(s): F20.9 - Schizophrenia, unspecified Status: Acute Code(s): F20.9 - Schizophrenia, unspecified (2) Cholinergic crisis: Status: Resolved Code(s): G70.89 - Other specified myoneural disorders Plan HPI: Mr. Sánchez is a 49 year-old male with hx of schizophrenia nursing home on clozaril. Pt was brought to [facility] [place] family as pt presented with difficulty speaking, twitching of his face. He reported he stopped taking usual dose of clozapine 300mg po qhs 5 days ago due to sedation. ED attending described patient presenting as restless, with dysarthria. Head CT which was negative for acute pathology hemorrhagic or ischemic. He also had CTA of neck/head, also negative for acute findings. psychiatry asked to assessed for withdrawal effects of clozapine. He was admitted medically and once he was medically cleared he was transferred to our unit yesterday. He was brought by family due to inability to speak, restless, twitching of the face. In the ED, he had head CT/ CTA which was negative. Pt had reported he stopped taking clozapine usual dose 300mg po qhs due to sedation about 5 days ago. 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 Symptoms include: nausea, vomiting, dysarthria, dystonia, myoclonus, diaphoresis. Treatment of these symptoms include addition of anticholigernic medication. He was started on Clozaril 25 mg to be increased every 1 or 2 days since it has not been too long since discontinuation. Today we increased it to 50 mg b.i.d.. CBCs have been within range. He does admit to auditory hallucinations, sometimes command in nature to hurt himself but he has never done so. No history of substance abuse. No history of violence. Hospital course: 10/26 pt says he's feeling much happier now. He said he stopped taking clozapine thinking he might be happier without it, but realizes he still needs it and is happier on it. Pt feels safe on the unit. He denies any SI. Pt says he no longer has any AH. 10/27 patient continues to report he is doing better and remains without any AH. Agrees to continued clozapine titration 10/28 pt reported AH last night saying burn that shit down...plan genocide...you're talking the blame... He says this is first time in days that he's had any AH. Patient agrees to remain on the unit longer for continue titration of clozapine; social work talked with patient's family who agrees that this is the best plan -telegraphic typewriter installer learned that patient was recently switch to different outpatient provider; clarified with social work 10/29 Patient continues to hear auditory hallucinations throughout the day that say .. .It is illegal.... No sleep. Die Technician discussed the origin of these was that his mind was playing tricks on him, that was due to a psychiatric illness and that is. What the medication is for.. Patient knew that is the medication helped with the voices but did not seem to realize it was his mind playing tricks on him and thinking they are real... Patient said he accepted telegraphic typewriter installer's explanation but appeared to be a little skeptical. At any rate he said he is not scared of the voices. Discussed dispo and patient agrees to remain on the unit to continue titration of clozapine. Reports sleeping well 10/30 continued, intermittent AH that kept me up all night... he says however, once he fell asleep he slept through the night. Discussed ongoing AH which do bother him, however patient does not want to add any extra medication to deal with it, but just to continue titration of Clozapine. PLAN: CV q15 clozapine: continue titration of 25mg daily until reach home dose 300 mg q.h.s. monitor QTC; Monitor ANC Patient educated on: diagnosis and medication risk/benefits Informed Consent: understands Reason for continued inpatient stay Substantial Risk for: rapid decompensation Time Spent With Patient Time: Total time managing care of this patient today ____ minutes.
[2024-10-30] MEDS: Sennosides/Docusate Sodium TABLET 2 TAB PO (20:37)
[2024-10-30] MEDS: cloZAPine 100 MG TABLET 200 MG PO (20:37)
[2024-10-30] MEDS: traZODone HCL 50 MG TABLET PO (20:38)
[2024-10-30 21:30] VITALS: BP 130/67; PULSE 120; TEMP 36.7; O2SAT 98
[2024-10-31 08:00] VITALS: BP 173/97; PULSE 92; RESP 16; TEMP 36.3; O2SAT 97
--- NOTE | 2024-10-31 08:29 | P.PNPSI_ITS ---
Subjective Subjective Date of Service: 10/31/24 Reason For Visit: Scizophrenia Subjective Notes: Conditional Voluntary Healthcare Proxy: No Guardianship: No Medical Problems Affecting Mental Status: No Interim History: 49 yo with schizophrenia who was taking up and donw doses of clozapine at home he reports due to higher doses causing thickening of his tongue, lower doses result him hearing voices to hurt himself- Current dose seems to be keeping these voices at bay and not having thickened tongue feeling- Medication Compliance: Yes Side effects from medications: No Attending Groups: Intermittent Review of Systems Acute medical concerns: No Medical Review of Systems: unchanged Mental Status Exam Mental Status Exam Patient Appearance: Disheveled and Unkempt Patient Orientation: Person, Place and Situation Level of Consciousness: Awake Patient Behavior: Appropriate and Guarded Mood Description: Apprehensive Affect Description: Blunted Patient Cognition Impaired: Yes Ability to Follow Directions: Fair Speech Pattern: Poor Articulation Hallucinations: Auditory (denies currently) Thought Process: Intact Thought Content: positive for [place] Judgement: Fair Diagnostics Vital Signs (24Hr): Vital Signs - 24 hr 10/30/24 21:30 10/31/24 08:00 Temperature 98.1 F 97.3 F Pulse Rate 120 H 92 Respiratory Rate 16 Blood Pressure 130/67 173/97 H Pulse Oximetry 98 97 Oxygen Delivery Method Room Air Room Air BMI result Body Mass Index 20.7 Labs 10/25/24 07:45 Medications Medications Current Medications Acetaminophen (Acetaminophen 325 Mg Tablet) 650 mg PO Q6H PRN PRN Reason: Headache/Pain, Scale 1-10 Al Hydroxide/Mg Hydroxide (Magnesium Hydrox/Alum Hydrox 30 Ml Oral.Susp) 30 ml PO Q6H PRN PRN Reason: Heartburn/Nausea Atorvastatin Calcium (Atorvastatin Calcium 20 Mg Tablet) 20 mg PO DAILY REPLACED BY [facility] Last Admin: 10/30/24 08:42 Dose: 20 mg Benztropine Mesylate (Benztropine Mesylate 1 Mg Tablet) 1 mg PO BID REPLACED BY [facility] Last Admin: 10/30/24 20:38 Dose: 1 mg Clozapine (Clozapine 100 Mg Tablet) 200 mg PO BEDTIME JAIRO Stop: 10/31/24 09:00 Last Admin: 10/30/24 20:37 Dose: 200 mg Clozapine 200 mg/ Clozapine 25 (mg) 225 mg PO BEDTIME JAIRO Stop: 11/01/24 09:00 Clozapine 200 mg/ Clozapine 50 (mg) 250 mg PO BEDTIME JAIRO Stop: 11/02/24 09:00 Clozapine 200 mg/ Clozapine 75 (mg) 275 mg PO BEDTIME JAIRO Hydroxyzine HCl (Hydroxyzine Hcl 25 Mg Tablet) 25 mg PO Q6H PRN PRN Reason: mild anxiety Last Admin: 10/28/24 21:03 Dose: 25 mg Magnesium Hydroxide (Milk Of Magnesia 30 Ml Oral.Susp) 30 ml PO DAILY PRN PRN Reason: Constipation Multi-Ingred Cream/Lotion/Oil/Oint (Mineral Oil/Petrolatum,White 106 Gm Tube) 1 appl TOPICAL BID JAIRO; Protocol Last Admin: 10/30/24 20:42 Dose: Not Given Nicotine (Nicotine 14 Mg Patch.Td24) 14 mg TRANSDERMA DAILY PRN PRN Reason: Nicotine Cravings Nicotine Polacrilex (Nicotine Polacrilex 2 Mg Gum) 2 mg BUCCAL Q2H PRN PRN Reason: Nicotine Cravings Senna/Docusate Sodium (Sennosides/Docusate Sodium Tablet) 2 tab PO BEDTIME JAIRO Last Admin: 10/30/24 20:37 Dose: 2 tab Trazodone HCl (Trazodone Hcl 50 Mg Tablet) 50 mg PO BEDTIME MRX1 PRN PRN Reason: Insomnia Last Admin: 10/30/24 20:38 Dose: 50 mg Allergies Allergies Allergy/AdvReac Type Severity Reaction Status Date / Time orange Allergy Intermediate RASH Verified 10/22/24 00:04 Pollen Allergy Intermediate congestion Uncoded 10/22/24 00:04 Assessment & Plan Assessment & Plan (1) Schizophrenia: Qualifiers: Schizophrenia type: unspecified Qualified Code(s): F20.9 - Schizophrenia, unspecified Status: Inactive Code(s): F20.9 - Schizophrenia, unspecified (2) Cholinergic crisis: Status: Resolved Code(s): G70.89 - Other specified myoneural disorders Plan HPI: Mr. 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 Pt was brought to [facility] ED by family as pt presented with difficulty speaking, twitching of his face. He reported he stopped taking usual dose of clozapine 300mg po qhs 5 days ago due to sedation. ED attending described patient presenting as restless, with dysarthria. Head CT which was negative for acute pathology hemorrhagic or ischemic. He also had CTA of neck/head, also negative for acute findings. psychiatry asked to assessed for withdrawal effects of clozapine. He was admitted medically and once he was medically cleared he was transferred to our unit yesterday. He was brought by family due to inability to speak, restless, twitching of the face. In the ED, he had head CT/ CTA which was negative. Pt had reported he stopped taking clozapine usual dose 300mg po qhs due to sedation about 5 days ago. 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 Symptoms include: nausea, vomiting, dysarthria, dystonia, myoclonus, diaphoresis. Treatment of these symptoms include addition of anticholigernic medication. He was started on Clozaril 25 mg to be increased every 1 or 2 days since it has not been too long since discontinuation. Today we increased it to 50 mg b.i.d.. CBCs have been within range. He does admit to auditory hallucinations, sometimes command in nature to hurt himself but he has never done so. No history of substance abuse. No history of violence. Hospital course: 10/26 pt says he's feeling much happier now. He said he stopped taking clozapine thinking he might be happier without it, but realizes he still needs it and is happier on it. Pt feels safe on the unit. He denies any SI. Pt says he no longer has any AH. 10/27 patient continues to report he is doing better and remains without any AH. Agrees to continued clozapine titration 10/28 pt reported AH last night saying burn that shit down...plan genocide...you're talking the blame... He says this is first time in days that he's had any AH. Patient agrees to remain on the unit longer for continue titration of clozapine; social work talked with patient's family who agrees that this is the best plan -typewriter ribbon winder learned that patient was recently switch to different outpatient provider; clarified with social work 10/29 Patient continues to hear auditory hallucinations throughout the day that say .. .It is illegal.... No sleep. Assignment Officer discussed the origin of these was that his mind was playing tricks on him, that was due to a psychiatric illness and that is. What the medication is for.. Patient knew that is the medication helped with the voices but did not seem to realize it was his mind playing tricks on him and thinking they are real... Patient said he accepted typewriter ribbon winder's explanation but appeared to be a little skeptical. At any rate he said he is not scared of the voices. Discussed dispo and patient agrees to remain on the unit to continue titration of clozapine. Reports sleeping well 10/30 continued, intermittent AH that kept me up all night... he says however, once he fell asleep he slept through the night. Discussed ongoing AH which do bother him, however patient does not want to add any extra medication to deal with it, but just to continue titration of Clozapine. 10/31 CTP PLAN: CV q15 clozapine: continue titration of 25mg daily until reach home dose 300 mg q.h.s. monitor QTC; Monitor ANC Patient educated on: medication risk/benefits Informed Consent: understands Reason for continued inpatient stay Substantial Risk for: rapid decompensation and med/psych decompensation Time Spent With Patient Time: Total time managing care of this patient today ____ minutes.
[2024-10-31] MEDS: Atorvastatin Calcium 20 MG TABLET PO (08:36)
[2024-10-31] MEDS: Benztropine Mesylate 1 MG TABLET PO ×2 (08:37→20:59)
[2024-10-31 20:00] VITALS: BP 166/90; PULSE 118; TEMP 36.5; O2SAT 96
[2024-10-31] MEDS: cloZAPine 200 MG, cloZAPine 25 MG 225 MG PO (20:57)
[2024-10-31] MEDS: traZODone HCL 50 MG TABLET PO (20:59)
[2024-11-01 08:00] VITALS: BP 139/72; PULSE 110; RESP 16; TEMP 36.4; O2SAT 95
[2024-11-01] MEDS: Benztropine Mesylate 1 MG TABLET PO ×2 (08:27→20:32)
[2024-11-01] MEDS: Atorvastatin Calcium 20 MG TABLET PO (08:27)
--- NOTE | 2024-11-01 11:38 | P.PNPSI_ITS ---
Subjective Subjective Date of Service: 11/01/24 Reason For Visit: Scizophrenia Subjective Notes: Conditional Voluntary Healthcare Proxy: No Guardianship: No Medical Problems Affecting Mental Status: No Interim History: 49 yo reporting he is doing ok - less ah- and no tongue thickening - asking about dc thinks today is Saturday- denies sib or si Medication Compliance: Yes Side effects from medications: No Attending Groups: No Review of Systems Acute medical concerns: No Medical Review of Systems: unchanged Mental Status Exam Mental Status Exam Patient Appearance: Disheveled and Unkempt Patient Orientation: Person, Place and Situation Level of Consciousness: Awake Patient Behavior: Appropriate and Guarded Mood Description: Apprehensive Affect Description: Blunted Patient Cognition Impaired: Yes Ability to Follow Directions: Fair Speech Pattern: Poor Articulation Hallucinations: Auditory (denies currently) Thought Process: Intact Thought Content: positive for [place] Judgement: Fair Diagnostics Vital Signs (24Hr): Vital Signs - 24 hr 10/31/24 20:00 11/01/24 08:00 Temperature 97.7 F 97.6 F Pulse Rate 118 H 110 H Respiratory Rate 16 Blood Pressure 166/90 H 139/72 Pulse Oximetry 96 95 Oxygen Delivery Method Room Air BMI result Body Mass Index 20.7 Labs 10/25/24 07:45 Medications Medications Current Medications Acetaminophen (Acetaminophen 325 Mg Tablet) 650 mg PO Q6H PRN PRN Reason: Headache/Pain, Scale 1-10 Al Hydroxide/Mg Hydroxide (Magnesium Hydrox/Alum Hydrox 30 Ml Oral.Susp) 30 ml PO Q6H PRN PRN Reason: Heartburn/Nausea Atorvastatin Calcium (Atorvastatin Calcium 20 Mg Tablet) 20 mg PO DAILY [facility] Last Admin: 11/01/24 08:27 Dose: 20 mg Benztropine Mesylate (Benztropine Mesylate 1 Mg Tablet) 1 mg PO BID JAIRO Last Admin: 11/01/24 08:27 Dose: 1 mg Clozapine 200 mg/ Clozapine 50 (mg) 250 mg PO BEDTIME JAIRO Stop: 11/02/24 09:00 Clozapine 200 mg/ Clozapine 75 (mg) 275 mg PO BEDTIME [facility] Hydroxyzine HCl (Hydroxyzine Hcl 25 Mg Tablet) 25 mg PO Q6H PRN PRN Reason: mild anxiety Last Admin: 10/28/24 21:03 Dose: 25 mg Magnesium Hydroxide (Milk Of Magnesia 30 Ml Oral.Susp) 30 ml PO DAILY PRN PRN Reason: Constipation Multi-Ingred Cream/Lotion/Oil/Oint (Mineral Oil/Petrolatum,White 106 Gm Tube) 1 appl TOPICAL BID JAIRO; Protocol Last Admin: 11/01/24 09:04 Dose: Not Given Nicotine (Nicotine 14 Mg Patch.Td24) 14 mg TRANSDERMA DAILY PRN PRN Reason: Nicotine Cravings Nicotine Polacrilex (Nicotine Polacrilex 2 Mg Gum) 2 mg BUCCAL Q2H PRN PRN Reason: Nicotine Cravings Senna/Docusate Sodium (Sennosides/Docusate Sodium Tablet) 2 tab PO BEDTIME JAIRO Last Admin: 10/31/24 22:02 Dose: Not Given Trazodone HCl (Trazodone Hcl 50 Mg Tablet) 50 mg PO BEDTIME MRX1 PRN PRN Reason: Insomnia Last Admin: 10/31/24 20:59 Dose: 50 mg Allergies Allergies Allergy/AdvReac Type Severity Reaction Status Date / Time orange Allergy Intermediate RASH Verified 10/22/24 00:04 Pollen Allergy Intermediate congestion Uncoded 10/22/24 00:04 Assessment & Plan Assessment & Plan (1) Schizophrenia: Qualifiers: Schizophrenia type: unspecified Qualified Code(s): F20.9 - Schizophrenia, unspecified Status: Acute Code(s): F20.9 - Schizophrenia, unspecified (2) Cholinergic crisis: Status: Resolved Code(s): G70.89 - Other specified myoneural disorders Plan HPI: Mr. 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 Pt was brought to [facility] ED by family as pt presented with difficulty speaking, twitching of his face. He reported he stopped taking usual dose of clozapine 300mg po qhs 5 days ago due to sedation. ED attending described patient presenting as restless, with dysarthria. Head CT which was negative for acute pathology hemorrhagic or ischemic. He also had CTA of neck/head, also negative for acute findings. psychiatry asked to assessed for withdrawal effects of clozapine. He was admitted medically and once he was medically cleared he was transferred to our unit yesterday. He was brought by family due to inability to speak, restless, twitching of the face. In the ED, he had head CT/ CTA which was negative. Pt had reported he stopped taking clozapine usual dose 300mg po qhs due to sedation about 5 days ago. 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 Symptoms include: nausea, vomiting, dysarthria, dystonia, myoclonus, diaphoresis. Treatment of these symptoms include addition of anticholigernic medication. He was started on Clozaril 25 mg to be increased every 1 or 2 days since it has not been too long since discontinuation. Today we increased it to 50 mg b.i.d.. CBCs have been within range. He does admit to auditory hallucinations, sometimes command in nature to hurt himself but he has never done so. No history of substance abuse. No history of violence. Hospital course: 10/26 pt says he's feeling much happier now. He said he stopped taking clozapine thinking he might be happier without it, but realizes he still needs it and is happier on it. Pt feels safe on the unit. He denies any SI. Pt says he no longer has any AH. 10/27 patient continues to report he is doing better and remains without any AH. Agrees to continued clozapine titration 10/28 pt reported AH last night saying burn that shit down...plan genocide...you're talking the blame... He says this is first time in days that he's had any AH. Patient agrees to remain on the unit longer for continue titration of clozapine; social work talked with patient's family who agrees that this is the best plan -technical proposal writer learned that patient was recently switch to different outpatient provider; clarified with social work 10/29 Patient continues to hear auditory hallucinations throughout the day that say .. .It is illegal.... No sleep. Eyeglass Frame Truer discussed the origin of these was that his mind was playing tricks on him, that was due to a psychiatric illness and that is. What the medication is for.. Patient knew that is the medication helped with the voices but did not seem to realize it was his mind playing tricks on him and thinking they are real... Patient said he accepted technical proposal writer's explanation but appeared to be a little skeptical. At any rate he said he is not scared of the voices. Discussed dispo and patient agrees to remain on the unit to continue titration of clozapine. Reports sleeping well 3/14 continued, intermittent AH that kept me up all night... he says however, once he fell asleep he slept through the night. Discussed ongoing AH which do bother him, however patient does not want to add any extra medication to deal with it, but just to continue titration of Clozapine. 10/31 CTP 11/01/CTP pt hoping for dc PLAN: CV q15 clozapine: continue titration of 25mg daily until reach home dose 300 mg q.h.s. monitor QTC; Monitor ANC Patient educated on: medication risk/benefits Informed Consent: understands and further education needed Reason for continued inpatient stay Substantial Risk for: rapid decompensation Time Spent With Patient Time: Total time managing care of this patient today ____ minutes.
[2024-11-01 19:40] VITALS: BP 139/70; PULSE 125; TEMP 37; O2SAT 96
[2024-11-01] MEDS: Sennosides/Docusate Sodium TABLET 2 TAB PO (20:31)
[2024-11-01] MEDS: traZODone HCL 50 MG TABLET PO (20:32)
[2024-11-01] MEDS: cloZAPine 200 MG, cloZAPine 50 MG 250 MG PO (20:32)
[2024-11-02 07:58] VITALS: BP 111/76; PULSE 107; RESP 18; TEMP 36.9; O2SAT 96
[2024-11-02] MEDS: Atorvastatin Calcium 20 MG TABLET PO (08:49)
[2024-11-02] MEDS: Benztropine Mesylate 1 MG TABLET PO ×2 (08:49→20:37)
--- NOTE | 2024-11-02 09:02 | P.PNPSI_ITS ---
Subjective Subjective Date of Service: 11/02/24 Reason For Visit: Scizophrenia Interim History: Met with patient; discussed with team; reviewed chart pt remains pleasant, calm; he reports continued AH of a lady saying various things, but he tries not to listen and feels he's mostly able to ignore it; says able to enjoy himself despite it. Pt would like to go home keno writer/runner discussed case with patients Sister hSawnee who says that some time ago (few months?) patient Clozapine was increased to 300mg which resulted in patient being lethargic, no longer attending to ADL's, not engaged with family and staying in bed most of day (prior to this, fully engaged with family, ADL's and enjoyed outings... Sister says she's not sure why dose was increased since he did not complain to her or family of hearing voices at lower dose...Shawnee visited patient on unit and reports he seems very much like his regular self and ready to come home. ordered Clozapine level Mental Status Exam Mental Status Exam Narrative: Pt is alert and oriented; behavior is cooperative, friendly and calm, childlike demeanor which is baseline; patient is not in distress; dressed in hospital attire, scruffy facial hair; mood is described as ok and affect congruent; eye contact appropriate; Speech is singsong (baseline) but normal rate, volume; not pressured; no psychomotor agitation/retardation present; thought process is concrete but organized; Thought content is on tx; otherwise pertinent to relevant topics and without any delusional content, paranoid ideations or grandiosity; denies any SI/HI. +AH throughout the day. Patients insight and judgment fair. Diagnostics Vital Signs (24Hr): Vital Signs - 24 hr 11/01/24 19:40 11/02/24 07:58 Temperature 98.6 F 98.5 F Pulse Rate 125 H 107 H Respiratory Rate 18 Blood Pressure 139/70 111/76 Pulse Oximetry 96 96 Oxygen Delivery Method Room Air Room Air BMI result Body Mass Index 20.7 Labs 10/25/24 07:45 Medications Medications Current Medications Acetaminophen (Acetaminophen 325 Mg Tablet) 650 mg PO Q6H PRN PRN Reason: Headache/Pain, Scale 1-10 Al Hydroxide/Mg Hydroxide (Magnesium Hydrox/Alum Hydrox 30 Ml Oral.Susp) 30 ml PO Q6H PRN PRN Reason: Heartburn/Nausea Atorvastatin Calcium (Atorvastatin Calcium 20 Mg Tablet) 20 mg PO DAILY [facility] Last Admin: 11/02/24 08:49 Dose: 20 mg Benztropine Mesylate (Benztropine Mesylate 1 Mg Tablet) 1 mg PO BID [facility] Last Admin: 11/02/24 08:49 Dose: 1 mg Clozapine 200 mg/ Clozapine 75 (mg) 275 mg PO BEDTIME [facility] Hydroxyzine HCl (Hydroxyzine Hcl 25 Mg Tablet) 25 mg PO Q6H PRN PRN Reason: mild anxiety Last Admin: 10/28/24 21:03 Dose: 25 mg Magnesium Hydroxide (Milk Of Magnesia 30 Ml Oral.Susp) 30 ml PO DAILY PRN PRN Reason: Constipation Multi-Ingred Cream/Lotion/Oil/Oint (Mineral Oil/Petrolatum,White 106 Gm Tube) 1 appl TOPICAL BID [facility]; Protocol Last Admin: 11/02/24 08:52 Dose: Not Given Nicotine (Nicotine 14 Mg Patch.Td24) 14 mg TRANSDERMA DAILY PRN PRN Reason: Nicotine Cravings Nicotine Polacrilex (Nicotine Polacrilex 2 Mg Gum) 2 mg BUCCAL Q2H PRN PRN Reason: Nicotine Cravings Senna/Docusate Sodium (Sennosides/Docusate Sodium Tablet) 2 tab PO BEDTIME [facility] Last Admin: 11/01/24 20:31 Dose: 2 tab Trazodone HCl (Trazodone Hcl 50 Mg Tablet) 50 mg PO BEDTIME MRX1 PRN PRN Reason: Insomnia Last Admin: 11/01/24 20:32 Dose: 50 mg Allergies Allergies Allergy/AdvReac Type Severity Reaction Status Date / Time orange Allergy Intermediate RASH Verified 10/22/24 00:04 Pollen Allergy Intermediate congestion Uncoded 10/22/24 00:04 Assessment & Plan Assessment & Plan (1) Schizophrenia: Qualifiers: Schizophrenia type: unspecified Qualified Code(s): F20.9 - Schizophrenia, unspecified Status: Acute Code(s): F20.9 - Schizophrenia, unspecified (2) Cholinergic crisis: Status: Resolved Code(s): G70.89 - Other specified myoneural disorders Plan HPI: Mr. 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 Pt was brought to [facility] ED by family as pt presented with difficulty speaking, twitching of his face. He reported he stopped taking usual dose of clozapine 300mg po qhs 5 days ago due to sedation. ED attending described patient presenting as restless, with dysarthria. Head CT which was negative for acute pathology hemorrhagic or ischemic. He also had CTA of neck/head, also negative for acute findings. psychiatry asked to assessed for withdrawal effects of clozapine. He was admitted medically and once he was medically cleared he was transferred to our unit yesterday. He was brought by family due to inability to speak, restless, twitching of the face. In the ED, he had head CT/ CTA which was negative. Pt had reported he stopped taking clozapine usual dose 300mg po qhs due to sedation about 5 days ago. 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 Symptoms include: nausea, vomiting, dysarthria, dystonia, myoclonus, diaphoresis. Treatment of these symptoms include addition of anticholigernic medication. He was started on Clozaril 25 mg to be increased every 1 or 2 days since it has not been too long since discontinuation. Today we increased it to 50 mg b.i.d.. CBCs have been within range. He does admit to auditory hallucinations, sometimes command in nature to hurt himself but he has never done so. No history of substance abuse. No history of violence. Hospital course: 10/26 pt says he's feeling much happier now. He said he stopped taking clozapine thinking he might be happier without it, but realizes he still needs it and is happier on it. Pt feels safe on the unit. He denies any SI. Pt says he no longer has any AH. 10/27 patient continues to report he is doing better and remains without any AH. Agrees to continued clozapine titration 10/28 pt reported AH last night saying burn that shit down...plan genocide...you're talking the blame... He says this is first time in days that he's had any AH. Patient agrees to remain on the unit longer for continue titration of clozapine; social work talked with patient's family who agrees that this is the best plan -keno writer/runner learned that patient was recently switch to different outpatient provider; clarified with social work 10/29 Patient continues to hear auditory hallucinations throughout the day that say .. .It is illegal.... No sleep. Pot Reliner discussed the origin of these was that his mind was playing tricks on him, that was due to a psychiatric illness and that is. What the medication is for.. Patient knew that is the medication helped with the voices but did not seem to realize it was his mind playing tricks on him and thinking they are real... Patient said he accepted keno writer/runner's explanation but appeared to be a little skeptical. At any rate he said he is not scared of the voices. Discussed dispo and patient agrees to remain on the unit to continue titration of clozapine. Reports sleeping well 10/30 continued, intermittent AH that kept me up all night... he says however, once he fell asleep he slept through the night. Discussed ongoing AH which do bother him, however patient does not want to add any extra medication to deal with it, but just to continue titration of Clozapine. 11/02 pt remains pleasant, calm; he reports continued AH of a lady saying various things, but he tries not to listen and feels he's mostly able to ignore it; says able to enjoy himself despite it. Pt would like to go home keno writer/runner discussed case with patients Sister Shawnee who says that some time ago (few months?) patient Clozapine was increased to 300mg which resulted in patient being lethargic, no longer attending to ADL's, not engaged with family and staying in bed most of day (prior to this, fully engaged with family, ADL's and enjoyed outings... Sister says she's not sure why dose was increased since he did not complain to her or family of hearing voices at lower dose...Shawnee visited patient on unit and reports he seems very much like his regular self and ready to come home. -ordered Clozapine level Pt appears to be at baseline; he's in good behavioral and impulse control and appropriate with peers and staff. He's feeling good' and ready to go home, where he lives with his supportive family. Pt is not in imminent risk for harm to self/others and appropriate to return to the community for tx. PLAN: CV q15 clozapine 275mg qhs; will leave here since pt at baseline; higher dose seemed to have side-effects. monitor QTC; Monitor ANC Patient educated on: diagnosis and medication risk/benefits Informed Consent: understands Reason for continued inpatient stay Substantial Risk for: stable for discharge Time Spent With Patient Time: Total time managing care of this patient today ____ minutes.
[2024-11-02 09:33] LABS: Neut%MD 59.2 %; Neutrophils Absolute Auto 4.7 x10*3/uL (2.0-8.3); WBCANC 7.9 X10*3/uL
[2024-11-02 20:00] VITALS: BP 141/87; PULSE 112; RESP 16; TEMP 36.9; O2SAT 99
[2024-11-02] MEDS: Sennosides/Docusate Sodium TABLET 2 TAB PO (20:36)
[2024-11-02] MEDS: traZODone HCL 50 MG TABLET PO (20:37)
[2024-11-02] MEDS: Mineral Oil/Petrolatum,White 106 GM Tube 1 APPL TOPICAL (20:38)
[2024-11-03 08:00] VITALS: BP 123/64; PULSE 112; TEMP 36.5; O2SAT 98
[2024-11-03] MEDS: Atorvastatin Calcium 20 MG TABLET PO (08:35)
[2024-11-03] MEDS: Benztropine Mesylate 1 MG TABLET PO (08:35)
--- NOTE | 2024-11-03 09:20 | P.DS_ITS ---
DS: Providers Provider Date of Service: 11/03/24 Date of admission: 10/24/24 17:06 Date of discharge: 11/03/24 Primary care physician: Rikki Physician Attending physician on admission: Maggi Titus Attending physician on discharge: Forest Mark DS: Diagnosis Discharge Diagnosis (1) Schizophrenia: Status: Acute (2) Cholinergic crisis: Status: Resolved DS: Medications Discharge Medications Home Medications: Home Medications ?Medication ?Instructions ?Recorded ?Confirmed sennosides 8.6 mg-docusate sodium 2 tab PO BEDTIME 10/22/24 10/24/24 50 mg tablet (Senna Plus) simvastatin 40 mg tablet 40 mg PO DAILY 10/22/24 10/24/24 Previous Rx's ?Medication ?Instructions ?Recorded benztropine 1 mg tablet 1 mg PO BID #1 tab 10/24/24 clozapine 25 mg tablet 25 mg PO DAILY #1 tab 10/24/24 clozapine 25 mg tablet 50 mg (2 x 25 mg) PO BEDTIME #1 tab 10/24/24 Data Data Completed and Pending Completed studies during hospitalization [Text1]: 11/02/24 09:25 Absolute Neuts (auto) 4.7 Clozapine Pending Norclozapine Pending DS: Summary Hospital Course Hospital Course: HPI: Mr. 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 Pt was brought [place] [facility] [place] by family as pt presented with difficulty speaking, twitching of his face. He reported he stopped taking usual dose of clozapine 300mg po qhs 5 days ago due to sedation. ED attending described patient presenting as restless, with dysarthria. Head CT which was negative for acute pathology hemorrhagic or ischemic. He also had CTA of neck/head, also negative for acute findings. psychiatry asked to assessed for withdrawal effects of clozapine. He was admitted medically and once he was medically cleared he was transferred to our unit yesterday. He was brought by family due to inability to speak, restless, twitching of the face. In the ED, he had head CT/ CTA which was negative. Pt had reported he stopped taking clozapine usual dose 300mg po qhs due to sedation about 5 days ago. 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 Symptoms include: nausea, vomiting, dysarthria, dystonia, myoclonus, diaphoresis. Treatment of these symptoms include addition of anticholigernic medication. He was started on Clozaril 25 mg to be increased every 1 or 2 days since it has not been too long since discontinuation. Today we increased it to 50 mg b.i.d.. CBCs have been within range. He does admit to auditory hallucinations, sometimes command in nature to hurt himself but he has never done so. No history of substance abuse. No history of violence. Hospital course: 10/26 pt says he's feeling much happier now. He said he stopped taking clozapine thinking he might be happier without it, but realizes he still needs it and is happier on it. Pt feels safe on the unit. He denies any SI. Pt says he no longer has any AH. 10/27 patient continues to report he is doing better and remains without any AH. Agrees to continued clozapine titration 10/28 pt reported AH last night saying burn that shit down...plan genocide...you're talking the blame... He says this is first time in days that he's had any AH. Patient agrees to remain on the unit longer for continue titration of clozapine; social work talked with patient's family who agrees that this is the best plan -engineering writer learned that patient was recently switch to different outpatient provider; clarified with social work 10/29 Patient continues to hear auditory hallucinations throughout the day that say .. .It is illegal.... No sleep. Supervisor Train Operations discussed the origin of these was that his mind was playing tricks on him, that was due to a psychiatric illness and that is. What the medication is for.. Patient knew that is the medication helped with the voices but did not seem to realize it was his mind playing tricks on him and thinking they are real... Patient said he accepted engineering writer's explanation but appeared to be a little skeptical. At any rate he said he is not scared of the voices. Discussed dispo and patient agrees to remain on the unit to continue titration of clozapine. Reports sleeping well 10/30 continued, intermittent AH that kept me up all night... he says however, once he fell asleep he slept through the night. Discussed ongoing AH which do bother him, however patient does not want to add any extra medication to deal with it, but just to continue titration of Clozapine. 11/02 pt remains pleasant, calm; he reports continued AH of a lady saying various things, but he tries not to listen and feels he's mostly able to ignore it; says able to enjoy himself despite it. Pt would like to go home engineering writer discussed case with patients Sister Shawnee who says that some time ago (few months?) patient Clozapine was increased to 300mg which resulted in patient being lethargic, no longer attending to ADL's, not engaged with family and staying in bed most of day (prior to this, fully engaged with family, ADL's and enjoyed outings... Sister says she's not sure why dose was increased since he did not complain to her or family of hearing voices at lower dose...Shawnee visited patient on unit and reports he seems very much like his regular self and ready to come home. -ordered Clozapine level Pt appears to be at baseline; he's in good behavioral and impulse control and appropriate with peers and staff. He's feeling good' and ready to go home, where he lives with his supportive family. Pt is not in imminent risk for harm to self/others and appropriate to return to the community for tx. PLAN: CV q15 clozapine: continue titration of 25mg daily until reach home dose 300 mg q.h.s. monitor QTC; Monitor ANC Time Spent With Patient Time: Total time managing care of this patient today ____ minutes. Time Spent with Patient Time attestation: Total time managing care of this patient today ____ minutes. Discharge Plan Discharge Discharge Diagnosis: Schizophrenia Referrals: Physician,Unknown J [Primary Care Provider] - 1 Week Discharge Medications: No Action sennosides-docusate sodium [Senna Plus] 8.6-50 mg tablet 2 tab PO BEDTIME simvastatin 40 mg tablet 40 mg PO DAILY benztropine 1 mg Tablet 1 mg PO BID Qty: 1 0RF clozapine 25 mg Tablet 25 mg PO DAILY Qty: 1 0RF clozapine 25 mg Tablet 50 mg PO BEDTIME Qty: 1 0RF Discharge Orders: Discharge Order (Routine); Ordered 11/03/24 Ordered By: Forest Mark Diet: Regular diet Activity on Discharge: As tolerated Print Language: [place] Island[place] Care Plan Goals: Maintain mood and safe behaviors Take medications as prescribed Practice coping skills Continue with outpatient providers and reach out to them as needed Health Concerns: Mood stability and behaviors Plan of Treatment: Follow up with your PCP, psychiatric provider and other outpatient providers regarding above concerns Take medications as prescribed Assessment: Risk assessment at time of discharge:? Patient was interviewed prior to discharge and found to be fully oriented and without any SI or HI. Patient has improved insight and judgment and wants to continue treatment. Patient is not in imminent risk of harm to self or others and has a safety plan that includes presenting to the closest ER or calling 911 if feeling unsafe.? Patient has been observed closely by nursing and unit staff throughout admission; patient has not engaged in any behaviors that suggest dangerousness to self or others and has demonstrated appropriate behaviors and impulse control
[2024-11-05 18:13] LABS: Clozapine (Clozaril) 748 mcg/L; Norclozapine 281 mcg/L (25-400)
== END 2024-11-03 12:25 | disposition home or self-care (01) | DRG 750 ==
PROVIDERS: Psychiatry & Neurology Psychiatry; Admitting Provider Social Worker; Visit Provider Psychiatry & Neurology Psychiatry
DX: F20.9 Schizophrenia, unspecified (principal); G70.89 Other specified myoneural disorders; T42.4X6A Underdosing of benzodiazepines, initial encounter; Z79.899 Other long term (current) drug therapy
CPT/HCPCS: 36415; 80053; 80061; 80159; 85048; 93005

== ENCOUNTER 2024-10-24 17:06 | Outpatient (BNV) | payer OTHER, SELFPAY | END 2024-10-28 14:31 | PROVIDERS: Admitting Provider Social Worker; Visit Provider Internal Medicine | DX: Z13.6 Encounter for screening for cardiovascular disorders (principal) | CPT/HCPCS: 93010 ==

== ENCOUNTER → 2024-10-24 17:06 | Outpatient (BNV) | payer OTHER, SELFPAY | PROVIDERS: Admitting Provider Social Worker; Visit Provider Psychiatry & Neurology Psychiatry | DX: F20.9 Schizophrenia, unspecified (principal); G70.89 Other specified myoneural disorders | CPT/HCPCS: 99231; 99232 ==

== ENCOUNTER 2024-11-19 11:05 | Outpatient (REF) | payer OTHER, SELFPAY ==
[2024-11-19 12:30] LABS: Alanine Aminotransferase 20 U/L (0-40); Albumin Level 4.4 g/dL (3.5-5.0); Alkaline Phosphatase 85 U/L (39-117); Anion Gap 10 (12-20); Aspartate Amino Transferase 16 U/L (5-37); Bilirubin Total 0.2 mg/dL (0.0-1.0); Blood Urea Nitrogen 20 mg/dL (9-16); Carbon Dioxide 25 mmol/L (22-29); Chloride 111 mmol/L (96-108); Cholesterol 202 mg/dL (<200); Estimated Glomerular Filt Rate > 60; Glucose Random 105 mg/dL (60-115); HDL Cholesterol 51 mg/dL (>40); LDL Cholesterol Calculated 129 mg/dL (<100); Potassium 4.3 mmol/L (3.3-5.1); Sodium 142 mmol/L (135-145); Total Protein 7.5 g/dL (6.5-8.0); Triglycerides 110 mg/dL (<150)
== END 2024-11-19 11:06 | disposition home or self-care (01) ==
LOC: HO.LAB 11:05
DX: Z00.00 Encounter for general adult medical examination without abnormal findings (principal); E78.00 Pure hypercholesterolemia, unspecified; E78.5 Hyperlipidemia, unspecified
CPT/HCPCS: 36415; 80053; 80061

== ENCOUNTER 2024-12-17 10:04 | Outpatient (AMB) | payer OTHER, SELFPAY ==
[2024-12-17 10:06] VITALS: BP 120/82; PULSE 95; TEMP 36.2; O2SAT 99; BMI 20.7
--- NOTE | 2024-12-17 10:06 | A.OFFPC_ITS ---
Vital Signs 12/17/24 10:06 Height 5 ft 9 in Weight 140 lb BMI 20.7 BP 120/82 Blood Pressure Location Lt brachial Position Sitting Pulse 95 Pulse Source Pulse Oximeter Temp 97.1 F Temp Source Temporal Artery Scan Pulse Oximetry (%) 99 Oxygen Delivery Method Room Air Intake Visit Reasons: pe Pay Per Click Strategist Required: No Accompanied by: Mother Allergies orange Allergy (Intermediate, Verified 12/17/24 10:16) RASH Pollen Allergy (Intermediate, Uncoded 12/17/24 10:16) congestion Medication List - Last Reconciled 12/17/24 by Leticia aWrd PA-C benztropine 1 mg PO BID 30 days clozapine 25 mg PO BEDTIME 30 days clozapine 200 mg PO BEDTIME 30 days clozapine 50 mg PO BEDTIME 30 days sennosides-docusate sodium 8.6-50 mg (Senna Plus) 2 tabs PO BEDTIME 30 days simvastatin 40 mg PO DAILY 30 days trazodone 50 mg PO BEDTIME PRN 30 days Tobacco use date assessed: 09/18/24 Dental Screening Dental Screen Date: 09/18/24 HPI pe HPI Details 49-year-old male with past medical histo ry of hyperlipidemia and schizophrenia last seen 08/2024 coming in for annual exam.? In review of the notes, patient was seen in [facility] [place]24 for sudden neurological changes after abrupt discontinuation of Clozaril.? He was seen by Neurology who recommended EEG as outpatient and admitted to psych floor to titrate medications in a controlled environment. Presenting with the need for an annual wellness examination and medication management. History of Clozapine use with associated side effects; currently managed with Benztropine following an episode of dysphagia and hospitalization due to non-compliance in medication refills. Hypercholesterolemia noted with recent lab results, dietary discussions were conducted to help manage cholesterol levels. Additional support through participation in a structured program three times a week. [facility] Medical History Schizophrenia Cholinergic crisis Hyperlipidemia Surgical History No history of previous surgery Family History Other Mental health disorder Social History Household Members: Family Household Members Other:: Pt's mother, pt's sister, and pt's two nieces. Housing: House Do you presently have visiting nurse or other home services: No Patient Tobacco Use Status: Never used Tobacco Tobacco use type: Cigarette e-Cigarette/Vaping Use: Never Used Second Hand Smoke Exposure: No service: No Current occupational status: disabled Sexual orientation: Unable to collect Cognitive needs: Yes Hearing needs: No Vision needs: Yes Questionnaire PHQ-9 Over the last 2 weeks, how often have you been bothered by any of the following problems? 1. Little interest or pleasure in doing things: not at all 2. Feeling down, depressed, or hopeless: not at all 3. Trouble falling or staying asleep, or sleeping too much: not at all 4. Feeling tired or having little energy: not at all 5. Poor appetite or overeating: not at all 6. Feeling bad about yourself - or that you are a failure or have let yourself or your family down: not at all 7. Trouble concentrating on things, such as reading the newspaper or watching television: not at all 8. Moving or speaking so slowly that other people could have noticed. Or the opposite - being so fidgety or restless that you have been moving around a lot more than usual: not at all 9. Thoughts that you would be better off or of hurting yourself in some way: not at all Total score: 0 Depression Screening Interpretation: Negative Depression Screening Done: Yes 35408 - PHQ-9 Billing: Yes Source: Developed by Drs. Reyes Hinojosa, Luiza Parkinson, David Cash and colleagues, with an educational lev from [employer]. Thrive Questionnaire Date Thrive assessed: 12/17/24 I am a: Patient What is your living situation today?: I have a steady place to live Within the past 12 months, did the food you bought not last and you didn't have the money to get more?: Never true Within the past 12 months, did you worry whether your food would run out before you got money to buy more?: Never true Do you have trouble paying for medicines?: No Do you have trouble getting transportation to medical appointments?: No Do you have trouble paying your heating and electricity bill?: No Do you have trouble taking care of your child, family member or friend?: No Do you have trouble with day-to-day activities such as bathing, preparing meals, shopping, managing finances, etc.?: No Are you currently unemployed and looking for a job?: Yes Are you interested in more education?: No Please select the resources that you would like help with: None Currently or been in a relationship where the following occur: No concerns reported THRIVE Score: 0 AUDIT C Alcohol Use Questionnaire (AUDIT-C) 1. How often do you have a drink containing alcohol?: Never 3. How often do you have six or more drinks on one occasion?: Never Total Score: 0 WES-7 AMB Questionnaire WES-7 Date WES - 7 assessed: 12/17/24 Feeling nervous, anxious, or on edge: 0 = Not at all Not being able to stop or control worryin = Not at all Worrying too much about different things: 0 = Not at all Trouble relaxin = Not at all Being so restless that it is hard to sit still: 0 = Not at all Becoming easily annoyed or irritable: 0 = Not at all Feeling afraid as if something awful might happen: 0 = Not at all Total WES-7 score (0-4 normal; 5-9 mild; 10-14 moderate; 15-21 severe): 0 Source: Developed by Drs. Reyes Hinojosa, Luiza Parkinson, David Cash and colleagues, with an educational lev from [employer]. WES-7 Assessment Billing WES-7 Assessment Tool: WES-7 Assessment 11161 Review of Systems Const Denies body aches, Denies chills, Denies fever(s), Denies headache(s) and Denies poor appetite Eyes Reports no additional complaints ENT Denies dysphagia, Denies dizziness, Denies headache(s) and Denies odynophagia Card Denies chest pain, Denies syncope, Denies edema, Denies irregular heart rhythm, Denies lightheadedness and Denies dyspnea Resp Denies cough and Denies dyspnea GI Denies abdominal pain, Denies dysphagia, Denies diarrhea, Denies nausea, Denies odynophagia and Denies vomiting Reports no additional complaints Musc Reports no additional complaints and Denies abnormal gait Skin/Breast Reports system reviewed and no additional complaints, except as documented Neuro Denies abnormal gait, Denies dizziness, Denies syncope and Denies headache(s) Psych Reports no additional complaints Physical exam (Primary Care) Vital Signs: Last Vital Signs Temp 97.1 F 12/17/24 10:06 Pulse 95 12/17/24 10:06 BP 120/82 12/17/24 10:06 Pulse Ox 99 12/17/24 10:06 Oxygen Delivery Method Room Air 12/17/24 10:06 BMI result Body Mass Index 20.7 Tobacco/Smoking Status: Tobacco use Status Tobacco use date assessed 09/18/24 12/17/24 10:10 Patient Tobacco Use Status Never used Tobacco 12/17/24 10:10 Tobacco use type Cigarette 12/17/24 10:10 e-Cigarette/Vaping Use Never Used 12/17/24 10:10 PHQ-9: PHQ-9 Score PHQ-9: Total score 0 12/17/24 10:10 Depression Screening Interpretation: Negative Thrive Assessment: Date of Thrive Assessment Date Thrive assessed 12/17/24 12/17/24 10:10 Currently or been in a relationship where the following occur: No concerns reported Const General: cooperative, healthy appearing, comfortable and no acute distress Orientation/consciousness: patient oriented x3 HENMT Head: Yes normocephalic Ears: hearing grossly normal bilaterally General nose exam: Normal external nose present Eyes General: appearance normal, both eyes and all related structures Conjunctivae: conjunctivae normal Neck Neck: Yes full ROM and Yes no lymphadenopathy Resp Effort & Inspection: normal respiratory effort Auscultation: clear to auscultation bilaterally, no crackles, no rales, no rhonchi and no wheezes Cardio Rate: regular rate Rhythm: regular rhythm Skin General skin exam: no rashes or lesions noted Neuro General: patient oriented x3 Gait exam (Neuro): Normal gait present Extrem General: Yes normal to inspection, Yes full ROM and No edema Psych Affect: normal affect Attitude: cooperative Insight: Good insight present (Psych) Judgement: Good judgement present (Psych) Coding Level of Care Code Est Pt Prev Care 40-64y(63135) Diagnoses Schizophrenia F20.9 Schizophrenia type: unspecified Dermatitis L30.9 Mixed hyperlipidemia E78.2 Hyperlipidemia type: mixed hyperlipidemia Physical exam Z00.00 Additional Codes WES-7 Assessment Billing - WES-7 Assessment Tool: WES-7 Assessment 52956 ([id number]) PHQ-9 - 01855 - PHQ-9 Billing: Yes ([id number]) Assessment & Plan Assessment & Plan (1) Schizophrenia: Code(s): F20.9 - Schizophrenia, unspecified Category: Medical Qualifiers: Schizophrenia type: unspecified Qualified Code(s): F20.9 - Schizophrenia, unspecified Plan: Patient currently following with psychiatrist and counselor. Feels well on his clozapine has no acute concerns today. (2) Dermatitis: Code(s): L30.9 - Dermatitis, unspecified Category: Medical Plan: Patient's dermatitis has largely resolved with the use of prescription cream. Advised patient to continue to monitor symptoms at this time. (3) Hyperlipidemia: Code(s): E78.5 - Hyperlipidemia, unspecified Category: Medical Qualifiers: Hyperlipidemia type: mixed hyperlipidemia Qualified Code(s): E78.2 - Mixed hyperlipidemia Plan: Avoid foods that are high in cholesterol such as red meat, fried foods, eggs and baked goods. Triglyceride goal of less than 150 and LDL goal of less than 130. Continue on simvastatin 40 mg. Cholesterol slightly elevated at LDL 129 discussed dietary modification and plan to repeat labs in 3 months. (4) Physical exam: Code(s): Z00.00 - Encounter for general adult medical examination without abnormal findings Category: Medical Plan: Patient is up-to-date on all recommended routine screenings and vaccinations for his age. He has not yet had colorectal I did discuss all options today patient would like to opt for Cologuard box with the understanding if it is positive we do recommend a colonoscopy. Blood work is up-to-date and has been reviewed today with the patient. Plan to follow up again in 3 months. Plan The patient?s wellness visit centered around his mental health medication management, accompanied by side effects monitoring. Clozapine and Benztropine regimens were evaluated, with an emphasis on medication compliance to avoid episodes like tongue swelling or hospitalization. Additionally, I guided the patient on lifestyle changes to lower cholesterol levels, such as dietary modifications. Colorectal cancer screening was discussed, with the patient opting for the Cologuard method. A structured follow-up in three months is planned to re-evaluate cholesterol and overall health as part of ongoing care. This note was constructed using voice recognition software. While every effort has been made to ensure accuracy and asset protection agent, still areas may have been included sometimes these areas may affect the content or meeting of the given symptoms. Total time spent caring for the patient today was 30 minutes. This includes time spent before the visit reviewing the chart, time spent during the visit, and time spent after the visit and documentation. Patient was informed a nd verbally consented to the use of an ambient scribe for clinic note documentation during this visit. Orders: Orders Lipid Panel Today E78.00 - Pure hypercholesterolemia, unspecified Referrals Cologuard Test Z12.11 - Encounter for screening for malignant neoplasm of colon, Z12.12 - Encounter for screening for malignant neoplasm of rectum
== END 2024-12-17 10:47 | disposition home or self-care (01) ==
LOC: HO.HMCH 10:04
PROVIDERS: PCP Internal Medicine
DX: F20.9 Schizophrenia, unspecified (principal); L30.9 Dermatitis, unspecified; E78.2 Mixed hyperlipidemia; Z00.00 Encounter for general adult medical examination without abnormal findings

== ENCOUNTER → 2024-12-17 10:04 | Outpatient (BNVA) | payer OTHER, SELFPAY | PROVIDERS: PCP Internal Medicine | DX: Z00.00 Encounter for general adult medical examination without abnormal findings (principal); F20.9 Schizophrenia, unspecified; L30.9 Dermatitis, unspecified; E78.2 Mixed hyperlipidemia; Z79.899 Other long term (current) drug therapy | CPT/HCPCS: 96127; 99396 ==

== ENCOUNTER 2025-06-30 13:37 | Outpatient (AMB) | payer OTHER, SELFPAY ==
[2025-06-30 14:23] VITALS: BP 140/80; PULSE 110; TEMP 36.3; O2SAT 98; BMI 23.3
--- NOTE | 2025-06-30 14:23 | MHC.PC.OV ---
Vital Signs 06/30/25 14:23 06/30/25 14:51 Height 5 ft 9 in Weight 158 lb BMI 23.3 BP 140/80 H 110/78 Blood Pressure Location Lt brachial Lt brachial Position Sitting Sitting Pulse 110 H Pulse Source Pulse Oximeter Temp 97.3 F Temp Source Temporal Artery Scan Pulse Oximetry (%) 98 Oxygen Delivery Method Room Air Intake Visit Reasons: 3 mo f/u RE Carpenter Rough Required: No Accompanied by: Mother Allergies orange Allergy (Intermediate, Verified 06/30/25 14:24) RASH Pollen Allergy (Intermediate, Uncoded 12/17/24 10:16) congestion Medication List - Last Reconciled 06/30/25 by Leticia Ward PA-C benztropine 1 mg PO BID 30 days clozapine 25 mg PO BEDTIME 30 days clozapine 200 mg PO BEDTIME 30 days clozapine 50 mg PO BEDTIME 30 days sennosides-docusate sodium 8.6-50 mg (Senna Plus) 2 tabs PO BEDTIME 30 days simvastatin 40 mg PO DAILY trazodone 50 mg PO BEDTIME PRN 30 days Tobacco use date assessed: 06/30/25 Dental Screening Dental Screen Date: 06/30/25 Did you have a dental visit in the last 12 months?: No Did you have a dental problem in the last 6 months where you did not have access to dental care?: No Was dental information given to patient?: No HPI 3 mo f/u RE HPI Details 49-year-old male with past medical history of hyperlipidemia and schizophrenia last seen 12/2024 coming in for follow up.? Presenting for a follow-up on his chronic conditions. Regarding his cholesterol, the patient reports a diet that has included a lot of pepperonis, cheese, and hamburgers. He is prescribed simvastatin, likely 40 mg, but he may have run out of his medication. He receives assistance with medication administration in the mornings from a VNA and from his sister on weekends. [facility] Medical History Schizophrenia Cholinergic crisis Hyperlipidemia Surgical History No history of previous surgery Family History Other Mental health disorder Social History Household Members: Family Household Members Other:: Pt's mother, pt's sister, and pt's two nieces. Housing: House Do you presently have visiting nurse or other home services: No Patient Tobacco Use Status: Never used Tobacco Tobacco use type: Cigarette e-Cigarette/Vaping Use: Never Used Second Hand Smoke Exposure: No service: No Current occupational status: disabled Sexual orientation: Unable to collect Cognitive needs: Yes Hearing needs: No Vision needs: Yes Questionnaire PHQ-9 Over the last 2 weeks, how often have you been bothered by any of the following problems? 1. Little interest or pleasure in doing things: not at all 2. Feeling down, depressed, or hopeless: not at all 3. Trouble falling or staying asleep, or sleeping too much: not at all 4. Feeling tired or having little energy: not at all 5. Poor appetite or overeating: not at all 6. Feeling bad about yourself - or that you are a failure or have let yourself or your family down: not at all 7. Trouble concentrating on things, such as reading the newspaper or watching television: not at all 8. Moving or speaking so slowly that other people could have noticed. Or the opposite - being so fidgety or restless that you have been moving around a lot more than usual: not at all 9. Thoughts that you would be better off or of hurting yourself in some way: not at all Total score: 0 Depression Screening Interpretation: Negative Depression Screening Done: Yes Source: Developed by Drs. Reyes Hinojosa, Luiza Parkinson, David Cash and colleagues, with an educational lev from [employer]. Thrive Questionnaire Date Thrive assessed: 12/17/24 I am a: Patient What is your living situation today?: I have a steady place to live Within the past 12 months, did the food you bought not last and you didn't have the money to get more?: Never true Within the past 12 months, did you worry whether your food would run out before you got money to buy more?: Never true Do you have trouble paying for medicines?: No Do you have trouble getting transportation to medical appointments?: No Do you have trouble paying your heating and electricity bill?: No Do you have trouble taking care of your child, family member or friend?: No Do you have trouble with day-to-day activities such as bathing, preparing meals, shopping, managing finances, etc.?: No Are you currently unemployed and looking for a job?: Yes Are you interested in more education?: No Please select the resources that you would like help with: None Currently or been in a relationship where the following occur: No concerns reported THRIVE Score: 0 AUDIT C Alcohol Use Questionnaire (AUDIT-C) 1. How often do you have a drink containing alcohol?: Never 3. How often do you have six or more drinks on one occasion?: Never Total Score: 0 WES-7 AMB Questionnaire WES-7 Date WES - 7 assessed: 12/17/24 Feeling nervous, anxious, or on edge: 0 = Not at all Not being able to stop or control worryin = Not at all Worrying too much about different things: 0 = Not at all Trouble relaxin = Not at all Being so restless that it is hard to sit still: 0 = Not at all Becoming easily annoyed or irritable: 0 = Not at all Feeling afraid as if something awful might happen: 0 = Not at all Total WES-7 score (0-4 normal; 5-9 mild; 10-14 moderate; 15-21 severe): 0 Source: Developed by Drs. Reyes Hinojosa, Luiza Parkinson, David Cash and colleagues, with an educational lev from [employer]. Review of Systems Const Denies body aches, Denies chills, Denies fever(s), Denies headache(s) and Denies poor appetite Eyes Reports no additional complaints ENT Denies dysphagia, Denies dizziness, Denies headache(s) and Denies odynophagia Card Denies chest pain, Denies syncope, Denies edema, Denies irregular heart rhythm, Denies lightheadedness and Denies dyspnea Resp Denies cough and Denies dyspnea GI Denies abdominal pain, Denies constipation, Denies dysphagia, Denies diarrhea, Denies nausea, Denies odynophagia and Denies vomiting Reports no additional complaints Musc Reports no additional complaints and Denies abnormal gait Skin/Breast Reports system reviewed and no additional complaints, except as documented Neuro Denies abnormal gait, Denies dizziness, Denies syncope and Denies headache(s) Psych Reports no additional complaints Physical exam (Primary Care) Vital Signs: Last Vital Signs Temp 97.3 F 06/30/25 14:23 Pulse 110 H 06/30/25 14:23 BP 140/80 H 06/30/25 14:23 Pulse Ox 98 06/30/25 14:23 Oxygen Delivery Method Room Air 06/30/25 14:23 BMI result Body Mass Index 23.3 Tobacco/Smoking Status: Tobacco use Status Tobacco use date assessed 06/30/25 06/30/25 14:27 Patient Tobacco Use Status Never used Tobacco 06/30/25 14:27 Tobacco use type Cigarette 06/30/25 14:27 e-Cigarette/Vaping Use Never Used 06/30/25 14:27 PHQ-9: PHQ-9 Score PHQ-9: Total score 0 06/30/25 14:27 Depression Screening Interpretation: Negative Thrive Assessment: Date of Thrive Assessment Date Thrive assessed 12/17/24 06/30/25 14:27 Currently or been in a relationship where the following occur: No concerns reported Const General: cooperative, healthy appearing, comfortable and no acute distress Orientation/consciousness: patient oriented x3 HENMT Head: Yes normocephalic Ears: hearing grossly normal bilaterally General nose exam: Normal external nose present Eyes General: appearance normal, both eyes and all related structures Conjunctivae: conjunctivae normal Neck Neck: Yes full ROM and Yes no lymphadenopathy Resp Effort & Inspection: normal respiratory effort Auscultation: clear to auscultation bilaterally, no crackles, no rales, no rhonchi and no wheezes Cardio Rate: regular rate Rhythm: regular rhythm Skin General skin exam: no rashes or lesions noted Neuro General: patient oriented x3 Gait exam (Neuro): Normal gait present Extrem General: Yes normal to inspection, Yes full ROM and No edema Psych Affect: normal affect Attitude: cooperative Coding Level of Care Code Est Pt Level 3 (64362) Diagnoses Schizophrenia F20.9 Schizophrenia type: unspecified Mixed hyperlipidemia E78.2 Hyperlipidemia type: mixed hyperlipidemia Assessment & Plan Assessment & Plan (1) Schizophrenia: Code(s): F20.9 - Schizophrenia, unspecified Category: Medical Qualifiers: Schizophrenia type: unspecified Qualified Code(s): F20.9 - Schizophrenia, unspecified Plan: Patient currently following with psychiatrist and counselor. Feels well on his clozapine has no acute concerns today. (2) Hyperlipidemia: Code(s): E78.5 - Hyperlipidemia, unspecified Category: Medical Qualifiers: Hyperlipidemia type: mixed hyperlipidemia Qualified Code(s): E78.2 - Mixed hyperlipidemia Plan: Avoid foods that are high in cholesterol such as red meat, fried foods, eggs and baked goods. Triglyceride goal of less than 150 and LDL goal of less than 130. Continue on simvastatin 40 mg. Cholesterol slightly elevated at LDL 129 discussed dietary modification. He has been out of his Simvastatin for the last several months plan to restart and repeat labs in 3 months. Plan This note was constructed using voice recognition software. While every effort has been made to ensure accuracy and utility assembler, still areas may have been included sometimes these areas may affect the content or meeting of the given symptoms. Total time spent caring for the patient today was 10 minutes. This includes time spent before the visit reviewing the chart, time spent during the visit, and time spent after the visit and documentation. Patient was informed and verbally consented to the use of an ambient scribe for clinic note documentation during this visit. Medications: Changed From simvastatin take 1 tablet every day 40 mg PO DAILY 30 days 30 tabs 1RF To simvastatin take 1 tablet every day 40 mg PO DAILY 90 tabs 1RF
[2025-06-30 14:51] VITALS: BP 110/78
--- OUTSIDE RECORDS SUMMARY | 2025-07-22 19:00 | XMS_ITS | Clinical Summary ---
Author Organization Unknown Care Team Providers Care Scientific Artist Name Role Phone CALVIN ARAIZA Unavailable Unavailable ALONZO HERNANDEZ, SREE Unavailable Unavailable Payers Payer Name Policy Type Policy Number Effective Date Expira tion Date [facility] [place] [place] [facility] [id number] MEDICAID [place] [id number] Problems Condition Name Condition Details Condition Category Status Onset Date Resolution Date Last Treatment Date Treating Clinician Comments SCHIZOPHRENI A, UNSPECIFIED Active 2022-08 00:00: 00 UNSP PSYCHOSIS NOT DUE TO A SUBSTANCE OR KNOWN PHYSIOL COND Active 2022-08 0 00:00: 00 Allergies, Adverse Reactions, Alerts Allergy [...] clozapine 200 mg tablet 2022-08 00:00: 00 03-28 23:59 :00 No [id number] 200 mg DAILY 200 mg DAILY (route: oral) Med Classific ation: Central Nervous System Agents Clozaril 100 mg tablet 2022-08 00:00: 00 03-28 23:59 :00 No [id number] 100 mg DAILY 100 mg DAILY (route: oral) Med Classific ation: Central Nervous System Agents sennosides 8.6 mg tablet 2022-08 00:00: 00 Yes [id number] 8.6 mg 2 TIMES DAILY 8.6 mg 2 TIMES DAILY (route: oral) Med Classific ation: Gastroint estinal Therapy Agents benztropine 1 mg tablet -10 00:00: 00 Yes [id number] 1 mg 2 TIMES DAILY 1 mg 2 TIMES DAILY (route: oral) Med Classific ation: Central Nervous System Agents clozapine 200 mg tablet 03-28 00:00: 00 Yes [id number] 1 tablet DAILY 1 tablet DAILY (route: oral) Med Classific ation: Central Nervous System Agents clozapine 25 mg tablet 03-28 00:00: 00 Yes [id number] 1 tablet DAILY 1 tablet DAILY (route: oral) Med Classific ation: Central Nervous System Agents Clozaril 50 mg tablet 03-28 00:00: 00 Yes [id number] 1 tablet DAILY 1 tablet DAILY (route: oral) Med Classific ation: Central Nervous System Agents simvastatin 40 mg tablet 03-28 00:00: 00 Yes [id number] 1 tablet BEDTIME 1 tablet BEDTIME (route: oral) Med Classific ation: Cardiovas cular Therapy Agents Vital Signs Vital Name Observation Time Observation Value Commen ts Temperature 2025-06-29 11:03:00.000 97.9 [degF] Temperature 2025-06-28 10:11:00.000 97.4 [degF] Temperature 2025-06-27 10:49:00.000 97.6 [degF] Temperature 2025-06-26 11:38:00.000 97.5 [degF] Temperature 2025-06-25 10:49:00.000 97.8 [degF] Temperature 2025-06-24 11:24:00.000 97.5 [degF] Temperature 2025-06-23 10:08:00.000 97.5 [degF] Temperature 2025-06-22 10:46:00.000 97.6 [degF] Temperature 2025-06-21 10:16:00.000 97.5 [degF] Temperature 2025-06-20 10:21:00.000 97.5 [degF] Temperature 2025-06-19 10:34:00.000 97.5 [degF] Temperature 2025-06-18 10:54:00.000 97.4 [degF] Temperature 2025-06-17 10:14:00.000 97.6 [degF] Temperature 2025-06-16 10:21:00.000 97.5 [degF] Temperature 2025-06-15 10:30:00.000 97.4 [degF] Temperature 2025-06-14 10:08:00.000 97.5 [degF] Temperature 2025-06-13 10:47:00.000 97.7 [degF] Temperature 2025-06-12 10:38:00.000 97.4 [degF] Temperature 2025-06-11 10:31:00.000 97.9 [degF] Temperature 2025-06-10 10:13:00.000 98 [degF] Temperature 2025-06-09 10:41:00.000 97.4 [degF] Temperature 2025-06-08 10:31:00.000 97.5 [degF] Temperature 2025-06-07 10:42:00.000 97.5 [degF] Temperature 2025-06-06 10:01:00.000 97.5 [degF] Temperature 2025-06-05 09:36:00.000 97.8 [degF] Temperature 2025-06-04 09:55:00.000 97.5 [degF] Temperature 2025-06-03 09:52:00.000 97.6 [degF] Temperature 2025-06-02 10:00:00.000 98 [degF] Temperature 2025-06-01 10:41:00.000 97.5 [degF] Temperature 2025-05-31 10:22:00.000 97.5 [degF] Temperature 2025-05-30 09:47:00.000 97.5 [degF] Temperature 2025-05-29 10:54:00.000 97.5 [degF] Temperature 2025-05-28 10:41:00.000 97.5 [degF] Temperature 2025-05-27 10:01:00.000 97.8 [degF] Temperature 2025-05-26 10:15:00.000 97.5 [degF] Temperature 2025-05-25 10:25:00.000 97.6 [degF] Plan of Treatment Planned Activity Planned [...] HEALTH.] Future Scheduled Test SKILLED NU RSE FOR MEDICATION ADMINISTRATION PER MEDICATION LIST TO BE PERFORMED DAILY [code = SKILLED NURSE FOR MEDICATION ADMINISTRATION PER MEDICATION LIST TO BE PERFORMED DAILY] Future Scheduled Test SKILLED NU RSE TO PRE-POUR MEDICATION PER MEDICATION LIST TILL NEXT FPC VISIT [code = SKILLED NURSE TO PRE-POUR MEDICATION PER MEDICATION LIST TILL NEXT FPC VISIT] Future Scheduled Test SKILLED NU RSE TO O/A OF PATIENTS MENTAL/BEHAVIORAL STATUS, ASSESS VITAL SIGNS WEEKLY. ALLOW 2 PRNS FOR MEDICATION MANAGEMENT. [code = SKILLED NURSE TO O/A OF PATIENTS MENTAL/BEHAVIORAL STATUS, ASSESS VITAL SIGNS WEEKLY. ALLOW 2 PRNS FOR MEDICATION MANAGEMENT.] Future Scheduled Test SKILLED NU RSE FOR O/A OF PATIENT'S RISK FOR VIOLENCE (TOWARD SELF OR OTHERS) AND TO PROVIDE INTERVENTION TECHNIQUES TO PROMOTE SAFETY TO PATIENT AND OTHERS [code = SKILLED NURSE FOR O/A OF PATIENT'S RISK FOR VIOLENCE (TOWARD SELF OR OTHERS) AND TO PROVIDE INTERVENTION TECHNIQUES TO PROMOTE SAFETY TO PATIENT AND OTHERS] Future Scheduled Test SKILLED NU RSE FOR O/A OF NEUROCOGNITIVE AND BEHAVIORAL STATUS [code = SKILLED NURSE FOR O/A OF NEUROCOGNITIVE AND BEHAVIORAL STATUS] Future Scheduled Test SKILLED NU RSE FOR O/A OF ALTERED THOUGHT PROCESS AND/OR DISRUPTION IN COGNITIVE OPERATIONS AND ACTIVITIES [code = SKILLED NURSE FOR O/A OF ALTERED THOUGHT PROCESS AND/OR DISRUPTION IN COGNITIVE OPERATIONS AND ACTIVITIES] Future Scheduled Test MEDICATION S WILL BE HELD AND STORED IN LOCKBOX [code = MEDICATIONS WILL BE HELD AND STORED IN LOCKBOX] Future Scheduled Test SKILLED NU RSE FOR O/A OF GENERAL HEALTH STATUS OF PAIN, CARDIAC, RESPIRATORY, GASTROINTESTINAL, GENITOURINARY, SKIN, NEUROLOGIC, ENDOCRINE SYSTEMS TO IDENTIFY CHANGES ASSOCIATED WITH EXACERBATION FOR EARLY INTERVENTION OF COMPLICATIONS WEEKLY. [code = SKILLED NURSE FOR O/A OF GENERAL HEALTH STATUS OF PAIN, CARDIAC, RESPIRATORY, GASTROINTESTINAL, GENITOURINARY, SKIN, NEUROLOGIC, ENDOCRINE SYSTEMS TO IDENTIFY CHANGES ASSOCIATED WITH EXACERBATION FOR EARLY INTERVENTION OF COMPLICATIONS WEEKLY.] Future Scheduled Test SKILLED NU RSE TO ADMINISTER MEDICATIONS AND PRE-POUR MEDICATIONS TILL NEXT FPC VISIT PER MEDICATION LIST. [code = SKILLED NURSE TO ADMINISTER MEDICATIONS AND PRE-POUR MEDICATIONS TILL NEXT FPC VISIT PER MEDICATION LIST.] Future Scheduled Test [...] INTERVENTION.] Future Scheduled Test SKILLED NU RSE TO PERFORM HOME SAFETY AND FALL ASSESSMENT AND PROVIDE INSTRUCTION TO IMPLEMENT HOME SAFETY AND FALL PREVENTION STRATEGIES. [code = SKILLED NURSE TO PERFORM HOME SAFETY AND FALL ASSESSMENT AND PROVIDE INSTRUCTION TO IMPLEMENT HOME SAFETY AND FALL PREVENTION STRATEGIES.] Future Scheduled Test PATIENT ADAMS S A RISK OF HOSPITALIZATION AND ED USE. SKILLED NURSE TO ESTABLISH SUPPORT MEASURES TO MINIMIZE RISK OF HOSPITALIZATION AND ED USE, AND INSTRUCT PATIENT/CAREGIVER ON METHODS TO REDUCE AVOIDABLE HOSPITALIZATION AND ED USE. [code = PATIENT HAS A RISK OF HOSPITALIZATION AND ED USE. SKILLED NURSE TO ESTABLISH SUPPORT MEASURES TO MINIMIZE RISK OF HOSPITALIZATION AND ED USE, AND INSTRUCT PATIENT/CAREGIVER ON METHODS TO REDUCE AVOIDABLE HOSPITALIZATION AND ED USE.] Future Scheduled Test SKILLED NU RSE TO [...] PROBLEMS.] Future Scheduled Test SKILLED NU RSE FOR O/A OF CLIENT'S SOCIAL ISOLATION AND PROVIDE ASSISTANCE TO CLIENT IN DEVELOPMENT OF PLANNED ACTIVITIES [code = SKILLED NURSE FOR O/A OF CLIENT'S SOCIAL ISOLATION AND PROVIDE ASSISTANCE TO CLIENT IN DEVELOPMENT OF PLANNED ACTIVITIES] Future Scheduled Test SKILLED NU RSE TO ASSESS PATIENT S PSYCHOSOCIAL STATUS TO IDENTIFY POTENTIAL ISSUES THAT MAY COMPLICATE THE PROVISION OF THE PLAN OF CARE INCLUDING THE PATIENT S ABILITY TO ACCESS COMMUNITY RESOURCES AND PSYCHOSOCIAL SUPPORT SERVICES. [code = SKILLED NURSE TO ASSESS PATIENT S PSYCHOSOCIAL STATUS TO IDENTIFY POTENTIAL ISSUES THAT MAY COMPLICATE THE PROVISION OF THE PLAN OF CARE INCLUDING THE PATIENT S ABILITY TO ACCESS COMMUNITY RESOURCES AND PSYCHOSOCIAL SUPPORT SERVICES.] Future Scheduled Test SKILLED NU RSE WILL MAINTAIN SITUATIONAL AWARENESS FOR SAFETY AND WILL NOTIFY CLINICAL FORGEMAN HELPER AND PHYSICIAN/PROVIDER WITH ANY CHANGE IN CONDITION. [code = SKILLED NURSE WILL MAINTAIN SITUATIONAL AWARENESS FOR SAFETY AND WILL NOTIFY CLINICAL FORGEMAN HELPER AND PHYSICIAN/PROVIDER WITH ANY CHANGE IN CONDITION.] Future Scheduled Test SKILLED NU RSE TO PROVIDE INSTRUCTION TO PATIENT/CAREGIVER RELATED TO DISCHARGE PLANNING. [code = SKILLED NURSE TO PROVIDE INSTRUCTION TO PATIENT/CAREGIVER RELATED TO DISCHARGE PLANNING.] Goal 2023-07-30 Patient Goal - TAKING MY MED S Goal 2024-05-25 Patient Goal - TAKING MY MED S Goal 2024-03-26 Patient Goal - TAKING MY MED S Goal 2024-01-27 Patient Goal - TAKING MY MED S Goal 2023-11-27 Patient Goal - TAKING MY MED S Goal 2023-09-30 Patient Goal - TAKING MY MED S Goal Patient Goal - TAKING MY MED S Goal 2025-05-20 Patient Goal - TAKING MY MED S Goal 2025-03-22 Patient Goal - TAKING MY MED S Goal 2025-01-20 Patient Goal - TAKING MY MED S Goal 2024-11-23 Patient Goal - TAKING MY MED S Goal 2024-09-22 Patient Goal - TAKING MY MED S Goal 2024-07-24 Patient Goal - TAKING MY MED S Goal Provider Goal - A PLAN OF CARE WILL BE ESTABLISHED THAT MEETS PATIENT'S FPC NEEDS AND INCLUDES PATIENT GOAL FOR HOME HEALTH. Goal Provider Goal - PATIENT WILL COMPLY WITH MEDICATION WHEN NURSE ADMINISTERS THROUGHOUT CERTIFICATION PERIOD. Goal Provider Goal - PATIENT WILL COMPLY WITH MEDICATION WHEN SKILLED NURSE PRE-POURS MEDICATION THROUGHOUT CERTIFICATION PERIOD. Goal Provider Goal - ALTERED MENTAL/BEHAVIORAL STATUS WILL BE IDENTIFIED PROMPTLY AND INTERVENTION INITIATED QUICKLY TO MINIMIZE ASSOCIATED RISKS THROUGHOUT CERTIFICATION PERIOD. Goal Provider Goal - PATIENT WILL REMAIN SAFE IN COMMUNITY WITHOUT EVIDENCE OF INJURY/HARM TO SELF OR OTHERS THROUGHOUT CERTIFICATION PERIOD. Goal Provider Goal - PATIENT WILL BE ABLE TO PERFORM DAILY FUNCTIONS AND MAINTAIN OPTIMAL BEHAVIORAL/NEUROCOGNITIVE STATUS THROUGHOUT CERTIFICATION PERIOD. Goal Provider Goal - PATIENT WILL BE ABLE TO PERFORM DAILY FUNCTIONS AND HAVE OPTIMAL IMPROVEMENT IN THOUGHT PROCESS THROUGHOUT CERTIFICATION PERIOD. Goal Provider Goal - MEDICATION WILL BE STORED IN LOCKBOX FOR SAFETY. Goal Provider Goal - CHANGE IN GENERAL HEALTH STATUS WILL BE IDENTIFIED AND REPORTED TO PHYSICIAN FOR PROMPT INTERVENTION TO MINIMIZE ASSOCIATED RISKS THROUGHOUT CERTIFICATION PERIOD. Goal Provider Goal - PATIENT WILL COMPLY WITH MEDICATION WHEN SKILLED NURSE ADMINISTERS AND PRE-POURS MEDICATION THROUGHOUT CERTIFICATION PERIOD. Goal Provider Goal - PATIENT WILL REMAIN SAFE WITHOUT DECOMPENSATION IN DEPRESSIVE CONDITION, WHILE MAINTAINING OPTIMAL LEVEL OF MENTAL HEALTH AND WELL BEING THROUGHOUT CERTIFICATION PERIOD. Goal Provider Goal - PATIENT/CAREGIVER WILL VERBALIZE/DEMONSTRATE EFFECTIVE HOME SAFETY AND FALL PREVENTION STRATEGIES THROUGHOUT CERTIFICATION PERIOD. Goal Provider Goal - PATIENT WILL HAVE SUPPORT MEASURES ESTABLISHED TO PREVENT HOSPITALIZATION AND ED USE AND PATIENT/CAREGIVER WILL VERBALIZE/DEMONSTRATE METHODS TO REDUCE AVOIDABLE HOSPITALIZATION AND ED USE BY END OF EPISODE. Goal Provider Goal - PATIENT/CAREGIVER WILL VERBALIZE UNDERSTANDING OF EDUCATION PROVIDED ON MEDICATIONS BY THE END OF THE CERTIFICATION PERIOD. Goal Provider Goal - PATIENT WILL DEMONSTRATE AN INCREASED INTEREST IN SOCIALIZATION AND ACTIVITIES BY THE END OF THE CERTIFICATION PERIOD. Goal Provider Goal - PSYCHOSOCIAL NEEDS WILL BE IDENTIFIED AND PLAN IMPLEMENTED TO MINIMIZE RISK THROUGHOUT CERTIFICATION PERIOD. Goal Provider Goal - PATIENT WILL REMAIN SAFE IN THE COMMUNITY AND WILL BE FREE OF DANGER TO SELF AND OTHERS THROUGHOUT THE CERTIFICATION PERIOD. Goal Provider Goal - PATIENT/CAREGIVER WILL VERBALIZE UNDERSTANDING OF DISCHARGE PLANNING INSTRUCTIONS BY DATE OF DISCHARGE. Encounters Start Date/Time End Date/Time Encounter Type Admission Type Attending [facility] Care Department Encounter ID Discharge Date Discharge Status Discharge Condition Discharge Reason Percent Goals Met 2025-05-25 00:00:00 2025-07-23 00:00:00 Outpatient RECERTIFIC ATION SREE [facility] [id number]
== END 2025-06-30 14:57 | disposition home or self-care (01) ==
LOC: HO.HMCH 13:39
DX: F20.9 Schizophrenia, unspecified (principal); E78.2 Mixed hyperlipidemia

== ENCOUNTER → 2025-06-30 13:37 | Outpatient (BNVA) | payer OTHER, SELFPAY | DX: E78.2 Mixed hyperlipidemia (principal); F20.9 Schizophrenia, unspecified | CPT/HCPCS: 99212 ==